=== PATIENT | male | born 1945 | race Caucasian/White ===

== ENCOUNTER 2017-04-27 14:55 | Inpatient (IN) | payer OTHER, MEDICARE ==
[~2017-04-27] VITALS: Ht 172.7 cm; Wt 97.4 kg
[~2017-04-27 14:55] MED LIST: ATEN-104 PO; ATOR20TA PO; BUME2TAB PO; IPRA17I INH; K-TA10TA5 PO; NORV10TA PO; QUIN20 PO; TERA5CAP3 PO; Z.0.OXYGENDME
[2017-04-27 14:56] VITALS: BP 178/117; PULSE 67; RESP 16; TEMP 97.8; O2SAT 89
[2017-04-27] MEDS ORDERED: FUROSEMIDE 40 MG/4 ML VIAL IV PUSH ONE (15:30)
[2017-04-27] MEDS ORDERED: DILTIAZEM HCL 25 MG/5 ML VIAL IV PUSH ONE (15:45)
[2017-04-27] MEDS ORDERED: FURO40TA PO (16:01)
[2017-04-27] MEDS ORDERED: LYRI50CA PO (16:01)
[2017-04-27] MEDS ORDERED: ASPI-516 CHEW (16:01)
[2017-04-27] MEDS ORDERED: METO100T PO (16:01)
[2017-04-27] MEDS ORDERED: XARE15TA PO (16:01)
[2017-04-27] MEDS ORDERED: OXYGEN NAS.CANULA (16:01)
[2017-04-27] MEDS ORDERED: MONT10TA4 PO (16:01)
[2017-04-27] MEDS ORDERED: LISI-519 PO (16:01)
[2017-04-27] MEDS ORDERED: FLUTI220I INH (16:01)
--- NOTE | 2017-04-27 16:31 | PD ---
HPI Chief Complaint: Respiratory Distress Time Seen by Provider: 15:13 Travel History International Travel<30 days: No Contact w/Intl Traveler<30days: No Traveled to known affect area: No History of Present Illness HPI Patient is a 72-year-old male who comes in complaining of shortness of breath. He says this has been going on for the past 2 days. He says he has had issues with this in the past, he was admitted to the hospital in [place] a few weeks ago and had a defibrillator placed. He says he has had issues with edema of his legs, and that seems to be worsening. He denies cough or cold. He denies fever or chills. He wears oxygen at home. He is unable to lay flat at night due to shortness of breath. He denies dyspnea on exertion. However, he says he cannot walk to the swelling in his legs. He denies any chest pain. He says he has been taking his medications as prescribed, but had some trouble getting one prescription and only received it yesterday. Severity is moderate. PFSH Past Medical History Atrial Fibrillation: Yes Blood Disorders: No Heart Rhythm Problems: Yes (ABLATION 2012) Cancer: No Cardiovascular Problems: Yes (CAD, CHF) High Cholesterol: Yes Chest Pain: Yes Congestive Heart Failure: Yes COPD: Yes Diabetes: No Endocrine: No Gastrointestinal Disorders: Yes GERD: Yes Glaucoma: No Genitourinary: Yes Hepatitis: No Hiatal Hernia: Yes Hypertension: Yes Immune Disorder: No Inguinal Hernia: Yes Implanted Vascular Access Dvce: Yes Musculoskeletal: No Neurologic: No Psychiatric: No Reproductive: No Respiratory: Yes (COPD) Integumentary: No Sleep Apnea: No Triglycerides - High: Yes Ulcer: No Tetanus Vaccination: Unknown Influenza Vaccination: No Past Surgical History Abdominal Surgery: No Cardiac Surgery: Yes (stent placement, ICD) Ear Surgery: No Endocrine Surgery: No Eye Surgery: No Genitourinary Surgery: No Gynecologic Surgery: No Oral Surgery: No Thoracic Surgery: No Other Surgery: Yes (HERNIA REPAIR) Social History Alcohol Use: Yes (2 BEERS ON THE WEEKENDS) Tobacco Use: No Substance Use: No Allergies-Medications (Allergen,Severity, Reaction): Coded Allergies: No Known Allergies (Unverified Adverse Reaction, Unknown, 04/27/17) Reported Meds & Prescriptions Reported Meds & Active Scripts Active Reported [Oxygen] 2 Liter RG.CANULA CONTINUOUS Lyrica (Pregabalin) 50 Mg Cap 50 Mg PO BID Xarelto (Rivaroxaban) 15 Mg Tab 15 Mg PO DAILY Montelukast (Montelukast Sodium) 10 Mg Tab 10 Mg PO DAILY Flovent Hfa 12 GM Inh (Fluticasone Propionate) 220 Mcg/Act Inh 2 Puff INH BID Use daily at the same time. Metoprolol Tartrate 100 Mg Tab 100 Mg PO DAILY Lisinopril 5 Mg Tab 5 Mg PO DAILY Aspirin 81 Mg Chew 81 Mg CHEW DAILY Furosemide 40 Mg Tab 40 Mg PO BID Review of Systems Except as stated in HPI: all other systems reviewed are Neg General / Constitutional: No: Fever, Chills HENT: No: Headaches, Lightheadedness Cardiovascular: No: Chest Pain or Discomfort Respiratory: Positive: Shortness of Breath Gastrointestinal: No: Nausea, Vomiting Musculoskeletal: Positive: Edema, No: Myalgias Skin: No Rash, No Change in Pigmentation Neurologic: No: Weakness, Dizziness Physical Exam Narrative GENERAL: Awake and alert, no acute distress. SKIN: Focused skin assessment warm/dry. HEAD: Atraumatic. Normocephalic. EYES: Pupils equal and round. No scleral icterus. ENT: Mucous membranes pink and moist. NECK: Trachea midline. No JVD. CARDIOVASCULAR: Regular rate and rhythm. No murmur appreciated. RESPIRATORY: No accessory muscle use. Crackles in the left lung base.. Breath sounds equal bilaterally. GASTROINTESTINAL: Abdomen soft, non-tender, nondistended. MUSCULOSKELETAL: No obvious deformities. No clubbing. No cyanosis. Large 3+ edema to bilateral lower extremities. NEUROLOGICAL: Awake and alert. No obvious cranial nerve deficits. Motor grossly within normal limits. Normal speech. PSYCHIATRIC: Appropriate mood and affect; insight and judgment normal. Data Data Last Documented VS Vital Signs Date Time Temp Pulse Resp B/P (MAP) Pulse Ox O2 Delivery O2 Flow Rate FiO2 04/27/17 16:51 93 18 137/90 (106) 93 Nasal Cannula 3.00 04/27/17 14:56 97.8 Orders Orders Complete Blood Count With Diff (04/27/17 15:02) Basic Metabolic Panel (Bmp) (04/27/17 15:02) B-Type Natriuretic Peptide (04/27/17 15:02) Act Partial Throm Time (Ptt) (04/27/17 15:02) Prothrombin Time / Inr (Pt) (04/27/17 15:02) Magnesium (Mg) (04/27/17 15:02) Ckmb (Isoenzyme) Profile (04/27/17 15:02) Troponin I (04/27/17 15:02) Electrocardiogram (04/27/17 15:02) Chest, Pa & Lat (04/27/17 15:02) Furosemide Inj (Lasix Inj) (04/27/17 15:30) Diltiazem Inj (Cardizem Inj) (04/27/17 15:45) Ct Thorax/ Chest Wo Iv Contras (04/27/17 ) Labs Laboratory Tests Test 04/27/17 15:45 White Blood Count 9.6 TH/MM3 Red Blood Count 3.44 MIL/MM3 Hemoglobin 10.1 GM/DL Hematocrit 30.3 % Mean Corpuscular Volume 88.0 FL Mean Corpuscular Hemoglobin 29.3 PG Mean Corpuscular Hemoglobin Concent 33.3 % Red Cell Distribution Width 14.5 % Platelet Count 303 TH/MM3 Mean Platelet Volume 7.2 FL Neutrophils (%) (Auto) 69.8 % Lymphocytes (%) (Auto) 17.4 % Monocytes (%) (Auto) 11.8 % Eosinophils (%) (Auto) 0.2 % Basophils (%) (Auto) 0.8 % Neutrophils # (Auto) 6.7 TH/MM3 Lymphocytes # (Auto) 1.7 TH/MM3 Monocytes # (Auto) 1.1 TH/MM3 Eosinophils # (Auto) 0.0 TH/MM3 Basophils # (Auto) 0.1 TH/MM3 CBC Comment DIFF FINAL Differential Comment Prothrombin Time 12.1 SEC Prothromb Time International Ratio 1.2 RATIO Activated Partial Thromboplast Time 25.7 SEC Blood Urea Nitrogen 17 MG/DL Creatinine 1.24 MG/DL Random Glucose 106 MG/DL Calcium Level 8.3 MG/DL Magnesium Level 1.7 MG/DL Sodium Level 138 MEQ/L Potassium Level 3.5 MEQ/L Chloride Level 98 MEQ/L Carbon Dioxide Level 33.5 MEQ/L Anion Gap 7 MEQ/L Estimat Glomerular Filtration Rate 57 ML/MIN Total Creatine Kinase 46 U/L Troponin I 0.05 NG/ML B-Type Natriuretic Peptide 1101 PG/ML MDM Medical Decision Making Medical Screen Exam Complete: Yes Emergency Medical Condition: Yes Medical Record Reviewed: Yes Interpretation(s) ECG shows A. fib with RVR at a rate of 121. Differential Diagnosis CHF exacerbation versus ACS versus an STEMI versus A. fib Narrative Course Patient is a 72 year old male who comes in complaining of SOB. Exam shows crackles at his lung bases. IV established, labs sent. Labs show a BNP of 1101. CXR shows edema. Last 24 hours Impressions Chest X-Ray 04/27/17 1502 Signed Impressions: Service Date/Time: April 16:13 - CONCLUSION: 1. Patchy airspace disease in the right hemithorax, some of which appear to be nodular in configuration. CT scan of the chest be performed for further characterization. 2. Linear densities in the left lingula characteristic of scarring or atelectasis. 3. Compensated cardiomegaly. There may be small effusions bilaterally, however with some blunting of the costophrenic angles. Uriel Irwin MD Given Lasix. Given 1 dose of Cardizem due to afib at a rate of 121, which controlled his rate. Will be admitted for further management. Diagnosis Primary Impression: CHF (congestive heart failure) Qualified Codes: I50.9 - Heart failure, unspecified Additional Impressions: Hypoxia Afib Qualified Codes: I48.2 - Chronic atrial fibrillation Admitting Information Admitting Physician Requests: Admit Taylor Guerra MD Apr 27, 2017 16:31
[2017-04-27 16:32] LABS: AUTOMATED NEUTROPHIL # 6.7 TH/MM3 (1.8-7.7); BASOPHIL # 0.1 TH/MM3 (0-0.2); BASOPHIL % 0.8 % (0.0-2.0); EOSINOPHIL % 0.2 % (0.0-4.0); HEMATOCRIT 30.3 % (39.0-51.0); HEMOGLOBIN 10.1 GM/DL (13.0-17.0); LYMPH % 17.4 % (9.0-44.0); LYMPHOCYTE # 1.7 TH/MM3 (1.0-4.8); MEAN CORPUSCULAR HEMOGLOBIN 29.3 PG (27.0-34.0); MEAN CORPUSCULAR HGB CONC 33.3 % (32.0-36.0); MEAN PLATELET VOLUME 7.2 FL (7.0-11.0); MONO % 11.8 % (0.0-8.0); MONOCYTE # 1.1 TH/MM3 (0-0.9); NEUT % 69.8 % (16.0-70.0); PLATELET COUNT 303 TH/MM3 (150-450); RED BLOOD COUNT 3.44 MIL/MM3 (4.50-5.90); RED CELL DISTRIBUTION WIDTH 14.5 % (11.6-17.2); WHITE BLOOD COUNT 9.6 TH/MM3 (4.0-11.0)
[2017-04-27 16:43] LABS: INTERNATIONAL NORMALIZED RATIO 1.2 RATIO; PROTHROMBIN TIME - PATIENT 12.1 SEC (9.8-11.6)
[2017-04-27 16:51] VITALS: BP 137/90; PULSE 93; RESP 18; O2SAT 93
[2017-04-27 16:55] LABS: BICARBONATE 33.5 MEQ/L (21.0-32.0); CALCIUM 8.3 MG/DL (8.5-10.1); CREATININE 1.24 MG/DL (0.60-1.30); MAGNESIUM 1.7 MG/DL (1.5-2.5)
[2017-04-27 16:58] LABS: TROPONIN I 0.05 NG/ML (0.02-0.05)
--- NOTE | 2017-04-27 16:59 | RADRPT ---
EXAM DATE/TIME: 04/27/2017 16:13 [facility] COMPARISON: No previous studies available for comparison. INDICATIONS : Short of breath. MEDICAL HISTORY : Congestive heart failure. SURGICAL HISTORY : Pacemaker. ENCOUNTER: Initial ACUITY: 2 days PAIN SCORE: 0/10 LOCATION: Bilateral chest FINDINGS: PA and lateral views of the chest demonstrate the lungs to be symmetrically aerated with no fluid den sities in the right hemithorax and linear atelectatic changes or scar like density in the left lingul a. Blunting of the costophrenic angles may represent small effusions. Heart size is prominent but saman ears to be well compensated. Degenerative spurring of the dorsal spine. Osseous structures are otherw ise intact. Left subclavian unipolar pacer is also intact. CONCLUSION: 1. Patchy airspace disease in the right hemithorax, some of which appear to be nodular in configurati on. CT scan of the chest be performed for further characterization. 2. Linear densities in the left lingula characteristic of scarring or atelectasis. 3. Compensated cardiomegaly. There may be small effusions bilaterally, however with some blunting of the costophrenic angles. Uriel Irwin MD on April 27, 2017 at 16:50 Board Certified Radiologist. This report was verified electronically.
--- NOTE | 2017-04-27 19:19 | HHI.HP ---
[facility] No Primary Care Physician Admission Diagnosis CHF exacerbation, afib Diagnoses: Travel History International Travel<30 Days: No Contact w/Intl Traveler <30 Da: No Traveled to Known Affected Are: No History of Present Illness hx from patient, ER MD and review of med records Reports he came because he was short of breath for past several days [place] 04[place]13 [facility] - admitted for 19 days was intubated for 2 days was managed for heart failure exacerbation was placed aicd ef was 20% did angiogram- radial right - no blockage vtach- no shocks cardioversion required has hx of afib s/p ablation 4 yrs ago stated all symptoms started 03/07 or so, had GI bleed - vomit blood and was in pain and thus also took lots of tylenol for pain he started getting sick after this, and family thinks that he was at a place where closet has lots of mold that time and breathing attacks started then family worried his recent decline and lung issues maybe due to that he has been seeing Dr Tirado for past 4 yrs or so and has been on home oxygen for about 2-3 yrs , but cousin and pt is not aware of any lung diagnosis on review of records, he did have PFT studies in 2013 with clear evidence of home oxygen need from walk test- on [employer] [address] last [place] to here only lasix 40mg po daily dose at home increased to bid by pcp 3 days ago, no improvement in dyspnea, and swelling otherwise, denies other symptoms Review of Systems Except as stated in HPI: all other systems reviewed are Neg Past Family Social History Past Medical History htn chf - 20% aicd afib on eliquis vtach copd on home oxygen for past 3 yrs - placed by Dr Tirado hematuria while in hospital in [place] in Mar Past Surgical History coronary angiogram aicd Allergies: Coded Allergies: No Known Allergies (Unverified Allergy, Unknown, 04/27/17) Family History brother- heart problems cousin- heart dx father- lung problems Social History used to smoke, quit in 1985 social drinker no drugs no longer driving now , lives alone here , with close by to cousin Physical Exam Vital Signs Vital Signs Date Time Temp Pulse Resp B/P (MAP) Pulse Ox O2 Delivery O2 Flow Rate FiO2 04/27/17 16:51 93 18 137/90 (106) 93 Nasal Cannula 3.00 04/27/17 16:47 84 18 Nasal Cannula 2.00 04/27/17 14:56 97.8 67 16 178/117 (137) 89 Nasal Cannula Physical Exam GENERAL: This is a well-nourished, well-developed patient, in no apparent distress. SKIN: No rashes, ecchymoses or lesions. Cool and dry. HEAD: Atraumatic. Normocephalic. No temporal or scalp tenderness. EYES: No scleral icterus. No injection or drainage. ENT: Nose without bleeding, purulent drainage or septal hematoma. Airway patent. NECK: Trachea midline. No JVD CARDIOVASCULAR: Regular rate and rhythm without murmurs, gallops, or rubs. RESPIRATORY: Bilateral basilar crepitations GASTROINTESTINAL: Abdomen soft, non-tender, nondistended. No guarding. MUSCULOSKELETAL: Extremities without clubbing, cyanosis No calf tenderness. Bilateral LE 3+ pitting edema up to mid humphrey NEUROLOGICAL: Awake and alert.. Motor and sensory grossly within normal limits. . Normal speech. Laboratory Laboratory Tests Test 04/27/17 15:45 White Blood Count 9.6 Red Blood Count 3.44 Hemoglobin 10.1 Hematocrit 30.3 Mean Corpuscular Volume 88.0 Mean Corpuscular Hemoglobin 29.3 Mean Corpuscular Hemoglobin Concent 33.3 Red Cell Distribution Width 14.5 Platelet Count 303 Mean Platelet Volume 7.2 Neutrophils (%) (Auto) 69.8 Lymphocytes (%) (Auto) 17.4 Monocytes (%) (Auto) 11.8 Eosinophils (%) (Auto) 0.2 Basophils (%) (Auto) 0.8 Neutrophils # (Auto) 6.7 Lymphocytes # (Auto) 1.7 Monocytes # (Auto) 1.1 Eosinophils # (Auto) 0.0 Basophils # (Auto) 0.1 CBC Comment DIFF FINAL Differential Comment Prothrombin Time 12.1 Prothromb Time International Ratio 1.2 Activated Partial Thromboplast Time 25.7 Blood Urea Nitrogen 17 Creatinine 1.24 Random Glucose 106 Calcium Level 8.3 Magnesium Level 1.7 Sodium Level 138 Potassium Level 3.5 Chloride Level 98 Carbon Dioxide Level 33.5 Anion Gap 7 Estimat Glomerular Filtration Rate 57 Total Creatine Kinase 46 Troponin I 0.05 B-Type Natriuretic Peptide 1101 Result Diagram: 04/27/17 1545 04/27/17 1545 Imaging Last 48 hours Impressions Chest X-Ray 04/27/17 1502 Signed Impressions: Service Date/Time: April 16:13 - CONCLUSION: 1. Patchy airspace disease in the right hemithorax, some of which appear to be nodular in configuration. CT scan of the chest be performed for further characterization. 2. Linear densities in the left lingula characteristic of scarring or atelectasis. 3. Compensated cardiomegaly. There may be small effusions bilaterally, however with some blunting of the costophrenic angles. MD Tiffanie Guthrie VTE Risk Assessment Tiffanie VTE Risk Assessment: Mod/High Risk (score >= 2) Caprini Risk Assessment Model Point Value = 1 Point Value = 2 Point Value = 3 Point Value = 5 Age 41-60 Minor surgery BMI > 25 kg/m2 Swollen legs Varicose veins or History of unexplained or recurrent spontaneous Oral contraceptives or hormone replacement Sepsis (< 1 month) Serious lung disease, including pneumonia (< 1 month) Abnormal pulmonary function Acute myocardial infarction Congestive heart failure (< 1 month) History of inflammatory bowel disease Medical patient at bed rest Age 61-74 Arthroscopic surgery Major open surgery (> 45 min) Laparoscopic surgery (> 45 min) Malignancy Confined to bed (> 72 hours) Immobilizing plaster cast Central venous access Age >= 75 History of VTE Family history of VTE Factor V Leiden Prothrombin [id number] Lupus anticoagulant Anticardiolipin antibodies Elevated serum homocysteine Heparin-induced thrombocytopenia Other congenital or acquired thrombophilia Stroke (< 1 month) Elective arthroplasty Hip, pelvis, or leg fracture Acute spinal cord injury (< 1 month) Prophylaxis Regimen Total Risk Factor Score Risk Level Prophylaxis Regimen 0-1 Low Early ambulation 2 Moderate Order ONE of the following: *Sequential Compression Device (SCD) *Heparin 5000 units SQ BID 3-4 Higher Order ONE of the following medications: *Heparin 5000 units SQ TID *Enoxaparin/Lovenox 40 mg SQ daily (WT < 150 kg, CrCl > 30 mL/min) *Enoxaparin/Lovenox 30 mg SQ daily (WT < 150 kg, CrCl > 10-29 mL/min) *Enoxaparin/Lovenox 30 mg SQ BID (WT < 150 kg, CrCl > 30 mL/min) AND/OR *Sequential Compression Device (SCD) 5 or more Highest Order ONE of the following medications: *Heparin 5000 units SQ TID (Preferred with Epidurals) *Enoxaparin/Lovenox 40 mg SQ daily (WT < 150 kg, CrCl > 30 mL/min) *Enoxaparin/Lovenox 30 mg SQ daily (WT < 150 kg, CrCl > 10-29 mL/min) *Enoxaparin/Lovenox 30 mg SQ BID (WT < 150 kg, CrCl > 30 mL/min) AND *Sequential Compression Device (SCD) Assessment and Plan Assessment and Plan Impression: symptomatic acute on chronic systolic heart failure. failed outpatient therapy with increase in po lasix dose mild hypokalemia recent prolonged travel recent intubation Bilateral pneumonia. Hospital acquired/ventilator associated htn chf - 20% aicd afib on eliquis vtach copd on home oxygen for past 3 yrs - placed by Dr Candida lema while in hospital in [place] in Mar Plan: Lasix 40 mg IV every 12 hours. Fluid restriction. COPD education. Heart failure education. Lipase 40 mEq of by mouth at bedtime and one dose now. Ultrasound of the lower extremities. Clinical suspicion low. He is on anticoagulation at home. However with recent prolonged travel. Start cefepime 2 g IV every 12 hours. Consult patient's adjunct faculty instructor. Obtain records from [facility] in [place]. Resume rest of home meds. DVT prophylaxis on Xarelto. Discussed Condition With patient, cousin who is a retired physician in her country [facility], and ER Physician Certification 2 Midnight Certification Type: Admission for Inpatient Services Order for Inpatient Services The services are ordered in accordance with Medicare regulations or non- Medicare payer requirements, as applicable. In the case of services not specified as inpatient-only, they are appropriately provided as inpatient services in accordance with the 2-midnight benchmark. Estimated LOS (days): 2 days is the estimated time the patient will need to remain in the hospital, assuming treatment plan goals are met and no additional complications. Post-Hospital Plan: Not yet determined Linda De La Cruz MD Apr 27, 2017 19:19
--- NOTE | 2017-04-27 19:30 | RADRPT ---
EXAM DATE/TIME: 04/27/2017 18:53 [facility] COMPARISON: CT THORAX W CONTRAST, March 03, 2015, 17:52. INDICATIONS : Shortness of breath. Abnormal chest radiograph. RADIATION DOSE: 16.79 CTDIvol (mGy) MEDICAL HISTORY : Cardiovascular disease. Hypertension. Chronic obstructive pulmonary disease. SURGICAL HISTORY : Pacemaker. ENCOUNTER: Initial ACUITY: 1 day PAIN SCALE: 0/10 LOCATION: chest TECHNIQUE: Volumetric scanning of the chest was performed. Using automated exposure control and adjustment of t he mA and/or kV according to patient size, radiation dose was kept as low as reasonably achievable to obtain optimal diagnostic quality images. DICOM format image data is available electronically for r eview and comparison. Follow-up recommendations for detected pulmonary nodules are based at a minimum on nodule size and pa tient risk factors according to Fleischner Society Guidelines. FINDINGS: Patchy nodular infiltrates seen of both lungs, right greater the left and mid lung predominant. Indiv idual areas of consolidation measure up to 4.5 cm in size. There is bilateral hilar fullness, right m ore so than left. There is a 15 x 18 mm pretracheal lymph node that is much larger than before. Tiny right pleural effusion. No pneumothorax. There is panchamber enlargement of the heart, worse than before. Cardiac pacer present. CONCLUSION: 1. Patchy pneumonia of both lungs, mostly the mid lungs and right worse than left. 2. Suspected bilateral hilar lymphadenopathy, difficult to fully evaluate without contrast. Also mild ly enlarged mediastinal lymph nodes. 3. Panchamber enlargement of the heart, considerably worse than back in 2015. A cardiac pacer is now present. Chucky Desouza MD on April 27, 2017 at 19:23 Board Certified Radiologist. This report was verified electronically.
[2017-04-27] MEDS ORDERED: NALOXONE HCL 0.4 MG/ML AMP IV PUSH PRN (19:45)
[2017-04-27] MEDS ORDERED: POTASSIUM CHLORIDE 20 MEQ CONTROLLED RELEASE TAB PO ONE (19:45)
[2017-04-27] MEDS ORDERED: SODIUM CHLORIDE 0.9% FLUSH 10 ML FLUSH IV FLUSH PRN (19:45)
[2017-04-27 19:54] VITALS: BP 142/99; PULSE 110; RESP 24; O2SAT 98
--- NOTE | 2017-04-27 20:03 | RADRPT ---
EXAM DATE/TIME: 04/27/2017 19:27 [facility] COMPARISON: No previous studies available for comparison. INDICATIONS : Bilateral leg swelling. MEDICAL HISTORY : Congestive heart failure. Hypertension. Chronic obstructive pulmonary disease. Glasses. Atrial fibril lation. Hyperlipidemia. Dyspnea. Hypercholestrolemia. Atrial Fibrillation. Hiatal hernia. SURGICAL HISTORY : Stent placement. Cardiac ablation. ENCOUNTER: Initial ACUITY: 1 day PAIN SCORE: 3/10 LOCATION: Bilateral legs. TECHNIQUE: Venous ultrasound of the left and right leg was performed from the inguinal ligament to the proximal calf. Real-time, color Doppler and spectral tracing, compression and augmentation techniques were us ed. FINDINGS: RIGHT LEG: There is normal compressibility of the deep venous system from the inguinal region to the proximal ca lf. No echogenic clot is seen in the lumen of the common femoral, femoral, popliteal, and posterior tibial veins. There is a normal response of the venous system to proximal and distal augmentation an d respiration. LEFT LEG: There is normal compressibility of the deep venous system from the inguinal region to the proximal ca lf. No echogenic clot is seen in the lumen of the common femoral, femoral, popliteal, and posterior tibial veins. There is a normal response of the venous system to proximal and distal augmentation an d respiration. CONCLUSION: No DVT demonstrated. Chucky Desouza MD on April 27, 2017 at 20:00 Board Certified Radiologist. This report was verified electronically.
[2017-04-27] MEDS ORDERED: DILTIAZEM HCL 60 MG TAB PO ONE (20:45)
[2017-04-27 21:13] VITALS: BP 117/76; PULSE 107; RESP 20; TEMP 99; O2SAT 92
[2017-04-27 22:00] VITALS: PULSE 115
[2017-04-27] MEDS: FLUTICASONE PROPIONATE 220 MCG/ACT 12 GM INHALER INH SCH (22:21)
[2017-04-27] MEDS: PREGABALIN 25 MG CAP PO SCH (22:21)
[2017-04-27] MEDS: SODIUM CHLORIDE 0.9% FLUSH 10 ML FLUSH IV FLUSH SCH (22:22)
[2017-04-27] MEDS: CEFEPIME INJ 2,000 MG in SODIUM CHLORIDE 0.9% INJ 100 ML IV SCH (22:22)
[2017-04-28] VITALS (8 sets, daily range): BP systolic 108–162; BP diastolic 77–99; PULSE 85–131; RESP 20–22; TEMP 97.9–99.8; O2SAT 90–96
[2017-04-28] MEDS ORDERED: FUROSEMIDE 40 MG/4 ML VIAL IV PUSH ONE (02:30)
[2017-04-28] MEDS ORDERED: POTASSIUM CHLORIDE 20 MEQ CONTROLLED RELEASE TAB PO ONE (02:30)
[2017-04-28] MEDS ORDERED: RESP: ALBUTEROL 2.5 MG/IPRATROPIUM 0.5 MG NEB (PRN) NEB (02:30)
[2017-04-28] MEDS: RESP: ALBUTEROL 2.5 MG/IPRATROPIUM 0.5 MG NEB (SCH) NEB ×4 (03:32→20:58)
[2017-04-28 06:19] LABS: AUTOMATED NEUTROPHIL # 6.2 TH/MM3 (1.8-7.7); BASOPHIL # 0.1 TH/MM3 (0-0.2); BASOPHIL % 0.8 % (0.0-2.0); EOSINOPHIL % 0.4 % (0.0-4.0); HEMATOCRIT 31.9 % (39.0-51.0); HEMOGLOBIN 10.7 GM/DL (13.0-17.0); LYMPH % 12.2 % (9.0-44.0); MEAN CELL VOLUME 87.6 FL (80.0-100.0); MEAN CORPUSCULAR HEMOGLOBIN 29.4 PG (27.0-34.0); MEAN CORPUSCULAR HGB CONC 33.5 % (32.0-36.0); MEAN PLATELET VOLUME 7.1 FL (7.0-11.0); MONO % 12.4 % (0.0-8.0); NEUT % 74.2 % (16.0-70.0); PLATELET COUNT 282 TH/MM3 (150-450); RED BLOOD COUNT 3.64 MIL/MM3 (4.50-5.90); RED CELL DISTRIBUTION WIDTH 14.5 % (11.6-17.2); WHITE BLOOD COUNT 8.4 TH/MM3 (4.0-11.0)
[2017-04-28 06:38] LABS: CALCIUM 8.5 MG/DL (8.5-10.1); CREATININE 1.14 MG/DL (0.60-1.30)
[2017-04-28] MEDS: ASPIRIN 81 MG CHEW TAB CHEW SCH (08:12)
[2017-04-28] MEDS: PREGABALIN 25 MG CAP PO SCH ×2 (08:13→20:51)
[2017-04-28] MEDS: FUROSEMIDE 40 MG/4 ML VIAL IV PUSH SCH ×2 (08:13→17:43)
[2017-04-28] MEDS: RIVAROXABAN 15 MG TAB PO SCH (08:14)
[2017-04-28] MEDS: CEFEPIME INJ 2,000 MG in SODIUM CHLORIDE 0.9% INJ 100 ML IV SCH ×2 (08:14→20:50)
[2017-04-28] MEDS: METOPROLOL TARTRATE 100 MG TAB PO SCH (08:14)
[2017-04-28] MEDS: FLUTICASONE PROPIONATE 220 MCG/ACT 12 GM INHALER INH SCH ×2 (08:14→20:50)
[2017-04-28] MEDS: LISINOPRIL 5 MG TAB PO SCH (08:14)
[2017-04-28] MEDS: MONTELUKAST SODIUM 10 MG TAB PO SCH (08:14)
[2017-04-28] MEDS: SODIUM CHLORIDE 0.9% FLUSH 10 ML FLUSH IV FLUSH SCH ×2 (08:14→20:51)
[2017-04-28] MEDS: POTASSIUM CHLORIDE 20 MEQ CONTROLLED RELEASE TAB PO SCH (08:53)
--- NOTE | 2017-04-28 11:05 | HHI.PR ---
Subjective Remarks Follow-up pneumonia and heart failure. Improving shortness of breath. Denies cough. Discussed with nursing Objective Vitals Vital Signs Date Time Temp Pulse Resp B/P (MAP) Pulse Ox O2 Delivery O2 Flow Rate FiO2 04/28/17 08:45 Nasal Cannula 4.00 04/28/17 08:31 Nasal Cannula 4.00 04/28/17 08:00 98.1 94 22 161/99 (119) 95 04/28/17 08:00 85 04/28/17 04:00 131 04/28/17 04:00 99.8 89 20 162/94 (116) 90 04/28/17 03:36 92 Nasal Cannula 3.00 04/28/17 00:00 120 04/28/17 00:00 99.6 106 20 129/94 (106) 90 04/27/17 23:21 16 04/27/17 22:00 115 04/27/17 21:13 99.0 107 20 117/76 (90) 92 04/27/17 20:59 04/27/17 19:54 110 24 142/99 (113) 98 Nasal Cannula 3.00 04/27/17 16:51 93 18 137/90 (106) 93 Nasal Cannula 3.00 04/27/17 16:47 84 18 Nasal Cannula 2.00 04/27/17 14:56 97.8 67 16 178/117 (137) 89 Nasal Cannula I/O 04/27/17 04/27/17 04/27/17 04/28/17 04/28/17 04/28/17 07:00 15:00 23:00 07:00 15:00 23:00 Intake Total 100 ml 240 ml Balance 100 ml 240 ml Intake Oral 240 ml IV Total 100 ml # Voids 2 Result Diagram: 04/28/17 0531 04/28/17 0531 Imaging Last Impressions Chest X-Ray 04/27/17 1502 Signed Impressions: Service Date/Time: April 16:13 - CONCLUSION: 1. Patchy airspace disease in the right hemithorax, some of which appear to be nodular in configuration. CT scan of the chest be performed for further characterization. 2. Linear densities in the left lingula characteristic of scarring or atelectasis. 3. Compensated cardiomegaly. There may be small effusions bilaterally, however with some blunting of the costophrenic angles. Uriel Irwin MD Lower Extremity Ultrasound 04/27/17 Signed Impressions: Service Date/Time: April 19:27 - CONCLUSION: No DVT demonstrated. Chucky Desouza MD Chest CT 04/27/17 Signed Impressions: Service Date/Time: April 18:53 - CONCLUSION: 1. Patchy pneumonia of both lungs, mostly the mid lungs and right worse than left. 2. Suspected bilateral hilar lymphadenopathy, difficult to fully evaluate without contrast. Also mildly enlarged mediastinal lymph nodes. 3. Panchamber enlargement of the heart, considerably worse than back in 2015. A cardiac pacer is now present. Chucky Desouza MD Objective Remarks GENERAL: This is a well-nourished, well-developed patient, in no apparent distress on nasal. SKIN: No rashes, ecchymoses or lesions. Cool and dry. CARDIOVASCULAR: Regular rate and rhythm without murmurs, gallops, or rubs. RESPIRATORY: Decreased Breath sounds equal bilaterally. No wheezes, rales, or rhonchi. GASTROINTESTINAL: Abdomen soft, non-tender, nondistended. No guarding. MUSCULOSKELETAL: Extremities without clubbing, cyanosis but with bilateral trace leg edema. No joint tenderness, effusion, or edema noted. No calf tenderness. Negative Homans sign bilaterally. NEUROLOGICAL: Awake and alert. Cranial nerves II through XII intact. Motor and sensory grossly within normal limits. Five out of 5 muscle strength in all muscle groups. Normal speech. Procedures none A/P Problem List: (1) PNA (pneumonia) ICD Code: J18.9 - PNA (pneumonia) Status: Acute Assessment and Plan Acute on chronic systolic heart failure with failed outpatient therapy. Continue IV diuresis, CHF education, I/O and monitor weight and follow-up echocardiogram Bilateral pneumonia with sepsis. Hospital acquired/ventilator associated. Add Zithromax to Cefepime check influenza A, urinary Legionella and pneumococcal antigen and sputum culture. Obtain pro-calcitonin. Patient has hilar lymphadenopathy needs outpatient follow-up for resolution after treatment of infection. Patient has a technical agronomist Hypokalemia. Replace aggressively Multiple medical problems of chronic respiratory failure on home oxygen, hypertension, AICD history of V. tach and A. fib on Eliquis PT eval Discharge Planning Per PT will need a walker. Can be discharged home without PT Abando,Peña Jimenez MD Apr 28, 2017 11:05
[2017-04-28] MEDS: AZITHROMYCIN 250 MG TAB PO SCH (11:32)
[2017-04-28 12:34] LABS: MAGNESIUM 1.6 MG/DL (1.5-2.5)
--- NOTE | 2017-04-28 14:26 | EKG ---
Date Performed: 04/27/2017 Time Performed: 15:38:40 PTAGE: 72 years EKG: ATRIAL FIBRILLATION WITH RAPID VENTRICULAR RESPONSE ABNORMAL RHYTHM ECG Compared to PREVIOUS TRACING , the patient has developed new onset atrial fibrillation with a rapid v entricular response. PREVIOUS TRACIN03/03/2015 13.30 DOCTOR: Catherine Junior Interpretating Date/Time 04/28/2017 14:25:14
[2017-04-29] VITALS (10 sets, daily range): BP systolic 109–148; BP diastolic 67–89; PULSE 64–141; RESP 18–20; TEMP 97.8–101.2; O2SAT 92–96
[2017-04-29] MEDS ORDERED: ACETAMINOPHEN 325 MG TAB PO PRN (00:45)
--- NOTE | 2017-04-29 02:19 | RADRPT ---
EXAM DATE/TIME: 04/29/2017 01:39 [facility] COMPARISON: CHEST SINGLE AP, March 03, 2015, 14:14. INDICATIONS : Fever MEDICAL HISTORY : Congestive heart failure. SURGICAL HISTORY : Pacemaker. ENCOUNTER: Subsequent ACUITY: 3 days PAIN SCORE: 8/10 LOCATION: Bilateral chest FINDINGS: A single view of the chest demonstrates cardiomegaly. Mild basilar airspace disease. No pneumothorax. Small pleural effusions. CONCLUSION: 1. Mild basilar airspace disease. Differential diagnosis includes bronchopneumonia in patient with fe jj. Small effusions. Cardiomegaly. Mark Wallace MD on April 29, 2017 at 2:16 Board Certified Radiologist. This report was verified electronically.
[2017-04-29 02:54] LABS: AUTOMATED NEUTROPHIL # 6.7 TH/MM3 (1.8-7.7); BASOPHIL # 0.1 TH/MM3 (0-0.2); BASOPHIL % 0.6 % (0.0-2.0); EOSINOPHIL # 0.1 TH/MM3 (0-0.4); EOSINOPHIL % 0.8 % (0.0-4.0); HEMATOCRIT 32.1 % (39.0-51.0); HEMOGLOBIN 10.6 GM/DL (13.0-17.0); LYMPH % 9.3 % (9.0-44.0); LYMPHOCYTE # 0.8 TH/MM3 (1.0-4.8); MEAN CELL VOLUME 88.6 FL (80.0-100.0); MEAN CORPUSCULAR HEMOGLOBIN 29.1 PG (27.0-34.0); MEAN CORPUSCULAR HGB CONC 32.9 % (32.0-36.0); MEAN PLATELET VOLUME 7.2 FL (7.0-11.0); MONO % 12.3 % (0.0-8.0); MONOCYTE # 1.1 TH/MM3 (0-0.9); PLATELET COUNT 286 TH/MM3 (150-450); RED BLOOD COUNT 3.62 MIL/MM3 (4.50-5.90); RED CELL DISTRIBUTION WIDTH 14.6 % (11.6-17.2); WHITE BLOOD COUNT 8.7 TH/MM3 (4.0-11.0)
[2017-04-29 03:07] LABS: BICARBONATE 37.1 MEQ/L (21.0-32.0); CALCIUM 8.7 MG/DL (8.5-10.1); CREATININE 1.16 MG/DL (0.60-1.30); MAGNESIUM 1.6 MG/DL (1.5-2.5)
[2017-04-29] MEDS ORDERED: IBUPROFEN 400 MG TAB PO ONE (03:30)
[2017-04-29] MEDS: RESP: ALBUTEROL 2.5 MG/IPRATROPIUM 0.5 MG NEB (SCH) NEB ×4 (03:35→20:53)
[2017-04-29] MEDS: DILTIAZEM INJ 125 MG in SODIUM CHLORIDE 0.9% INJ 100 ML IV PRN (03:58)
--- NOTE | 2017-04-29 07:07 | MB ---
cc: ALEK ALMEIDA TWETHIDA MD DATE OF CONSULTATION 04/28/[address] De La Cruz. REASON FOR CONSULTATION Pulmonary management. HISTORY OF PRESENT ILLNESS Mr. Benavides is an elderly male who is known to me from the office. He has a history of COPD. The patient was seen in the office yesterday and he was having more shortness of breath and was advised to come to the emergency room. He does have a longstanding history of COPD and uses oxygen all the time. He went to [place] to see his family. He was admitted there to the hospital and remained in the hospital for three weeks. He was on the vent. He had ventricular tachycardia and required AICD placement. He has shortness of breath. No fevers. No night sweats. No chest pain. LABORATORY CBC showed WBC count 8.4, hemoglobin 10.7, hematocrit 31.9, MCV 87, platelet count 282. Sodium 139, potassium 3.4, chloride 90, CO2 36, BUN 19, creatinine 1.14. INR 1.2. IMAGING His CT scan of the chest shows patchy pneumonia in both lungs and has enlargement of the heart. Ultrasound of the lower extremities shows no DVT. PAST MEDICAL HISTORY 1. COPD. 2. Recent ventricular tachycardia, ICD placement. 3. Hypertension. MEDICATIONS He is currently takin. Zithromax 500 mg daily. 2. Aspirin 81 mg a day. 3. Lisinopril 5 mg a day. 4. Metoprolol 100 mg a day. 5. Singulair 10 mg a day. 6. Xarelto 15 mg a day. 7. Lasix 40 mg IV. 8. Potassium supplement. 9. Albuterol/Atrovent nebulizer treatments. 10.Cefepime 2 grams q.12h. ALLERGIES No known drug allergies. SOCIAL HISTORY He lives with his niece, has a history of smoking in the past. FAMILY HISTORY Noncontributory. REVIEW OF SYSTEMS He walks short distances and gets short of breath. No stroke. No DVT or pulmonary embolism. PHYSICAL EXAMINATION GENERAL: An obese male mildly short of breath. VITAL SIGNS: Blood pressure 140/86, heart rate 118, respirations 20, temperature 98.6. HEENT: Pupils are equal and reactive to light. Oral mucosa and nasal mucosa are normal. NECK: Supple. JVP not raised. CHEST: He has basilar rales and expiratory rhonchi. CV: S1, S2 normal. ABDOMEN: Benign. EXTREMITIES: 1+ pedal edema. IMPRESSION 1. COPD with exacerbation. 2. Pneumonia. 3. Respiratory insufficiency. 4. Recent AICD placement. 5. Obesity. PLAN Will give antibiotics and aerosol treatment, supplement his oxygen, continue Xarelto, monitor his oxygen. Will also check his blood gas. Further treatment will depend on the course in the hospital. Thank you Dr. De La Cruz for this consult. MD DELLA Drew/BT /9:44 PM /6:35 AM
[2017-04-29] MEDS: CEFEPIME INJ 2,000 MG in SODIUM CHLORIDE 0.9% INJ 100 ML IV SCH ×2 (08:24→20:44)
[2017-04-29] MEDS: RIVAROXABAN 15 MG TAB PO SCH (08:30)
[2017-04-29] MEDS: ASPIRIN 81 MG CHEW TAB CHEW SCH (08:30)
[2017-04-29] MEDS: METOPROLOL TARTRATE 100 MG TAB PO SCH (08:31)
[2017-04-29] MEDS: FUROSEMIDE 40 MG/4 ML VIAL IV PUSH SCH ×2 (08:31→18:27)
[2017-04-29] MEDS: POTASSIUM CHLORIDE 20 MEQ CONTROLLED RELEASE TAB PO SCH (08:31)
[2017-04-29] MEDS: LISINOPRIL 5 MG TAB PO SCH (08:31)
[2017-04-29] MEDS: MONTELUKAST SODIUM 10 MG TAB PO SCH (08:31)
[2017-04-29] MEDS: FLUTICASONE PROPIONATE 220 MCG/ACT 12 GM INHALER INH SCH ×2 (08:32→20:48)
[2017-04-29] MEDS: SODIUM CHLORIDE 0.9% FLUSH 10 ML FLUSH IV FLUSH SCH ×2 (08:32→20:48)
[2017-04-29] MEDS: PREGABALIN 25 MG CAP PO SCH ×2 (08:39→20:43)
[2017-04-29 11:27] LABS: BILIRUBIN, URINE NEG (NEG); BLOOD, URINE NEG (NEG); GLUCOSE,URINE NEG (NEG); HYALINE CAST, URINE 3 /lpf (RARE); KETONE, URINE TRACE mg/dL (NEG); MUCUS URINE FEW /lpf (OCC); NITRITE,URINE NEG (NEG); PH, URINE 5.5 (5.0-8.5); SQUAMOUS EPITHELIAL CELL URINE <1 /hpf (0-5); URINE COLOR YELLOW (YELLW/STRAW); URINE LEUKOCYTE ESTERASE NEG (NEG)
[2017-04-29] MEDS: AZITHROMYCIN 250 MG TAB PO SCH (11:41)
[2017-04-29] MEDS ORDERED: VANCOMYCIN INJ 1,950 MG in SODIUM CHLORID 0.9% 500 ML INJ 500 ML IV ONE (14:30)
[2017-04-29] MEDS ORDERED: Vancomycin Consult Pharmacy 1 EA OTHER PRN (14:30)
--- NOTE | 2017-04-29 14:36 | HHI.PR ---
Subjective Remarks Follow-up pneumonia. T-max 102. Patient also went into RVR, Cardizem drip started. Currently denies chest pain, palpitations shortness of breath on nasal cannula. Discussed with nursing and pulmonary Objective Vitals Vital Signs Date Time Temp Pulse Resp B/P (MAP) Pulse Ox O2 Delivery O2 Flow Rate FiO2 04/29/17 12:00 98.0 100 20 109/69 (82) 95 04/29/17 09:43 Nasal Cannula 4.00 04/29/17 08:00 98.4 64 18 139/72 (94) 95 04/29/17 04:00 98.8 70 18 115/71 (86) 92 04/29/17 04:00 141 04/29/17 03:58 78 115/71 04/29/17 02:00 101.2 04/29/17 00:20 93 Nasal Cannula 4.00 04/29/17 00:00 134 04/28/17 20:00 98.6 118 20 140/86 (104) 93 04/28/17 20:00 93 Nasal Cannula 4.00 04/28/17 20:00 117 04/28/17 16:00 97.9 87 20 108/77 (87) 96 04/28/17 16:00 93 04/28/17 15:21 94 Nasal Cannula 4.00 I/O 04/28/17 04/28/17 04/28/17 04/29/17 04/29/17 04/29/17 07:00 15:00 23:00 07:00 15:00 23:00 Intake Total 240 ml 580 ml Balance 240 ml 580 ml Intake Oral 240 ml 480 ml IV Total 100 ml # Voids 2 4 Result Diagram: 04/29/17 0231 04/29/17 0231 Imaging Last Impressions Chest X-Ray 04/29/17 0134 Signed Impressions: Service Date/Time: Saturday, April 29, 2017 01:39 - CONCLUSION: 1. Mild basilar airspace disease. Differential diagnosis includes bronchopneumonia in patient with fever. Small effusions. Cardiomegaly. Mark Wallace MD Lower Extremity Ultrasound 04/27/17 0000 Signed Impressions: Service Date/Time: April 19:27 - CONCLUSION: No DVT demonstrated. Chucky Desouza MD Chest CT 04/27/17 0000 Signed Impressions: Service Date/Time: April 18:53 - CONCLUSION: 1. Patchy pneumonia of both lungs, mostly the mid lungs and right worse than left. 2. Suspected bilateral hilar lymphadenopathy, difficult to fully evaluate without contrast. Also mildly enlarged mediastinal lymph nodes. 3. Panchamber enlargement of the heart, considerably worse than back in 2015. A cardiac pacer is now present. Chucky Desouza MD Objective Remarks GENERAL: This is a well-nourished, well-developed patient, in no apparent distress on nasal. SKIN: No rashes, ecchymoses or lesions. Cool and dry. CARDIOVASCULAR: Irregularly irregular without murmurs, gallops, or rubs. RESPIRATORY: Decreased Breath sounds equal bilaterally. No wheezes, rales, or rhonchi. AICD on the left chest wall GASTROINTESTINAL: Abdomen soft, non-tender, nondistended. No guarding. MUSCULOSKELETAL: Extremities without clubbing, cyanosis but with bilateral trace leg edema. No joint tenderness, effusion, or edema noted. No calf tenderness. Negative Homans sign bilaterally. NEUROLOGICAL: Awake and alert. Cranial nerves II through XII intact. Motor and sensory grossly within normal limits. Five out of 5 muscle strength in all muscle groups. Normal speech. Procedures none A/P Problem List: (1) PNA (pneumonia) ICD Code: J18.9 - PNA (pneumonia) Status: Acute Assessment and Plan Acute on chronic systolic heart failure with failed outpatient therapy. Improving he is diuresing and losing weight. Continue IV diuresis, CHF education, I/O and monitor weight Bilateral pneumonia with sepsis. Hospital acquired/ventilator associated. Patient continues to have fever spikes will add IV vancomycin to Zithromax and cefepime. Negative influenza A, urinary Legionella and pneumococcal antigen. Patient has hilar lymphadenopathy needs outpatient follow-up for resolution after treatment of infection. Patient has a career technical supervisor Hypokalemia. Replace aggressively A. fib with RVR. Increase Lopressor to 75 mg twice a day and wean Cardizem drip Heart rate less than 100 continue Xarelto. Multiple medical problems of chronic respiratory failure on home oxygen, hypertension and AICD history of V. tach Discharge Planning Per PT will need a walker. Can be discharged home without PT Peña Guillaume MD Apr 29, 2017 14:36
[2017-04-29] MEDS: VANCOMYCIN INJ 1,750 MG in SODIUM CHLORID 0.9% 500 ML INJ 500 ML IV SCH (16:21)
[2017-04-29] MEDS ORDERED: MAGNESIUM HYDROXIDE SUSP 30 ML CUP PO ONE (20:30)
[2017-04-29] MEDS: METOPROLOL TARTRATE 50 MG TAB PO SCH (20:43)
[2017-04-29] MEDS: methylPREDNISolone SOD SUCC 40 MG/1 ML VIAL IV PUSH SCH (20:43)
[2017-04-29] MEDS: DOCUSATE SODIUM 100 MG CAP PO SCH (20:48)
[2017-04-30] VITALS (11 sets, daily range): BP systolic 116–143; BP diastolic 73–99; PULSE 69–109; RESP 16–20; TEMP 97.8–98.3; O2SAT 93–94
[2017-04-30] MEDS: RESP: ALBUTEROL 2.5 MG/IPRATROPIUM 0.5 MG NEB (SCH) NEB ×4 (02:53→21:37)
[2017-04-30] MEDS: PREGABALIN 25 MG CAP PO SCH ×2 (09:13→20:53)
[2017-04-30] MEDS: POTASSIUM CHLORIDE 20 MEQ CONTROLLED RELEASE TAB PO SCH (09:14)
[2017-04-30] MEDS: DOCUSATE SODIUM 100 MG CAP PO SCH ×2 (09:14→20:53)
[2017-04-30] MEDS: RIVAROXABAN 15 MG TAB PO SCH (09:14)
[2017-04-30] MEDS: LISINOPRIL 5 MG TAB PO SCH (09:14)
[2017-04-30] MEDS: ASPIRIN 81 MG CHEW TAB CHEW SCH (09:14)
[2017-04-30] MEDS: METOPROLOL TARTRATE 50 MG TAB PO SCH ×2 (09:15→20:53)
[2017-04-30] MEDS: methylPREDNISolone SOD SUCC 40 MG/1 ML VIAL IV PUSH SCH ×2 (09:15→20:54)
[2017-04-30] MEDS: FUROSEMIDE 40 MG/4 ML VIAL IV PUSH SCH (09:15)
[2017-04-30] MEDS: SODIUM CHLORIDE 0.9% FLUSH 10 ML FLUSH IV FLUSH SCH ×2 (09:15→20:54)
[2017-04-30] MEDS: CEFEPIME INJ 2,000 MG in SODIUM CHLORIDE 0.9% INJ 100 ML IV SCH ×2 (09:16→20:53)
[2017-04-30] MEDS: FLUTICASONE PROPIONATE 220 MCG/ACT 12 GM INHALER INH SCH ×2 (09:16→20:54)
[2017-04-30] MEDS: MONTELUKAST SODIUM 10 MG TAB PO SCH (09:16)
[2017-04-30 09:35] LABS: CREATININE 1.18 MG/DL (0.60-1.30); MAGNESIUM 2.3 MG/DL (1.5-2.5)
[2017-04-30] MEDS: AZITHROMYCIN 250 MG TAB PO SCH (12:27)
[2017-04-30] MEDS: DILTIAZEM INJ 125 MG in SODIUM CHLORIDE 0.9% INJ 100 ML IV PRN (14:00)
--- NOTE | 2017-04-30 14:19 | HHI.PR ---
Subjective Remarks Follow-up pneumonia and A. fib. He is feeling better improving shortness of breath. No fever. Patient was taken off Cardizem drip but was restarted because of RVR denies palpitations. Last echocardiogram in January [address] Dueñas. Discussed with nursing Objective Vitals Vital Signs Date Time Temp Pulse Resp B/P (MAP) Pulse Ox O2 Delivery O2 Flow Rate FiO2 04/30/17 14:00 145 143/99 04/30/17 12:00 98.2 82 20 143/99 (114) 93 04/30/17 10:06 94 Nasal Cannula 4.00 04/30/17 08:00 80 04/30/17 08:00 97.8 88 20 121/75 (90) 94 04/30/17 07:00 Nasal Cannula 2.00 04/30/17 04:00 Nasal Cannula 4.00 04/30/17 04:00 98.0 106 18 127/92 (104) 93 04/30/17 03:44 94 04/30/17 00:00 98.3 109 16 116/83 (94) 94 04/30/17 00:00 Nasal Cannula 4.00 04/29/17 23:41 99 04/29/17 20:53 Nasal Cannula 4.00 04/29/17 20:00 99.1 96 18 148/89 (108) 96 04/29/17 20:00 Nasal Cannula 4.00 04/29/17 19:43 101 04/29/17 16:00 93 04/29/17 16:00 97.8 95 20 121/67 (85) 93 I/O 04/29/17 04/29/17 04/29/17 04/30/17 04/30/17 04/30/17 07:00 15:00 23:00 07:00 15:00 23:00 Intake Total 100 ml 860 ml Output Total 400 ml Balance 100 ml 860 ml -400 ml Intake Oral 200 ml IV Total 100 ml 660 ml Output Urine Total 400 ml Result Diagram: 04/29/17 0231 04/30/17 0709 Imaging Last Impressions Chest X-Ray 04/29/17 0134 Signed Impressions: Service Date/Time: Saturday, April 29, 2017 01:39 - CONCLUSION: 1. Mild basilar airspace disease. Differential diagnosis includes bronchopneumonia in patient with fever. Small effusions. Cardiomegaly. Mark Wallace MD Lower Extremity Ultrasound 04/27/17 Signed Impressions: Service Date/Time: April 19:27 - CONCLUSION: No DVT demonstrated. Chucky Desouza MD Chest CT 04/27/17 Signed Impressions: Service Date/Time: April 18:53 - CONCLUSION: 1. Patchy pneumonia of both lungs, mostly the mid lungs and right worse than left. 2. Suspected bilateral hilar lymphadenopathy, difficult to fully evaluate without contrast. Also mildly enlarged mediastinal lymph nodes. 3. Panchamber enlargement of the heart, considerably worse than back in 2015. A cardiac pacer is now present. Chucky Desouza MD Objective Remarks GENERAL: This is a well-nourished, well-developed patient, in no apparent distress on nasal. SKIN: No rashes, ecchymoses or lesions. Cool and dry. CARDIOVASCULAR: Irregularly irregular without murmurs, gallops, or rubs. RESPIRATORY: Decreased Breath sounds equal bilaterally. No wheezes, rales, or rhonchi. AICD on the left chest wall GASTROINTESTINAL: Abdomen soft, non-tender, nondistended. No guarding. MUSCULOSKELETAL: Extremities without clubbing, cyanosis but with bilateral trace leg edema. No joint tenderness, effusion, or edema noted. No calf tenderness. Negative Homans sign bilaterally. NEUROLOGICAL: Awake and alert. Cranial nerves II through XII intact. Motor and sensory grossly within normal limits. Five out of 5 muscle strength in all muscle groups. Normal speech. Procedures none A/P Problem List: (1) PNA (pneumonia) ICD Code: J18.9 - PNA (pneumonia) Status: Acute Assessment and Plan Acute on chronic systolic heart failure with failed outpatient therapy. Improving he is diuresing continue IV Lasix, CHF education, I/O and monitor weight Bilateral pneumonia with sepsis. Hospital acquired/ventilator associated. Also improving no more fever continue IV vancomycin, Zithromax and cefepime. Negative influenza A, urinary Legionella and pneumococcal antigen. Patient has hilar lymphadenopathy needs outpatient follow-up for resolution after treatment of infection. Patient has a resp ther Hypokalemia. Replace aggressively A. fib with RVR. Continue Lopressor 75 mg twice a day and wean Cardizem drip Heart rate less than 100. Also continue Xarelto. Multiple medical problems of chronic respiratory failure on home oxygen, hypertension and AICD history of V. tach Discharge Planning Per PT will need a walker. Can be discharged home without PT Markell,Peña Jimenez MD Apr 30, 2017 14:19
[2017-04-30] MEDS ORDERED: AUGM875T3 PO (15:38)
[2017-04-30] MEDS ORDERED: METO-309 PO (15:38)
[2017-04-30] MEDS ORDERED: PRED20 PO (15:38)
[2017-04-30] MEDS ORDERED: POTA20TA5 PO (15:38)
--- NOTE | 2017-04-30 15:38 | HHI.DCPOC ---
Discharge Care Plan Diagnosis: (1) CHF (congestive heart failure) (2) PNA (pneumonia) Your Health Problems Are: Difficulty with ADL Exercise Tolerance Goals to Promote Your Health * To prevent worsening of your condition and complications * To maintain your health at the optimal level Directions to Meet Your Goals Take your medications as prescribed Follow your dietary instruction Follow activity as directed Keep your appointments as scheduled Take your immunizations and boosters as scheduled If your symptoms worsen call your PCP, if no PCP go to Urgent Care Center or Emergency Room Smoking is Dangerous to Your Health. Avoid second hand smoke Call the 24-hour hour crisis hotline for domestic abuse at Peña Guillaume MD Apr 30, 2017 15:38
[2017-04-30] MEDS: VANCOMYCIN INJ 1,750 MG in SODIUM CHLORID 0.9% 500 ML INJ 500 ML IV SCH (16:30)
[2017-04-30] MEDS: DILTIAZEM HCL 60 MG TAB PO SCH ×3 (16:42→23:05)
--- NOTE | 2017-04-30 17:11 | MB ---
cc: JAYDEN DUEÑAS M.D., HANSCY M.D. DATE OF CONSULTATION: 04/30/2017. REASON FOR CONSULTATION: Electrophysiology consult for atrial fibrillation with fast ventricular response. HISTORY OF PRESENT ILLNESS: Mr. Benavides is a 72-year-old gentleman history of congestive heart failure, coronary artery disease, atrial fibrillation who has had a previous ablation in 2012. The gentleman is back in atrial fibrillation. He was in [place] a couple of weeks ago. A defibrillator was placed. The wound is still healing. He was admitted due to shortness of breath. He has atrial fibrillation with fast ventricular response. I was consulted for evaluation and management. The chart was reviewed. The patient was evaluated. ALLERGIES: None. SOCIAL HISTORY: The patient currently drinks a couple of beers at the weekend. Negative for smoking. FAMILY HISTORY: Noncontributory to his current medical condition. MEDICATIONS AT HOME: 1. Lyrica. 2. Xarelto. 3. Flovent. 4. Metoprolol. 5. Lisinopril. 6. Aspirin. 7. Lasix. 8. Cardizem IV was added during the hospitalization as well as Cefepime and Vancomycin and Lasix IV. REVIEW OF SYSTEMS: The patient refers no chest pain, no chest discomfort, shortness of breath has improved. No vomiting. No fever. PHYSICAL EXAMINATION: GENERAL: Alert, fully oriented. VITAL SIGNS: His blood pressure is 142/99, pulse around 130, irregular, respiratory rate 18. LUNGS: Ventilated. CARDIOVASCULAR: S1, S2, tachycardic, irregular. CHEST: Left infraclavicular area with a clean surgical wound. ABDOMEN: Obese, no mass. No bruits. EXTREMITIES: No edema. EKGS: Electrocardiogram shows atrial fibrillation with fast ventricular response. LABS: BNP is 1100. Potassium is 3.4. Creatinine is 1.14. INR is 1.2. Hemoglobin is 10. White blood cell count 8.7. ASSESSMENT AND RECOMMENDATIONS: Mr. Benavides is currently stable. I do not know his ejection fraction. He has heart failure. But there is no edema of his extremities. His BNP is barely 1100. 1. I am going to D/C the IV Lasix. 2. Rate needs to be controlled. 3. The gentleman is on Cardizem IV. I am going to start Cardizem p.o. 4. Metoprolol will be up-titrated if necessary in the morning. The case was discussed with him. Follow up in the morning by my partner, Dr. Dueñas. MD JOE Meneses/CINTHIA /4:12 PM /5:01 PM
[2017-05-01] VITALS (9 sets, daily range): BP systolic 112–159; BP diastolic 74–79; PULSE 67–77; RESP 19–20; TEMP 97.5–97.8; O2SAT 91–96
[2017-05-01] MEDS: RESP: ALBUTEROL 2.5 MG/IPRATROPIUM 0.5 MG NEB (SCH) NEB ×2 (03:41→09:47)
[2017-05-01] MEDS: DILTIAZEM HCL 60 MG TAB PO SCH ×2 (06:47→12:00)
[2017-05-01] MEDS: DOCUSATE SODIUM 100 MG CAP PO SCH (09:05)
[2017-05-01] MEDS: methylPREDNISolone SOD SUCC 40 MG/1 ML VIAL IV PUSH SCH (09:05)
[2017-05-01] MEDS: PREGABALIN 25 MG CAP PO SCH (09:05)
[2017-05-01] MEDS: MONTELUKAST SODIUM 10 MG TAB PO SCH (09:05)
[2017-05-01] MEDS: LISINOPRIL 5 MG TAB PO SCH (09:06)
[2017-05-01] MEDS: METOPROLOL TARTRATE 50 MG TAB PO SCH (09:06)
[2017-05-01] MEDS: ASPIRIN 81 MG CHEW TAB CHEW SCH (09:06)
[2017-05-01] MEDS: RIVAROXABAN 15 MG TAB PO SCH (09:06)
[2017-05-01] MEDS: POTASSIUM CHLORIDE 20 MEQ CONTROLLED RELEASE TAB PO SCH (09:06)
[2017-05-01] MEDS: FLUTICASONE PROPIONATE 220 MCG/ACT 12 GM INHALER INH SCH (09:07)
[2017-05-01] MEDS: CEFEPIME INJ 2,000 MG in SODIUM CHLORIDE 0.9% INJ 100 ML IV SCH (09:07)
[2017-05-01] MEDS: SODIUM CHLORIDE 0.9% FLUSH 10 ML FLUSH IV FLUSH SCH (09:07)
[2017-05-01] MEDS ORDERED: CARD240C6 PO (10:48)
[2017-05-01] MEDS ORDERED: LACTULOSE SYRUP 20 GM/30 ML CUP PO PRN (12:00)
[2017-05-01] MEDS ORDERED: SENNOSIDES 8.6 MG TAB PO PRN (12:00)
[2017-05-01] MEDS ORDERED: MAGNESIUM HYDROXIDE SUSP 30 ML CUP PO ONE (12:00)
[2017-05-01] MEDS: AZITHROMYCIN 250 MG TAB PO SCH (12:00)
[2017-05-01] MEDS ORDERED: MAGNESIUM HYDROXIDE SUSP 30 ML CUP PO PRN (12:00)
[2017-05-01] MEDS ORDERED: BISACODYL 10 MG SUPP RECTAL PRN (12:00)
[2017-05-01] MEDS ORDERED: DOCUSATE SODIUM 50 MG/SENNA 8.6 MG TAB PO SCH (12:00)
[2017-05-01] MEDS ORDERED: AMOXICILLIN/CLAVULANATE K 875 MG TAB PO SCH (13:00)
--- NOTE | 2017-05-01 13:22 | HHI.DS ---
Discharge Summary Admission Date Apr 27, 2017 at 18:53 Discharge Date: May 01, 2017 Admitting Diagnosis CHF exacerbation, afib (1) PNA (pneumonia) ICD Code: J18.9 - PNA (pneumonia) Diagnosis: Principal Status: Acute Procedures none Brief History - From Admission hx from patient, ER MD and review of med records Reports he came because he was short of breath for past several days discharged from [facility] 04/13 [facility] - admitted for 19 days was intubated for 2 days was managed for heart failure exacerbation was placed aicd ef was 20% did angiogram- radial right - no blockage vtach- no shocks cardioversion required has hx of afib s/p ablation 4 yrs ago stated all symptoms started 03/07 or so, had GI bleed - vomit blood and was in pain and thus also took lots of tylenol for pain he started getting sick after this, and family thinks that he was at a place where closet has lots of mold that time and breathing attacks started then family worried his recent decline and lung issues maybe due to that he has been seeing Dr Tirado for past 4 yrs or so and has been on home oxygen for about 2-3 yrs , but cousin and pt is not aware of any lung diagnosis on review of records, he did have PFT studies in 2013 with clear evidence of home oxygen need from walk test- [place] [employer] [address] [facility] [place] [facility] [place] only lasix 40mg po daily dose at home increased to bid by pcp 3 days ago, no improvement in dyspnea, and swelling otherwise, denies other symptoms CBC/BMP: 04/29/17 0231 04/30/17 0709 Significant Findings Laboratory Tests Test 04/29/17 02:31 04/29/17 05:40 04/29/17 10:15 04/30/17 07:09 Red Blood Count 3.62 MIL/MM3 (4.50-5.90) Hemoglobin 10.6 GM/DL (13.0-17.0) Hematocrit 32.1 % (39.0-51.0) Neutrophils (%) (Auto) 77.0 % (16.0-70.0) Monocytes (%) (Auto) 12.3 % (0.0-8.0) Lymphocytes # (Auto) 0.8 TH/MM3 (1.0-4.8) Monocytes # (Auto) 1.1 TH/MM3 (0-0.9) Blood Urea Nitrogen 24 MG/DL (7-18) 33 MG/DL (7-18) Random Glucose 117 MG/DL (74-106) 175 MG/DL (74-106) Chloride Level 97 MEQ/L (98-107) 97 MEQ/L (98-107) Carbon Dioxide Level 37.1 MEQ/L (21.0-32.0) 38.0 MEQ/L (21.0-32.0) Estimat Glomerular Filtration Rate 62 ML/MIN (>89) 61 ML/MIN (>89) Blood Gas HCO3 38 mmol/L (22-26) Blood Gas Base Excess 12.7 mmol/L (-2-2) Blood Gas Oxygen Saturation 75 % (90-100) Arterial Blood Partial Pressure CO2 63 mmHg (38-42) Arterial Blood Partial Pressure O2 43 mmHg (61-120) Arterial Blood Oxygen Content 11.0 Vol % (12.0-20.0) Blood Gas Hemoglobin 10.4 G/DL (12.0-16.0) Urine Protein 30 mg/dL (NEG-TRACE) Urine Ketones TRACE mg/dL (NEG) Urine Mucus FEW /lpf (OCC) PE at Discharge GENERAL: This is a well-nourished, well-developed patient, in no apparent distress on nasal cannula 3 L. SKIN: No rashes, ecchymoses or lesions. Cool and dry. CARDIOVASCULAR: Irregularly irregular without murmurs, gallops, or rubs. RESPIRATORY: Decreased Breath sounds equal bilaterally. No wheezes, rales, or rhonchi. AICD on the left chest wall GASTROINTESTINAL: Abdomen soft, non-tender, nondistended. No guarding. MUSCULOSKELETAL: Extremities without clubbing, cyanosis but with bilateral trace leg edema. No joint tenderness, effusion, or edema noted. No calf tenderness. Negative Homans sign bilaterally. NEUROLOGICAL: Awake and alert. Cranial nerves II through XII intact. Motor and sensory grossly within normal limits. Five out of 5 muscle strength in all muscle groups. Normal speech. Hospital Course Acute on chronic systolic heart failure with failed outpatient therapy. Improving he is diuresing continue Lasix, CHF education, I/O and monitor weight. Recently had echocardiogram in [place] rsults not known to patient but received AICD Bilateral pneumonia with sepsis. Hospital acquired/ventilator associated. Also improving no more fever start Augmentin discontinue IV vancomycin, Zithromax and cefepime. Negative influenza A, urinary Legionella and pneumococcal antigen. Blood cultures negative to date. Sputum with B strep not group A. Patient has hilar lymphadenopathy needs outpatient follow-up for resolution after treatment of infection. Patient has a body and frame technician Hypokalemia. Replace aggressively A. fib with RVR. Well-controlled continue Lopressor 75 mg twice a day and Cardizem p.o. status post Cardizem drip. Also continue Xarelto. Constipation. Start bowel regimen. Multiple medical problems of chronic respiratory failure on home oxygen, hypertension and AICD history of V. tach. Wean oxygen down to 2 L to keep saturations at least 92% Pt Condition on Discharge: Stable Discharge Disposition: Discharge Home Discharge Time: > 30 minutes Discharge Instructions DIET: Follow Instructions for: Heart Healthy Diet Activities you can perform: Regular-No Restrictions Activities to Avoid: Driving Follow up Referrals: Cardiology - 2 Weeks PCP Follow-up @ [facility] PCP Follow-up - 2-3 Days Pulmonology - 1 Week New Orders: X-RAY CHEST PA & LAT - 6 Weeks New Medications: Amoxicillin-Clavulanate (Augmentin) 875-125 Mg Tab 1 TAB PO BID for Infection, #20 TAB 0 Refills Diltiazem CD 24 HR (Cardizem CD 24 HR) 240 Mg Caper 240 MG PO DAILY for Regulate Heart Beat, #30 CAP 0 Refills Prednisone (Prednisone) 20 Mg Tab 40 MG PO DAILY for Control Inflammation, #10 TAB 0 Refills Take 40 mg (2 tablets) daily for 5 days Metoprolol Tartrate (Lopressor) 50 Mg Tab 75 MG PO Q12HR for Regulate Heart Beat, #90 TAB Potassium Chloride Microencaps (Potassium Chloride Microencaps) 20 Meq Tab 40 MEQ PO DAILY for Electrolyte Replacement, #60 TAB Continued Medications: Aspirin (Aspirin) 81 Mg Chew 81 MG CHEW DAILY, TAB 0 Refills Fluticasone 12 GM Inh (Flovent Hfa 12 GM Inh) 220 Mcg/Act Inh 2 PUFF INH BID for Asthma Management, #1 INHALER 0 Refills Use daily at the same time. Furosemide (Furosemide) 40 Mg Tab 40 MG PO BID, #60 TAB 0 Refills Lisinopril (Lisinopril) 5 Mg Tab 5 MG PO DAILY for Blood Pressure Management, #30 TAB 0 Refills Montelukast (Montelukast) 10 Mg Tab 10 MG PO DAILY, #30 TAB 0 Refills Pregabalin (Lyrica) 50 Mg Cap 50 MG PO BID, #60 CAP 0 Refills Rivaroxaban (Xarelto) 15 Mg Tab 15 MG PO DAILY for Blood Clot Prevention, TAB 0 Refills [Oxygen] () 2 LITER RG.CANULA CONTINUOUS Discontinued Medications: Metoprolol Tartrate (Metoprolol Tartrate) 100 Mg Tab 100 MG PO DAILY, #30 TAB 0 Refills Peña Guillaume MD May 01, 2017 13:22
[2017-05-01] MEDS ORDERED: RESP: ALBUTEROL 2.5 MG/IPRATROPIUM 0.5 MG NEB (SCH) NEB (16:00)
[2017-05-02] MEDS ORDERED: predniSONE 20 MG TAB PO SCH (12:00)
[2017-05-02] MEDS ORDERED: PHARMACY ORDERED LAB ONE (15:45)
== END 2017-05-01 16:19 | disposition home or self-care (01) | DRG 871 ==
LOC: NEPC 14:55 → NEDA 18:53 → N04A 21:03
PROVIDERS: ADMIT Internal Medicine; ATTEND Internal Medicine
DX: A41.9 Sepsis, unspecified organism (principal); I50.23 Acute on chronic systolic (congestive) heart failure; J95.851 Ventilator associated pneumonia; J96.11 Chronic respiratory failure with hypoxia; I11.0 Hypertensive heart disease with heart failure; Z99.81 Dependence on supplemental oxygen; I48.2 Chronic atrial fibrillation; J44.0 Chronic obstructive pulmonary disease with (acute) lower respiratory infection; J44.1 Chronic obstructive pulmonary disease with (acute) exacerbation; E87.6 Hypokalemia; E66.9 Obesity, unspecified; I25.10 Atherosclerotic heart disease of native coronary artery without angina pectoris; R59.0 Localized enlarged lymph nodes; K59.00 Constipation, unspecified; E78.00 Pure hypercholesterolemia, unspecified; Y95 Nosocomial condition; K21.9 Gastro-esophageal reflux disease without esophagitis; Z68.32 Body mass index [BMI] 32.0-32.9, adult; Z87.891 Personal history of nicotine dependence; Z95.810 Presence of automatic (implantable) cardiac defibrillator; Z79.01 Long term (current) use of anticoagulants
CPT/HCPCS: 36600; 71045; 71046; 71250; 76937; 80048; 81001; 82550; 82805; 83605; 83735; 83880; 84145; 84443; 84484; 85025; 85610; 85730; 87040; 87070; 87205; 87449; 87804; 93005; 93970; 94640; 94664; 96374; 96375; J0692; J1940; J2920; J3370; J7040

== ENCOUNTER 2017-05-29 15:10 | Inpatient (IN) | payer OTHER, MEDICARE ==
[~2017-05-29] VITALS: Ht 167.6 cm; Wt 101.1 kg
[~2017-05-29 15:10] MED LIST changes: +ASPI-516 CHEW; -ATEN-104 PO; -ATOR20TA PO; +AUGM875T3 PO; -BUME2TAB PO; +CARD240C6 PO; +FLUTI220I INH; +FURO40TA PO; -IPRA17I INH; -K-TA10TA5 PO; +LISI-519 PO; +LYRI50CA PO; +METO-309 PO; +MONT10TA4 PO; -NORV10TA PO; +OXYGEN NAS.CANULA; +POTA20TA5 PO; +PRED20 PO; -QUIN20 PO; -TERA5CAP3 PO; +XARE15TA PO; -Z.0.OXYGENDME
[2017-05-29 15:19] VITALS: BP 131/79; PULSE 106; RESP 24; TEMP 97.9; O2SAT 91
[2017-05-29] MEDS ORDERED: SODIUM CHLORIDE 0.9% FLUSH 10 ML FLUSH IVF PRN (15:30)
[2017-05-29 15:44] VITALS: BP 150/82; PULSE 110; RESP 20; O2SAT 93
--- NOTE | 2017-05-29 16:09 | PD ---
HPI Chief Complaint: Respiratory Distress Time Seen by Provider: 15:53 Travel History International Travel<30 days: No Contact w/Intl Traveler<30days: No Traveled to known affect area: No History of Present Illness HPI 72-year-old male with a history of congestive heart failure, COPD on chronic O2 , Afib presents to the ED c/o shortness of breath for approximately 3 days. Says it for the last 3-4 days he has had to sleep in the recliner because of the shortness of breath. Patient states that he walked into his closet and found mold on a tile and believes this is the cause of his shortness of breath. Patient does state compliance with his medications which include Lasix and a "blood thinner". Says he also uses inhalers for his shortness of breath. Patient denies fever, chills, cough, congestion, chest pain, nausea, vomiting, back pain, abdominal pain. Patient denies any new or excessive lower extremity edema. Says he follows his cardiology regularly who is Dr. Dueñas. Says for the last couple of days he has been able to walk approximately 5 minutes before feeling short of breath which he says is unusual for him. PFSH Past Medical History Asthma: No Atrial Fibrillation: Yes Blood Disorders: No Heart Rhythm Problems: Yes (ABLATION 2013) Cancer: No Cardiovascular Problems: Yes (CAD) High Cholesterol: Yes Chest Pain: Yes Congestive Heart Failure: Yes COPD: Yes Diabetes: No Endocrine: No Gastrointestinal Disorders: Yes GERD: Yes Glaucoma: No Genitourinary: Yes Hepatitis: No Hiatal Hernia: Yes Hypertension: Yes Immune Disorder: No Inguinal Hernia: Yes Implanted Vascular Access Dvce: Yes Musculoskeletal: No Neurologic: No Psychiatric: No Reproductive: No Respiratory: Yes Integumentary: No Sleep Apnea: No Thyroid Disease: No Triglycerides - High: Yes Ulcer: No Past Surgical History Abdominal Surgery: No AICD: Yes Arteriovenous Shunt: No Cardiac Surgery: Yes (stent placement, ICD) Ear Surgery: No Endocrine Surgery: No Eye Surgery: No Genitourinary Surgery: No Gynecologic Surgery: No Insulin Pump: No Joint Replacement: No Oral Surgery: No Thoracic Surgery: No Other Surgery: Yes (HERNIA REPAIR) Social History Alcohol Use: Yes (2 BEERS ON THE WEEKENDS) Tobacco Use: No Substance Use: No Allergies-Medications (Allergen,Severity, Reaction): Coded Allergies: No Known Allergies (Unverified Allergy, Unknown, 04/27/17) Reported Meds & Prescriptions Reported Meds & Active Scripts Active Potassium Chloride Microencaps 20 Meq Tab 40 Meq PO DAILY Reported [Oxygen] 2 Liter RG.CANULA CONTINUOUS Flovent Hfa 12 GM Inh (Fluticasone Propionate) 220 Mcg/Act Inh 2 Puff INH BID Use daily at the same time. Aspirin 81 Mg Chew 81 Mg CHEW DAILY Furosemide 40 Mg Tab 40 Mg PO BID Review of Systems Except as stated in HPI: all other systems reviewed are Neg Physical Exam Narrative GENERAL: Well-developed, well-nourished in mild respiratory distress SKIN: Focused skin assessment warm/dry. HEAD: Atraumatic. Normocephalic. EYES: Pupils equal and round. No scleral icterus. No injection or drainage. ENT: No nasal bleeding or discharge. Mucous membranes pink and moist. NECK: Trachea midline. No JVD. CARDIOVASCULAR: Regular rate and rhythm. No murmur appreciated. RESPIRATORY: No accessory muscle use. faint rales vs rhonchi B/L lung weeks GASTROINTESTINAL: Abdomen soft, non-tender, nondistended. No CVA tenderness MUSCULOSKELETAL: No obvious deformities. No clubbing. No cyanosis. +1 pitting edema bilateral lower extremities NEUROLOGICAL: Awake and alert. No obvious cranial nerve deficits. Motor grossly within normal limits. Normal speech. PSYCHIATRIC: Appropriate mood and affect; insight and judgment normal. Data Data Last Documented VS Vital Signs Date Time Temp Pulse Resp B/P (MAP) Pulse Ox O2 Delivery O2 Flow Rate FiO2 05/29/17 18:57 65 20 142/83 (102) 95 Nasal Cannula 3.00 05/29/17 15:19 97.9 Orders Orders Electrocardiogram (05/29/17 15:23) Basic Metabolic Panel (Bmp) (05/29/17 15:23) B-Type Natriuretic Peptide (05/29/17 15:23) Ckmb (Isoenzyme) Profile (05/29/17 15:23) Complete Blood Count With Diff (05/29/17 15:) Magnesium (Mg) (05/29/17 15:23) Prothrombin Time / Inr (Pt) (05/29/17 15:23) Act Partial Throm Time (Ptt) (05/29/17 15:23) Troponin I (05/29/17 15:23) Sodium Chloride 0.9% Flush (Ns Flush) (05/29/17 15:30) Chest, Pa & Lat (05/29/17 15:23) Furosemide Inj (Lasix Inj) (05/29/17 20:30) Albuterol Neb (Albuterol Neb) (05/29/17 20:30) Nitroglycerin 2% Oint (Nitroglycerin 2% (05/29/17 20:30) Place In Observation (05/29/17 ) Vital Signs (Adult) Q4H (05/29/17 21:20) Activity Oob With Assistance (05/29/17 21:20) Tinware Lithograph Press Operator / Telemetry .CONTINUOUS (05/29/17 21:20) Intake + Output JULI.QSHIFT (05/29/17 21:20) Diet Heart Healthy (05/30/17 Breakfast) Sodium Chloride 0.9% Flush (Ns Flush) (05/29/17 21:30) Sodium Chloride 0.9% Flush (Ns Flush) (05/30/17 09:00) Complete Blood Count With Diff (05/30/17 06:00) Troponin I (05/29/17 23:00) Troponin I (05/30/17 05:00) Electrocardiogram (05/29/17 23:00) Electrocardiogram (05/30/17 05:00) Pt Request For Service (05/29/17 21:20) Case Management Consult (05/29/17 21:20) Naloxone Inj (Narcan Inj) (05/29/17 21:30) Admit Order (Ed Use Only) (05/29/17 21:21) Basic Metabolic Panel (Bmp) (05/30/17 05:00) Labs Laboratory Tests Test 05/29/17 17:04 White Blood Count 5.2 TH/MM3 Red Blood Count 3.74 MIL/MM3 Hemoglobin 10.8 GM/DL Hematocrit 33.1 % Mean Corpuscular Volume 88.7 FL Mean Corpuscular Hemoglobin 29.0 PG Mean Corpuscular Hemoglobin Concent 32.7 % Red Cell Distribution Width 16.6 % Platelet Count 220 TH/MM3 Mean Platelet Volume 7.5 FL Neutrophils (%) (Auto) 62.3 % Lymphocytes (%) (Auto) 21.2 % Monocytes (%) (Auto) 13.0 % Eosinophils (%) (Auto) 2.5 % Basophils (%) (Auto) 1.0 % Neutrophils # (Auto) 3.2 TH/MM3 Lymphocytes # (Auto) 1.1 TH/MM3 Monocytes # (Auto) 0.7 TH/MM3 Eosinophils # (Auto) 0.1 TH/MM3 Basophils # (Auto) 0.1 TH/MM3 CBC Comment DIFF FINAL Differential Comment Prothrombin Time 13.3 SEC Prothromb Time International Ratio 1.3 RATIO Activated Partial Thromboplast Time 33.8 SEC Blood Urea Nitrogen 20 MG/DL Creatinine 1.01 MG/DL Random Glucose 101 MG/DL Calcium Level 8.5 MG/DL Magnesium Level 2.3 MG/DL Sodium Level 144 MEQ/L Potassium Level 4.3 MEQ/L Chloride Level 109 MEQ/L Carbon Dioxide Level 31.5 MEQ/L Anion Gap 4 MEQ/L Estimat Glomerular Filtration Rate 73 ML/MIN Total Creatine Kinase 53 U/L Troponin I 0.02 NG/ML B-Type Natriuretic Peptide 546 PG/ML MDM Medical Decision Making Medical Screen Exam Complete: Yes Emergency Medical Condition: Yes Differential Diagnosis Congestive heart failure, NSTEMI, medication noncompliance, pneumonia Narrative Course 72-year-old male with a history of congestive heart failure, COPD on chronic O2 , Afib on Xarelto presents to the ED c/o shortness of breath for approximately 3 days. Says it for the last 3-4 days he has had to sleep in the recliner because of the shortness of breath. Patient states that he walked into his closet and found mold on a tile and believes this is the cause of his shortness of breath. Patient does state compliance with his medications which include Lasix and a "blood thinner". Says he also uses inhalers for his shortness of breath. patient denies fever, chills, cough, congestion, chest pain, nausea, vomiting, back pain, abdominal pain. Patient denies any new or excessive lower extremity edema. Says he follows his cardiology regularly who is Dr. Dueñas. Says for the last couple of days he has been able to walk approximately 5 minutes before feeling short of breath which he says is unusual for him. His political scientist is Dr. Dueñas, PCP is Dr. Kim. Vital signs-BP 142/83, HR65, SaO2 94% 2LPM EKG shows Afib with RVR rate 108 without STEMI changes. Labs and imaging studies ordered. I offered nebulizer treatments to patient and he refused initially. Says he takes them every 6 hours only and says he took his neb and inhaler this morning. Last Impressions Chest X-Ray 05/29/17 1523 Signed Impressions: Service Date/Time: Monday, May 29, 2017 15:48 - CONCLUSION: 1. Small right basilar effusion and infiltrate unchanged from previous. 2. Cardiomegaly. Stable compared to prior. Cristóbal Taveras MD CBC & BMP Diagram 05/29/17 17:04 Calcium Level 8.5, Magnesium Level 2.3 BNP 546, chronic anemia. After review the EMR, it appears the patient was here the April for CHF exacerbation and A Fib. He was admitted April 27 and discharged April 30. He was evaluated by Dr. Clemons who recommended Cardizem for his rate. He has questionable compliance with Xarelto and Cardizem but says he does not want to take his Xarelto anymore because of 'nose bleeds' he gets in the morning. Pt continues to be concerned over 'black mold exposure' at his house. This was discussed briefly at his last admission. Pt took ASA this morning. Lasix 40mg, Nitro paste, and albuterol neb x 2 administered. Pt is admitted to Dr. De La Cruz for CHF exacerbation. Diagnosis Primary Impression: CHF (congestive heart failure) Qualified Codes: I50.9 - Heart failure, unspecified Admitting Information Admitting Physician Requests: Observation Condition: Stable Jesusita Wray May 29, 2017 16:09
--- NOTE | 2017-05-29 16:12 | RADRPT ---
EXAM DATE/TIME: 05/29/2017 15:48 [facility] COMPARISON: CHEST SINGLE AP, April 29, 2017, 1:39. INDICATIONS : Weakness. Short of breath. MEDICAL HISTORY : Congestive heart failure. SURGICAL HISTORY : Internal defibrilator. ENCOUNTER: Initial ACUITY: 1 day PAIN SCORE: 0/10 LOCATION: Bilateral chest FINDINGS: The heart is enlarged. There is right basilar effusion. There is patchy infiltrate seen in the right base as well. These findings are unchanged from a previous dated 04/29/17. The transvenous pacer is in good position there The visualized bony structures demonstrate degenerative changes but are otherwise intact. CONCLUSION: 1. Small right basilar effusion and infiltrate unchanged from previous. 2. Cardiomegaly. Stable compared to prior. Cristóbal Taveras MD on May 29, 2017 at 16:09 Board Certified Radiologist. This report was verified electronically.
[2017-05-29 17:41] LABS: AUTOMATED NEUTROPHIL # 3.2 TH/MM3 (1.8-7.7); BASOPHIL # 0.1 TH/MM3 (0-0.2); EOSINOPHIL # 0.1 TH/MM3 (0-0.4); EOSINOPHIL % 2.5 % (0.0-4.0); HEMATOCRIT 33.1 % (39.0-51.0); HEMOGLOBIN 10.8 GM/DL (13.0-17.0); LYMPH % 21.2 % (9.0-44.0); LYMPHOCYTE # 1.1 TH/MM3 (1.0-4.8); MEAN CELL VOLUME 88.7 FL (80.0-100.0); MEAN CORPUSCULAR HGB CONC 32.7 % (32.0-36.0); MEAN PLATELET VOLUME 7.5 FL (7.0-11.0); MONOCYTE # 0.7 TH/MM3 (0-0.9); NEUT % 62.3 % (16.0-70.0); PLATELET COUNT 220 TH/MM3 (150-450); RED BLOOD COUNT 3.74 MIL/MM3 (4.50-5.90); RED CELL DISTRIBUTION WIDTH 16.6 % (11.6-17.2); WHITE BLOOD COUNT 5.2 TH/MM3 (4.0-11.0)
[2017-05-29 17:47] LABS: INTERNATIONAL NORMALIZED RATIO 1.3 RATIO; PROTHROMBIN TIME - PATIENT 13.3 SEC (9.8-11.6)
[2017-05-29 17:55] LABS: BICARBONATE 31.5 MEQ/L (21.0-32.0); CALCIUM 8.5 MG/DL (8.5-10.1); CREATININE 1.01 MG/DL (0.60-1.30); MAGNESIUM 2.3 MG/DL (1.5-2.5)
[2017-05-29 17:58] LABS: TROPONIN I 0.02 NG/ML (0.02-0.05)
[2017-05-29 18:57] VITALS: BP 142/83; PULSE 65; RESP 20; O2SAT 95
[2017-05-29] MEDS ORDERED: NITROGLYCERIN 2% OINT 1 GM PACKET TOPICAL ONE (20:30)
[2017-05-29] MEDS ORDERED: FUROSEMIDE 20 MG/2 ML VIAL IV PUSH ONE (20:30)
[2017-05-29] MEDS: RESP: ALBUTEROL 2.5 MG/3 ML NEB (SCH) INH (20:40)
[2017-05-29] MEDS ORDERED: SODIUM CHLORIDE 0.9% FLUSH 10 ML FLUSH IV FLUSH PRN (21:30)
[2017-05-29] MEDS ORDERED: NALOXONE HCL 0.4 MG/ML AMP IV PUSH PRN (21:30)
[2017-05-30] VITALS (10 sets, daily range): BP systolic 123–149; BP diastolic 79–99; PULSE 69–103; RESP 18–22; TEMP 96.9–98.3; O2SAT 90–97
--- NOTE | 2017-05-30 04:30 | HHI.HP ---
HPI Service [facility] Primary Care Physician Unknown Admission Diagnosis CHF exacerbation Diagnoses: Travel History International Travel<30 Days: No Contact w/Intl Traveler <30 Da: No Traveled to Known Affected Are: No History of Present Illness History from patient, ER PA communication, interview of medical records. Patient is known to me from his prior hospitalization. Patient was discharged from the hospital about 4 weeks ago. He stated that he stayed with his cousin for the first 3 weeks and returned back to his home on Monday. He states on Monday, he even went shopping without any oxygen at [facility]. He did not have any symptoms. He was also well on Monday. However starting Monday, and particularly on Monday, he started feeling his worst and getting sick. He states that this is because of exposure to mold in his home. He thinks that there is mold in his walking closet at home. He described his symptoms as mainly having tightness in his head, and severe shortness of breath, and weakness. He denies any cough. Denies any fever. He reports that he is not able to walk even the short distance because of this shortness of.. He states he is not able to lie down flat and had to sit up to sleep. Patient reports he takes his medications especially the water pills. However on specific questioning, patient states that he does not have refills on most of his medications because the hospital gave him only 1 month of prescriptions and his doctor did not give any refills at his follow-up appointment. He basically is only taking 4 medications at this point which includes Lasix, potassium pills and 2 other medicines. He states that he stopped taking his blood thinner Xarelto because he had a nosebleed the day after he got discharged. He has stopped that medicine since then. Review of Systems Except as stated in HPI: all other systems reviewed are Neg Past Family Social History Past Medical History htn chf - 20% aicd afib on eliquis vtach copd on home oxygen for past 3 yrs - placed by Dr Candida lema while in hospital in [place] in Mar Past Surgical History coronary angiogram aicd Allergies: Coded Allergies: No Known Allergies (Unverified Allergy, Unknown, 04/27/17) Family History brother- heart problems cousin- heart dx father- lung problems Social History used to smoke, quit in 1985 social drinker no drugs no longer driving now , lives alone here , with close by to cousin Physical Exam Vital Signs Vital Signs Date Time Temp Pulse Resp B/P (MAP) Pulse Ox O2 Delivery O2 Flow Rate FiO2 05/30/17 02:23 81 22 132/98 (109) 92 Nasal Cannula 3.00 05/29/17 18:57 65 20 142/83 (102) 95 Nasal Cannula 3.00 05/29/17 15:45 20 93 Nasal Cannula 2.00 05/29/17 15:44 110 20 150/82 (104) 93 Nasal Cannula 2.00 05/29/17 15:19 97.9 106 24 131/79 (96) 91 Physical Exam GENERAL: This is a well-nourished, well-developed patient, in no apparent distress. Sitting up in bed. Quite upset that he got sick again. SKIN: No rashes, ecchymoses or lesions. Cool and dry. HEAD: Atraumatic. Normocephalic. No temporal or scalp tenderness. EYES: No scleral icterus. No injection or drainage. ENT: Nose without bleeding, purulent drainage or septal hematoma. Airway patent. NECK: Trachea midline. No JVD Supple, nontender, no meningeal signs. CARDIOVASCULAR: Regular rate and rhythm without murmurs, gallops, or rubs. RESPIRATORY: Bilateral decreased air entry. No arlette rales GASTROINTESTINAL: Abdomen soft, non-tender, nondistended No guarding. MUSCULOSKELETAL: Extremities without clubbing, cyanosis. No calf tenderness. Bilateral lower extremity ankle edema 2+. NEUROLOGICAL: Awake and alert. Motor and sensory grossly within normal limits. Normal speech. Laboratory Laboratory Tests Test 05/29/17 17:04 05/29/17 23:00 White Blood Count 5.2 Red Blood Count 3.74 Hemoglobin 10.8 Hematocrit 33.1 Mean Corpuscular Volume 88.7 Mean Corpuscular Hemoglobin 29.0 Mean Corpuscular Hemoglobin Concent 32.7 Red Cell Distribution Width 16.6 Platelet Count 220 Mean Platelet Volume 7.5 Neutrophils (%) (Auto) 62.3 Lymphocytes (%) (Auto) 21.2 Monocytes (%) (Auto) 13.0 Eosinophils (%) (Auto) 2.5 Basophils (%) (Auto) 1.0 Neutrophils # (Auto) 3.2 Lymphocytes # (Auto) 1.1 Monocytes # (Auto) 0.7 Eosinophils # (Auto) 0.1 Basophils # (Auto) 0.1 CBC Comment DIFF FINAL Differential Comment Prothrombin Time 13.3 Prothromb Time International Ratio 1.3 Activated Partial Thromboplast Time 33.8 Blood Urea Nitrogen 20 Creatinine 1.01 Random Glucose 101 Calcium Level 8.5 Magnesium Level 2.3 Sodium Level 144 Potassium Level 4.3 Chloride Level 109 Carbon Dioxide Level 31.5 Anion Gap 4 Estimat Glomerular Filtration Rate 73 Total Creatine Kinase 53 Troponin I 0.02 0.03 B-Type Natriuretic Peptide 546 Result Diagram: 05/29/17 1704 05/29/17 1704 Imaging Last [address] 05/30/17 0000 Signed Impressions: Service Date/Time: Tuesday, May 30, 2017 04:41 - CONCLUSION: No acute disease. Vivek Villalobos Jr., MD Chest X-Ray 05/29/17 1523 Signed Impressions: Service Date/Time: Monday, May 29, 2017 15:48 - CONCLUSION: 1. Small right basilar effusion and infiltrate unchanged from previous. 2. Cardiomegaly. Stable compared to prior. Cristóbal Taveras MD Caprini VTE Risk Assessment Caprini VTE Risk Assessment: Mod/High Risk (score >= 2) Caprini Risk Assessment Model Point Value = 1 Point Value = 2 Point Value = 3 Point Value = 5 Age 41-60 Minor surgery BMI > 25 kg/m2 Swollen legs Varicose veins or History of unexplained or recurrent spontaneous Oral contraceptives or hormone replacement Sepsis (< 1 month) Serious lung disease, including pneumonia (< 1 month) Abnormal pulmonary function Acute myocardial infarction Congestive heart failure (< 1 month) History of inflammatory bowel disease Medical patient at bed rest Age 61-74 Arthroscopic surgery Major open surgery (> 45 min) Laparoscopic surgery (> 45 min) Malignancy Confined to bed (> 72 hours) Immobilizing plaster cast Central venous access Age >= 75 History of VTE Family history of VTE Factor V Leiden Prothrombin [id number] Lupus anticoagulant Anticardiolipin antibodies Elevated serum homocysteine Heparin-induced thrombocytopenia Other congenital or acquired thrombophilia Stroke (< 1 month) Elective arthroplasty Hip, pelvis, or leg fracture Acute spinal cord injury (< 1 month) Prophylaxis Regimen Total Risk Factor Score Risk Level Prophylaxis Regimen 0-1 Low Early ambulation 2 Moderate Order ONE of the following: *Sequential Compression Device (SCD) *Heparin 5000 units SQ BID 3-4 Higher Order ONE of the following medications: *Heparin 5000 units SQ TID *Enoxaparin/Lovenox 40 mg SQ daily (WT < 150 kg, CrCl > 30 mL/min) *Enoxaparin/Lovenox 30 mg SQ daily (WT < 150 kg, CrCl > 10-29 mL/min) *Enoxaparin/Lovenox 30 mg SQ BID (WT < 150 kg, CrCl > 30 mL/min) AND/OR *Sequential Compression Device (SCD) 5 or more Highest Order ONE of the following medications: *Heparin 5000 units SQ TID (Preferred with Epidurals) *Enoxaparin/Lovenox 40 mg SQ daily (WT < 150 kg, CrCl > 30 mL/min) *Enoxaparin/Lovenox 30 mg SQ daily (WT < 150 kg, CrCl > 10-29 mL/min) *Enoxaparin/Lovenox 30 mg SQ BID (WT < 150 kg, CrCl > 30 mL/min) AND *Sequential Compression Device (SCD) Assessment and Plan Assessment and Plan Impression: Acute on chronic systolic heart failure Dyspnea. Secondary to above. Possible environmental triggers and the COPD patient is well. Patient is convinced that it is the latter Pneumonia on chest x-ray finding. This is not acute based on the history. This is the same chest x-ray finding that persists from recent pneumonia which was treated. No fevers/no cough/no leukocytosis. htn chf - 20% aicd afib on xarelto hx of vtach copd on home oxygen for past 3 yrs - placed by Dr Candida lema while in hospital in [place] in Mar Plan: Oxygen supplementation. Input/output. Lasix 40 mg IV every 12 hours. Nebulizers when necessary. Resume metoprolol 75 mg by mouth every 12 hours, with Cardizem 240 mg daily for rate control. Resume Xarelto. Pulmonary consult. Patient is quite concerned about this mold exposure. I do remember that he mentioned this in previous admission as well. 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 DVT prophylaxis on Xarelto. Discussed Condition With patient, ER PA, nursing staff Linda De La Cruz MD May 30, 2017 04:30
--- NOTE | 2017-05-30 05:16 | RADRPT ---
EXAM DATE/TIME: 05/30/2017 04:41 [facility] COMPARISON: No previous studies available for comparison. INDICATIONS : Fell. Hit forehead. RADIATION DOSE: 56.35 CTDIvol (mGy) MEDICAL HISTORY : Cardiovascular disease. Hypertension. Hernia, hiatal.COPD GERD SURGICAL HISTORY : Defibrillator. ENCOUNTER: Initial ACUITY: 1 day PAIN SCALE: 2/10 LOCATION: cranial TECHNIQUE: Multiple contiguous axial images were obtained of the head. Using automated exposure control and adj ustment of the mA and/or kV according to patient size, radiation dose was kept as low as reasonably a chievable to obtain optimal diagnostic quality images. DICOM format image data is available electro nically for review and comparison. FINDINGS: CEREBRUM: The ventricles are normal for age. No evidence of midline shift, mass lesion, hemorrhage or acute in farction. No extra-axial fluid collections are seen. POSTERIOR FOSSA: The cerebellum and brainstem are intact. The 4th ventricle is midline. The cerebellopontine angle i s unremarkable. EXTRACRANIAL: The visualized portion of the orbits is intact. SKULL: The calvaria is intact. No evidence of skull fracture. CONCLUSION: No acute disease. Vivek Villalobos Jr., MD on May 30, 2017 at 5:13 Board Certified Radiologist. This report was verified electronically.
[2017-05-30 06:16] LABS: AUTOMATED NEUTROPHIL # 3.4 TH/MM3 (1.8-7.7); BASOPHIL # 0.1 TH/MM3 (0-0.2); BASOPHIL % 1.1 % (0.0-2.0); EOSINOPHIL # 0.2 TH/MM3 (0-0.4); EOSINOPHIL % 3.2 % (0.0-4.0); HEMATOCRIT 32.1 % (39.0-51.0); HEMOGLOBIN 10.7 GM/DL (13.0-17.0); LYMPH % 21.9 % (9.0-44.0); LYMPHOCYTE # 1.2 TH/MM3 (1.0-4.8); MEAN CELL VOLUME 88.9 FL (80.0-100.0); MEAN CORPUSCULAR HEMOGLOBIN 29.5 PG (27.0-34.0); MEAN CORPUSCULAR HGB CONC 33.2 % (32.0-36.0); MEAN PLATELET VOLUME 7.2 FL (7.0-11.0); MONO % 12.1 % (0.0-8.0); MONOCYTE # 0.7 TH/MM3 (0-0.9); NEUT % 61.7 % (16.0-70.0); PLATELET COUNT 209 TH/MM3 (150-450); RED BLOOD COUNT 3.61 MIL/MM3 (4.50-5.90); RED CELL DISTRIBUTION WIDTH 16.8 % (11.6-17.2); WHITE BLOOD COUNT 5.6 TH/MM3 (4.0-11.0)
[2017-05-30 07:03] LABS: BICARBONATE 30.5 MEQ/L (21.0-32.0); CREATININE 0.88 MG/DL (0.60-1.30)
[2017-05-30 07:08] LABS: TROPONIN I 0.02 NG/ML (0.02-0.05)
[2017-05-30] MEDS: POTASSIUM CHLORIDE 20 MEQ CONTROLLED RELEASE TAB PO SCH (08:41)
[2017-05-30] MEDS: FUROSEMIDE 40 MG/4 ML VIAL IV PUSH SCH ×2 (08:41→18:23)
[2017-05-30] MEDS: METOPROLOL TARTRATE 25 MG TAB PO SCH ×2 (08:41→23:58)
[2017-05-30] MEDS: SODIUM CHLORIDE 0.9% FLUSH 10 ML FLUSH IV FLUSH SCH ×2 (08:42→23:32)
[2017-05-30] MEDS: ASPIRIN 81 MG CHEW TAB CHEW SCH (08:42)
[2017-05-30] MEDS: FLUTICASONE PROPIONATE 220 MCG/ACT 12 GM INHALER INH SCH ×2 (09:22→21:00)
[2017-05-30] MEDS: RIVAROXABAN 15 MG TAB PO SCH (09:22)
[2017-05-30] MEDS: DILTIAZEM-CD 240 MG CAP ER PO SCH (09:23)
--- NOTE | 2017-05-30 11:42 | HHI.PR ---
Subjective Remarks Follow-up visit COPD, CHF exacerbation. Patient seen and examined today sitting in bed. Reports increasing shortness of breath and dyspnea that he came into the hospital. States he continues to have shortness of breath and dyspnea on exertion especially when walking around. On O2 nasal cannula. Revealed that he is actually sleeping in his couch for the past 3 days. Increasing bilateral lower extremity edema. Denies pain and discomfort. Denies chest pain, palpitations, headaches, dizziness. Denies fevers, chills, n/ v/d. Denies dysuria. Objective Vitals Vital Signs Date Time Temp Pulse Resp B/P (MAP) Pulse Ox O2 Delivery O2 Flow Rate FiO2 05/30/17 10:04 05/30/17 08:00 103 18 149/95 (113) 97 Nasal Cannula 3.00 05/30/17 06:49 71 18 138/99 (112) 96 Nasal Cannula 3.00 05/30/17 02:23 81 22 132/98 (109) 92 Nasal Cannula 3.00 05/29/17 18:57 65 20 142/83 (102) 95 Nasal Cannula 3.00 05/29/17 15:45 20 93 Nasal Cannula 2.00 05/29/17 15:44 110 20 150/82 (104) 93 Nasal Cannula 2.00 05/29/17 15:19 97.9 106 24 131/79 (96) 91 I/O 05/29/17 05/29/17 05/29/17 05/30/17 05/30/17 05/30/17 07:00 15:00 23:00 07:00 15:00 23:00 Output Total 1200 ml 200 ml Balance -1200 ml -200 ml Output Urine Total 1200 ml 200 ml # Voids 3 Result Diagram: 05/30/17 0540 05/30/17 0540 Imaging Last Impressions Head CT 05/30/17 0000 Signed Impressions: Service Date/Time: Tuesday, May 30, 2017 04:41 - CONCLUSION: No acute disease. Vivek Villalobos Jr., MD Chest X-Ray 05/29/17 1523 Signed Impressions: Service Date/Time: Monday, May 29, 2017 15:48 - CONCLUSION: 1. Small right basilar effusion and infiltrate unchanged from previous. 2. Cardiomegaly. Stable compared to prior. Cristóbal Taveras MD Objective Remarks GENERAL: This is a well-nourished, well-developed patient, in no apparent distress. SKIN: Warm and dry HEENT: Normocephalic. Pupils equal round and reactive. Nose without bleeding. Airway patent. NECK: Trachea midline. CARDIOVASCULAR: Regular rate and rhythm without murmurs, gallops, or rubs. RESPIRATORY: Diminished BS. Minimal exp wheeze. GASTROINTESTINAL: Abdomen soft, non-tender, nondistended. Bowel Sounds normoactive x4. MUSCULOSKELETAL: Extremities without clubbing, cyanosis. BLE edema +2. NEUROLOGICAL: Awake and alert. Oriented to time, place, person. No focal neuro deficit. Moves all extremities. Normal speech. A/P Problem List: (1) CHF (congestive heart failure) ICD Code: I50.9 - CHF (congestive heart failure) Status: Acute (2) Hypoxia ICD Code: R09.02 - Hypoxemia Status: Resolved (3) HTN (hypertension) ICD Code: I10 - Hypertension Status: Chronic Assessment and Plan Patient is a 72-year-old male with primary medical history of CHF, A. fib on Eliquis, COPD on home O2 for the past 3 years came into the hospital for increasing shortness of breath and dyspnea. CHF exacerbation, acute on chronic systolic CHF AFIB HTN -EF 20%, AICD in place -Chest x-ray showed 1. Small right basilar effusion and infiltrate unchanged from previous. 2. Cardiomegaly. Stable compared to prior -Lasix 40 mg IV every 12 hours -Continue metoprolol 75mg BID, Cardizem 240 mg daily for rate control -Continue Xarelto -O2 nasal cannula for now, titrate to greater than 90% O2 sat -Monitor Resp status - Duonebs COPD exacerbation? ? Mold exposure -Consult pulmonology -Nebulizers scheduled and as needed -Continue fluticasone twice daily DVT Prop Xarelto Problem Qualifiers (1) CHF (congestive heart failure): Qualified Codes: I50.9 - Heart failure, unspecified Niru Schwarz May 30, 2017 11:42
[2017-05-30] MEDS: RESP: ALBUTEROL 2.5 MG/IPRATROPIUM 0.5 MG NEB (PRN) NEB (12:41)
[2017-05-30] MEDS: RESP: ALBUTEROL 2.5 MG/IPRATROPIUM 0.5 MG NEB (SCH) NEB ×2 (14:00→20:09)
--- NOTE | 2017-05-30 19:22 | EKG ---
Date Performed: 05/30/2017 Time Performed: 05:12:23 PTAGE: 72 years EKG: ATRIAL FIBRILLATION MODERATE INTRAVENTRICULAR CONDUCTION DELAY ABNORMAL RHYTHM ECG PREVIOUS TRACING : 05/29/2017 23.12 Since the previous tracing, no significant change noted DOCTOR: Shiloh Harvey Interpretating Date/Time 05/30/2017 19:21:17
--- NOTE | 2017-05-30 19:50 | EKG ---
Date Performed: 05/29/2017 Time Performed: 23:12:02 PTAGE: 72 years EKG: ATRIAL FIBRILLATION WITH RAPID VENTRICULAR RESPONSE MODERATE INTRAVENTRICULAR CONDUCTION DE LAY ABNORMAL RHYTHM ECG PREVIOUS TRACING : 05/29/2017 15.30 Since the previous tracing, no significant change noted DOCTOR: Shiloh Harvey Interpretating Date/Time 05/30/2017 19:49:59
--- NOTE | 2017-05-30 20:18 | EKG ---
Date Performed: 05/29/2017 Time Performed: 15:30:00 PTAGE: 72 years EKG: ATRIAL FIBRILLATION WITH RAPID VENTRICULAR RESPONSE ABNORMAL RHYTHM ECG Since the PREVIOUS TRACING , no significant change noted DOCTOR: Shiloh Harvey Interpretating Date/Time 05/30/2017 20:17:46
[2017-05-30] MEDS: BUDESONIDE-FORMOTEROL 160/4.5 MCG INHALER INH SCH (23:32)
[2017-05-31] VITALS (10 sets, daily range): BP systolic 110–136; BP diastolic 67–95; PULSE 76–104; RESP 18–20; TEMP 98–98.8; O2SAT 87–96
[2017-05-31] MEDS: RESP: ALBUTEROL 2.5 MG/IPRATROPIUM 0.5 MG NEB (PRN) NEB (03:36)
[2017-05-31] MEDS: RESP: ALBUTEROL 2.5 MG/IPRATROPIUM 0.5 MG NEB (SCH) NEB ×3 (07:47→20:49)
[2017-05-31] MEDS: POTASSIUM CHLORIDE 20 MEQ CONTROLLED RELEASE TAB PO SCH (09:24)
[2017-05-31] MEDS: METOPROLOL TARTRATE 25 MG TAB PO SCH ×2 (09:24→21:06)
[2017-05-31] MEDS: ASPIRIN 81 MG CHEW TAB CHEW SCH (09:25)
[2017-05-31] MEDS: DILTIAZEM-CD 240 MG CAP ER PO SCH (09:26)
[2017-05-31] MEDS: RIVAROXABAN 15 MG TAB PO SCH (09:27)
[2017-05-31] MEDS: BUDESONIDE-FORMOTEROL 160/4.5 MCG INHALER INH SCH ×2 (09:28→21:04)
[2017-05-31] MEDS: FUROSEMIDE 40 MG/4 ML VIAL IV PUSH SCH ×2 (09:28→18:41)
[2017-05-31] MEDS: SODIUM CHLORIDE 0.9% FLUSH 10 ML FLUSH IV FLUSH SCH ×2 (09:28→21:06)
[2017-05-31] MEDS: FLUTICASONE PROPIONATE 220 MCG/ACT 12 GM INHALER INH SCH ×2 (09:30→21:00)
--- NOTE | 2017-05-31 10:02 | HHI.PR ---
Subjective Remarks Says he still feels shortness of breath and he is wheezing. Says he is not feeling improved since yesterday. Denies any chest pain. Shortness of breath is worse when he lays in bed. He is noncompliant with oxygen per nurse. He was noted desaturating Lower extremity edema improved. Some nonproductive cough. No fever or chills. Objective Vitals Vital Signs Date Time Temp Pulse Resp B/P (MAP) Pulse Ox O2 Delivery O2 Flow Rate FiO2 05/31/17 09:42 18 90 05/31/17 09:35 20 87 05/31/17 07:52 92 Nasal Cannula 3.00 05/31/17 07:26 98.7 91 20 135/84 (101) 92 05/31/17 03:59 96 05/31/17 03:18 98.8 98 20 136/90 (105) 90 05/30/17 23:39 95 22 134/86 (102) 92 05/30/17 23:04 88 05/30/17 20:12 96 Nasal Cannula 3.00 05/30/17 19:57 98.3 88 20 124/81 (95) 95 05/30/17 19:55 82 05/30/17 16:00 98.0 78 18 128/79 (95) 90 05/30/17 12:00 96.9 69 20 123/95 (104) 95 05/30/17 10:04 I/O 05/30/17 05/30/17 05/30/17 05/31/17 05/31/17 05/31/17 07:00 15:00 23:00 07:00 15:00 23:00 Output Total 1200 ml 200 ml 500 ml Balance -1200 ml -200 ml -500 ml Output Urine Total 1200 ml 200 ml 500 ml # Voids 3 Result Diagram: 05/30/17 0540 05/30/17 0540 Imaging Last Impressions Head CT 05/30/17 0000 Signed Impressions: Service Date/Time: Tuesday, May 30, 2017 04:41 - CONCLUSION: No acute disease. Vivek Villalobos Jr., MD Chest X-Ray 05/29/17 1523 Signed Impressions: Service Date/Time: Monday, May 29, 2017 15:48 - CONCLUSION: 1. Small right basilar effusion and infiltrate unchanged from previous. 2. Cardiomegaly. Stable compared to prior. Cristóbal Taveras MD Objective Remarks GENERAL: This is a well-nourished, well-developed patient, in no apparent distress. SKIN: Warm and dry HEENT: Normocephalic. Pupils equal round and reactive. Nose without bleeding. Airway patent. NECK: Trachea midline. CARDIOVASCULAR: Regular rate and rhythm without murmurs, gallops, or rubs. RESPIRATORY: Diminished BS. Minimal exp wheeze. GASTROINTESTINAL: Abdomen soft, non-tender, nondistended. Bowel Sounds normoactive x4. MUSCULOSKELETAL: Extremities without clubbing, cyanosis. BLE edema +2. NEUROLOGICAL: Awake and alert. Oriented to time, place, person. No focal neuro deficit. Moves all extremities. Normal speech. A/P Problem List: (1) CHF (congestive heart failure) ICD Code: I50.9 - CHF (congestive heart failure) Status: Acute (2) Hypoxia ICD Code: R09.02 - Hypoxemia Status: Resolved (3) HTN (hypertension) ICD Code: I10 - Hypertension Status: Chronic Assessment and Plan Patient is a 72-year-old male with primary medical history of CHF, A. fib on Eliquis, COPD on home O2 for the past 3 years came into the hospital for increasing shortness of breath and dyspnea. CHF exacerbation, acute on chronic systolic CHF AFIB HTN -EF 20%, AICD in place -Chest x-ray showed 1. Small right basilar effusion and infiltrate unchanged from previous. 2. Cardiomegaly. Stable compared to prior -Lasix 40 mg IV every 12 hours -Continue metoprolol 75mg BID, Cardizem 240 mg daily for rate control -Continue Xarelto -O2 nasal cannula for now, titrate to greater than 90% O2 sat -Monitor Resp status - Duonebs COPD exacerbation? ? Mold exposure -Consult pulmonology -Nebulizers scheduled and as needed -Continue fluticasone twice daily DVT Prop Xarelto Discussed with the patient, nurse Admitting patient as the patient is dessating Problem Qualifiers (1) CHF (congestive heart failure): Qualified Codes: I50.9 - Heart failure, unspecified Bryanna Walsh MD May 31, 2017 10:02
--- NOTE | 2017-05-31 10:17 | MB ---
cc: Joe Tirado MD, Arjun D MD DATE OF CONSULT: 05/30/2017 REQUESTING PHYSICIAN: Dr. De La Cruz. REASON FOR CONSULTATION: Shortness of breath. HISTORY OF PRESENT ILLNESS: Mr. Abdoulaye Benavides is an elderly male who is known to me from the office. He has a longstanding history of COPD and uses oxygen at home, history of a recent AICD placement. The patient stated that until 3 days ago he was doing well. He went to [facility] without any oxygen, but for the last 3 days he has had worsening of shortness of breath, has orthopnea and PND. He did admit to some increasing shortness of breath, has been drinking more water than he should. He did not have any chest pain, no nausea, vomiting. Because of worsening of symptoms, he came to the hospital. He had a workup done. His WBC count is 5.6, hemoglobin 10.7, hematocrit 32.1, MCV 88, platelet count 209. Sodium 141, potassium 3.7, chloride 104, CO2 of 30, BUN 20, creatinine 0.88. His chest x-ray shows small basal pleural effusion, cardiomegaly. CT scan of the brain is negative. The patient is being diuresed and feels somewhat better. PAST MEDICAL HISTORY: Significant for history of COPD, AICD placement, ventricular tachycardia, hypertension. MEDICATIONS: He is currently taking albuterol/Atrovent nebulizer treatment, aspirin 81 mg a day, Flovent 220 mcg 1 puff twice a day, potassium 40 mEq a day, Lasix 40 mg twice a day, metoprolol 75 mg q 12 hours, diltiazem 240 mg a day, Xarelto 15 mg a day. ALLERGIES: NO KNOWN DRUG ALLERGIES. SOCIAL HISTORY: He has history of smoking in the past, no alcohol abuse. He lives with his niece. REVIEW OF SYSTEMS: He walks only a short distance. No DVT or pulmonary embolism, has AICD placed. PHYSICAL EXAMINATION: GENERAL: An elderly male, mildly short of breath. VITAL SIGNS: Blood pressure 128/79, heart rate 78, respiration 18, temperature 98. HEENT: Pupils are equal and react to light. Oral mucosa and nasal mucosa normal. NECK: Supple. JVD not raised. CHEST: He has basilar rales. CARDIAC: S1, S2 normal. ABDOMEN: Benign. EXTREMITIES: 1+ pedal edema. STAFF ANALYST: He is alert and oriented x3, no focal deficit. IMPRESSION: 1. Worsening shortness of breath with mild chronic obstructive pulmonary disease exacerbation. 2. Acute on chronic congestive heart failure. 3. Cardiomyopathy. 4. Automatic implantable cardioverter-defibrillator placement. PLAN: The patient will be diuresed, continue his Xarelto, aerosol treatment with albuterol and Atrovent. I will start him on Symbicort twice a day. Continue albuterol Atrovent/nebulizer treatment, supplement his oxygen. Further treatment will depend on the course in the hospital. Thank you, Dr. De La Cruz, for this consult. MD DELLA Drew//[email or web address] , 07:11 PM , 08:13 PM
[2017-05-31] MEDS: METOLAZONE 2.5 MG TAB PO SCH (12:23)
[2017-05-31] MEDS: IBUPROFEN 200 MG TAB PO PRN (12:23)
[2017-05-31] MEDS ORDERED: MAGNESIUM HYDROXIDE SUSP 30 ML CUP PO PRN (14:45)
[2017-05-31] MEDS ORDERED: BISACODYL 10 MG SUPP RECTAL PRN (14:45)
[2017-05-31] MEDS ORDERED: LACTULOSE SYRUP 20 GM/30 ML CUP PO PRN (14:45)
[2017-05-31] MEDS ORDERED: SENNOSIDES 8.6 MG TAB PO PRN (14:45)
[2017-05-31] MEDS ORDERED: LACTULOSE SYRUP 20 GM/30 ML CUP PO ONE (14:45)
[2017-05-31] MEDS ORDERED: NALOXONE HCL 0.4 MG/ML AMP IV PUSH PRN (14:45)
--- NOTE | 2017-05-31 20:12 | HHI.PR ---
Subjective Remarks 72 YO male with worsening sob,CHF,AICD Breathing better Up in chair On 2LNC Objective Vital Signs Vital Signs Date Time Temp Pulse Resp B/P (MAP) Pulse Ox O2 Delivery O2 Flow Rate FiO2 05/31/17 16:11 98.0 85 20 135/95 (108) 95 05/31/17 13:18 98.7 95 18 131/85 (100) 96 05/31/17 09:42 18 90 05/31/17 09:35 20 87 05/31/17 07:52 92 Nasal Cannula 3.00 05/31/17 07:26 98.7 91 20 135/84 (101) 92 05/31/17 03:59 96 05/31/17 03:18 98.8 98 20 136/90 (105) 90 05/30/17 23:39 95 22 134/86 (102) 92 05/30/17 23:04 88 05/30/17 20:12 96 Nasal Cannula 3.00 I/O 05/30/17 05/30/17 05/30/17 05/31/17 05/31/17 05/31/17 07:00 15:00 23:00 07:00 15:00 23:00 Output Total 1200 ml 200 ml 500 ml Balance -1200 ml -200 ml -500 ml Output Urine Total 1200 ml 200 ml 500 ml # Voids 3 Result Diagram: 05/30/17 0540 05/30/17 0540 Objective Remarks GENERAL: Elderly male mild sob SKIN: Warm and dry. HEAD: Normocephalic. EYES: No scleral icterus. No injection or drainage. NECK: Supple, trachea midline. No JVD or lymphadenopathy. CARDIOVASCULAR: Regular rate and rhythm without murmurs, gallops, or rubs. RESPIRATORY: Breath sounds equal bilaterally. No accessory muscle use. GASTROINTESTINAL: Abdomen soft, non-tender, nondistended. MUSCULOSKELETAL: No cyanosis, or edema. BACK: Nontender without obvious deformity. No CVA tenderness. A/P Assessment and Plan ASSESMENT: 1. Worsening shortness of breath with mild chronic obstructive pulmonary disease exacerbation. 2. Acute on chronic congestive heart failure. 3. Cardiomyopathy. 4. Automatic implantable cardioverter-defibrillator placement PLAN: Aerosol nebs DC Flovent Cont Symbicort 2 puffs bid Supplement 02 Diurease with Lasix monitor Joe Marmolejo MD May 31, 2017 20:12
[2017-05-31] MEDS: DOCUSATE SODIUM 50 MG/SENNA 8.6 MG TAB PO SCH (21:06)
[2017-06-01] VITALS (10 sets, daily range): BP systolic 81–141; BP diastolic 58–103; PULSE 54–99; RESP 16–20; TEMP 98.3–100.1; O2SAT 89–98
[2017-06-01 06:00] LABS: HEMATOCRIT 31.9 % (39.0-51.0); HEMOGLOBIN 10.8 GM/DL (13.0-17.0); MEAN CELL VOLUME 86.9 FL (80.0-100.0); MEAN CORPUSCULAR HEMOGLOBIN 29.3 PG (27.0-34.0); MEAN CORPUSCULAR HGB CONC 33.7 % (32.0-36.0); MEAN PLATELET VOLUME 7.5 FL (7.0-11.0); PLATELET COUNT 197 TH/MM3 (150-450); RED BLOOD COUNT 3.67 MIL/MM3 (4.50-5.90); RED CELL DISTRIBUTION WIDTH 16.3 % (11.6-17.2)
[2017-06-01 06:23] LABS: BICARBONATE 35.4 MEQ/L (21.0-32.0); CALCIUM 8.5 MG/DL (8.5-10.1); CREATININE 1.07 MG/DL (0.60-1.30)
[2017-06-01] MEDS ORDERED: POTASSIUM CHLORIDE 10 MEQ CONTROLLED RELEASE TAB PO ONE ×2 (07:30→11:00)
--- NOTE | 2017-06-01 07:30 | HHI.PR ---
Subjective Remarks Low potassium replaced Patient feels week. However says sob improved some. No fever or chills. Says he has no cough. No n/v/d/c. Eating fairly well. Has no wheezing at this time. Denies having any chest pain, palpitations. Has a good UOP Objective Vitals Vital Signs Date Time Temp Pulse Resp B/P (MAP) Pulse Ox O2 Delivery O2 Flow Rate FiO2 06/01/17 04:43 100.1 85 20 117/66 (83) 95 06/01/17 00:46 100.1 77 16 126/59 (81) 89 05/31/17 21:07 94 Nasal Cannula 3.00 05/31/17 20:31 98.2 76 20 110/67 (81) 96 05/31/17 16:11 98.0 85 20 135/95 (108) 95 05/31/17 13:18 98.7 95 18 131/85 (100) 96 05/31/17 09:42 18 90 05/31/17 09:35 20 87 05/31/17 07:52 92 Nasal Cannula 3.00 I/O 05/31/17 05/31/17 05/31/17 06/01/17 06/01/17 06/01/17 07:00 15:00 23:00 07:00 15:00 23:00 Output Total 500 ml Balance -500 ml Output Urine Total 500 ml Result Diagram: 06/01/17 0509 06/01/17 0509 Imaging Last Impressions Head CT 05/30/17 0000 Signed Impressions: Service Date/Time: Tuesday, May 30, 2017 04:41 - CONCLUSION: No acute disease. Vivek Villalobos Jr., MD Chest X-Ray 05/29/17 1523 Signed Impressions: Service Date/Time: Monday, May 29, 2017 15:48 - CONCLUSION: 1. Small right basilar effusion and infiltrate unchanged from previous. 2. Cardiomegaly. Stable compared to prior. Cristóbal Taveras MD Objective Remarks GENERAL: This is a well-nourished, well-developed patient, in no apparent distress. SKIN: Warm and dry HEENT: Normocephalic. Pupils equal round and reactive. Nose without bleeding. Airway patent. NECK: Trachea midline. CARDIOVASCULAR: Regular rate and rhythm without murmurs, gallops, or rubs. RESPIRATORY: Diminished BS. Minimal exp wheeze. GASTROINTESTINAL: Abdomen soft, non-tender, nondistended. Bowel Sounds normoactive x4. MUSCULOSKELETAL: Extremities without clubbing, cyanosis. BLE edema +2. NEUROLOGICAL: Awake and alert. Oriented to time, place, person. No focal neuro deficit. Moves all extremities. Normal speech. A/P Problem List: (1) CHF (congestive heart failure) ICD Code: I50.9 - CHF (congestive heart failure) Status: Acute (2) Hypoxia ICD Code: R09.02 - Hypoxemia Status: Resolved (3) HTN (hypertension) ICD Code: I10 - Hypertension Status: Chronic Assessment and Plan Patient is a 72-year-old male with primary medical history of CHF, A. fib on Eliquis, COPD on home O2 for the past 3 years came into the hospital for increasing shortness of breath and dyspnea. CHF exacerbation, acute on chronic systolic CHF Acute on chronic respiratory failure, desatting while on 3L NC AFIB HTN Hypokalemia. Replace. -EF 20%, AICD in place -Chest x-ray showed 1. Small right basilar effusion and infiltrate unchanged from previous. 2. Cardiomegaly. Stable compared to prior -Lasix 40 mg IV every 12 hours. Monitor kidney function, monitor UOP. -Continue metoprolol 75mg BID, Cardizem 240 mg daily for rate control -Continue Xarelto -O2 nasal cannula for now, titrate to greater than 90% O2 sat -Monitor Resp status - Duonebs - Monitor electrolytes and replace COPD exacerbation? ? Mold exposure -Consult pulmonology -Nebulizers scheduled and as needed -Continue fluticasone twice daily DVT Prop Xarelto Discussed with the patient, nurse Improved, poss DC in 1-2 days if continues to improved and cleared by consultants Problem Qualifiers (1) CHF (congestive heart failure): Qualified Codes: I50.9 - Heart failure, unspecified Bryanna Walsh MD Jun 01, 2017 07:30
[2017-06-01] MEDS: RESP: ALBUTEROL 2.5 MG/IPRATROPIUM 0.5 MG NEB (SCH) NEB ×3 (07:46→20:57)
[2017-06-01] MEDS: IBUPROFEN 200 MG TAB PO PRN (08:27)
[2017-06-01] MEDS: METOPROLOL TARTRATE 25 MG TAB PO SCH ×2 (08:28→21:13)
[2017-06-01] MEDS: DILTIAZEM-CD 240 MG CAP ER PO SCH (08:28)
[2017-06-01] MEDS: DOCUSATE SODIUM 50 MG/SENNA 8.6 MG TAB PO SCH ×2 (08:29→21:13)
[2017-06-01] MEDS: METOLAZONE 2.5 MG TAB PO SCH (08:29)
[2017-06-01] MEDS: ASPIRIN 81 MG CHEW TAB CHEW SCH (08:29)
[2017-06-01] MEDS: POTASSIUM CHLORIDE 20 MEQ CONTROLLED RELEASE TAB PO SCH ×2 (08:30→21:13)
[2017-06-01] MEDS: RIVAROXABAN 15 MG TAB PO SCH (08:30)
[2017-06-01] MEDS: SODIUM CHLORIDE 0.9% FLUSH 10 ML FLUSH IV FLUSH SCH ×2 (08:31→21:14)
[2017-06-01] MEDS: BUDESONIDE-FORMOTEROL 160/4.5 MCG INHALER INH SCH ×2 (08:31→21:14)
[2017-06-01] MEDS: FLUTICASONE PROPIONATE 220 MCG/ACT 12 GM INHALER INH SCH ×2 (08:31→21:15)
[2017-06-01] MEDS: FUROSEMIDE 40 MG/4 ML VIAL IV PUSH SCH ×2 (08:31→18:47)
[2017-06-01] MEDS ORDERED: LYRI50CA PO (18:21)
--- NOTE | 2017-06-01 19:17 | HHI.PR ---
Subjective Remarks 72 YO male with worsening sob,CHF,AICD Breathing better Up in chair On 2LNC " I have mold in my house" Feels better today Objective Vital Signs Vital Signs Date Time Temp Pulse Resp B/P (MAP) Pulse Ox O2 Delivery O2 Flow Rate FiO2 06/01/17 16:13 98.5 81 20 125/73 (90) 95 06/01/17 11:44 98.3 54 20 117/77 (90) 94 06/01/17 08:45 99 06/01/17 07:48 97 3.00 06/01/17 07:37 99.7 65 20 141/103 (116) 94 06/01/17 04:43 100.1 85 20 117/66 (83) 95 06/01/17 00:46 100.1 77 16 126/59 (81) 89 05/31/17 21:07 94 Nasal Cannula 3.00 05/31/17 20:31 98.2 76 20 110/67 (81) 96 I/O 05/31/17 05/31/17 05/31/17 06/01/17 06/01/17 06/01/17 07:00 15:00 23:00 07:00 15:00 23:00 Output Total 500 ml Balance -500 ml Output Urine Total 500 ml Result Diagram: 06/01/17 0509 06/01/17 0509 Objective Remarks GENERAL: Elderly male mild sob SKIN: Warm and dry. HEAD: Normocephalic. EYES: No scleral icterus. No injection or drainage. NECK: Supple, trachea midline. No JVD or lymphadenopathy. CARDIOVASCULAR: Regular rate and rhythm without murmurs, gallops, or rubs. RESPIRATORY: Breath sounds equal bilaterally. No accessory muscle use. GASTROINTESTINAL: Abdomen soft, non-tender, nondistended. MUSCULOSKELETAL: No cyanosis, or edema. BACK: Nontender without obvious deformity. No CVA tenderness. A/P Assessment and Plan ASSESMENT: 1. Worsening shortness of breath with mild chronic obstructive pulmonary disease exacerbation. 2. Acute on chronic congestive heart failure. 3. Cardiomyopathy. 4. Automatic implantable cardioverter-defibrillator placement PLAN: Aerosol nebs Symbicort 2 puffs bid Supplement 02 Diurease with Lasix monitor Joe Marmolejo MD Jun 01, 2017 19:17
[2017-06-02] VITALS (7 sets, daily range): BP systolic 97–135; BP diastolic 58–77; PULSE 63–99; RESP 14–20; TEMP 97.9–98.2; O2SAT 94–98
[2017-06-02] MEDS: RESP: ALBUTEROL 2.5 MG/IPRATROPIUM 0.5 MG NEB (SCH) NEB ×2 (08:14→12:13)
[2017-06-02] MEDS: DOCUSATE SODIUM 50 MG/SENNA 8.6 MG TAB PO SCH (08:56)
[2017-06-02] MEDS: METOPROLOL TARTRATE 25 MG TAB PO SCH (08:57)
[2017-06-02] MEDS: DILTIAZEM-CD 240 MG CAP ER PO SCH (08:57)
[2017-06-02] MEDS: ASPIRIN 81 MG CHEW TAB CHEW SCH (08:57)
[2017-06-02] MEDS: METOLAZONE 2.5 MG TAB PO SCH (08:57)
[2017-06-02] MEDS: POTASSIUM CHLORIDE 20 MEQ CONTROLLED RELEASE TAB PO SCH (08:57)
[2017-06-02] MEDS: RIVAROXABAN 15 MG TAB PO SCH (08:57)
[2017-06-02] MEDS: BUDESONIDE-FORMOTEROL 160/4.5 MCG INHALER INH SCH (08:58)
[2017-06-02] MEDS: SODIUM CHLORIDE 0.9% FLUSH 10 ML FLUSH IV FLUSH SCH (08:58)
[2017-06-02] MEDS: FUROSEMIDE 40 MG/4 ML VIAL IV PUSH SCH (08:58)
[2017-06-02] MEDS: FLUTICASONE PROPIONATE 220 MCG/ACT 12 GM INHALER INH SCH (08:58)
[2017-06-02] MEDS ORDERED: PREGABALIN 25 MG CAP PO SCH (09:00)
--- NOTE | 2017-06-02 09:19 | HHI.PR ---
Subjective Remarks 72 YO male with worsening sob,CHF,AICD Breathing better Up in chair On 2LNC " I have mold in my house" Feels better today No new complaint Objective Vital Signs Vital Signs Date Time Temp Pulse Resp B/P (MAP) Pulse Ox O2 Delivery O2 Flow Rate FiO2 06/02/17 08:15 96 Nasal Cannula 3.00 06/02/17 07:22 97.9 63 20 119/77 (91) 94 06/02/17 04:02 74 06/02/17 02:23 98.2 99 14 97/64 (75) 96 06/02/17 00:03 78 06/01/17 21:37 75 06/01/17 21:24 98.4 96 16 81/58 (66) 98 06/01/17 20:59 95 Nasal Cannula 3.00 06/01/17 16:13 98.5 81 20 125/73 (90) 95 06/01/17 11:44 98.3 54 20 117/77 (90) 94 Result Diagram: 06/01/17 0509 06/01/17 0509 Objective Remarks GENERAL: Elderly male mild sob SKIN: Warm and dry. HEAD: Normocephalic. EYES: No scleral icterus. No injection or drainage. NECK: Supple, trachea midline. No JVD or lymphadenopathy. CARDIOVASCULAR: Regular rate and rhythm without murmurs, gallops, or rubs. RESPIRATORY: Breath sounds equal bilaterally. No accessory muscle use. GASTROINTESTINAL: Abdomen soft, non-tender, nondistended. MUSCULOSKELETAL: No cyanosis, or edema. BACK: Nontender without obvious deformity. No CVA tenderness. A/P Assessment and Plan ASSESMENT: 1. Worsening shortness of breath with mild chronic obstructive pulmonary disease exacerbation. 2. Acute on chronic congestive heart failure. 3. Cardiomyopathy. 4. Automatic implantable cardioverter-defibrillator placement PLAN: Aerosol nebs Symbicort 2 puffs bid Supplement 02 Diurease with Lasix monitor Lytes DC Plans for home Will FU in office Joe Tirado MD Jun 02, 2017 09:19
[2017-06-02] MEDS ORDERED: XARE15TA PO (11:49)
[2017-06-02] MEDS ORDERED: METO25TA3 PO (11:49)
[2017-06-02] MEDS ORDERED: DILT240C44 PO (11:49)
--- NOTE | 2017-06-02 11:50 | HHI.DCPOC ---
Discharge Care Plan Diagnosis: (1) HTN (hypertension) (2) Hypoxia (3) CHF (congestive heart failure) Your Health Problems Are: Difficulty with ADL Swelling Leg Swelling Shortness of Breath Goals to Promote Your Health * To prevent worsening of your condition and complications * To maintain your health at the optimal level Directions to Meet Your Goals Take your medications as prescribed Follow your dietary instruction Follow activity as directed Keep your appointments as scheduled Take your immunizations and boosters as scheduled If your symptoms worsen call your PCP, if no PCP go to Urgent Care Center or Emergency Room Smoking is Dangerous to Your Health. Avoid second hand smoke Call the 24-hour hour crisis hotline for domestic abuse at Niru Schwarz Jun 02, 2017 11:50
--- NOTE | 2017-06-02 13:06 | HHI.DS ---
Discharge Summary Admission Date May 31, 2017 at 10:03 Discharge Date: Jun 02, 2017 Admitting Diagnosis CHF exacerbation (1) CHF (congestive heart failure) ICD Code: I50.9 - CHF (congestive heart failure) Status: Acute (2) Hypoxia ICD Code: R09.02 - Hypoxemia Status: Resolved (3) HTN (hypertension) ICD Code: I10 - Hypertension Status: Chronic Procedures None Brief History - From Admission History from patient, ER PA communication, interview of medical records. Patient is known to me from his prior hospitalization. Patient was discharged from the hospital about 4 weeks ago. He stated that he stayed with his cousin for the first 3 weeks and returned back to his home on Monday. He states on Monday, he even went shopping without any oxygen at [facility]. He did not have any symptoms. He was also well on Monday. However starting Monday, and particularly on Monday, he started feeling his worst and getting sick. He states that this is because of exposure to mold in his home. He thinks that there is mold in his walking closet at home. He described his symptoms as mainly having tightness in his head, and severe shortness of breath, and weakness. He denies any cough. Denies any fever. He reports that he is not able to walk even the short distance because of this shortness of.. He states he is not able to lie down flat and had to sit up to sleep. Patient reports he takes his medications especially the water pills. However on specific questioning, patient states that he does not have refills on most of his medications because the hospital gave him only 1 month of prescriptions and his doctor did not give any refills at his follow-up appointment. He basically is only taking 4 medications at this point which includes Lasix, potassium pills and 2 other medicines. He states that he stopped taking his blood thinner Xarelto because he had a nosebleed the day after he got discharged. He has stopped that medicine since then. CBC/BMP: 06/01/17 0509 06/01/17 0509 Significant Findings Laboratory Tests Test 06/01/17 05:09 Red Blood Count 3.67 MIL/MM3 (4.50-5.90) Hemoglobin 10.8 GM/DL (13.0-17.0) Hematocrit 31.9 % (39.0-51.0) Blood Urea Nitrogen 27 MG/DL (7-18) Random Glucose 107 MG/DL (74-106) Potassium Level 2.9 MEQ/L (3.5-5.1) Chloride Level 97 MEQ/L (98-107) Carbon Dioxide Level 35.4 MEQ/L (21.0-32.0) Estimat Glomerular Filtration Rate 68 ML/MIN (>89) Imaging Last Impressions Head CT 05/30/17 0000 Signed Impressions: Service Date/Time: Tuesday, May 30, 2017 04:41 - CONCLUSION: No acute disease. Vivek Villalobos Jr., MD Chest X-Ray 05/29/17 1523 Signed Impressions: Service Date/Time: Monday, May 29, 2017 15:48 - CONCLUSION: 1. Small right basilar effusion and infiltrate unchanged from previous. 2. Cardiomegaly. Stable compared to prior. Cristóbal Taveras MD PE at Discharge GENERAL: This is a well-nourished, well-developed patient, in no apparent distress. SKIN: Warm and dry HEENT: Normocephalic. Pupils equal round and reactive. Nose without bleeding. Airway patent. NECK: Trachea midline. CARDIOVASCULAR: Regular rate and rhythm without murmurs, gallops, or rubs. RESPIRATORY: Diminished BS. Minimal exp wheeze. GASTROINTESTINAL: Abdomen soft, non-tender, nondistended. Bowel Sounds normoactive x4. MUSCULOSKELETAL: Extremities without clubbing, cyanosis. BLE edema +2. NEUROLOGICAL: Awake and alert. Oriented to time, place, person. No focal neuro deficit. Moves all extremities. Normal speech. Pt update on day of discharge He feels better today. Says he has oxygen at home. Advised patient to be compliant with medications and oxygen. He is however complaining of pain in his leg he is taking Lyrica for neuropathy says he never follow-up with neurology DrRosetta would like to see one. No nausea or vomiting no diarrhea or constipation. Hospital Course Patient is a 72-year-old male with primary medical history of CHF, A. fib on Eliquis, COPD on home O2 for the past 3 years came into the hospital for increasing shortness of breath and dyspnea. CHF exacerbation, acute on chronic systolic CHF Acute on chronic respiratory failure, desatting while on 3L NC AFIB HTN Hypokalemia. Replace. -EF 20%, AICD in place -Chest x-ray showed 1. Small right basilar effusion and infiltrate unchanged from previous. 2. Cardiomegaly. Stable compared to prior -Lasix 40 mg IV every 12 hours. Monitor kidney function, monitor UOP. -Continue metoprolol 75mg BID, Cardizem 240 mg daily for rate control -Continue Xarelto -O2 nasal cannula for now, titrate to greater than 90% O2 sat -Monitor Resp status - Duonebs - Monitor electrolytes and replace COPD exacerbation? ? Mold exposure -Consult pulmonology -Nebulizers scheduled and as needed -Continue fluticasone twice daily DVT Prop Xarelto Discussed with the patient, nurse Improved, patient is discharged home with home health to follow-up with PCP and consultants as outpatient Pt Condition on Discharge: Stable Discharge Disposition: Disch w/ Home Health Serv Discharge Time: > 30 minutes Discharge Instructions DIET: Follow Instructions for: Heart Healthy Diet Activities you can perform: Regular-No Restrictions Follow up Referrals: Cardiology - 1 Week Neurology - 1 Week PCP Follow-up - 2-3 Days Pulmonology - 1 Week New Medications: Diltiazem CD 24 HR (Diltiazem CD 24 HR) 240 Mg Caper 240 MG PO DAILY for Blood Pressure Management, #30 CAP Metoprolol Tartrate (Metoprolol Tartrate) 25 Mg Tab 75 MG PO Q12HR for Blood Pressure Management, #60 TAB Rivaroxaban (Xarelto) 15 Mg Tab 15 MG PO DAILY for Blood Clot Prevention, #30 TAB Continued Medications: Aspirin (Aspirin) 81 Mg Chew 81 MG CHEW DAILY, TAB 0 Refills Fluticasone 12 GM Inh (Flovent Hfa 12 GM Inh) 220 Mcg/Act Inh 2 PUFF INH BID for Asthma Management, #1 INHALER 0 Refills Use daily at the same time. Furosemide (Furosemide) 40 Mg Tab 40 MG PO BID, #60 TAB 0 Refills Potassium Chloride Microencaps (Potassium Chloride Microencaps) 20 Meq Tab 40 MEQ PO DAILY for Electrolyte Replacement, #60 TAB Pregabalin (Lyrica) 50 Mg Cap 50 MG PO BID, #60 CAP 0 Refills [Oxygen] () 2 LITER RG.Bryanna Hicks MD Jun 02, 2017 13:06
--- NOTE | 2017-06-02 15:06 | HHI.FF ---
Face to Face Verification Diagnosis: (1) Hypoxia (2) CHF (congestive heart failure) (3) HTN (hypertension) Physical Therapy Order: Evaluate and Treat Home Health Nursing Order: Medical education Signs/symptoms of disease process CHF education Medication education-adverse effect Nursing assessment with vital signs I have seen patient Abdoulaye Benavides on 06/02/17. My clinical findings support the need for the requested home health care services because: Ltd mobility - disease progression Patient has SOB Deconditioned w/ increased weakness High risk of falls I certify that my clinical findings support that this patient is homebound because: Hx COPD- exertion dyspnea/weakness Unsteady gait/balance Niru Schwarz Jun 02, 2017 15:06
== END 2017-06-02 15:40 | disposition home health service (06) | DRG 291 ==
LOC: NEPC 15:10 → NEDA 21:23 → NEDH 05-30 01:58 → NEPFCDU 05-30 15:20 → OBSVTOIN 05-31 10:03
PROVIDERS: ADMIT Hospitalist; ATTEND Hospitalist
DX: I11.0 Hypertensive heart disease with heart failure (principal); J96.21 Acute and chronic respiratory failure with hypoxia; I42.9 Cardiomyopathy, unspecified; J44.1 Chronic obstructive pulmonary disease with (acute) exacerbation; Z99.81 Dependence on supplemental oxygen; I48.91 Unspecified atrial fibrillation; D64.9 Anemia, unspecified; I50.23 Acute on chronic systolic (congestive) heart failure; E78.00 Pure hypercholesterolemia, unspecified; E87.6 Hypokalemia; I25.10 Atherosclerotic heart disease of native coronary artery without angina pectoris; K21.9 Gastro-esophageal reflux disease without esophagitis; Z87.01 Personal history of pneumonia (recurrent); Z77.120 Contact with and (suspected) exposure to mold (toxic); Z87.891 Personal history of nicotine dependence; Z95.810 Presence of automatic (implantable) cardiac defibrillator; Z91.19 Patient's noncompliance with other medical treatment and regimen
CPT/HCPCS: 70450; 71046; 80048; 82550; 83735; 83880; 84484; 85025; 85027; 85610; 85730; 93005; 94150; 94640; 94664; 96374; 96376; G0378; G8987-GP; G8988-GP; J1940; J7613

== ENCOUNTER 2017-07-02 11:13 | Inpatient (IN) | payer OTHER, MEDICARE ==
[2017-07-02] VITALS (20 sets, daily range): BP systolic 131–157; BP diastolic 82–103; PULSE 72–124; RESP 21–37; TEMP 97.7–98.7; O2SAT 65–99
[~2017-07-02] VITALS: Ht 172.7 cm; Wt 91.4 kg
[~2017-07-02 11:13] MED LIST changes: -AUGM875T3 PO; -CARD240C6 PO; +DILT240C44 PO; -LISI-519 PO; -METO-309 PO; +METO25TA3 PO; -MONT10TA4 PO; -PRED20 PO
[2017-07-02] MEDS ORDERED: INHALER INH (11:36)
[2017-07-02] MEDS ORDERED: CART120C PO (11:36)
[2017-07-02] MEDS ORDERED: IPRASOL INH (11:36)
[2017-07-02] MEDS ORDERED: FUROSEMIDE 40 MG/4 ML VIAL IV PUSH ONE (11:45)
[2017-07-02] MEDS ORDERED: FLUT1INH INH (11:50)
[2017-07-02 11:56] LABS: AUTOMATED NEUTROPHIL # 4.6 TH/MM3 (1.8-7.7); BASOPHIL # 0.1 TH/MM3 (0-0.2); BASOPHIL % 1.2 % (0.0-2.0); EOSINOPHIL # 0.1 TH/MM3 (0-0.4); EOSINOPHIL % 2.1 % (0.0-4.0); HEMATOCRIT 32.8 % (39.0-51.0); HEMOGLOBIN 10.5 GM/DL (13.0-17.0); LYMPH % 14.9 % (9.0-44.0); LYMPHOCYTE # 0.9 TH/MM3 (1.0-4.8); MEAN CELL VOLUME 87.6 FL (80.0-100.0); MEAN CORPUSCULAR HEMOGLOBIN 27.9 PG (27.0-34.0); MEAN CORPUSCULAR HGB CONC 31.9 % (32.0-36.0); MEAN PLATELET VOLUME 7.8 FL (7.0-11.0); MONO % 7.3 % (0.0-8.0); MONOCYTE # 0.5 TH/MM3 (0-0.9); NEUT % 74.5 % (16.0-70.0); PLATELET COUNT 198 TH/MM3 (150-450); RED BLOOD COUNT 3.75 MIL/MM3 (4.50-5.90); RED CELL DISTRIBUTION WIDTH 17.7 % (11.6-17.2); WHITE BLOOD COUNT 6.2 TH/MM3 (4.0-11.0)
--- NOTE | 2017-07-02 12:00 | PD ---
Physical Exam Narrative I, Dr. Guerra, have reviewed the advance practice practitioner's documentation and am in agreement, met with the patient face to face, made the diagnosis, and the medical decision making was done by me. *My assessment and Findings: Patient is a 72 year old male who comes in complaining of SOB. Exam shows tachypnea and crackles at the bases of the lungs. Data Data Last Documented VS Orders Orders Electrocardiogram (07/02/17 11:31) Complete Blood Count With Diff (07/02/17 11:31) Comprehensive Metabolic Panel (07/02/17 11:31) Ckmb (Isoenzyme) Profile (07/02/17 11:31) Troponin I (07/02/17 11:31) B-Type Natriuretic Peptide (07/02/17 11:31) Prothrombin Time / Inr (Pt) (07/02/17 11:31) Act Partial Throm Time (Ptt) (07/02/17 11:31) Magnesium (Mg) (07/02/17 11:31) Thyroid Stimulating Hormone (07/02/17 11:31) Chest, Single Ap (07/02/17 11:31) Iv Access Insert/Monitor (07/02/17 11:31) Ecg Monitoring (07/02/17 11:31) Oxygen Administration (07/02/17 11:31) Oximetry (07/02/17 11:31) Furosemide Inj (Lasix Inj) (07/02/17 11:45) Admit Order (Ed Use Only) (07/02/17 13:54) Labs Laboratory Tests Test 07/02/17 11:45 White Blood Count 6.2 TH/MM3 Red Blood Count 3.75 MIL/MM3 Hemoglobin 10.5 GM/DL Hematocrit 32.8 % Mean Corpuscular Volume 87.6 FL Mean Corpuscular Hemoglobin 27.9 PG Mean Corpuscular Hemoglobin Concent 31.9 % Red Cell Distribution Width 17.7 % Platelet Count 198 TH/MM3 Mean Platelet Volume 7.8 FL Neutrophils (%) (Auto) 74.5 % Lymphocytes (%) (Auto) 14.9 % Monocytes (%) (Auto) 7.3 % Eosinophils (%) (Auto) 2.1 % Basophils (%) (Auto) 1.2 % Neutrophils # (Auto) 4.6 TH/MM3 Lymphocytes # (Auto) 0.9 TH/MM3 Monocytes # (Auto) 0.5 TH/MM3 Eosinophils # (Auto) 0.1 TH/MM3 Basophils # (Auto) 0.1 TH/MM3 CBC Comment DIFF FINAL Differential Comment Prothrombin Time 11.2 SEC Prothromb Time International Ratio 1.1 RATIO Activated Partial Thromboplast Time 25.7 SEC Blood Urea Nitrogen 20 MG/DL Creatinine 1.48 MG/DL Random Glucose 211 MG/DL Total Protein 7.1 GM/DL Albumin 3.2 GM/DL Calcium Level 8.4 MG/DL Magnesium Level 2.1 MG/DL Alkaline Phosphatase 57 U/L Aspartate Amino Transf (AST/SGOT) 16 U/L Alanine Aminotransferase (ALT/SGPT) 22 U/L Total Bilirubin 0.8 MG/DL Sodium Level 143 MEQ/L Potassium Level 3.8 MEQ/L Chloride Level 102 MEQ/L Carbon Dioxide Level 36.5 MEQ/L Anion Gap 5 MEQ/L Estimat Glomerular Filtration Rate 47 ML/MIN Total Creatine Kinase 66 U/L Troponin I 0.02 NG/ML B-Type Natriuretic Peptide 722 PG/ML Thyroid Stimulating Hormone 3rd Gen 1.380 uIU/ML MDM Supervised Visit with YOON: Yes Narrative Course Patient trialed on venti mask, however he remained tachypneic. Started on BIPAP. Given Lasix. Admitted for further management. Diagnosis Primary Impression: CHF (congestive heart failure) Qualified Codes: I50.9 - Heart failure, unspecified Admitting Information Admitting Physician Requests: Taylor Blankenship MD Jul 02, 2017 12:00
--- NOTE | 2017-07-02 12:05 | RADRPT ---
EXAM DATE/TIME: 07/02/2017 11:37 [facility] COMPARISON: CHEST SINGLE AP, April 29, 2017, 1:39. INDICATIONS : Short of breath MEDICAL HISTORY : Ulcers. Cardiovascular disease. Hypertension. Hernia, hiatal.COPD GERD SURGICAL HISTORY : Defibrillator. ENCOUNTER: Initial ACUITY: 3 days PAIN SCORE: 0/10 LOCATION: Bilateral chest FINDINGS: Pacemaker on the left. Significant increase in amount of cardiomegaly from 04/29/17 with small bilate ral pleural effusions and mild interstitial edema. Bibasilar parenchymal changes. CONCLUSION: Developing congestive failure, progressed in the interval. Colton Taveras MD FACR on July 02, 2017 at 12:03 Board Certified Radiologist. This report was verified electronically.
[2017-07-02 12:07] LABS: INTERNATIONAL NORMALIZED RATIO 1.1 RATIO; PROTHROMBIN TIME - PATIENT 11.2 SEC (9.8-11.6)
--- NOTE | 2017-07-02 12:15 | PD ---
HPI Chief Complaint: Respiratory Symptoms Time Seen by Provider: 11:27 Travel History International Travel<30 days: No Contact w/Intl Traveler<30days: No Traveled to known affect area: No History of Present Illness HPI 72-year-old male with a chronic history of COPD, CHF that presents to the ED for evaluation of shortness of breath for the past 2-3 days. Per patient has been using his inhalers and taking his "water pill". Per patient his medication was recently changed what he does not know the name of it. Probably patient needs to be Lasix 40 mg and he tells me that he was changed to possible another medication. Denies any chest pain. States having shortness of breath. Per patient he feels like his legs have been more swollen than usual. Per patient his shortness of breath gets worse when he ambulates. He does not use oxygen at home. He has been using inhalers at home with minimal relief. She follows with Dr. Cesar for cardiology. Per patient she is supposed to be on Xarelto from the provider's previous note in May patient was questionably taking this medication. Per patient he has been taken at this time. He denies any urinary or bowel movement issues. No allergies to medication. Has not seen anybody for this. Came here by private vehicle. No pain. PFSH Past Medical History Asthma: No Atrial Fibrillation: Yes Blood Disorders: No Heart Rhythm Problems: Yes (ABLATION 2012) Cancer: No Cardiovascular Problems: Yes (CAD) High Cholesterol: Yes Chest Pain: Yes Congestive Heart Failure: Yes COPD: Yes Diabetes: No Endocrine: No Gastrointestinal Disorders: Yes GERD: Yes Glaucoma: No Genitourinary: Yes Hepatitis: No Hiatal Hernia: Yes Hypertension: Yes Immune Disorder: No Inguinal Hernia: Yes Implanted Vascular Access Dvce: Yes Musculoskeletal: No Neurologic: No Psychiatric: No Reproductive: No Respiratory: Yes Integumentary: No Sleep Apnea: No Thyroid Disease: No Triglycerides - High: Yes Ulcer: No Past Surgical History Abdominal Surgery: No AICD: Yes Arteriovenous Shunt: No Cardiac Surgery: Yes (stent placement, ICD) Ear Surgery: No Endocrine Surgery: No Eye Surgery: No Genitourinary Surgery: No Gynecologic Surgery: No Insulin Pump: No Joint Replacement: No Oral Surgery: No Thoracic Surgery: No Other Surgery: Yes (HERNIA REPAIR) Social History Alcohol Use: Yes (2 BEERS ON THE WEEKENDS) Tobacco Use: No Substance Use: No Allergies-Medications (Allergen,Severity, Reaction): Coded Allergies: No Known Allergies (Unverified Allergy, Unknown, 04/27/17) Reported Meds & Prescriptions Reported Meds & Active Scripts Active Metoprolol Tartrate 25 Mg Tab 75 Mg PO Q12HR Xarelto (Rivaroxaban) 15 Mg Tab 15 Mg PO DAILY Potassium Chloride Microencaps 20 Meq Tab 40 Meq PO DAILY Reported Breo Ellipta Inh (Fluticasone/Vilanterol) 100-25 Mcg/Act Inh 1 Puff INH DAILY Use daily at the same time. Duoneb (Ipratropium-Albuterol Neb) 0.5-2.5 Mg/3 Ml Neb 1 Nebule INH QID Cartia Xt (Diltiazem ER 24 HR) 120 Mg Caper 240 Mg PO DAILY [Oxygen] 2 Liter RG.CANULA CONTINUOUS Aspirin 81 Mg Chew 81 Mg CHEW DAILY Furosemide 40 Mg Tab 40 Mg PO BID Review of Systems Except as stated in HPI: all other systems reviewed are Neg Physical Exam Narrative GENERAL: SKIN: Warm and dry. HEAD: Atraumatic. Normocephalic. EYES: Pupils equal and round. No scleral icterus. No injection or drainage. ENT: No nasal bleeding or discharge. Mucous membranes pink and moist. Tongue is midline. No uvula deviation. NECK: Trachea midline. No JVD. CARDIOVASCULAR: Regular rate and rhythm. No murmurs, S3, S4. RESPIRATORY: No accessory muscle use. Clear to auscultation. Breath sounds equal bilaterally. GASTROINTESTINAL: Abdomen soft, non-tender, nondistended. Hepatic and splenic margins not palpable. MUSCULOSKELETAL: Extremities without clubbing, cyanosis, or edema. No obvious deformities. Full range of motion of the upper and lower extremities bilaterally. 2+ pulses bilaterally. NEUROLOGICAL: Awake and alert. No obvious cranial nerve deficits. Motor grossly within normal limits. Five out of 5 muscle strength in the arms and legs. Normal speech. PSYCHIATRIC: Appropriate mood and affect; insight and judgment normal. Data Data Last Documented VS Vital Signs Date Time Temp Pulse Resp B/P (MAP) Pulse Ox O2 Delivery O2 Flow Rate FiO2 07/02/17 12:30 99 60 07/02/17 12:02 Venturi Mask 6.00 07/02/17 11:37 37 07/02/17 11:28 112 07/02/17 11:26 98.7 131/82 (98) Orders Orders Electrocardiogram (07/02/17 11:31) Complete Blood Count With Diff (07/02/17 11:31) Comprehensive Metabolic Panel (07/02/17 11:31) Ckmb (Isoenzyme) Profile (07/02/17 11:31) Troponin I (07/02/17 11:31) B-Type Natriuretic Peptide (07/02/17 11:31) Prothrombin Time / Inr (Pt) (07/02/17 11:31) Act Partial Throm Time (Ptt) (07/02/17 11:31) Magnesium (Mg) (07/02/17 11:31) Thyroid Stimulating Hormone (07/02/17 11:31) Chest, Single Ap (07/02/17 11:31) Iv Access Insert/Monitor (07/02/17 11:31) Ecg Monitoring (07/02/17 11:31) Oxygen Administration (07/02/17 11:31) Oximetry (07/02/17 11:31) Furosemide Inj (Lasix Inj) (07/02/17 11:45) Admit Order (Ed Use Only) (07/02/17 13:54) Labs Laboratory Tests Test 07/02/17 11:45 White Blood Count 6.2 TH/MM3 Red Blood Count 3.75 MIL/MM3 Hemoglobin 10.5 GM/DL Hematocrit 32.8 % Mean Corpuscular Volume 87.6 FL Mean Corpuscular Hemoglobin 27.9 PG Mean Corpuscular Hemoglobin Concent 31.9 % Red Cell Distribution Width 17.7 % Platelet Count 198 TH/MM3 Mean Platelet Volume 7.8 FL Neutrophils (%) (Auto) 74.5 % Lymphocytes (%) (Auto) 14.9 % Monocytes (%) (Auto) 7.3 % Eosinophils (%) (Auto) 2.1 % Basophils (%) (Auto) 1.2 % Neutrophils # (Auto) 4.6 TH/MM3 Lymphocytes # (Auto) 0.9 TH/MM3 Monocytes # (Auto) 0.5 TH/MM3 Eosinophils # (Auto) 0.1 TH/MM3 Basophils # (Auto) 0.1 TH/MM3 CBC Comment DIFF FINAL Differential Comment Prothrombin Time 11.2 SEC Prothromb Time International Ratio 1.1 RATIO Activated Partial Thromboplast Time 25.7 SEC Blood Urea Nitrogen 20 MG/DL Creatinine 1.48 MG/DL Random Glucose 211 MG/DL Total Protein 7.1 GM/DL Albumin 3.2 GM/DL Calcium Level 8.4 MG/DL Magnesium Level 2.1 MG/DL Alkaline Phosphatase 57 U/L Aspartate Amino Transf (AST/SGOT) 16 U/L Alanine Aminotransferase (ALT/SGPT) 22 U/L Total Bilirubin 0.8 MG/DL Sodium Level 143 MEQ/L Potassium Level 3.8 MEQ/L Chloride Level 102 MEQ/L Carbon Dioxide Level 36.5 MEQ/L Anion Gap 5 MEQ/L Estimat Glomerular Filtration Rate 47 ML/MIN Total Creatine Kinase 66 U/L Troponin I 0.02 NG/ML B-Type Natriuretic Peptide 722 PG/ML Thyroid Stimulating Hormone 3rd Gen 1.380 uIU/ML MDM Medical Decision Making Medical Screen Exam Complete: Yes Emergency Medical Condition: Yes Medical Record Reviewed: Yes Interpretation(s) CBC & BMP Diagram 07/02/17 11:45 Total Protein 7.1, Albumin 3.2 L, Calcium Level 8.4 L, Magnesium Level 2.1, Alkaline Phosphatase 57, Aspartate Amino Transf (AST/SGOT) 16, Alanine Aminotransferase (ALT/SGPT) 22, Total Bilirubin 0.8 EKG shows atrial fibrillation with RVR in 116 troponin and CKMB negative Last Impressions Chest X-Ray 07/02/17 1131 Signed Impressions: Service Date/Time: Sunday, July 02, 2017 11:37 - CONCLUSION: Developing congestive failure, progressed in the interval. Colton Taveras MD FACR Differential Diagnosis COPD exacerbation versus atrial fibrillation versus CHF exacerbation versus CHF versus shortness of breath with exertion versus electrolyte abnormality versus hypoxia Narrative Course 72-year-old male that presents to the ED for evaluation of shortness of breath with exertion. Patient was properly examined and was found to have signs and symptoms very concerning for CHF exacerbation. Patient appears to be fluid overload with leg swelling as well as crackles in the lower lungs. Labs and imaging ordered. Patient was put on oxygen and given Lasix 40 mg IV. Labs and imaging showed what appears to be acute CHF exacerbation. My attending Dr Guerra evaluated the patient and recommends Bipap. patient started on this and work of breathing improved. Will admit to [facility]. Dr Cali agreed to admission. Diagnosis Primary Impression: CHF (congestive heart failure) Qualified Codes: I50.9 - Heart failure, unspecified Additional Impression: Hypoxia Admitting Information Admitting Physician Requests: Admit Shayan Meza Jul 02, 2017 12:14
[2017-07-02 12:24] LABS: ALBUMIN 3.2 GM/DL (3.4-5.0); ALT (GPT) 22 U/L (12-78); AST (GOT) 16 U/L (15-37); BICARBONATE 36.5 MEQ/L (21.0-32.0); BLOOD UREA NITROGEN 20 MG/DL (7-18); CALCIUM 8.4 MG/DL (8.5-10.1); CHLORIDE 102 MEQ/L (98-107); CREATININE 1.48 MG/DL (0.60-1.30); GLOMERULAR FILTRATION RATE 47 ML/MIN (>89); GLUCOSE,RANDOM 211 MG/DL (74-106); MAGNESIUM 2.1 MG/DL (1.5-2.5); SODIUM (NA) 143 MEQ/L (136-145)
[2017-07-02 12:34] LABS: ALKALINE PHOSPHATASE 57 U/L (45-117); TOTAL BILIRUBIN ADULT 0.8 MG/DL (0.2-1.0); TOTAL PROTEIN 7.1 GM/DL (6.4-8.2); TROPONIN I 0.02 NG/ML (0.02-0.05)
[2017-07-02] MEDS ORDERED: SENNOSIDES 8.6 MG TAB PO PRN (14:15)
[2017-07-02] MEDS ORDERED: MORPHINE SULFATE 2 MG/ML SYRINGE IV PUSH PRN ×2 (14:15)
[2017-07-02] MEDS ORDERED: LACTULOSE SYRUP 20 GM/30 ML CUP PO PRN (14:15)
[2017-07-02] MEDS ORDERED: MAGNESIUM HYDROXIDE SUSP 30 ML CUP PO PRN (14:15)
[2017-07-02] MEDS ORDERED: METOCLOPRAMIDE HCL 10 MG/2 ML VIAL IV PUSH PRN (14:15)
[2017-07-02] MEDS ORDERED: cloNIDine HCL 0.1 MG TAB PO PRN (14:15)
[2017-07-02] MEDS ORDERED: oxyCODONE/ACETAMINOPHEN 5 MG/325 MG TAB PO PRN (14:15)
[2017-07-02] MEDS ORDERED: BISACODYL 10 MG SUPP RECTAL PRN (14:15)
[2017-07-02] MEDS ORDERED: ONDANSETRON HCL 4 MG/2 ML VIAL IVP PRN (14:15)
[2017-07-02] MEDS ORDERED: oxyCODONE/ACETAMINOPHEN 10 MG/325 MG TAB PO PRN (14:15)
[2017-07-02] MEDS ORDERED: NALOXONE HCL 0.4 MG/ML AMP IV PUSH PRN (14:15)
[2017-07-02] MEDS ORDERED: SODIUM CHLORIDE 0.9% FLUSH 10 ML FLUSH IV FLUSH PRN ×3 (14:15→14:30)
[2017-07-02] MEDS ORDERED: ACETAMINOPHEN 325 MG TAB PO PRN ×2 (14:15)
[2017-07-02] MEDS ORDERED: RESP: ALBUTEROL 2.5 MG/3 ML NEB (PRN) INH (14:30)
--- NOTE | 2017-07-02 14:36 | HHI.HP ---
[facility] Service [facility] Primary Care Physician No Primary Care Physician Admission Diagnosis acute CHF exacerbation, hypoxia, on bipap Diagnoses: (1) COPD (chronic obstructive pulmonary disease) Diagnosis: Principal (2) Atrial fibrillation Diagnosis: Principal (3) Hypokalemia Diagnosis: Secondary (4) Hypomagnesemia Diagnosis: Secondary (5) HTN (hypertension) Diagnosis: Secondary (6) CHF (congestive heart failure) Diagnosis: Principal (7) Hypoxia Diagnosis: Principal Chief Complaint: Respiratory symptoms Travel History International Travel<30 Days: No Contact w/Intl Traveler <30 Da: No Traveled to Known Affected Are: No History of Present Illness Patient is a 72-year-old male with a history of COPD, CHF on chronic oxygen. Who presents to the emergency department for evaluation of increasing shortness of breath for the past 2-3 days patient using his inhalers and diuretics without any relief patient is not completely sure about his medication changes. Has been having increasing shortness of breath. His been having that his legs are more swollen than usual. Gets short of breath more so when he moves. He uses oxygen at home follows with Dr. Dueñas of cardiology Patient is supposed to be on Xarelto Patient has been placed on BiPAP and will be admitted to the hospital and consult cardiology and pulmonary Patient will go to the PCU level floor Review of Systems Constitutional: COMPLAINS OF: Fatigue, DENIES: Diaphoretic episodes, Fever, Weight gain, Weight loss, Chills, Dizziness, Change in appetite, Night Sweats Endocrine: DENIES: Heat/cold intolerance, Polydipsia, Polyuria, Polyphagia Eyes: DENIES: Blurred vision, Diplopia, Eye inflammation, Eye pain, Vision loss , Photosensitivity, Double Vision Ears, nose, mouth, throat: DENIES: Tinnitus, Hearing loss, Vertigo, Nasal discharge, Oral lesions, Throat pain, Hoarseness, Ear Pain, Running Nose, Epistaxis, Sinus Pain, Toothache, Odynophagia Respiratory: COMPLAINS OF: Cough, Wheezing, Sputum production, Shortness of breath, DENIES: Apneas, Snoring, Hemoptysis Cardiovascular: COMPLAINS OF: Palpitations, Dyspnea on Exertion, Lower Extremity Edema, Orthopnea, DENIES: Chest pain, Syncope, PND, Claudication Gastrointestinal: DENIES: Abdominal pain, Black stools, Bloody stools, Constipation, Diarrhea, Nausea, Vomiting, Difficulty Swallowing, Anorexia Genitourinary: DENIES: Sexual dysfunction, Urinary frequency, Urinary incontinence, Urgency, Hematuria, Dysuria, Nocturia, Penile Discharge, Testicular Pain, Testicular Swelling Musculoskeletal: DENIES: Joint pain, Muscle aches, Stiffness, Joint Swelling, Back pain, Neck pain Integumentary: DENIES: Abnormal pigmentation, Nail changes, Pruritus, Rash Hematologic/lymphatic: DENIES: Bruising, Lymphadenopathy Immunologic/allergic: DENIES: Eczema, Urticaria Neurologic: DENIES: Abnormal gait, Headache, Localized weakness, Paresthesias, Seizures, Speech Problems, Tremor, Poor Balance Psychiatric: DENIES: Anxiety, Confusion, Mood changes, Depression, Hallucinations, Agitation, Suicidal Ideation, Homicidal Ideation, Delusions Except as stated in HPI: all other systems reviewed are Neg Past Family Social History Past Medical History Atrial fibrillation COPD History of cardiac ablation in the past Coronary artery disease High cholesterol Chest pain Congestive heart failure GERD Hiatal hernia Hypertension History of hernia AICD Hypertriglyceridemia Past Surgical History AICD implantation Stenting Hernia repair Reported Medications Reported Meds & Active Scripts Active Metoprolol Tartrate 25 Mg Tab 75 Mg PO Q12HR Xarelto (Rivaroxaban) 15 Mg Tab 15 Mg PO DAILY Potassium Chloride Microencaps 20 Meq Tab 40 Meq PO DAILY Reported Breo Ellipta Inh (Fluticasone/Vilanterol) 100-25 Mcg/Act Inh 1 Puff INH DAILY Use daily at the same time. Duoneb (Ipratropium-Albuterol Neb) 0.5-2.5 Mg/3 Ml Neb 1 Nebule INH QID Cartia Xt (Diltiazem ER 24 HR) 120 Mg Caper 240 Mg PO DAILY [Oxygen] 2 Liter RG.CANULA CONTINUOUS Aspirin 81 Mg Chew 81 Mg CHEW DAILY Furosemide 40 Mg Tab 40 Mg PO BID Allergies: Coded Allergies: No Known Allergies (Unverified Allergy, Unknown, 04/27/17) Active Ordered Medications Current Medications Furosemide (Lasix Inj) 40 mg ONCE ONCE IV PUSH Last administered on 07/02/17at 11:50; Start 07/02/17 at 11:45; Stop 07/02/17 at 11:46; Status DC Aspirin (Aspirin Chew) 81 mg DAILY CHEW ; Start 07/03/17 at 09:00 Diltiazem HCl (Cardizem Cd) 240 mg DAILY PO ; Start 07/03/17 at 09:00 Fluticasone/ Vilanterol (Breo Ellipta 100-25 Inh) 1 puff DAILY INH ; Start 07/03 at 09:00 Metoprolol Tartrate (Lopressor) 75 mg Q12HR PO ; Start 07/02/17 at 21:00 Potassium Chloride (KCl) 40 meq DAILY PO ; Start 07/03/17 at 09:00 Rivaroxaban (Xarelto) 15 mg DAILY PO ; Start 07/03/17 at 09:00 Furosemide (Lasix Inj) 40 mg BID@18 IV PUSH ; Start 07/02/17 at 18:00 Clonidine (Catapres) 0.1 mg Q4H PRN PO SBP>160, DBP>90; Start 07/02/17 at 14:15 ; Status UNV Sodium Chloride (NS Flush) 2 ml BID IV FLUSH ; Start 07/02/17 at 21:00; Status UNV Sodium Chloride (NS Flush) 2 ml UNSCH PRN IV FLUSH FLUSH AFTER USING IV ACCESS ; Start 07/02/17 at 14:15; Status UNV Metolazone (Zaroxolyn) 2.5 mg DAILY PO ; Start 07/03/17 at 09:00; Status UNV Potassium Chloride (KCl) 40 meq BID PO ; Start 07/02/17 at 21:00 Sodium Chloride (NS Flush) 2 ml UNSCH PRN IV FLUSH FLUSH AFTER USING IV ACCESS ; Start 07/02/17 at 14:15; Status UNV Sodium Chloride (NS Flush) 2 ml BID IV FLUSH ; Start 07/02/17 at 21:00; Status UNV Acetaminophen (Tylenol) 650 mg Q4H PRN PO TEMP > 100.4; Start 07/02/17 at 14:15 Ondansetron HCl (Zofran Inj) 4 mg Q6H PRN IVP NAUSEA OR VOMITING; Start at 14:15 Metoclopramide HCl (Reglan Inj) 5 mg Q6H PRN IV PUSH NAUSEA OR VOMITING; Start 07/02/17 at 14:15 Acetaminophen (Tylenol) 650 mg Q6H PRN PO PAIN SCALE 1 TO 2; Start 07/02/17 at 14:15 Oxycodone/ Acetaminophen (Percocet 5-325 Mg) 1 tab Q6H PRN PO PAIN SCALE 3 TO 5; Start 07/02/17 at 14:15 Oxycodone/ Acetaminophen (Percocet 10-325 Mg) 1 tab Q6H PRN PO PAIN SCALE 6 TO 10; Start 07/02/17 at 14:15 Morphine Sulfate (Morphine Inj) 2 mg Q3H PRN IV PUSH Pain 3-5; if unable to take PO; Start 07/02/17 at 14:15 Morphine Sulfate (Morphine Inj) 4 mg Q3H PRN IV PUSH Pain 6-10;if unable to take PO; Start 07/02/17 at 14:15; Status UNV Naloxone HCl (Narcan Inj) 0.4 mg UNSCH PRN IV PUSH SEE LABEL COMMENTS; Start at 14:15 Senna/Docusate Sodium (Kymberly-Colace) 1 tab BID PO ; Start 07/02/17 at 21:00 Magnesium Hydroxide (Milk Of Magnesia Liq) 30 ml Q12H PRN PO Mild constipation ; Start 07/02/17 at 14:15; Status UNV Sennosides (Senokot) 17.2 mg Q12H PRN PO Moderate constipation; Start 07/02/17 at 14:15; Status UNV Bisacodyl (Dulcolax Supp) 10 mg DAILY PRN RECTAL SEVERE CONSITIPATION; Start at 14:15; Status UNV Lactulose (Lactulose Liq) 30 ml DAILY PRN PO SEVERE CONSITIPATION; Start at 14:15; Status UNV Sodium Chloride (NS Flush) 2 ml BID IV FLUSH ; Start 07/02/17 at 21:00; Status UNV Sodium Chloride (NS Flush) 2 ml UNSCH PRN IV FLUSH FLUSH AFTER USING IV ACCESS ; Start 07/02/17 at 14:30; Status UNV Albuterol/ Ipratropium (Duoneb Neb) 1 ampule Q2HR NEB PRN INH sob; Start at 14:30; Status UNV Albuterol/ Ipratropium (Duoneb Neb) 1 ampule Q6HR NEB INH ; Start 07/02/17 at 16:00; Status UNV Albuterol Sulfate (Albuterol Neb) 2.5 mg Q2HR NEB PRN INH SHORTNESS OF BREATH; Start 07/02/17 at 14:30; Status UNV Family History Hypertension Probable heart disease Social History Denies any tobacco or illicits Drinks 2 beers on weekends at least Physical Exam Vital Signs Vital Signs Date Time Temp Pulse Resp B/P (MAP) Pulse Ox O2 Delivery O2 Flow Rate FiO2 07/02/17 12:30 99 60 07/02/17 12:02 92 Venturi Mask 6.00 50 07/02/17 11:45 86 Nasal Cannula 5.00 07/02/17 11:37 37 98 Partial Rebreather 15.00 07/02/17 11:37 97 Partial Rebreather 15.00 07/02/17 11:28 65 Nasal Cannula 6.00 07/02/17 11:28 97 Non-Rebreather 15.00 07/02/17 11:28 112 63 97 Non-Rebreather 15.00 07/02/17 11:26 98.7 118 35 131/82 (98) 65 Physical Exam GENERAL: This is a well-nourished, well-developed patient, in moderate distress. Remains on BiPAP SKIN: No rashes, ecchymoses or lesions. Cool and dry. HEAD: Atraumatic. Normocephalic. No temporal or scalp tenderness. EYES: Pupils equal round and reactive. Extraocular motions intact. No scleral icterus. No injection or drainage. ENT: Nose without bleeding, purulent drainage or septal hematoma. Throat without erythema, tonsillar hypertrophy or exudate. Uvula midline. Airway patent. NECK: Trachea midline. No lymphadenopathy. Supple, nontender, no meningeal signs. CARDIOVASCULAR: IRRegular rate and rhythm without murmurs, gallops, or rubs. S1 -S2 no S3 or S4 no heave or thrill or rub or gallop RESPIRATORY: Clear to auscultation. Few scattered wheezes and some rhonchi's bilaterally. As well as some rales GASTROINTESTINAL: Abdomen soft, non-tender, nondistended. No hepato-splenomegaly , or palpable masses. No guarding. MUSCULOSKELETAL: Extremities without clubbing, cyanosis, or edema. No joint tenderness, effusion, or edema noted. No calf tenderness. Negative Homans sign bilaterally. NEUROLOGICAL: Awake and alert. Cranial nerves II through XII intact. Motor and sensory grossly within normal limits. Five out of 5 muscle strength in all muscle groups. Normal speech. Insight and judgment appears good Mood and behavior somewhat appropriate Laboratory Laboratory Tests Test 07/02/17 11:45 White Blood Count 6.2 Red Blood Count 3.75 Hemoglobin 10.5 Hematocrit 32.8 Mean Corpuscular Volume 87.6 Mean Corpuscular Hemoglobin 27.9 Mean Corpuscular Hemoglobin Concent 31.9 Red Cell Distribution Width 17.7 Platelet Count 198 Mean Platelet Volume 7.8 Neutrophils (%) (Auto) 74.5 Lymphocytes (%) (Auto) 14.9 Monocytes (%) (Auto) 7.3 Eosinophils (%) (Auto) 2.1 Basophils (%) (Auto) 1.2 Neutrophils # (Auto) 4.6 Lymphocytes # (Auto) 0.9 Monocytes # (Auto) 0.5 Eosinophils # (Auto) 0.1 Basophils # (Auto) 0.1 CBC Comment DIFF FINAL Differential Comment Prothrombin Time 11.2 Prothromb Time International Ratio 1.1 Activated Partial Thromboplast Time 25.7 Blood Urea Nitrogen 20 Creatinine 1.48 Random Glucose 211 Total Protein 7.1 Albumin 3.2 Calcium Level 8.4 Magnesium Level 2.1 Alkaline Phosphatase 57 Aspartate Amino Transf (AST/SGOT) 16 Alanine Aminotransferase (ALT/SGPT) 22 Total Bilirubin 0.8 Sodium Level 143 Potassium Level 3.8 Chloride Level 102 Carbon Dioxide Level 36.5 Anion Gap 5 Estimat Glomerular Filtration Rate 47 Total Creatine Kinase 66 Troponin I 0.02 B-Type Natriuretic Peptide 722 Thyroid Stimulating Hormone 3rd Gen 1.380 Result Diagram: 07/02/17 1145 07/02/17 1145 Imaging Last Impressions Chest X-Ray 07/02/17 1131 Signed Impressions: Service Date/Time: Sunday, July 02, 2017 11:37 - CONCLUSION: Developing congestive failure, progressed in the interval. Colton Taveras MD FACR [place] VTE Risk Assessment T[place] VTE Risk Assessment: Mod/High Risk (score >= 2) Caprini Risk Assessment Model Point Value = 1 Point Value = 2 Point Value = 3 Point Value = 5 Age 41-60 Minor surgery BMI > 25 kg/m2 Swollen legs Varicose veins or History of unexplained or recurrent spontaneous Oral contraceptives or hormone replacement Sepsis (< 1 month) Serious lung disease, including pneumonia (< 1 month) Abnormal pulmonary function Acute myocardial infarction Congestive heart failure (< 1 month) History of inflammatory bowel disease Medical patient at bed rest Age 61-74 Arthroscopic surgery Major open surgery (> 45 min) Laparoscopic surgery (> 45 min) Malignancy Confined to bed (> 72 hours) Immobilizing plaster cast Central venous access Age >= 75 History of VTE Family history of VTE Factor V Leiden Prothrombin [id number] Lupus anticoagulant Anticardiolipin antibodies Elevated serum homocysteine Heparin-induced thrombocytopenia Other congenital or acquired thrombophilia Stroke (< 1 month) Elective arthroplasty Hip, pelvis, or leg fracture Acute spinal cord injury (< 1 month) Prophylaxis Regimen Total Risk Factor Score Risk Level Prophylaxis Regimen 0-1 Low Early ambulation 2 Moderate Order ONE of the following: *Sequential Compression Device (SCD) *Heparin 5000 units SQ BID 3-4 Higher Order ONE of the following medications: *Heparin 5000 units SQ TID *Enoxaparin/Lovenox 40 mg SQ daily (WT < 150 kg, CrCl > 30 mL/min) *Enoxaparin/Lovenox 30 mg SQ daily (WT < 150 kg, CrCl > 10-29 mL/min) *Enoxaparin/Lovenox 30 mg SQ BID (WT < 150 kg, CrCl > 30 mL/min) AND/OR *Sequential Compression Device (SCD) 5 or more Highest Order ONE of the following medications: *Heparin 5000 units SQ TID (Preferred with Epidurals) *Enoxaparin/Lovenox 40 mg SQ daily (WT < 150 kg, CrCl > 30 mL/min) *Enoxaparin/Lovenox 30 mg SQ daily (WT < 150 kg, CrCl > 10-29 mL/min) *Enoxaparin/Lovenox 30 mg SQ BID (WT < 150 kg, CrCl > 30 mL/min) AND *Sequential Compression Device (SCD) Assessment and Plan Assessment and Plan Congestive heart failure -we will diurese -Consult cardiology -Check an echo -Trend troponins and cardiac enzymes Continue on BiPAP as needed COPD exacerbation -Consult pulmonary Duo nebs and Symbicort and Mucinex and steroids and incentive spirometry -Try to wean off the BiPAP Atrial fibrillation continue on his chronic blood thinner from home with Xarelto Continue on the cardia and metoprolol Congestive heart failure continue dietary Coronary artery disease continue on current blood thinners Fluid overload continue to diurese Anemia suspect due to chronic disease Renal insufficiency -continue to diurese and monitor labs Hypoxia continue on CPAP and oxygen Hypokalemia will replace Hypo-magnesium will check and replace as needed Check a TSH and a free T4 and a hemoglobin A1c GI prophylaxis Discussed with patient and RN and emergency room PA Code Status Full code Discussed Condition With Patient and RN and emergency room physician business office assistant Physician Certification 2 Midnight Certification Type: Admission for Inpatient Services Order for Inpatient Services The services are ordered in accordance with Medicare regulations or non- Medicare payer requirements, as applicable. In the case of services not specified as inpatient-only, they are appropriately provided as inpatient services in accordance with the 2-midnight benchmark. Estimated LOS (days): 3 days is the estimated time the patient will need to remain in the hospital, assuming treatment plan goals are met and no additional complications. Post-Hospital Plan: Not yet determined Problem Qualifiers (1) CHF (congestive heart failure): Qualified Codes: I50.9 - Heart failure, unspecified Colton Cali DO Jul 02, 2017 14:36
[2017-07-02] MEDS: methylPREDNISolone SOD SUCC 125 MG/2 ML VIAL IV PUSH SCH ×2 (15:38→20:17)
--- NOTE | 2017-07-02 16:41 | MB ---
cc: Dilia Loyd MD DATE: 07/02/2017 REASON FOR CONSULTATION: CHF. HISTORY OF PRESENT ILLNESS: Mr. Benavides is a 72-year-old patient of my partner, Dr. Dueñas. He does have a history of atrial fibrillation and cardiomyopathy. [place] He has also had admissions for AFib with rapid ventricular rate 2 months ago. The patient is somewhat of a poor historian, but does indicate that he has had some progressive shortness of breath and edema. In May, he was admitted with CHF and hypoxia. I do not see any reference to a recent ejection fraction. The patient does report he has had progressive shortness of breath and edema. PAST MEDICAL HISTORY: Significant for atrial fibrillation, status post ablation, COPD, cardiomyopathy with ICD, CAD, hypertension, hyperlipidemia, CHF, GERD, hiatal hernia. SURGICAL HISTORY: Includes a stent, ICD, and hernia repair. CURRENT MEDICATIONS: Per the record. ALLERGIES: NO KNOWN DRUG ALLERGIES. FAMILY HISTORY: Positive for hypertension and not clear for CAD. SOCIAL HISTORY: The patient does not smoke and occasionally has alcohol. REVIEW OF SYSTEMS: Except as mentioned in the HPI, all 12 systems are negative. PHYSICAL EXAMINATION: VITAL SIGNS: 98, 22, 139/85. GENERAL: He is an overweight man who is in mild respiratory distress. NECK: Free from JVD. LUNGS: Clear to auscultation. CARDIOVASCULAR: He has an irregularly irregular rhythm with a II/ systolic murmur. No rubs or gallops were appreciated. ABDOMEN: Soft. EXTREMITIES: Have a trace amount of edema. LABORATORY DATA: Show an initial creatinine of 1.48. Troponin is 0.02 and BNP is 722. His hemoglobin is 10.5. DIAGNOSTIC DATA: Chest x-ray shows developing congestive failure. IMPRESSION: 1. Acute on chronic systolic heart failure. The patient does have a history of the same. I do agree with Lasix. The patient has not been on beta blockade likely secondary to his chronic obstructive pulmonary disease. As well, angiotensin-converting enzymes/angiotensin receptor blockers are relatively contraindicated with his elevated creatinine. 2. Atrial fibrillation. The patient is a bit tachycardic. We will try and get his respiratory status situated and also control his beta blockade. We will obtain an echocardiogram. The patient will not be placed on YASMANI/ARB at this point secondary to his renal insufficiency. The patient will continue on his present medications as his heart rate is under reasonable control. He will also continue on the Xarelto. 3. Chronic obstructive pulmonary disease. This will be managed by the primary team. MD COLT Zamora/CORNELL , 04:21 PM , 04:40 PM
[2017-07-02] MEDS: RESP: ALBUTEROL 2.5 MG/IPRATROPIUM 0.5 MG NEB (SCH) INH ×2 (16:59→21:48)
[2017-07-02] MEDS ORDERED: FUROSEMIDE 40 MG/4 ML VIAL IV PUSH SCH (18:00)
[2017-07-02] MEDS ORDERED: DILTIAZEM HCL 30 MG TAB PO PRN (18:45)
[2017-07-02 19:03] LABS: TROPONIN I 0.03 NG/ML (0.02-0.05)
[2017-07-02] MEDS: guaiFENesin E.R. 600 MG TAB PO SCH (20:13)
[2017-07-02] MEDS: DOCUSATE SODIUM 50 MG/SENNA 8.6 MG TAB PO SCH (20:14)
[2017-07-02] MEDS: METOPROLOL TARTRATE 25 MG TAB PO SCH (20:14)
[2017-07-02] MEDS: SODIUM CHLORIDE 0.9% FLUSH 10 ML FLUSH IV FLUSH SCH (20:14)
[2017-07-02] MEDS: POTASSIUM CHLORIDE 20 MEQ CONTROLLED RELEASE TAB PO SCH (20:14)
[2017-07-02 20:17] LABS: TROPONIN I 0.02 NG/ML (0.02-0.05)
[2017-07-02] MEDS ORDERED: SODIUM CHLORIDE 0.9% FLUSH 10 ML FLUSH IV FLUSH SCH ×2 (21:00)
[2017-07-02] MEDS: BUDESONIDE-FORMOTEROL 160/4.5 MCG INHALER INH SCH (23:00)
[2017-07-02] MEDS: RESP: ALBUTEROL 2.5 MG/IPRATROPIUM 0.5 MG NEB (PRN) INH (23:20)
[2017-07-03] VITALS (35 sets, daily range): BP systolic 130–154; BP diastolic 84–106; PULSE 81–134; RESP 18–30; TEMP 97.4–98.2; O2SAT 90–99
[2017-07-03 02:17] LABS: AUTOMATED NEUTROPHIL # 4.4 TH/MM3 (1.8-7.7); BASOPHIL % 0.3 % (0.0-2.0); EOSINOPHIL % 0.1 % (0.0-4.0); HEMATOCRIT 30.3 % (39.0-51.0); HEMOGLOBIN 9.9 GM/DL (13.0-17.0); LYMPH % 5.7 % (9.0-44.0); LYMPHOCYTE # 0.3 TH/MM3 (1.0-4.8); MEAN CELL VOLUME 87.6 FL (80.0-100.0); MEAN CORPUSCULAR HEMOGLOBIN 28.6 PG (27.0-34.0); MEAN CORPUSCULAR HGB CONC 32.7 % (32.0-36.0); MEAN PLATELET VOLUME 8.2 FL (7.0-11.0); MONO % 1.1 % (0.0-8.0); MONOCYTE # 0.1 TH/MM3 (0-0.9); NEUT % 92.8 % (16.0-70.0); PLATELET COUNT 168 TH/MM3 (150-450); RED BLOOD COUNT 3.46 MIL/MM3 (4.50-5.90); RED CELL DISTRIBUTION WIDTH 17.2 % (11.6-17.2); WHITE BLOOD COUNT 4.7 TH/MM3 (4.0-11.0)
[2017-07-03 02:37] LABS: ALBUMIN 3.1 GM/DL (3.4-5.0); ALKALINE PHOSPHATASE 47 U/L (45-117); ALT (GPT) 18 U/L (12-78); AST (GOT) 13 U/L (15-37); BICARBONATE 37.4 MEQ/L (21.0-32.0); BLOOD UREA NITROGEN 21 MG/DL (7-18); CALCIUM 8.4 MG/DL (8.5-10.1); CHLORIDE 100 MEQ/L (98-107); CREATININE 1.26 MG/DL (0.60-1.30); FREE T4 0.83 NG/DL (0.76-1.46); GLOMERULAR FILTRATION RATE 56 ML/MIN (>89); GLUCOSE,RANDOM 185 MG/DL (74-106); MAGNESIUM 2.1 MG/DL (1.5-2.5); PHOSPHORUS 4.4 MG/DL (2.5-4.9); SODIUM (NA) 142 MEQ/L (136-145); TOTAL BILIRUBIN ADULT 0.8 MG/DL (0.2-1.0); TOTAL PROTEIN 6.8 GM/DL (6.4-8.2); TROPONIN I 0.03 NG/ML (0.02-0.05)
[2017-07-03] MEDS: methylPREDNISolone SOD SUCC 125 MG/2 ML VIAL IV PUSH SCH ×4 (03:54→21:26)
[2017-07-03] MEDS: RESP: ALBUTEROL 2.5 MG/IPRATROPIUM 0.5 MG NEB (SCH) INH ×4 (04:38→20:36)
[2017-07-03] MEDS: POTASSIUM CHLORIDE 20 MEQ CONTROLLED RELEASE TAB PO SCH ×2 (09:00)
[2017-07-03] MEDS: METOPROLOL TARTRATE 25 MG TAB PO SCH ×2 (09:23→21:25)
[2017-07-03] MEDS: DOCUSATE SODIUM 50 MG/SENNA 8.6 MG TAB PO SCH ×2 (09:23→21:25)
[2017-07-03] MEDS: ASPIRIN 81 MG CHEW TAB CHEW SCH (09:25)
[2017-07-03] MEDS: DILTIAZEM-CD 240 MG CAP ER PO SCH (09:25)
[2017-07-03] MEDS: guaiFENesin E.R. 600 MG TAB PO SCH ×2 (09:25→21:25)
[2017-07-03] MEDS: BUDESONIDE-FORMOTEROL 160/4.5 MCG INHALER INH SCH (09:29)
[2017-07-03] MEDS: SODIUM CHLORIDE 0.9% FLUSH 10 ML FLUSH IV FLUSH SCH ×2 (09:29→21:26)
--- NOTE | 2017-07-03 10:01 | EKG ---
Date Performed: 07/02/2017 Time Performed: 12:19:52 PTAGE: 72 years EKG: ATRIAL FIBRILLATION WITH RAPID VENTRICULAR RESPONSE ABNORMAL RHYTHM ECG PREVIOUS TRACING : 05/30/2017 05.12 Since the previous tracing, no significant change noted DOCTOR: Lan Hernandez Interpretating Date/Time 07/03/2017 10:00:03
[2017-07-03] MEDS: METOLAZONE 2.5 MG TAB PO SCH (10:12)
[2017-07-03] MEDS: RIVAROXABAN 15 MG TAB PO SCH (10:12)
--- NOTE | 2017-07-03 10:22 | PD.CARD.PN ---
Subjective Subjective Remarks Pt without CV complaints Objective Medications Current Medications Medications (Trade) Dose Ordered Sig/David Route Start Time Stop Time Status Last Admin (Aspirin Chew) 81 mg DAILY CHEW 07/03/17 09:00 07/03/17 09:25 (Cardizem Cd) 240 mg DAILY PO 07/03/17 09:00 07/03/17 09:25 (Breo Ellipta 100-25 Inh) 1 puff DAILY INH 07/03/17 09:00 (Lopressor) 75 mg Q12HR PO 07/02/17 21:00 07/03/17 09:23 (KCl) 40 meq DAILY PO 07/03/17 09:00 (Xarelto) 15 mg DAILY PO 07/03/17 09:00 07/03/17 10:12 (Catapres) 0.1 mg Q4H PRN PO 07/02/17 14:15 (NS Flush) 2 ml BID IV FLUSH 07/02/17 21:00 07/03/17 09:29 (NS Flush) 2 ml UNSCH PRN IV FLUSH 07/02/17 14:15 (Zaroxolyn) 2.5 mg DAILY PO 07/03/17 09:00 07/03/17 10:12 (KCl) 40 meq BID PO 07/02/17 21:00 07/02/17 20:14 (Tylenol) 650 mg Q4H PRN PO 07/02/17 14:15 (Zofran Inj) 4 mg Q6H PRN IVP 07/02/17 14:15 (Reglan Inj) 5 mg Q6H PRN IV PUSH 07/02/17 14:15 (Tylenol) 650 mg Q6H PRN PO 07/02/17 14:15 (Percocet 5-325 Mg) 1 tab Q6H PRN PO 07/02/17 14:15 (Percocet 10-325 Mg) 1 tab Q6H PRN PO 07/02/17 14:15 (Morphine Inj) 2 mg Q3H PRN IV PUSH 07/02/17 14:15 (Morphine Inj) 4 mg Q3H PRN IV PUSH 07/02/17 14:15 (Narcan Inj) 0.4 mg UNSCH PRN IV PUSH 07/02/17 14:15 (Kymberly-Colace) 1 tab BID PO 07/02/17 21:00 07/03/17 09:23 (Milk Of Magnesia Liq) 30 ml Q12H PRN PO 07/02/17 14:15 (Senokot) 17.2 mg Q12H PRN PO 07/02/17 14:15 (Dulcolax Supp) 10 mg DAILY PRN RECTAL 07/02/17 14:15 (Lactulose Liq) 30 ml DAILY PRN PO 07/02/17 14:15 (Duoneb Neb) 1 ampule Q2HR NEB PRN INH 07/02/17 14:30 07/02/17 23:20 (Duoneb Neb) 1 ampule Q6HR NEB INH 07/02/17 16:00 07/03/17 08:45 (Albuterol Neb) 2.5 mg Q2HR NEB PRN INH 07/02/17 14:30 (Symbicort 160-4.5 Mcg Inh) 2 puff Q12HR INH 07/02/17 21:00 07/03/17 09:29 (SoluMEDROL INJ) 60 mg Q6H IV PUSH 07/02/17 15:00 07/03/17 09:28 (Mucinex Er) 600 mg BID PO 07/02/17 21:00 07/03/17 09:25 (Cardizem) 30 mg Q6H PRN PO 07/02/17 18:45 (Bumetanide) 2 mg BID@,18 PO 07/03/17 18:00 UNV Vital Signs / I&O Vital Signs Date Time Temp Pulse Resp B/P (MAP) Pulse Ox O2 Delivery O2 Flow Rate FiO2 07/03/17 08:57 93 Nasal Cannula 5.00 07/03/17 08:52 95 Venturi Mask 6.00 50 07/03/17 08:48 97 Partial Rebreather 15.00 07/03/17 06:06 101 07/03/17 04:39 95 50 07/03/17 04:33 109 07/03/17 03:58 98.2 101 22 151/106 (121) 96 07/03/17 03:00 92 07/03/17 02:25 85 07/03/17 01:19 81 07/03/17 01:10 95 50 07/03/17 00:00 96 07/02/17 23:14 97.7 98 22 145/99 (114) 95 07/02/17 23:00 104 07/02/17 22:03 92 40 07/02/17 22:00 102 07/02/17 21:51 92 Partial Rebreather 12.00 07/02/17 21:00 123 07/02/17 20:00 120 07/02/17 19:31 99 Partial Non-Rebreather 10.00 07/02/17 19:31 97.9 121 21 152/103 (119) 99 07/02/17 19:00 124 07/02/17 17:00 72 07/02/17 16:59 93 Partial Rebreather 15.00 07/02/17 16:30 98 Partial Non-Rebreather 2.00 07/02/17 16:30 98.0 108 24 157/95 (115) 98 07/02/17 16:00 110 07/02/17 15:32 (103) 98 BiPAP 6.00 50 07/02/17 14:36 98 22 139/85 (103) 95 BiPAP 50 07/02/17 14:32 95 50 07/02/17 12:30 99 60 07/02/17 12:02 92 Venturi Mask 6.00 50 07/02/17 11:45 86 Nasal Cannula 5.00 07/02/17 11:37 37 98 Partial Rebreather 15.00 07/02/17 11:37 97 Partial Rebreather 15.00 07/02/17 11:28 65 Nasal Cannula 6.00 07/02/17 11:28 97 Non-Rebreather 15.00 07/02/17 11:28 112 63 97 Non-Rebreather 15.00 07/02/17 11:26 98.7 118 35 131/82 (98) 65 I/O 07/02/17 07/02/17 07/02/17 07/03/17 07/03/17 07/03/17 07:00 15:00 23:00 07:00 15:00 23:00 Intake Total 120 ml Output Total 400 ml 550 ml Balance -400 ml -430 ml Intake Oral 120 ml Output Urine Total 400 ml 550 ml # Voids 1 Physical Exam GENERAL: Well developed, well nourished. No acute distress. HEENT: Jugular venous pressure is normal. CHEST: Lungs decreased clear to auscultation bilaterally. Unlabored respiratory effort. CARDIAC: irregular rate and rhythm without S3, S4, or murmur. ABDOMEN: Soft, nontender, no hepatosplenomegaly. Bowel sounds present. EXTREMITIES: No clubbing, cyanosis, tr edema. Laboratory Laboratory Tests Test 07/02/17 11:45 07/02/17 17:28 07/02/17 19:38 07/03/17 01:48 White Blood Count 6.2 TH/MM3 4.7 TH/MM3 Red Blood Count 3.75 MIL/MM3 3.46 MIL/MM3 Hemoglobin 10.5 GM/DL 9.9 GM/DL Hematocrit 32.8 % 30.3 % Mean Corpuscular Volume 87.6 FL 87.6 FL Mean Corpuscular Hemoglobin 27.9 PG 28.6 PG Mean Corpuscular Hemoglobin Concent 31.9 % 32.7 % Red Cell Distribution Width 17.7 % 17.2 % Platelet Count 198 TH/MM3 168 TH/MM3 Mean Platelet Volume 7.8 FL 8.2 FL Neutrophils (%) (Auto) 74.5 % 92.8 % Lymphocytes (%) (Auto) 14.9 % 5.7 % Monocytes (%) (Auto) 7.3 % 1.1 % Eosinophils (%) (Auto) 2.1 % 0.1 % Basophils (%) (Auto) 1.2 % 0.3 % Neutrophils # (Auto) 4.6 TH/MM3 4.4 TH/MM3 Lymphocytes # (Auto) 0.9 TH/MM3 0.3 TH/MM3 Monocytes # (Auto) 0.5 TH/MM3 0.1 TH/MM3 Eosinophils # (Auto) 0.1 TH/MM3 0.0 TH/MM3 Basophils # (Auto) 0.1 TH/MM3 0.0 TH/MM3 CBC Comment DIFF FINAL DIFF FINAL Differential Comment Prothrombin Time 11.2 SEC Prothromb Time International Ratio 1.1 RATIO Activated Partial Thromboplast Time 25.7 SEC Blood Urea Nitrogen 20 MG/DL 21 MG/DL Creatinine 1.48 MG/DL 1.26 MG/DL Random Glucose 211 MG/DL 185 MG/DL Total Protein 7.1 GM/DL 6.8 GM/DL Albumin 3.2 GM/DL 3.1 GM/DL Calcium Level 8.4 MG/DL 8.4 MG/DL Magnesium Level 2.1 MG/DL 2.1 MG/DL Alkaline Phosphatase 57 U/L 47 U/L Aspartate Amino Transf (AST/SGOT) 16 U/L 13 U/L Alanine Aminotransferase (ALT/SGPT) 22 U/L 18 U/L Total Bilirubin 0.8 MG/DL 0.8 MG/DL Sodium Level 143 MEQ/L 142 MEQ/L Potassium Level 3.8 MEQ/L 4.8 MEQ/L Chloride Level 102 MEQ/L 100 MEQ/L Carbon Dioxide Level 36.5 MEQ/L 37.4 MEQ/L Anion Gap 5 MEQ/L 5 MEQ/L Estimat Glomerular Filtration Rate 47 ML/MIN 56 ML/MIN Total Creatine Kinase 66 U/L 60 U/L 64 U/L 56 U/L Troponin I 0.02 NG/ML 0.03 NG/ML 0.02 NG/ML 0.03 NG/ML B-Type Natriuretic Peptide 722 PG/ML 1079 PG/ML Thyroid Stimulating Hormone 3rd Gen 1.380 uIU/ML 0.489 uIU/ML Phosphorus Level 4.4 MG/DL Free Thyroxine 0.83 NG/DL Imaging Last 24 hours Impressions Chest X-Ray 07/02/17 1131 Signed Impressions: Service Date/Time: Sunday, July 02, 2017 11:37 - CONCLUSION: Developing congestive failure, progressed in the interval. Colton Taveras MD FACR Assessment and Plan Assessment and Plan 1. Acute on chronic systolic heart failure. -SHOB disproportionate to cardiac component, additional COPD 2. Atrial fibrillation. - Pt with reasonable HR over night while on biPAP - he now is off oxygen and sat<70%, -continue present meds and re-eval once sats are ok -pt having issues with xarelto (nose bleeds to be cauterized as OP) 3. Chronic obstructive pulmonary disease. This will be managed by the primary team. 4. Noncompliance Dilia Loyd MD Jul 03, 2017 10:22
[2017-07-03] MEDS: FLUTICASONE 100 MCG/VILANTEROL 25 MCG INHALER INH SCH (11:42)
[2017-07-03 15:11] LABS: HEMOGLOBIN A1C 5.5 % (4.3-6.0)
--- NOTE | 2017-07-03 16:39 | HHI.PR ---
Subjective Remarks 72-year-old male who is presenting for the third time with CHF exacerbation, BiPAP dependent overnight. He refused Lasix this morning and prefers Bumex. Objective Vitals Vital Signs Date Time Temp Pulse Resp B/P (MAP) Pulse Ox O2 Delivery O2 Flow Rate FiO2 07/03/17 15:58 98.1 109 28 151/92 (111) 97 07/03/17 11:30 98.0 110 28 130/92 (105) 97 07/03/17 08:57 93 Nasal Cannula 5.00 07/03/17 08:52 95 Venturi Mask 6.00 50 07/03/17 08:48 97 Partial Rebreather 15.00 07/03/17 07:50 99 Simple Mask 10.00 07/03/17 07:50 97.4 124 30 154/98 (116) 99 07/03/17 06:06 101 07/03/17 04:39 95 50 07/03/17 04:33 109 07/03/17 03:58 98.2 101 22 151/106 (121) 96 07/03/17 03:00 92 07/03/17 02:25 85 07/03/17 01:19 81 07/03/17 01:10 95 50 07/03/17 00:00 96 07/02/17 23:14 97.7 98 22 145/99 (114) 95 07/02/17 23:00 104 07/02/17 22:03 92 40 07/02/17 22:00 102 07/02/17 21:51 92 Partial Rebreather 12.00 07/02/17 21:00 123 07/02/17 20:00 120 07/02/17 19:31 99 Partial Non-Rebreather 10.00 07/02/17 19:31 97.9 121 21 152/103 (119) 99 07/02/17 19:00 124 07/02/17 17:00 72 07/02/17 16:59 93 Partial Rebreather 15.00 I/O 07/02/17 07/02/17 07/02/17 07/03/17 07/03/17 07/03/17 07:00 15:00 23:00 07:00 15:00 23:00 Intake Total 120 ml Output Total 400 ml 550 ml Balance -400 ml -430 ml Intake Oral 120 ml Output Urine Total 400 ml 550 ml # Voids 1 Result Diagram: 07/03/17 0148 07/03/17 0148 Objective Remarks GENERAL: Obese patient, lying in bed on BiPAP, mild labored breathing SKIN: Warm and dry. HEAD: Normocephalic. EYES: No scleral icterus. No injection or drainage. NECK: Supple, trachea midline. No JVD or lymphadenopathy. CARDIOVASCULAR: Tachycardia without murmurs, gallops, or rubs. RESPIRATORY: Atelectasis in left greater than right base. No accessory muscle use. GASTROINTESTINAL: Abdomen soft, non-tender, nondistended. EXTREMITIES: No cyanosis, 1+ ankle edema bilaterally NEUROLOGICAL: Awake, alert, and oriented x 3. Non-focal. A/P Problem List: (1) COPD (chronic obstructive pulmonary disease) ICD Code: J44.9 - Chronic obstructive pulmonary disease, unspecified (2) Atrial fibrillation ICD Code: I48.91 - Unspecified atrial fibrillation (3) Hypokalemia ICD Code: E87.6 - Hypokalemia Status: Acute (4) Hypomagnesemia ICD Code: E83.42 - Hypomagnesemia Status: Acute (5) HTN (hypertension) ICD Code: I10 - Hypertension Status: Chronic (6) CHF (congestive heart failure) ICD Code: I50.9 - CHF (congestive heart failure) Status: Acute (7) Hypoxia ICD Code: R09.02 - Hypoxemia Status: Resolved Assessment and Plan Congestive heart failure Lasix changed to Bumex at patient's request BNP elevated beyond 1000 but troponins remain within normal limits Echocardiogram pending Patient tolerated being off of BiPAP today but still needs high flow oxygen, BiPAP overnight Appreciate cardiology consult COPD exacerbation Continue duonebs, Symbicort, Mucinex, steroids and incentive spirometry Tolerated being off BiPAP today but required high flow oxygen, recommend BiPAP overnight Atrial fibrillation Tachycardic on exam today, slowly improving throughout the day Continue home doses of Xarelto, Procardia, metoprolol History of coronary artery disease DVT prophylaxis On Xarelto Problem Qualifiers (1) CHF (congestive heart failure): Qualified Codes: I50.9 - Heart failure, unspecified Josse Cooper MD Jul 03, 2017 16:39
--- NOTE | 2017-07-03 17:13 | EKG ---
Date Performed: 07/03/2017 Time Performed: 01:50:54 PTAGE: 72 years EKG: Atrial fibrillation with PVC(s) Since the previous tracing, no significant change noted Abn ormal ECG PREVIOUS TRACING : 07/02/2017 20.05 DOCTOR: Lan Hernandez Interpretating Date/Time 07/03/2017 17:11:19
--- NOTE | 2017-07-03 17:13 | EKG ---
Date Performed: 07/02/2017 Time Performed: 20:05:44 PTAGE: 72 years EKG: Atrial fibrillation with rapid ventricular response Inferior T wave changes are nonspecific Since the previous tracing, no significant change noted Abnormal ECG PREVIOUS TRACING : 07/02/2017 12.19 DOCTOR: Lan Hernandez Interpretating Date/Time 07/03/2017 17:11:28
[2017-07-03] MEDS: BUMETANIDE 1 MG TAB PO SCH (17:14)
--- NOTE | 2017-07-03 19:39 | ECHRPT ---
Indication: Heart failure CONCLUSIONS The left ventricular systolic function is severely reduced with an estimated ejection fraction in th e range of 20-25%. There is diffuse global hypokinesis. Moderately dilated left ventricle. The right ventricular systoilc function is moderately decreased. Fjhdhsjf-ty-vvzwyy mitral valve regurgitation. There is moderate tricuspid regurgitation. There is estimated grvpaetn-bd-xtypkz pulmonary hypertension present (range 60-70 mmHg). Left pleural effusion noted. BP: 151 / 106 HR: 101 Rhythm: MEASUREMENTS (Male / Female) Normal Values Technical Quality:Fair 2D ECHO LV Diastolic Diameter PLAX 7.0 cm 4.2 - 5.9 / 3.9 - 5.3 cm LV Systolic Diameter PLAX 6.1 cm IVS Diastolic Thickness 0.9 cm 0.6 - 1.0 / 0.6 - 0.9 cm LVPW Diastolic Thickness 0.9 cm 0.6 - 1.0 / 0.6 - 0.9 cm LV Relative Wall Thickness 0.3 RV Internal Dim ED PLAX 4.7 cm LVOT Diameter 2.1 cm LA Systolic Diameter LX 5.2 cm 3.0 - 4.0 / 2.7 - 3.8 cm LA Volume Index 71.2 cm/m 16 - 28 cm/m M-MODE Aortic Root Diameter MM 3.1 cm LA Systolic Diameter MM 4.9 cm LA Ao Ratio MM 1.6 AV Cusp Separation MM 2.0 cm DOPPLER AV Peak Velocity 163.0 cm/s AV Peak Gradient 10.6 mmHg LVOT Peak Velocity 81.4 cm/s LVOT Peak Gradient 2.7 mmHg AV Area Cont Eq pk 1.7 cm MV Area PHT 5.9 cm Mitral E Point Velocity 113.0 cm/s Mitral A Point Velocity 26.2 cm/s Mitral E to A Ratio 4.3 LV E' Lateral Velocity 10.7 cm/s Mitral E to LV E' Lateral Ratio 10.6 LV E' Septal Velocity 5.7 cm/s Mitral E to LV E' Septal Ratio 19.9 TR Peak Velocity 381.0 cm/s TR Peak Gradient 58.1 mmHg Right Atrial Pressure 10.0 mmHg Pulmonary Artery Systolic Pressu 68.1 mmHg Right Ventricular Systolic Press 68.1 mmHg FINDINGS LEFT VENTRICLE The left ventricular systolic function is severely reduced with an estimated ejection fraction in th e range of 20-25%. There is diffuse global hypokinesis. Wall thickness is normal. Moderately dilated left ventricle. RIGHT VENTRICLE Normal right ventricular size. The right ventricular systoilc function is moderately decreased. A pacemaker wire is noted. LEFT ATRIUM The left atrial size is yknjwvbz-go-xfwiuwys dilated. RIGHT ATRIUM The right atrial size is mildly dilated. ATRIAL SEPTUM Normal atrial septal thickness AORTA The aortic root and proximal ascending aorta are normal in size on limited imaging. MITRAL VALVE Mild thickening of the mitral valve leaflets. Caafwewm-hr-vepnja mitral valve regurgitation. The mitral valve regurgitation jet is directed posteriorly. No mitral valve stenosis. AORTIC VALVE Calcification of the right coronary cusp. Trileaflet aortic valve. No aortic valve regurgitation. No aortic valve stenosis. TRICUSPID VALVE ICD wires are present within the right ventricular cavity. Structurally normal tricuspid valve. There is moderate tricuspid regurgitation. The estimated pulmonary arterial pressure is 68.1 mmHg. There is estimated awxjjvsu-uk-jvcpvh pulmonary hypertension present (range 60-70 mmHg). PULMONARY VALVE Trivial pulmonary valve regurgitation. The pulmonary valve is not well visualized. VESSELS The inferior vena cava is normal in size. PERICARDIUM No pericardial effusion. Left pleural effusion noted Shakeel Christopher DO (Electronically Signed) Final Date:03 July 2017 19:38
--- NOTE | 2017-07-03 19:58 | MB ---
cc: Joe Tirado MD DATE: 07/03/2017 REQUESTING PHYSICIAN: Colton Cali DO REASON FOR CONSULTATION: Shortness of breath. HISTORY OF PRESENT ILLNESS: Mr. Benavides is a pleasant 72-year-old male who has a history of longstanding COPD, oxygen dependent. He recently had [place] The patient came to the hospital with 1-week history of worsening of his shortness of breath, and he has orthopnea and PND. He said he goes to the bed, but after an hour or so, he wakes up and cannot go to bed and he ends up sleeping on the couch. He did notice swelling in his legs. Did not have any chest pain. No fever or chills. No night sweats. The patient, when came to the hospital, had a workup done. WBC count is 4.7, hemoglobin 9.9, hematocrit 30.3, MCV 87, platelet count 168. Sodium 140, potassium 4.8, chloride 100, CO2 of 37, BUN 21, creatinine 1.26. His BNP 1079. His chest x-ray shows he has developing congestive heart failure, which has progressed. PAST MEDICAL HISTORY: Significant for history of COPD, congestive heart failure, AICD placement, ventricular tachycardia, hypertension. MEDICATIONS: He is currently taking Bumex 2 mg twice a day, aspirin 81 mg a day, diltiazem 240 mg a day, Breo Ellipta 100/25 once a day, potassium 40 mEq a day, Xarelto 15 mg a day, metolazone 2.5 mg a day, metoprolol 75 mg q. 12 hour, Symbicort 160/4.5 two puffs twice a day, Mucinex 600 mg twice a day, Solu-Medrol 60 mg q. 6 hours, albuterol and Atrovent nebulizer treatment. ALLERGIES: NO KNOWN DRUG ALLERGIES. SOCIAL HISTORY: He has history of smoking in the past. No alcohol abuse. He lives with his niece. REVIEW OF SYSTEMS: He has gained weight and the swelling in his leg. No DVT, pulmonary embolism. No seizure, stroke or epilepsy. PHYSICAL EXAMINATION: GENERAL: Elderly male, mild short of breath. VITAL SIGNS: Blood pressure 151/92, heart rate 109, respirations 20, temperature 98.1. HEENT: Pupils are equal and reactive to light. Oral mucosa and nasal mucosa normal. NECK: JVD noted. CHEST: He has bibasilar rales, a few rhonchi. CARDIOVASCULAR: S1, S2 normal. ABDOMEN: Soft, nondistended. Bowel sounds are present. EXTREMITIES: 1+ pedal edema. IMPRESSION: 1. Decompensated congestive heart failure. 2. Chronic obstructive pulmonary disease. 3. Atrial fibrillation. 4. Automatic implantable cardioverter-defibrillator placement. 5. Obesity. PLAN: The patient is being diuresed. He will be given IV Solu-Medrol. Aerosol treatment, albuterol and Atrovent. Continue Breo Ellipta and discontinue his Symbicort. Monitor his electrolyte. Supplement his oxygen. Keep the saturation between 88% and 92%. He will use BiPAP at nighttime and as needed. Further treatment will depend on course in the hospital. Thank you, Dr. Colton Cali, for this consult. MD DLELA Drew/SB , 07:25 PM , 07:57 PM JACQUE
[2017-07-04] VITALS (36 sets, daily range): BP systolic 121–152; BP diastolic 65–90; PULSE 68–104; RESP 16–22; TEMP 97.6–98.5; O2SAT 90–97
[2017-07-04] MEDS: RESP: ALBUTEROL 2.5 MG/IPRATROPIUM 0.5 MG NEB (SCH) INH ×4 (03:20→20:40)
[2017-07-04] MEDS: methylPREDNISolone SOD SUCC 125 MG/2 ML VIAL IV PUSH SCH ×3 (03:59→16:15)
[2017-07-04 06:34] LABS: BICARBONATE 38.2 MEQ/L (21.0-32.0); CALCIUM 8.7 MG/DL (8.5-10.1); CREATININE 1.62 MG/DL (0.60-1.30)
[2017-07-04] MEDS: SODIUM CHLORIDE 0.9% FLUSH 10 ML FLUSH IV FLUSH SCH ×2 (09:00→21:35)
[2017-07-04] MEDS: FLUTICASONE 100 MCG/VILANTEROL 25 MCG INHALER INH SCH (09:00)
[2017-07-04] MEDS: guaiFENesin E.R. 600 MG TAB PO SCH ×2 (09:05→21:34)
[2017-07-04] MEDS: DOCUSATE SODIUM 50 MG/SENNA 8.6 MG TAB PO SCH ×2 (09:05→21:34)
[2017-07-04] MEDS: RIVAROXABAN 15 MG TAB PO SCH (09:05)
[2017-07-04] MEDS: DILTIAZEM-CD 240 MG CAP ER PO SCH (09:05)
[2017-07-04] MEDS: ASPIRIN 81 MG CHEW TAB CHEW SCH (09:05)
[2017-07-04] MEDS: METOPROLOL TARTRATE 25 MG TAB PO SCH ×2 (09:05→21:34)
[2017-07-04] MEDS: POTASSIUM CHLORIDE 20 MEQ CONTROLLED RELEASE TAB PO SCH (09:06)
[2017-07-04] MEDS: BUMETANIDE 1 MG TAB PO SCH ×2 (09:06→17:28)
[2017-07-04] MEDS: METOLAZONE 2.5 MG TAB PO SCH (09:06)
--- NOTE | 2017-07-04 12:08 | PD.CARD.PN ---
Subjective Subjective Remarks Overall doing better No chest pain SOB somewhat better, still SOB with activity Objective Medications Current Medications Medications (Trade) Dose Ordered Sig/David Route Start Time Stop Time Status Last Admin (Aspirin Chew) 81 mg DAILY CHEW 07/03/17 09:00 07/04/17 09:05 (Cardizem Cd) 240 mg DAILY PO 07/03/17 09:00 07/04/17 09:05 (Breo Ellipta 100-25 Inh) 1 puff DAILY INH 07/03/17 09:00 07/04/17 09:00 (Lopressor) 75 mg Q12HR PO 07/02/17 21:00 07/04/17 09:05 (KCl) 40 meq DAILY PO 07/03/17 09:00 07/04/17 09:06 (Xarelto) 15 mg DAILY PO 07/03/17 09:00 07/04/17 09:05 (Catapres) 0.1 mg Q4H PRN PO 07/02/17 14:15 (NS Flush) 2 ml BID IV FLUSH 07/02/17 21:00 07/04/17 09:00 (NS Flush) 2 ml UNSCH PRN IV FLUSH 07/02/17 14:15 (Zaroxolyn) 2.5 mg DAILY PO 07/03/17 09:00 07/04/17 09:06 (Tylenol) 650 mg Q4H PRN PO 07/02/17 14:15 (Zofran Inj) 4 mg Q6H PRN IVP 07/02/17 14:15 (Reglan Inj) 5 mg Q6H PRN IV PUSH 07/02/17 14:15 (Tylenol) 650 mg Q6H PRN PO 07/02/17 14:15 (Percocet 5-325 Mg) 1 tab Q6H PRN PO 07/02/17 14:15 (Percocet 10-325 Mg) 1 tab Q6H PRN PO 07/02/17 14:15 (Morphine Inj) 2 mg Q3H PRN IV PUSH 07/02/17 14:15 (Morphine Inj) 4 mg Q3H PRN IV PUSH 07/02/17 14:15 (Narcan Inj) 0.4 mg UNSCH PRN IV PUSH 07/02/17 14:15 (Kymberly-Colace) 1 tab BID PO 07/02/17 21:00 07/04/17 09:05 (Milk Of Magnesia Liq) 30 ml Q12H PRN PO 07/02/17 14:15 (Senokot) 17.2 mg Q12H PRN PO 07/02/17 14:15 (Dulcolax Supp) 10 mg DAILY PRN RECTAL 07/02/17 14:15 (Lactulose Liq) 30 ml DAILY PRN PO 07/02/17 14:15 (Duoneb Neb) 1 ampule Q2HR NEB PRN INH 07/02/17 14:30 07/02/17 23:20 (Duoneb Neb) 1 ampule Q6HR NEB INH 07/02/17 16:00 07/04/17 09:13 (Albuterol Neb) 2.5 mg Q2HR NEB PRN INH 07/02/17 14:30 (SoluMEDROL INJ) 60 mg Q6H IV PUSH 07/02/17 15:00 07/04/17 09:07 (Mucinex Er) 600 mg BID PO 07/02/17 21:00 07/04/17 09:05 (Cardizem) 30 mg Q6H PRN PO 07/02/17 18:45 (Bumetanide) 2 mg BID@18 PO 07/03/17 18:00 07/04/17 09:06 Vital Signs / I&O Vital Signs Date Time Temp Pulse Resp B/P (MAP) Pulse Ox O2 Delivery O2 Flow Rate FiO2 07/04/17 11:53 96 Nasal Cannula 5.00 07/04/17 09:16 96 Nasal Cannula 3.00 07/04/17 07:30 98 Nasal Cannula 5.00 07/04/17 07:15 98.0 92 18 127/82 (97) 96 07/04/17 06:08 68 07/04/17 05:15 94 60 07/04/17 05:00 82 07/04/17 04:00 74 07/04/17 04:00 80 07/04/17 03:56 97.6 81 16 121/65 (83) 95 07/04/17 03:00 84 07/04/17 02:50 92 60 07/04/17 02:00 92 07/04/17 01:49 94 50 07/04/17 01:00 90 07/04/17 00:30 97.7 94 18 137/90 (106) 97 07/04/17 00:00 104 07/04/17 00:00 88 07/03/17 23:20 96 50 07/03/17 23:00 124 07/03/17 22:00 110 07/03/17 21:15 112 07/03/17 21:15 98.2 126 18 143/84 (103) 90 07/03/17 21:15 90 Nasal Cannula 4.00 07/03/17 21:00 114 07/03/17 20:36 95 Nasal Cannula 4.00 07/03/17 20:00 104 07/03/17 19:00 104 07/03/17 18:09 132 07/03/17 17:00 112 07/03/17 16:00 106 07/03/17 15:58 98.1 109 28 151/92 (111) 97 07/03/17 15:00 110 07/03/17 14:00 102 07/03/17 13:00 110 I/O 07/03/17 07/03/17 07/03/17 07/04/17 07/04/17 07/04/17 07:00 15:00 23:00 07:00 15:00 23:00 Intake Total 120 ml 1290 ml 480 ml Output Total 550 ml 300 ml 1650 ml Balance -430 ml 990 ml -1170 ml Intake Oral 120 ml 1290 ml 480 ml Output Urine Total 550 ml 300 ml 1650 ml # Voids 2 Physical Exam GENERAL: NAD, AAOx3 SKIN: Warm and dry. HEAD: Atraumatic. Normocephalic. EYES: Pupils equal and round. No scleral icterus. No injection or drainage. ENT: No nasal bleeding or discharge. Mucous membranes pink and moist. NECK: Trachea midline. No JVD. CARDIOVASCULAR: Irregularly irregular RESPIRATORY: Decreased breath sounds bilaterally GASTROINTESTINAL: Abdomen soft, non-tender, nondistended. Hepatic and splenic margins not palpable. MUSCULOSKELETAL: Extremities without clubbing, cyanosis, or edema. No obvious deformities. NEUROLOGICAL: Awake and alert. No obvious cranial nerve deficits. Motor grossly within normal limits. Five out of 5 muscle strength in the arms and legs. Normal speech. PSYCHIATRIC: Appropriate mood and affect; insight and judgment normal. Laboratory Laboratory Tests Test 07/04/17 04:56 Blood Urea Nitrogen 38 MG/DL Creatinine 1.62 MG/DL Random Glucose 164 MG/DL Calcium Level 8.7 MG/DL Sodium Level 142 MEQ/L Potassium Level 4.0 MEQ/L Chloride Level 98 MEQ/L Carbon Dioxide Level 38.2 MEQ/L Anion Gap 6 MEQ/L Estimat Glomerular Filtration Rate 42 ML/MIN Assessment and Plan Problem List: (1) COPD (chronic obstructive pulmonary disease) ICD Codes: J44.9 - Chronic obstructive pulmonary disease, unspecified (2) Atrial fibrillation ICD Codes: I48.91 - Unspecified atrial fibrillation (3) CHF (congestive heart failure) ICD Codes: I50.9 - CHF (congestive heart failure) Status: Acute (4) Hypoxia ICD Codes: R09.02 - Hypoxemia Status: Resolved (5) HTN (hypertension) ICD Codes: I10 - Hypertension Status: Chronic Assessment and Plan 1) AFib Heart rates controlled on BB/CCB Xarelto 2) CHF Con't diuresis Will have to watch Kidney function May need to stop Zaroxolyn 3) COPD 4) EF 20-25% 5) Follow up with Dr. Dueñas on discharge Problem Qualifiers (1) CHF (congestive heart failure): Qualified Codes: I50.9 - Heart failure, unspecified Shakeel Christopher DO Jul 04, 2017 12:08
--- NOTE | 2017-07-04 16:53 | HHI.PR ---
Objective Vitals Vital Signs Date Time Temp Pulse Resp B/P (MAP) Pulse Ox O2 Delivery O2 Flow Rate FiO2 07/04/17 15:18 97 Nasal Cannula 5.00 07/04/17 15:00 92 07/04/17 14:00 82 07/04/17 13:00 82 07/04/17 12:00 76 07/04/17 11:53 98.0 86 16 135/74 (94) 93 07/04/17 11:53 96 Nasal Cannula 5.00 07/04/17 11:00 82 07/04/17 10:00 80 07/04/17 09:16 96 Nasal Cannula 3.00 07/04/17 09:00 90 07/04/17 08:00 90 07/04/17 07:30 98 Nasal Cannula 5.00 07/04/17 07:15 98.0 92 18 127/82 (97) 96 07/04/17 07:00 82 07/04/17 06:08 68 07/04/17 05:15 94 60 07/04/17 05:00 82 07/04/17 04:00 74 07/04/17 04:00 80 07/04/17 03:56 97.6 81 16 121/65 (83) 95 07/04/17 03:00 84 07/04/17 02:50 92 60 07/04/17 02:00 92 07/04/17 01:49 94 50 07/04/17 01:00 90 07/04/17 00:30 97.7 94 18 137/90 (106) 97 07/04/17 00:00 104 07/04/17 00:00 88 07/03/17 23:20 96 50 07/03/17 23:00 124 07/03/17 22:00 110 07/03/17 21:15 112 07/03/17 21:15 98.2 126 18 143/84 (103) 90 07/03/17 21:15 90 Nasal Cannula 4.00 07/03/17 21:00 114 07/03/17 20:36 95 Nasal Cannula 4.00 07/03/17 20:00 104 07/03/17 19:00 104 07/03/17 18:09 132 07/03/17 17:00 112 I/O 07/03/17 07/03/17 07/03/17 07/04/1718 4/17/18 07:00 15:00 23:00 07:00 15:00 23:00 Intake Total 120 ml 1290 ml 480 ml Output Total 550 ml 300 ml 1650 ml Balance -430 ml 990 ml -1170 ml Intake Oral 120 ml 1290 ml 480 ml Output Urine Total 550 ml 300 ml 1650 ml # Voids 2 Result Diagram: 07/03/17 0148 07/04/17 0456 Objective Remarks GENERAL: Obese patient, lying in bed on BiPAP, mild labored breathing SKIN: Warm and dry. HEAD: Normocephalic. EYES: No scleral icterus. No injection or drainage. NECK: Supple, trachea midline. No JVD or lymphadenopathy. CARDIOVASCULAR: Tachycardia without murmurs, gallops, or rubs. RESPIRATORY: Atelectasis in left greater than right base. No accessory muscle use. GASTROINTESTINAL: Abdomen soft, non-tender, nondistended. EXTREMITIES: No cyanosis, 1+ ankle edema bilaterally NEUROLOGICAL: Awake, alert, and oriented x 3. Non-focal. A/P Problem List: (1) COPD (chronic obstructive pulmonary disease) ICD Code: J44.9 - Chronic obstructive pulmonary disease, unspecified (2) Atrial fibrillation ICD Code: I48.91 - Unspecified atrial fibrillation (3) Hypokalemia ICD Code: E87.6 - Hypokalemia Status: Acute (4) Hypomagnesemia ICD Code: E83.42 - Hypomagnesemia Status: Acute (5) HTN (hypertension) ICD Code: I10 - Hypertension Status: Chronic (6) CHF (congestive heart failure) ICD Code: I50.9 - CHF (congestive heart failure) Status: Acute (7) Hypoxia ICD Code: R09.02 - Hypoxemia Status: Resolved Assessment and Plan Congestive heart failure Lasix changed to Bumex at patient's request BNP elevated beyond 1000 but troponins remain within normal limits Echocardiogram shows EF = 20-25% Appreciate cardiology consult COPD exacerbation Continue duonebs, Symbicort, Mucinex, steroids and incentive spirometry Tolerated being off BiPAP today but required high flow oxygen, recommend BiPAP overnight Did better on exam today, on nasal canula, speaking in full flowing sentences without distress Continue to attempt weaning from BiPap Atrial fibrillation Rate Controlled Continue home doses of Xarelto, Procardia, metoprolol DVT prophylaxis On Xarelto Problem Qualifiers (1) CHF (congestive heart failure): Qualified Codes: I50.9 - Heart failure, unspecified Josse Cooper MD Jul 04, 2017 16:53
--- NOTE | 2017-07-04 19:36 | HHI.PR ---
Subjective Remarks 72 YO male with COPD,CHF Breathing better weaned to NC Diureasing Ambulates Objective Vital Signs Vital Signs Date Time Temp Pulse Resp B/P (MAP) Pulse Ox O2 Delivery O2 Flow Rate FiO2 07/04/17 18:00 102 07/04/17 17:00 96 07/04/17 16:00 92 07/04/17 15:18 97 Nasal Cannula 5.00 07/04/17 15:15 98.5 104 16 151/77 (101) 92 07/04/17 15:00 92 07/04/17 14:00 82 07/04/17 13:00 82 07/04/17 12:00 76 07/04/17 11:53 98.0 86 16 135/74 (94) 93 07/04/17 11:53 96 Nasal Cannula 5.00 07/04/17 11:00 82 07/04/17 10:00 80 07/04/17 09:16 96 Nasal Cannula 3.00 07/04/17 09:00 90 07/04/17 08:00 90 07/04/17 07:30 98 Nasal Cannula 5.00 07/04/17 07:15 98.0 92 18 127/82 (97) 96 07/04/17 07:00 82 07/04/17 06:08 68 07/04/17 05:15 94 60 07/04/17 05:00 82 07/04/17 04:00 74 07/04/17 04:00 80 07/04/17 03:56 97.6 81 16 121/65 (83) 95 07/04/17 03:00 84 07/04/17 02:50 92 60 07/04/17 02:00 92 07/04/17 01:49 94 50 07/04/17 01:00 90 07/04/17 00:30 97.7 94 18 137/90 (106) 97 07/04/17 00:00 104 07/04/17 00:00 88 07/03/17 23:20 96 50 07/03/17 23:00 124 07/03/17 22:00 110 07/03/17 21:15 112 07/03/17 21:15 98.2 126 18 143/84 (103) 90 07/03/17 21:15 90 Nasal Cannula 4.00 07/03/17 21:00 114 07/03/17 20:36 95 Nasal Cannula 4.00 07/03/17 20:00 104 I/O 07/03/17 07/03/17 07/03/17 07/04/17 07/04/17 07/04/17 07:00 15:00 23:00 07:00 15:00 23:00 Intake Total 120 ml 1290 ml 480 ml 1000 ml Output Total 550 ml 300 ml 1650 ml 1700 ml Balance -430 ml 990 ml -1170 ml -700 ml Intake Oral 120 ml 1290 ml 480 ml 1000 ml Output Urine Total 550 ml 300 ml 1650 ml 1700 ml # Voids 2 Result Diagram: 07/03/17 0148 07/04/17 0456 Objective Remarks GENERAL: Obese male, mild sob SKIN: Warm and dry. HEAD: Normocephalic. EYES: No scleral icterus. No injection or drainage. NECK: Supple, trachea midline. No JVD or lymphadenopathy. CARDIOVASCULAR: Regular rate and rhythm without murmurs, gallops, or rubs. RESPIRATORY: Breath sounds equal bilaterally. No accessory muscle use. End exp rhonchi, basal rales GASTROINTESTINAL: Abdomen soft, non-tender, nondistended. MUSCULOSKELETAL: No cyanosis, or edema. BACK: Nontender without obvious deformity. No CVA tenderness. A/P Assessment and Plan IMPRESSION: 1. Decompensated congestive heart failure. 2. Chronic obstructive pulmonary disease. 3. Atrial fibrillation. 4. Automatic implantable cardioverter-defibrillator placement. 5. Obesity. PLAN: Aerosol nebs CPAP prn Supplement 02 Decrease Solumedrol 40 mg q 8 hrs Diurease With Joe Ledezma MD Jul 04, 2017 19:36
[2017-07-05] VITALS (32 sets, daily range): BP systolic 130–147; BP diastolic 79–100; PULSE 58–124; RESP 20–26; TEMP 97.6–98.4; O2SAT 90–99
[2017-07-05] MEDS: methylPREDNISolone SOD SUCC 40 MG/1 ML VIAL IV PUSH SCH ×3 (00:19→17:27)
[2017-07-05] MEDS: RESP: ALBUTEROL 2.5 MG/IPRATROPIUM 0.5 MG NEB (SCH) INH ×4 (02:38→19:38)
[2017-07-05] MEDS: POTASSIUM CHLORIDE 20 MEQ CONTROLLED RELEASE TAB PO SCH (09:48)
[2017-07-05] MEDS: ASPIRIN 81 MG CHEW TAB CHEW SCH (09:48)
[2017-07-05] MEDS: SODIUM CHLORIDE 0.9% FLUSH 10 ML FLUSH IV FLUSH SCH ×2 (09:48→20:57)
[2017-07-05] MEDS: DOCUSATE SODIUM 50 MG/SENNA 8.6 MG TAB PO SCH ×2 (09:48→20:57)
[2017-07-05] MEDS: METOLAZONE 2.5 MG TAB PO SCH (09:49)
[2017-07-05] MEDS: DILTIAZEM-CD 240 MG CAP ER PO SCH (09:49)
[2017-07-05] MEDS: guaiFENesin E.R. 600 MG TAB PO SCH ×2 (09:49→20:56)
[2017-07-05] MEDS: METOPROLOL TARTRATE 25 MG TAB PO SCH ×2 (09:49→20:56)
[2017-07-05] MEDS: RIVAROXABAN 15 MG TAB PO SCH (09:49)
[2017-07-05] MEDS: BUMETANIDE 1 MG TAB PO SCH ×2 (09:50→17:27)
[2017-07-05] MEDS: FLUTICASONE 100 MCG/VILANTEROL 25 MCG INHALER INH SCH (09:50)
[2017-07-05 14:04] LABS: BICARBONATE 41.6 MEQ/L (21.0-32.0); CALCIUM 8.9 MG/DL (8.5-10.1); CREATININE 1.68 MG/DL (0.60-1.30)
--- NOTE | 2017-07-05 15:15 | PD.CARD.PN ---
Subjective Subjective Remarks No changes overnight No chest pain SOB somewhat better, still SOB with activity Objective Medications Current Medications Medications (Trade) Dose Ordered Sig/David Route Start Time Stop Time Status Last Admin (Aspirin Chew) 81 mg DAILY CHEW 07/03/17 09:00 07/05/17 09:48 (Cardizem Cd) 240 mg DAILY PO 07/03/17 09:00 07/05/17 09:49 (Breo Ellipta 100-25 Inh) 1 puff DAILY INH 07/03/17 09:00 07/05/17 09:50 (Lopressor) 75 mg Q12HR PO 07/02/17 21:00 07/05/17 09:49 (KCl) 40 meq DAILY PO 07/03/17 09:00 07/05/17 09:48 (Xarelto) 15 mg DAILY PO 07/03/17 09:00 07/05/17 09:49 (Catapres) 0.1 mg Q4H PRN PO 07/02/17 14:15 (NS Flush) 2 ml BID IV FLUSH 07/02/17 21:00 07/05/17 09:48 (NS Flush) 2 ml UNSCH PRN IV FLUSH 07/02/17 14:15 (Zaroxolyn) 2.5 mg DAILY PO 07/03/17 09:00 07/05/17 09:49 (Tylenol) 650 mg Q4H PRN PO 07/02/17 14:15 (Zofran Inj) 4 mg Q6H PRN IVP 07/02/17 14:15 (Reglan Inj) 5 mg Q6H PRN IV PUSH 07/02/17 14:15 (Tylenol) 650 mg Q6H PRN PO 07/02/17 14:15 (Percocet 5-325 Mg) 1 tab Q6H PRN PO 07/02/17 14:15 (Percocet 10-325 Mg) 1 tab Q6H PRN PO 07/02/17 14:15 (Morphine Inj) 2 mg Q3H PRN IV PUSH 07/02/17 14:15 (Morphine Inj) 4 mg Q3H PRN IV PUSH 07/02/17 14:15 (Narcan Inj) 0.4 mg UNSCH PRN IV PUSH 07/02/17 14:15 (Kymberly-Colace) 1 tab BID PO 07/02/17 21:00 07/05/17 09:48 (Milk Of Magnesia Liq) 30 ml Q12H PRN PO 07/02/17 14:15 07/05/17 09:49 (Senokot) 17.2 mg Q12H PRN PO 07/02/17 14:15 (Dulcolax Supp) 10 mg DAILY PRN RECTAL 07/02/17 14:15 (Lactulose Liq) 30 ml DAILY PRN PO 07/02/17 14:15 (Duoneb Neb) 1 ampule Q2HR NEB PRN INH 07/02/17 14:30 07/02/17 23:20 (Duoneb Neb) 1 ampule Q6HR NEB INH 07/02/17 16:00 07/05/17 09:42 (Albuterol Neb) 2.5 mg Q2HR NEB PRN INH 07/02/17 14:30 (Mucinex Er) 600 mg BID PO 07/02/17 21:00 07/05/17 09:49 (Cardizem) 30 mg Q6H PRN PO 07/02/17 18:45 (Bumetanide) 2 mg BID@ PO 07/03/17 18:00 07/05/17 09:50 (SoluMEDROL INJ) 40 mg Q8H IV PUSH 07/05/17 01:00 07/05/17 09:48 Vital Signs / I&O Vital Signs Date Time Temp Pulse Resp B/P (MAP) Pulse Ox O2 Delivery O2 Flow Rate FiO2 07/05/17 14:02 104 07/05/17 13:00 84 07/05/17 12:00 84 07/05/17 11:30 98.1 91 24 147/95 (112) 96 07/05/17 11:30 96 Nasal Cannula 5.00 07/05/17 11:00 85 07/05/17 10:00 110 07/05/17 09:46 94 Nasal Cannula 4.00 07/05/17 09:00 124 07/05/17 08:02 97.6 96 26 143/88 (106) 90 07/05/17 08:00 80 07/05/17 07:15 92 Nasal Cannula 5.00 07/05/17 07:00 73 07/05/17 06:15 80 4/18/18 05:28 73 07/05/17 04:00 76 07/05/17 03:14 98.4 79 20 141/96 (111) 96 07/05/17 03:14 Bi-Pap 70 07/05/17 03:00 71 07/05/17 02:01 100 Bi-Pap 07/05/17 02:00 99 40 07/05/17 02:00 82 07/05/17 01:00 84 07/05/17 00:00 84 07/04/17 23:45 90 Nasal Cannula 5.00 07/04/17 23:45 98.0 87 22 124/87 (99) 90 07/04/17 23:00 94 07/04/17 22:00 98 07/04/17 21:00 94 07/04/17 20:41 94 Nasal Cannula 3.00 07/04/17 20:03 98.2 95 21 152/87 (108) 94 07/04/17 20:03 94 Nasal Cannula 5.00 07/04/17 20:00 96 07/04/17 19:00 98 07/04/17 18:00 102 07/04/17 17:00 96 07/04/17 16:00 92 07/04/17 15:18 97 Nasal Cannula 5.00 07/04/17 15:15 98.5 104 16 151/77 (101) 92 I/O 07/04/17 07/04/17 07/04/17 07/05/17 07/05/17 07/05/17 07:00 15:00 23:00 07:00 15:00 23:00 Intake Total 480 ml 1000 ml 240 ml Output Total 1650 ml 1700 ml 2700 ml Balance -1170 ml -700 ml -2460 ml Intake Oral 480 ml 1000 ml 240 ml Output Urine Total 1650 ml 1700 ml 2700 ml Physical Exam GENERAL: NAD, AAOx3 SKIN: Warm and dry. HEAD: Atraumatic. Normocephalic. EYES: Pupils equal and round. No scleral icterus. No injection or drainage. ENT: No nasal bleeding or discharge. Mucous membranes pink and moist. NECK: Trachea midline. No JVD. CARDIOVASCULAR: Irregularly irregular RESPIRATORY: Decreased breath sounds bilaterally GASTROINTESTINAL: Abdomen soft, non-tender, nondistended. Hepatic and splenic margins not palpable. MUSCULOSKELETAL: Extremities without clubbing, cyanosis, or edema. No obvious deformities. NEUROLOGICAL: Awake and alert. No obvious cranial nerve deficits. Motor grossly within normal limits. Five out of 5 muscle strength in the arms and legs. Normal speech. PSYCHIATRIC: Appropriate mood and affect; insight and judgment normal. Laboratory Laboratory Tests Test 07/05/17 13:27 Blood Urea Nitrogen 50 MG/DL Creatinine 1.68 MG/DL Random Glucose 231 MG/DL Calcium Level 8.9 MG/DL Sodium Level 140 MEQ/L Potassium Level 3.1 MEQ/L Chloride Level 90 MEQ/L Carbon Dioxide Level 41.6 MEQ/L Anion Gap 8 MEQ/L Estimat Glomerular Filtration Rate 40 ML/MIN Assessment and Plan Problem List: (1) COPD (chronic obstructive pulmonary disease) ICD Codes: J44.9 - Chronic obstructive pulmonary disease, unspecified (2) Atrial fibrillation ICD Codes: I48.91 - Unspecified atrial fibrillation (3) CHF (congestive heart failure) ICD Codes: I50.9 - CHF (congestive heart failure) Status: Acute (4) Hypoxia ICD Codes: R09.02 - Hypoxemia Status: Resolved (5) HTN (hypertension) ICD Codes: I10 - Hypertension Status: Chronic Assessment and Plan 1) AFib Heart rates controlled on BB/CCB Xarelto 2) CHF Con't diuresis Will have to watch Kidney function, currently stable May need to stop Zaroxolyn, will continue to follow kidney function 3) COPD 4) EF 20-25% ICD in place 5) Follow up with Dr. Dueñas on discharge Problem Qualifiers (1) CHF (congestive heart failure): Qualified Codes: I50.9 - Heart failure, unspecified Shakeel Christopher DO Jul 05, 2017 15:15
--- NOTE | 2017-07-05 17:58 | HHI.PR ---
Subjective Remarks Patient is feeling much better today took a walk down the [place] at least 400 feet. He is still oxygen dependent, but uses home oxygen. Objective Vitals Vital Signs Date Time Temp Pulse Resp B/P (MAP) Pulse Ox O2 Delivery O2 Flow Rate FiO2 07/05/17 16:00 82 07/05/17 15:15 96 Nasal Cannula 4.50 07/05/17 15:15 98.2 94 22 142/79 (100) 93 07/05/17 15:00 84 07/05/17 14:02 104 07/05/17 13:00 84 07/05/17 12:00 84 07/05/17 11:30 98.1 91 24 147/95 (112) 96 07/05/17 11:30 96 Nasal Cannula 5.00 07/05/17 11:00 85 07/05/17 10:00 110 07/05/17 09:46 94 Nasal Cannula 4.00 07/05/17 09:00 124 07/05/17 08:02 97.6 96 26 143/88 (106) 90 07/05/17 08:00 80 07/05/17 07:15 92 Nasal Cannula 5.00 07/05/17 07:00 73 07/05/17 06:15 80 07/05/17 05:28 73 07/05/17 04:00 76 07/05/17 03:14 98.4 79 20 141/96 (111) 96 07/05/17 03:14 Bi-Pap 70 07/05/17 03:00 71 07/05/17 02:01 100 Bi-Pap 07/05/17 02:00 99 40 07/05/17 02:00 82 07/05/17 01:00 84 07/05/17 00:00 84 07/04/17 23:45 90 Nasal Cannula 5.00 07/04/17 23:45 98.0 87 22 124/87 (99) 90 07/04/17 23:00 94 07/04/17 22:00 98 07/04/17 21:00 94 07/04/17 20:41 94 Nasal Cannula 3.00 07/04/17 20:03 98.2 95 21 152/87 (108) 94 07/04/17 20:03 94 Nasal Cannula 5.00 07/04/17 20:00 96 07/04/17 19:00 98 07/04/17 18:00 102 I/O 07/04/17 07/04/17 07/04/17 07/05/17 07/05/17 07/05/17 07:00 15:00 23:00 07:00 15:00 23:00 Intake Total 480 ml 1000 ml 240 ml Output Total 1650 ml 1700 ml 2700 ml Balance -1170 ml -700 ml -2460 ml Intake Oral 480 ml 1000 ml 240 ml Output Urine Total 1650 ml 1700 ml 2700 ml Result Diagram: 07/03/17 0148 07/05/17 1327 Objective Remarks GENERAL: Obese patient, lying in bed on BiPAP, mild labored breathing SKIN: Warm and dry. HEAD: Normocephalic. EYES: No scleral icterus. No injection or drainage. NECK: Supple, trachea midline. No JVD or lymphadenopathy. CARDIOVASCULAR: Tachycardia without murmurs, gallops, or rubs. RESPIRATORY: Atelectasis in left greater than right base. No accessory muscle use. GASTROINTESTINAL: Abdomen soft, non-tender, nondistended. EXTREMITIES: No cyanosis, 1+ ankle edema bilaterally NEUROLOGICAL: Awake, alert, and oriented x 3. Non-focal. A/P Problem List: (1) COPD (chronic obstructive pulmonary disease) ICD Code: J44.9 - Chronic obstructive pulmonary disease, unspecified (2) Atrial fibrillation ICD Code: I48.91 - Unspecified atrial fibrillation (3) Hypokalemia ICD Code: E87.6 - Hypokalemia Status: Acute (4) Hypomagnesemia ICD Code: E83.42 - Hypomagnesemia Status: Acute (5) HTN (hypertension) ICD Code: I10 - Hypertension Status: Chronic (6) CHF (congestive heart failure) ICD Code: I50.9 - CHF (congestive heart failure) Status: Acute (7) Hypoxia ICD Code: R09.02 - Hypoxemia Status: Resolved Assessment and Plan Congestive heart failure BNP elevated beyond 1000 but troponins remain within normal limits Echocardiogram shows EF = 20-25% Continue Bumex Appreciate cardiology consult COPD exacerbation Continue duonebs, Symbicort, Mucinex, steroids and incentive spirometry Recommend BiPAP overnight Did better on exam today, on nasal canula, speaking in full flowing sentences without distress Continue to attempt weaning from BiPap Atrial fibrillation Rate Controlled Continue home doses of Xarelto, Procardia, metoprolol DVT prophylaxis On Xarelto Discharge planning Patient is not fond of home health care, but he is open to telemedicine for daily weights (CHF edema monitoring) Problem Qualifiers (1) CHF (congestive heart failure): Qualified Codes: I50.9 - Heart failure, unspecified Josse Cooper MD Jul 05, 2017 17:58
[2017-07-05] MEDS ORDERED: POTASSIUM CHLORIDE 8 MEQ CONTROLLED RELEASE TAB PO ONE (19:30)
--- NOTE | 2017-07-05 19:35 | HHI.PR ---
Subjective Remarks 72 YO male with COPD,CHF Breathing better weaned to NC Diureasing Ambulates Did't like CPAP, " too noisy" Objective Vital Signs Vital Signs Date Time Temp Pulse Resp B/P (MAP) Pulse Ox O2 Delivery O2 Flow Rate FiO2 07/05/17 18:16 86 07/05/17 17:30 58 07/05/17 16:00 82 07/05/17 15:15 96 Nasal Cannula 4.50 07/05/17 15:15 98.2 94 22 142/79 (100) 93 07/05/17 15:00 84 07/05/17 14:02 104 07/05/17 13:00 84 07/05/17 12:00 84 07/05/17 11:30 98.1 91 24 147/95 (112) 96 07/05/17 11:30 96 Nasal Cannula 5.00 07/05/17 11:00 85 07/05/17 10:00 110 07/05/17 09:46 94 Nasal Cannula 4.00 07/05/17 09:00 124 07/05/17 08:02 97.6 96 26 143/88 (106) 90 07/05/17 08:00 80 07/05/17 07:15 92 Nasal Cannula 5.00 07/05/17 07:00 73 07/05/17 06:15 80 07/05/17 05:28 73 07/05/17 04:00 76 07/05/17 03:14 98.4 79 20 141/96 (111) 96 07/05/17 03:14 Bi-Pap 70 07/05/17 03:00 71 07/05/17 02:01 100 Bi-Pap 07/05/17 02:00 99 40 07/05/17 02:00 82 07/05/17 01:00 84 07/05/17 00:00 84 07/04/17 23:45 90 Nasal Cannula 5.00 07/04/17 23:45 98.0 87 22 124/87 (99) 90 07/04/17 23:00 94 07/04/17 22:00 98 07/04/17 21:00 94 07/04/17 20:41 94 Nasal Cannula 3.00 07/04/17 20:03 98.2 95 21 152/87 (108) 94 07/04/17 20:03 94 Nasal Cannula 5.00 07/04/17 20:00 96 I/O 07/04/17 07/04/17 07/04/17 07/05/17 07/05/17 07/05/17 07:00 15:00 23:00 07:00 15:00 23:00 Intake Total 480 ml 1000 ml 240 ml 840 ml Output Total 1650 ml 1700 ml 2700 ml 1600 ml Balance -1170 ml -700 ml -2460 ml -760 ml Intake Oral 480 ml 1000 ml 240 ml 840 ml Output Urine Total 1650 ml 1700 ml 2700 ml 1600 ml Result Diagram: 07/03/17 0148 07/05/17 1327 Objective Remarks GENERAL: Obese male, mild sob SKIN: Warm and dry. HEAD: Normocephalic. EYES: No scleral icterus. No injection or drainage. NECK: Supple, trachea midline. No JVD or lymphadenopathy. CARDIOVASCULAR: Regular rate and rhythm without murmurs, gallops, or rubs. RESPIRATORY: Breath sounds equal bilaterally. No accessory muscle use. End exp rhonchi, basal rales GASTROINTESTINAL: Abdomen soft, non-tender, nondistended. MUSCULOSKELETAL: No cyanosis, or edema. BACK: Nontender without obvious deformity. No CVA tenderness. A/P Assessment and Plan IMPRESSION: 1. Decompensated congestive heart failure. 2. Chronic obstructive pulmonary disease. 3. Atrial fibrillation. 4. Automatic implantable cardioverter-defibrillator placement. 5. Obesity. PLAN: Aerosol nebs CPAP prn Supplement 02 DC Solumedrol Pred 10 mg tid. Diurease With Bumex Joe Tirado MD Jul 05, 2017 19:35
[2017-07-06] VITALS (33 sets, daily range): BP systolic 135–157; BP diastolic 80–101; PULSE 70–94; RESP 19–24; TEMP 97.3–98.2; O2SAT 92–95
[2017-07-06] MEDS: RESP: ALBUTEROL 2.5 MG/IPRATROPIUM 0.5 MG NEB (SCH) INH ×3 (03:30→15:18)
[2017-07-06] MEDS: METOLAZONE 2.5 MG TAB PO SCH (09:00)
[2017-07-06] MEDS: guaiFENesin E.R. 600 MG TAB PO SCH ×2 (10:40→20:30)
[2017-07-06] MEDS: ASPIRIN 81 MG CHEW TAB CHEW SCH (10:40)
[2017-07-06] MEDS: predniSONE 10 MG TAB PO SCH ×3 (10:41→18:34)
[2017-07-06] MEDS: DOCUSATE SODIUM 50 MG/SENNA 8.6 MG TAB PO SCH ×2 (10:42→20:30)
[2017-07-06] MEDS: DILTIAZEM-CD 240 MG CAP ER PO SCH (10:42)
[2017-07-06] MEDS: RIVAROXABAN 15 MG TAB PO SCH (10:42)
[2017-07-06] MEDS: METOPROLOL TARTRATE 25 MG TAB PO SCH ×2 (10:43→20:30)
[2017-07-06] MEDS: BUMETANIDE 1 MG TAB PO SCH ×2 (10:43→17:20)
[2017-07-06] MEDS: POTASSIUM CHLORIDE 20 MEQ CONTROLLED RELEASE TAB PO SCH (10:44)
[2017-07-06] MEDS: SODIUM CHLORIDE 0.9% FLUSH 10 ML FLUSH IV FLUSH SCH ×2 (10:45→20:30)
[2017-07-06] MEDS: FLUTICASONE 100 MCG/VILANTEROL 25 MCG INHALER INH SCH (10:45)
[2017-07-06] MEDS ORDERED: OXYGENDME NAS.CANULA (12:38)
[2017-07-06 12:46] LABS: BICARBONATE GREATER THAN 45.0 MEQ/L (21.0-32.0); BLOOD UREA NITROGEN 56 MG/DL (7-18); CALCIUM 9.4 MG/DL (8.5-10.1); CHLORIDE 83 MEQ/L (98-107); CREATININE 1.63 MG/DL (0.60-1.30); GLOMERULAR FILTRATION RATE 42 ML/MIN (>89); GLUCOSE,RANDOM 152 MG/DL (74-106); SODIUM (NA) 139 MEQ/L (136-145)
[2017-07-06] MEDS ORDERED: POTASSIUM CHLORIDE 20 MEQ CONTROLLED RELEASE TAB PO ONE (15:45)
--- NOTE | 2017-07-06 16:02 | HHI.PR ---
Subjective Remarks 72 YO male with COPD,CHF Breathing better weaned to NC Diureasing Ambulates Looks comfortable. Objective Vital Signs Vital Signs Date Time Temp Pulse Resp B/P (MAP) Pulse Ox O2 Delivery O2 Flow Rate FiO2 07/06/17 11:45 93 Nasal Cannula 4.00 07/06/17 11:45 97.3 90 24 157/94 (115) 92 07/06/17 09:14 94 Nasal Cannula 2.00 07/06/17 08:33 97.8 92 22 135/83 (100) 95 07/06/17 08:33 94 Nasal Cannula 2.50 07/06/17 06:06 79 07/06/17 05:12 92 07/06/17 04:20 83 07/06/17 03:32 93 Nasal Cannula 3.00 07/06/17 03:21 92 Nasal Cannula 3.00 07/06/17 03:21 97.7 72 20 144/92 (109) 92 07/06/17 03:00 70 07/06/17 02:26 78 07/06/17 01:00 79 07/06/17 00:14 76 07/05/17 23:31 97.7 80 20 137/100 (112) 92 07/05/17 23:31 92 Nasal Cannula 3.00 07/05/17 23:00 67 07/05/17 22:00 86 07/05/17 21:00 86 07/05/17 20:50 Nasal Cannula 3.00 07/05/17 20:50 98.4 77 20 130/90 (103) 95 07/05/17 20:00 86 07/05/17 19:40 97 Nasal Cannula 3.00 07/05/17 19:00 84 07/05/17 18:16 86 07/05/17 17:30 58 I/O 07/05/17 07/05/17 07/05/17 07/06/17 07/06/17 07/06/17 07:00 15:00 23:00 07:00 15:00 23:00 Intake Total 240 ml 840 ml 240 ml Output Total 2700 ml 1600 ml 2350 ml Balance -2460 ml -760 ml -2110 ml Intake Oral 240 ml 840 ml 240 ml Output Urine Total 2700 ml 1600 ml 2350 ml Result Diagram: 07/03/17 0148 07/06/17 1200 Objective Remarks GENERAL: Obese male, mild sob SKIN: Warm and dry. HEAD: Normocephalic. EYES: No scleral icterus. No injection or drainage. NECK: Supple, trachea midline. No JVD or lymphadenopathy. CARDIOVASCULAR: Regular rate and rhythm without murmurs, gallops, or rubs. RESPIRATORY: Breath sounds equal bilaterally. No accessory muscle use. End exp rhonchi, basal rales GASTROINTESTINAL: Abdomen soft, non-tender, nondistended. MUSCULOSKELETAL: No cyanosis, or edema. BACK: Nontender without obvious deformity. No CVA tenderness. A/P Assessment and Plan IMPRESSION: 1. Decompensated congestive heart failure. 2. Chronic obstructive pulmonary disease. 3. Atrial fibrillation. 4. Automatic implantable cardioverter-defibrillator placement. 5. Obesity. PLAN: Aerosol nebs CPAP prn Supplement 02 Pred 10 mg tid. Diurease With Bumex DC plans underway Joe Tirado MD Jul 06, 2017 16:02
--- NOTE | 2017-07-06 18:32 | HHI.PR ---
Subjective Remarks Patient feels well today and is open to going home. He has a request which is a new home oxygen since he feels the one at home is old, not producing enough flow, has a funny smell. He feels this current home oxygen as part of the reason that he was hospitalized. Objective Vitals Vital Signs Date Time Temp Pulse Resp B/P (MAP) Pulse Ox O2 Delivery O2 Flow Rate FiO2 07/06/17 15:15 98.1 82 22 141/85 (103) 92 07/06/17 15:15 92 Nasal Cannula 2.50 07/06/17 11:45 93 Nasal Cannula 4.00 07/06/17 11:45 97.3 90 24 157/94 (115) 92 07/06/17 09:14 94 Nasal Cannula 2.00 07/06/17 08:33 97.8 92 22 135/83 (100) 95 07/06/17 08:33 94 Nasal Cannula 2.50 07/06/17 06:06 79 07/06/17 05:12 92 07/06/17 04:20 83 07/06/17 03:32 93 Nasal Cannula 3.00 07/06/17 03:21 92 Nasal Cannula 3.00 07/06/17 03:21 97.7 72 20 144/92 (109) 92 07/06/17 03:00 70 07/06/17 02:26 78 07/06/17 01:00 79 07/06/17 00:14 76 07/05/17 23:31 97.7 80 20 137/100 (112) 92 07/05/17 23:31 92 Nasal Cannula 3.00 07/05/17 23:00 67 07/05/17 22:00 86 07/05/17 21:00 86 07/05/17 20:50 Nasal Cannula 3.00 07/05/17 20:50 98.4 77 20 130/90 (103) 95 07/05/17 20:00 86 07/05/17 19:40 97 Nasal Cannula 3.00 07/05/17 19:00 84 I/O 07/05/17 07/05/17 07/05/17 07/06/17 07/06/17 07/06/17 07:00 15:00 23:00 07:00 15:00 23:00 Intake Total 240 ml 840 ml 240 ml 600 ml Output Total 2700 ml 1600 ml 2350 ml 875 ml Balance -2460 ml -760 ml -2110 ml -275 ml Intake Oral 240 ml 840 ml 240 ml 600 ml Output Urine Total 2700 ml 1600 ml 2350 ml 875 ml # Bowel Movements 1 Result Diagram: 07/03/17 0148 07/06/17 1200 Objective Remarks GENERAL: Obese patient, lying in bed on BiPAP, mild labored breathing SKIN: Warm and dry. HEAD: Normocephalic. EYES: No scleral icterus. No injection or drainage. NECK: Supple, trachea midline. No JVD or lymphadenopathy. CARDIOVASCULAR: Sinus rhythm without murmurs, gallops, or rubs. RESPIRATORY: Atelectasis in left greater than right base. No accessory muscle use. GASTROINTESTINAL: Abdomen soft, non-tender, nondistended. EXTREMITIES: No cyanosis, trace edema bilaterally NEUROLOGICAL: Awake, alert, and oriented x 3. Non-focal. A/P Problem List: (1) COPD (chronic obstructive pulmonary disease) ICD Code: J44.9 - Chronic obstructive pulmonary disease, unspecified (2) Atrial fibrillation ICD Code: I48.91 - Unspecified atrial fibrillation (3) Hypokalemia ICD Code: E87.6 - Hypokalemia Status: Acute (4) Hypomagnesemia ICD Code: E83.42 - Hypomagnesemia Status: Acute (5) HTN (hypertension) ICD Code: I10 - Hypertension Status: Chronic (6) CHF (congestive heart failure) ICD Code: I50.9 - CHF (congestive heart failure) Status: Acute (7) Hypoxia ICD Code: R09.02 - Hypoxemia Status: Resolved Assessment and Plan Congestive heart failure Echocardiogram shows EF = 20-25% Repeat BNP level in a.m. Continue Bumex Appreciate cardiology consult COPD exacerbation Continue duonebs, Symbicort, Mucinex, steroids and incentive spirometry Patient is comfortable on 3 L via nasal cannula BiPAP recommended overnight Recommend workup including CPAP study as outpatient Atrial fibrillation Rate Controlled Continue home doses of Xarelto, Procardia, metoprolol DVT prophylaxis On Xarelto Discharge planning Patient is open to telehealth, requests new oxygen machine at home Problem Qualifiers (1) COPD (chronic obstructive pulmonary disease): Qualified Codes: J44.9 - Chronic obstructive pulmonary disease, unspecified (2) Atrial fibrillation: Qualified Codes: I48.91 - Unspecified atrial fibrillation (3) CHF (congestive heart failure): Qualified Codes: I50.9 - Heart failure, unspecified Josse Cooper MD Jul 06, 2017 18:32
--- NOTE | 2017-07-06 18:53 | PD.CARD.PN ---
Subjective Subjective Remarks Patient was seen earlier today, late entry note No changes overnight No chest pain SOB better, looks better overall Objective Medications Current Medications Medications (Trade) Dose Ordered Sig/David Route Start Time Stop Time Status Last Admin (Aspirin Chew) 81 mg DAILY CHEW 07/03/17 09:00 07/06/17 10:40 (Cardizem Cd) 240 mg DAILY PO 07/03/17 09:00 07/06/17 10:42 (Breo Ellipta 100-25 Inh) 1 puff DAILY INH 07/03/17 09:00 07/06/17 10:45 (Lopressor) 75 mg Q12HR PO 07/02/17 21:00 07/06/17 10:43 (KCl) 40 meq DAILY PO 07/03/17 09:00 07/06/17 10:44 (Xarelto) 15 mg DAILY PO 07/03/17 09:00 07/06/17 10:42 (Catapres) 0.1 mg Q4H PRN PO 07/02/17 14:15 (NS Flush) 2 ml BID IV FLUSH 07/02/17 21:00 07/06/17 10:45 (NS Flush) 2 ml UNSCH PRN IV FLUSH 07/02/17 14:15 (Zaroxolyn) 2.5 mg DAILY PO 07/03/17 09:00 07/06/17 09:00 (Tylenol) 650 mg Q4H PRN PO 07/02/17 14:15 (Zofran Inj) 4 mg Q6H PRN IVP 07/02/17 14:15 (Reglan Inj) 5 mg Q6H PRN IV PUSH 07/02/17 14:15 (Tylenol) 650 mg Q6H PRN PO 07/02/17 14:15 (Percocet 5-325 Mg) 1 tab Q6H PRN PO 07/02/17 14:15 (Percocet 10-325 Mg) 1 tab Q6H PRN PO 07/02/17 14:15 (Morphine Inj) 2 mg Q3H PRN IV PUSH 07/02/17 14:15 (Morphine Inj) 4 mg Q3H PRN IV PUSH 07/02/17 14:15 (Narcan Inj) 0.4 mg UNSCH PRN IV PUSH 07/02/17 14:15 (Kymberly-Colace) 1 tab BID PO 07/02/17 21:00 07/06/17 10:42 (Milk Of Magnesia Liq) 30 ml Q12H PRN PO 07/02/17 14:15 07/05/17 09:49 (Senokot) 17.2 mg Q12H PRN PO 07/02/17 14:15 (Dulcolax Supp) 10 mg DAILY PRN RECTAL 07/02/17 14:15 (Lactulose Liq) 30 ml DAILY PRN PO 07/02/17 14:15 07/05/17 20:59 (Duoneb Neb) 1 ampule Q2HR NEB PRN INH 07/02/17 14:30 07/02/17 23:20 (Albuterol Neb) 2.5 mg Q2HR NEB PRN INH 07/02/17 14:30 (Mucinex Er) 600 mg BID PO 07/02/17 21:00 07/06/17 10:40 (Cardizem) 30 mg Q6H PRN PO 07/02/17 18:45 (Bumetanide) 2 mg BID@18 PO 07/03/17 18:00 07/06/17 17:20 (Deltasone) 10 mg TID PO 07/06/17 09:00 07/06/17 18:34 Vital Signs / I&O Vital Signs Date Time Temp Pulse Resp B/P (MAP) Pulse Ox O2 Delivery O2 Flow Rate FiO2 07/06/17 15:15 98.1 82 22 141/85 (103) 92 07/06/17 15:15 92 Nasal Cannula 2.50 07/06/17 15:00 78 07/06/17 14:00 94 07/06/17 13:00 88 07/06/17 12:00 74 07/06/17 11:45 93 Nasal Cannula 4.00 07/06/17 11:45 97.3 90 24 157/94 (115) 92 07/06/17 11:00 80 07/06/17 10:00 82 07/06/17 09:14 94 Nasal Cannula 2.00 07/06/17 09:00 88 07/06/17 08:33 97.8 92 22 135/83 (100) 95 07/06/17 08:33 94 Nasal Cannula 2.50 07/06/17 08:00 94 07/06/17 07:00 82 07/06/17 06:06 79 07/06/17 05:12 92 07/06/17 04:20 83 07/06/17 03:32 93 Nasal Cannula 3.00 07/06/17 03:21 92 Nasal Cannula 3.00 07/06/17 03:21 97.7 72 20 144/92 (109) 92 07/06/17 03:00 70 07/06/17 02:26 78 07/06/17 01:00 79 07/06/17 00:14 76 07/05/17 23:31 97.7 80 20 137/100 (112) 92 07/05/17 23:31 92 Nasal Cannula 3.00 07/05/17 23:00 67 07/05/17 22:00 86 07/05/17 21:00 86 07/05/17 20:50 Nasal Cannula 3.00 07/05/17 20:50 98.4 77 20 130/90 (103) 95 07/05/17 20:00 86 07/05/17 19:40 97 Nasal Cannula 3.00 07/05/17 19:00 84 I/O 07/05/17 07/05/17 07/05/17 07/06/17 07/06/17 07/06/17 07:00 15:00 23:00 07:00 15:00 23:00 Intake Total 240 ml 840 ml 240 ml 600 ml Output Total 2700 ml 1600 ml 2350 ml 875 ml Balance -2460 ml -760 ml -2110 ml -275 ml Intake Oral 240 ml 840 ml 240 ml 600 ml Output Urine Total 2700 ml 1600 ml 2350 ml 875 ml # Bowel Movements 1 Physical Exam GENERAL: NAD, AAOx3 SKIN: Warm and dry. HEAD: Atraumatic. Normocephalic. EYES: Pupils equal and round. No scleral icterus. No injection or drainage. ENT: No nasal bleeding or discharge. Mucous membranes pink and moist. NECK: Trachea midline. No JVD. CARDIOVASCULAR: Irregularly irregular RESPIRATORY: Decreased breath sounds bilaterally GASTROINTESTINAL: Abdomen soft, non-tender, nondistended. Hepatic and splenic margins not palpable. MUSCULOSKELETAL: Extremities without clubbing, cyanosis, or edema. No obvious deformities. NEUROLOGICAL: Awake and alert. No obvious cranial nerve deficits. Motor grossly within normal limits. Five out of 5 muscle strength in the arms and legs. Normal speech. PSYCHIATRIC: Appropriate mood and affect; insight and judgment normal. Laboratory Laboratory Tests Test 07/06/17 12:00 Blood Urea Nitrogen 56 MG/DL Creatinine 1.63 MG/DL Random Glucose 152 MG/DL Calcium Level 9.4 MG/DL Sodium Level 139 MEQ/L Potassium Level 3.1 MEQ/L Chloride Level 83 MEQ/L Carbon Dioxide Level GREATER THAN 45.0 MEQ/L Anion Gap 11 MEQ/L Estimat Glomerular Filtration Rate 42 ML/MIN Assessment and Plan Problem List: (1) COPD (chronic obstructive pulmonary disease) ICD Codes: J44.9 - Chronic obstructive pulmonary disease, unspecified (2) Atrial fibrillation ICD Codes: I48.91 - Unspecified atrial fibrillation (3) CHF (congestive heart failure) ICD Codes: I50.9 - CHF (congestive heart failure) Status: Acute (4) Hypoxia ICD Codes: R09.02 - Hypoxemia Status: Resolved (5) HTN (hypertension) ICD Codes: I10 - Hypertension Status: Chronic Assessment and Plan 1) AFib Heart rates controlled on BB/CCB Xarelto 2) CHF Con't diuresis, 3L daily output Will have to watch Kidney function, currently stable May need to stop Zaroxolyn, will continue to follow kidney function 3) COPD 4) EF 20-25% ICD in place 5) Follow up with Dr. Dueñas on discharge Problem Qualifiers (1) COPD (chronic obstructive pulmonary disease): Qualified Codes: J44.9 - Chronic obstructive pulmonary disease, unspecified (2) Atrial fibrillation: Qualified Codes: I48.91 - Unspecified atrial fibrillation (3) CHF (congestive heart failure): Qualified Codes: I50.9 - Heart failure, unspecified Shakeel Christopher DO Jul 06, 2017 18:53
[2017-07-06] MEDS: RESP: ALBUTEROL 2.5 MG/IPRATROPIUM 0.5 MG NEB (PRN) INH (20:08)
[2017-07-07] VITALS (29 sets, daily range): BP systolic 122–135; BP diastolic 67–89; PULSE 51–104; RESP 16–20; TEMP 97.8–98.2; O2SAT 91–96
[2017-07-07 06:57] LABS: BICARBONATE GREATER THAN 45.0 MEQ/L (21.0-32.0); BLOOD UREA NITROGEN 60 MG/DL (7-18); CALCIUM 9.4 MG/DL (8.5-10.1); CHLORIDE 81 MEQ/L (98-107); GLOMERULAR FILTRATION RATE 40 ML/MIN (>89); GLUCOSE,RANDOM 150 MG/DL (74-106); SODIUM (NA) 137 MEQ/L (136-145)
[2017-07-07] MEDS: METOLAZONE 2.5 MG TAB PO SCH (09:00)
[2017-07-07] MEDS: DILTIAZEM-CD 240 MG CAP ER PO SCH (09:17)
[2017-07-07] MEDS: DOCUSATE SODIUM 50 MG/SENNA 8.6 MG TAB PO SCH ×2 (09:17→21:56)
[2017-07-07] MEDS: POTASSIUM CHLORIDE 20 MEQ CONTROLLED RELEASE TAB PO SCH (09:18)
[2017-07-07] MEDS: guaiFENesin E.R. 600 MG TAB PO SCH ×2 (09:18→21:56)
[2017-07-07] MEDS: ASPIRIN 81 MG CHEW TAB CHEW SCH (09:18)
[2017-07-07] MEDS: METOPROLOL TARTRATE 25 MG TAB PO SCH ×2 (09:19→21:55)
[2017-07-07] MEDS: predniSONE 10 MG TAB PO SCH ×3 (09:19→16:37)
[2017-07-07] MEDS: BUMETANIDE 1 MG TAB PO SCH ×2 (09:19→16:36)
[2017-07-07] MEDS: FLUTICASONE 100 MCG/VILANTEROL 25 MCG INHALER INH SCH (09:19)
[2017-07-07] MEDS: RIVAROXABAN 15 MG TAB PO SCH (09:19)
[2017-07-07] MEDS: SODIUM CHLORIDE 0.9% FLUSH 10 ML FLUSH IV FLUSH SCH ×2 (09:21→21:55)
--- NOTE | 2017-07-07 13:46 | PD.CARD.PN ---
Subjective Subjective Remarks No changes overnight No chest pain SOB better, looks better overall Objective Medications Current Medications Medications (Trade) Dose Ordered Sig/David Route Start Time Stop Time Status Last Admin (Aspirin Chew) 81 mg DAILY CHEW 07/03/17 09:00 07/07/17 09:18 (Cardizem Cd) 240 mg DAILY PO 07/03/17 09:00 07/07/17 09:17 (Breo Ellipta 100-25 Inh) 1 puff DAILY INH 07/03/17 09:00 07/07/17 09:19 (Lopressor) 75 mg Q12HR PO 07/02/17 21:00 07/07/17 09:19 (KCl) 40 meq DAILY PO 07/03/17 09:00 07/07/17 09:18 (Xarelto) 15 mg DAILY PO 07/03/17 09:00 07/07/17 09:19 (Catapres) 0.1 mg Q4H PRN PO 07/02/17 14:15 (NS Flush) 2 ml BID IV FLUSH 07/02/17 21:00 07/07/17 09:21 (NS Flush) 2 ml UNSCH PRN IV FLUSH 07/02/17 14:15 (Tylenol) 650 mg Q4H PRN PO 07/02/17 14:15 (Zofran Inj) 4 mg Q6H PRN IVP 07/02/17 14:15 (Reglan Inj) 5 mg Q6H PRN IV PUSH 07/02/17 14:15 (Tylenol) 650 mg Q6H PRN PO 07/02/17 14:15 (Percocet 5-325 Mg) 1 tab Q6H PRN PO 07/02/17 14:15 (Percocet 10-325 Mg) 1 tab Q6H PRN PO 07/02/17 14:15 (Morphine Inj) 2 mg Q3H PRN IV PUSH 07/02/17 14:15 (Morphine Inj) 4 mg Q3H PRN IV PUSH 07/02/17 14:15 (Narcan Inj) 0.4 mg UNSCH PRN IV PUSH 07/02/17 14:15 (Kymberly-Colace) 1 tab BID PO 07/02/17 21:00 07/07/17 09:17 (Milk Of Magnesia Liq) 30 ml Q12H PRN PO 07/02/17 14:15 07/05/17 09:49 (Senokot) 17.2 mg Q12H PRN PO 07/02/17 14:15 (Dulcolax Supp) 10 mg DAILY PRN RECTAL 07/02/17 14:15 (Lactulose Liq) 30 ml DAILY PRN PO 07/02/17 14:15 07/05/17 20:59 (Duoneb Neb) 1 ampule Q2HR NEB PRN INH 07/02/17 14:30 07/06/17 20:08 (Albuterol Neb) 2.5 mg Q2HR NEB PRN INH 07/02/17 14:30 (Mucinex Er) 600 mg BID PO 07/02/17 21:00 07/07/17 09:18 (Cardizem) 30 mg Q6H PRN PO 07/02/17 18:45 (Bumetanide) 2 mg BID@,18 PO 07/03/17 18:00 07/07/17 09:19 (Deltasone) 10 mg TID PO 07/06/17 09:00 07/07/17 12:31 Vital Signs / I&O Vital Signs Date Time Temp Pulse Resp B/P (MAP) Pulse Ox O2 Delivery O2 Flow Rate FiO2 07/07/17 12:31 64 18 126/79 (95) 94 07/07/17 12:00 94 Nasal Cannula 2.00 07/07/17 08:08 91 Nasal Cannula 3.00 07/07/17 08:00 98.2 88 20 130/77 (94) 91 07/07/17 06:26 74 07/07/17 05:14 78 07/07/17 04:09 98.1 79 20 122/67 (85) 92 07/07/17 04:09 92 Nasal Cannula 2.00 07/07/17 04:00 78 07/07/17 03:00 81 07/07/17 02:00 80 07/07/17 01:00 74 07/07/17 00:00 82 07/06/17 23:27 98.2 83 19 142/80 (100) 94 07/06/17 23:27 Nasal Cannula 2.00 94 07/06/17 23:00 81 07/06/17 22:00 82 07/06/17 21:00 82 07/06/17 20:09 95 Nasal Cannula 3.00 07/06/17 20:00 82 07/06/17 19:44 Nasal Cannula 2.00 07/06/17 19:44 98.0 83 20 157/101 (119) 92 07/06/17 19:00 85 07/06/17 18:00 88 07/06/17 17:00 82 07/06/17 16:00 80 07/06/17 15:15 98.1 82 22 141/85 (103) 92 07/06/17 15:15 92 Nasal Cannula 2.50 07/06/17 15:00 78 07/06/17 14:00 94 I/O 07/06/17 07/06/17 07/06/17 07/07/17 07/07/17 07/07/17 07:00 15:00 23:00 07:00 15:00 23:00 Intake Total 240 ml 600 ml 240 ml Output Total 2350 ml 875 ml 2325 ml Balance -2110 ml -275 ml -2085 ml Intake Oral 240 ml 600 ml 240 ml Output Urine Total 2350 ml 875 ml 2325 ml # Bowel Movements 1 Physical Exam GENERAL: NAD, AAOx3 SKIN: Warm and dry. HEAD: Atraumatic. Normocephalic. EYES: Pupils equal and round. No scleral icterus. No injection or drainage. ENT: No nasal bleeding or discharge. Mucous membranes pink and moist. NECK: Trachea midline. No JVD. CARDIOVASCULAR: Irregularly irregular RESPIRATORY: Decreased breath sounds bilaterally GASTROINTESTINAL: Abdomen soft, non-tender, nondistended. Hepatic and splenic margins not palpable. MUSCULOSKELETAL: Extremities without clubbing, cyanosis, or edema. No obvious deformities. NEUROLOGICAL: Awake and alert. No obvious cranial nerve deficits. Motor grossly within normal limits. Five out of 5 muscle strength in the arms and legs. Normal speech. PSYCHIATRIC: Appropriate mood and affect; insight and judgment normal. Laboratory Laboratory Tests Test 07/07/17 05:26 Blood Urea Nitrogen 60 MG/DL Creatinine 1.70 MG/DL Random Glucose 150 MG/DL Calcium Level 9.4 MG/DL Sodium Level 137 MEQ/L Potassium Level 3.0 MEQ/L Chloride Level 81 MEQ/L Carbon Dioxide Level GREATER THAN 45.0 MEQ/L Anion Gap 11 MEQ/L Estimat Glomerular Filtration Rate 40 ML/MIN Assessment and Plan Problem List: (1) COPD (chronic obstructive pulmonary disease) ICD Codes: J44.9 - Chronic obstructive pulmonary disease, unspecified (2) Atrial fibrillation ICD Codes: I48.91 - Unspecified atrial fibrillation (3) CHF (congestive heart failure) ICD Codes: I50.9 - CHF (congestive heart failure) Status: Acute (4) Hypoxia ICD Codes: R09.02 - Hypoxemia Status: Resolved (5) HTN (hypertension) ICD Codes: I10 - Hypertension Status: Chronic Assessment and Plan 1) AFib Heart rates controlled on BB/CCB Xarelto 2) CHF Con't diuresis, 3L daily output Will have to watch Kidney function, currently stable Carbon dioxide increased most likely secondary to significant diuresis, will plan to stop Zaroxolyn and allow him to equilibrate, but would continue on Bumex 3) COPD 4) EF 20-25% ICD in place 5) Follow up with Dr. Dueñas on discharge 6) No further cardiovascular work up, when stable may discharge If concerns over the weekend, Dr. Clemons will be covering Problem Qualifiers (1) COPD (chronic obstructive pulmonary disease): Qualified Codes: J44.9 - Chronic obstructive pulmonary disease, unspecified (2) Atrial fibrillation: Qualified Codes: I48.91 - Unspecified atrial fibrillation (3) CHF (congestive heart failure): Qualified Codes: I50.9 - Heart failure, unspecified Shakeel Christopher DO Jul 07, 2017 13:46
--- NOTE | 2017-07-07 18:01 | HHI.PR ---
Subjective Remarks 72 YO male with COPD,CHF Breathing better weaned to NC Diureasing Ambulates Objective Vital Signs Vital Signs Date Time Temp Pulse Resp B/P (MAP) Pulse Ox O2 Delivery O2 Flow Rate FiO2 07/07/17 16:31 72 20 131/89 (103) 94 07/07/17 16:00 94 Nasal Cannula 2.00 07/07/17 12:31 64 18 126/79 (95) 94 07/07/17 12:00 94 Nasal Cannula 2.00 07/07/17 08:08 91 Nasal Cannula 3.00 07/07/17 08:00 98.2 88 20 130/77 (94) 91 07/07/17 07:00 72 07/07/17 06:26 74 07/07/17 05:14 78 07/07/17 04:09 98.1 79 20 122/67 (85) 92 07/07/17 04:09 92 Nasal Cannula 2.00 07/07/17 04:00 78 07/07/17 03:00 81 07/07/17 02:00 80 07/07/17 01:00 74 07/07/17 00:00 82 07/06/17 23:27 98.2 83 19 142/80 (100) 94 07/06/17 23:27 Nasal Cannula 2.00 94 07/06/17 23:00 81 07/06/17 22:00 82 07/06/17 21:00 82 07/06/17 20:09 95 Nasal Cannula 3.00 07/06/17 20:00 82 07/06/17 19:44 Nasal Cannula 2.00 07/06/17 19:44 98.0 83 20 157/101 (119) 92 07/06/17 19:00 85 I/O 07/06/17 07/06/17 07/06/17 07/07/17 07/07/17 07/07/17 07:00 15:00 23:00 07:00 15:00 23:00 Intake Total 240 ml 600 ml 240 ml 840 ml Output Total 2350 ml 875 ml 2325 ml 1000 ml Balance -2110 ml -275 ml -2085 ml -160 ml Intake Oral 240 ml 600 ml 240 ml 840 ml Output Urine Total 2350 ml 875 ml 2325 ml 1000 ml # Bowel Movements 1 Result Diagram: 07/03/17 0148 07/07/17 0526 Objective Remarks GENERAL: Obese male, mild sob SKIN: Warm and dry. HEAD: Normocephalic. EYES: No scleral icterus. No injection or drainage. NECK: Supple, trachea midline. No JVD or lymphadenopathy. CARDIOVASCULAR: Regular rate and rhythm without murmurs, gallops, or rubs. RESPIRATORY: Breath sounds equal bilaterally. No accessory muscle use. End exp rhonchi, basal rales GASTROINTESTINAL: Abdomen soft, non-tender, nondistended. MUSCULOSKELETAL: No cyanosis, or edema. BACK: Nontender without obvious deformity. No CVA tenderness. A/P Assessment and Plan IMPRESSION: 1. Decompensated congestive heart failure. 2. Chronic obstructive pulmonary disease. 3. Atrial fibrillation. 4. Automatic implantable cardioverter-defibrillator placement. 5. Obesity. PLAN: Aerosol nebs CPAP prn Supplement 02 Pred 10 mg tid. Diurease With Bumex DC plans underway Will FU in office Joe Gan MD Jul 07, 2017 18:01
--- NOTE | 2017-07-07 19:11 | HHI.PR ---
Subjective Remarks Patient states that he feels well enough to go home today. Word is that he has a new oxygen apparatus being delivered to his house. Objective Vitals Vital Signs Date Time Temp Pulse Resp B/P (MAP) Pulse Ox O2 Delivery O2 Flow Rate FiO2 07/07/17 16:31 72 20 131/89 (103) 94 07/07/17 16:00 94 Nasal Cannula 2.00 07/07/17 12:31 64 18 126/79 (95) 94 07/07/17 12:00 94 Nasal Cannula 2.00 07/07/17 08:08 91 Nasal Cannula 3.00 07/07/17 08:00 98.2 88 20 130/77 (94) 91 07/07/17 07:00 72 07/07/17 06:26 74 07/07/17 05:14 78 07/07/17 04:09 98.1 79 20 122/67 (85) 92 07/07/17 04:09 92 Nasal Cannula 2.00 07/07/17 04:00 78 07/07/17 03:00 81 07/07/17 02:00 80 07/07/17 01:00 74 07/07/17 00:00 82 07/06/17 23:27 98.2 83 19 142/80 (100) 94 07/06/17 23:27 Nasal Cannula 2.00 94 07/06/17 23:00 81 07/06/17 22:00 82 07/06/17 21:00 82 07/06/17 20:09 95 Nasal Cannula 3.00 07/06/17 20:00 82 07/06/17 19:44 Nasal Cannula 2.00 07/06/17 19:44 98.0 83 20 157/101 (119) 92 I/O 07/06/17 07/06/17 07/06/17 07/07/17 07/07/17 07/07/17 07:00 15:00 23:00 07:00 15:00 23:00 Intake Total 240 ml 600 ml 240 ml 840 ml Output Total 2350 ml 875 ml 2325 ml 1000 ml Balance -2110 ml -275 ml -2085 ml -160 ml Intake Oral 240 ml 600 ml 240 ml 840 ml Output Urine Total 2350 ml 875 ml 2325 ml 1000 ml # Bowel Movements 1 Result Diagram: 07/03/17 0148 07/07/17 0526 Objective Remarks GENERAL: Obese patient, sitting up eating comfortably, using nasal cannula oxygen SKIN: Warm and dry. HEAD: Normocephalic. EYES: No scleral icterus. No injection or drainage. NECK: Supple, trachea midline. No JVD or lymphadenopathy. CARDIOVASCULAR: Sinus rhythm without murmurs, gallops, or rubs. RESPIRATORY: Atelectasis in left greater than right base. No accessory muscle use. GASTROINTESTINAL: Abdomen soft, non-tender, nondistended. EXTREMITIES: No cyanosis, trace edema bilaterally NEUROLOGICAL: Awake, alert, and oriented x 3. Non-focal. A/P Problem List: (1) COPD (chronic obstructive pulmonary disease) ICD Code: J44.9 - Chronic obstructive pulmonary disease, unspecified (2) Atrial fibrillation ICD Code: I48.91 - Unspecified atrial fibrillation (3) Hypokalemia ICD Code: E87.6 - Hypokalemia Status: Acute (4) Hypomagnesemia ICD Code: E83.42 - Hypomagnesemia Status: Acute (5) HTN (hypertension) ICD Code: I10 - Hypertension Status: Chronic (6) CHF (congestive heart failure) ICD Code: I50.9 - CHF (congestive heart failure) Status: Acute (7) Hypoxia ICD Code: R09.02 - Hypoxemia Status: Resolved Assessment and Plan Congestive heart failure Echocardiogram shows EF = 20-25% Repeat BNP level in a.m. (ordered again) Continue Bumex Appreciate cardiology consult Persistent Hypokalemia Potassium at 3.0, will replace and recheck in a.m. COPD exacerbation Continue duonebs, Symbicort, Mucinex, steroids and incentive spirometry Patient is comfortable on 3 L via nasal cannula Recommend workup including CPAP study as outpatient Atrial fibrillation Rate Controlled Continue home doses of Xarelto, Procardia, metoprolol DVT prophylaxis On Xarelto Discharge planning Patient is open to telehealth, requests new oxygen machine at home Problem Qualifiers (1) COPD (chronic obstructive pulmonary disease): Qualified Codes: J44.9 - Chronic obstructive pulmonary disease, unspecified (2) Atrial fibrillation: Qualified Codes: I48.91 - Unspecified atrial fibrillation (3) CHF (congestive heart failure): Qualified Codes: I50.9 - Heart failure, unspecified Josse Cooper MD Jul 07, 2017 19:11
[2017-07-07] MEDS: POTASSIUM CHLORIDE 10 MEQ CONTROLLED RELEASE TAB PO SCH (21:56)
[2017-07-08] VITALS (13 sets, daily range): BP systolic 116–146; BP diastolic 76–93; PULSE 59–89; RESP 16–18; TEMP 97.7–97.8; O2SAT 94–97
[2017-07-08 04:39] LABS: BICARBONATE GREATER THAN 45.0 MEQ/L (21.0-32.0); BLOOD UREA NITROGEN 76 MG/DL (7-18); CALCIUM 9.1 MG/DL (8.5-10.1); CHLORIDE 82 MEQ/L (98-107); CREATININE 1.93 MG/DL (0.60-1.30); GLOMERULAR FILTRATION RATE 34 ML/MIN (>89); GLUCOSE,RANDOM 149 MG/DL (74-106); SODIUM (NA) 137 MEQ/L (136-145)
[2017-07-08] MEDS: predniSONE 10 MG TAB PO SCH ×2 (09:08→12:18)
[2017-07-08] MEDS: DOCUSATE SODIUM 50 MG/SENNA 8.6 MG TAB PO SCH (09:08)
[2017-07-08] MEDS: BUMETANIDE 1 MG TAB PO SCH (09:08)
[2017-07-08] MEDS: RIVAROXABAN 15 MG TAB PO SCH (09:08)
[2017-07-08] MEDS: DILTIAZEM-CD 240 MG CAP ER PO SCH (09:08)
[2017-07-08] MEDS: ASPIRIN 81 MG CHEW TAB CHEW SCH (09:09)
[2017-07-08] MEDS: FLUTICASONE 100 MCG/VILANTEROL 25 MCG INHALER INH SCH (09:09)
[2017-07-08] MEDS: METOPROLOL TARTRATE 25 MG TAB PO SCH (09:09)
[2017-07-08] MEDS: SODIUM CHLORIDE 0.9% FLUSH 10 ML FLUSH IV FLUSH SCH (09:09)
[2017-07-08] MEDS: POTASSIUM CHLORIDE 10 MEQ CONTROLLED RELEASE TAB PO SCH (09:09)
[2017-07-08] MEDS: guaiFENesin E.R. 600 MG TAB PO SCH (09:09)
--- NOTE | 2017-07-08 11:47 | HHI.DS ---
Discharge Summary Admission Date Jul 02, 2017 at 13:55 Discharge Date: Jul 08, 2017 Admitting Diagnosis acute CHF exacerbation, hypoxia, on bipap (1) COPD (chronic obstructive pulmonary disease) ICD Code: J44.9 - Chronic obstructive pulmonary disease, unspecified (2) Atrial fibrillation ICD Code: I48.91 - Unspecified atrial fibrillation (3) Hypokalemia ICD Code: E87.6 - Hypokalemia Status: Acute (4) Hypomagnesemia ICD Code: E83.42 - Hypomagnesemia Status: Acute (5) HTN (hypertension) ICD Code: I10 - Hypertension Status: Chronic (6) CHF (congestive heart failure) ICD Code: I50.9 - CHF (congestive heart failure) Status: Acute (7) Hypoxia ICD Code: R09.02 - Hypoxemia Status: Resolved Procedures none Brief History - From Admission Patient is a 72-year-old male with a history of COPD, CHF on chronic oxygen. Who presents to the emergency department for evaluation of increasing shortness of breath for the past 2-3 days patient using his inhalers and diuretics without any relief patient is not completely sure about his medication changes. Has been having increasing shortness of breath. His been having that his legs are more swollen than usual. Gets short of breath more so when he moves. He uses oxygen at home follows with Dr. Dueñas of cardiology Patient is supposed to be on Xarelto Patient has been placed on BiPAP and will be admitted to the hospital and consult cardiology and pulmonary Patient will go to the PCU level floor CBC/BMP: 07/08/17 0321 Significant Findings Laboratory Tests Test 07/05/17 13:27 07/06/17 12:00 07/07/17 05:26 07/08/17 03:21 Blood Urea Nitrogen 50 MG/DL (7-18) 56 MG/DL (7-18) 60 MG/DL (7-18) 76 MG/DL (7-18) Creatinine 1.68 MG/DL (0.60-1.30) 1.63 MG/DL (0.60-1.30) 1.70 MG/DL (0.60-1.30) 1.93 MG/DL (0.60-1.30) Random Glucose 231 MG/DL (74-106) 152 MG/DL (74-106) 150 MG/DL (74-106) 149 MG/DL (74-106) Potassium Level 3.1 MEQ/L (3.5-5.1) 3.1 MEQ/L (3.5-5.1) 3.0 MEQ/L (3.5-5.1) 3.2 MEQ/L (3.5-5.1) Chloride Level 90 MEQ/L (98-107) 83 MEQ/L (98-107) 81 MEQ/L (98-107) 82 MEQ/L (98-107) Carbon Dioxide Level 41.6 MEQ/L (21.0-32.0) GREATER THAN 45.0 MEQ/L GREATER THAN 45.0 MEQ/L GREATER THAN 45.0 MEQ/L Estimat Glomerular Filtration Rate 40 ML/MIN (>89) 42 ML/MIN (>89) 40 ML/MIN (>89) 34 ML/MIN (>89) Test 07/08/17 03:22 B-Type Natriuretic Peptide 179 PG/ML (0-100) PE at Discharge GENERAL: Obese patient, sitting up eating comfortably, using nasal cannula oxygen SKIN: Warm and dry. HEAD: Normocephalic. EYES: No scleral icterus. No injection or drainage. NECK: Supple, trachea midline. No JVD or lymphadenopathy. CARDIOVASCULAR: Sinus rhythm without murmurs, gallops, or rubs. RESPIRATORY: Atelectasis in left greater than right base. No accessory muscle use. GASTROINTESTINAL: Abdomen soft, non-tender, nondistended. EXTREMITIES: No cyanosis, trace edema bilaterally NEUROLOGICAL: Awake, alert, and oriented x 3. Non-focal. Hospital Course 72-year-old male who presented to the ER with increased shortness of breath. Diagnosis was a combination of CHF exacerbation, fluid overload, COPD exacerbation and aggravated atrial fibrillation. Apparently he has been here 3 times in the last 2 months and he is tired of these return trips. He is suspicious that his home oxygen is not delivering enough flow and that it has a funny smell. The problem by our perspective seems to go further since fluid overload would not be caused by the hypoxemia. Home health care will be monitoring his daily weights with a scale and regular nursing visits. He is being arranged to have a new home oxygen condenser. The diuresis has been successful and he feels ready to go home. There was a delay with yesterday due to low potassium levels, so he will have his potassium levels checked twice weekly while at home. Pt Condition on Discharge: Good Discharge Disposition: Disch w/ Home Health Serv Discharge Time: <= 30 minutes Discharge Instructions DIET: Follow Instructions for: Heart Healthy Diet Speech Therapy-Diet Recommends: Regular Activities you can perform: Regular-No Restrictions Josse Cooper MD Jul 08, 2017 11:47
--- NOTE | 2017-07-08 11:50 | HHI.FF ---
Face to Face Verification Diagnosis: (1) CHF (congestive heart failure) (2) COPD (chronic obstructive pulmonary disease) (3) Hypoxia Home Health Nursing Order: Medical education Signs/symptoms of disease process CHF education Oxygen administration education Nursing assessment with vital signs I have seen patient Abdoulaye Benavides on 07/08/17. My clinical findings support the need for the requested home health care services because: Ltd mobility - disease progression Patient has SOB Deconditioned w/ increased weakness Med compliance is questionable I certify that my clinical findings support that this patient is homebound because: Hx COPD- exertion dyspnea/weakness Unsafe to leave home unassisted Unable to use public transportation Daily weights for CHF management. Twice weekly BMP to monitor potassium and creatinine (see Rx). Josse Cooper MD Jul 08, 2017 11:50
[2017-07-08] MEDS ORDERED: KLOR10TA PO (12:03)
[2017-07-08] MEDS ORDERED: BUME1TAB PO (12:03)
[2017-07-08] MEDS ORDERED: PRED10 PO (12:03)
== END 2017-07-08 13:32 | disposition home health service (06) | DRG 292 ==
LOC: NEPE 11:13 → NEDA 13:55 → HCIS 15:50
PROVIDERS: ADMIT Family Medicine; ATTEND Family Medicine
DX: I11.0 Hypertensive heart disease with heart failure (principal); J44.1 Chronic obstructive pulmonary disease with (acute) exacerbation; I42.9 Cardiomyopathy, unspecified; Z99.81 Dependence on supplemental oxygen; I50.23 Acute on chronic systolic (congestive) heart failure; I48.91 Unspecified atrial fibrillation; E83.42 Hypomagnesemia; D63.8 Anemia in other chronic diseases classified elsewhere; E87.6 Hypokalemia; K21.9 Gastro-esophageal reflux disease without esophagitis; E66.9 Obesity, unspecified; I25.10 Atherosclerotic heart disease of native coronary artery without angina pectoris; N28.9 Disorder of kidney and ureter, unspecified; R09.02 Hypoxemia; Z79.01 Long term (current) use of anticoagulants; Z79.82 Long term (current) use of aspirin; Z79.891 Long term (current) use of opiate analgesic; Z79.51 Long term (current) use of inhaled steroids; Z79.899 Other long term (current) drug therapy; Z95.5 Presence of coronary angioplasty implant and graft; Z95.810 Presence of automatic (implantable) cardiac defibrillator; Z87.891 Personal history of nicotine dependence; Z68.30 Body mass index [BMI] 30.0-30.9, adult
CPT/HCPCS: 71045; 80048; 80053; 82550; 83036; 83735; 83880; 84100; 84439; 84443; 84484; 85025; 85610; 85730; 93005; 93306; 94002; 94003; 94640; 94664; 96374; J1940; J2920; J2930; J7512

== ENCOUNTER 2017-08-24 10:06 | Inpatient (IN) | payer OTHER, MEDICARE ==
[~2017-08-24] VITALS: Ht 172.7 cm; Wt 99.8 kg
[2017-08-24] VITALS (11 sets, daily range): BP systolic 125–164; BP diastolic 70–109; PULSE 56–92; RESP 23–28; TEMP 97.6–98; O2SAT 75–100
[~2017-08-24 10:06] MED LIST changes: +BUME1TAB PO; +CART120C PO; -DILT240C44 PO; +FLUT1INH INH; -FLUTI220I INH; -FURO40TA PO; +IPRASOL INH; +KLOR10TA PO; -LYRI50CA PO; -OXYGEN NAS.CANULA; +OXYGENDME NAS.CANULA; -POTA20TA5 PO; +PRED10 PO
[2017-08-24] MEDS ORDERED: FURO40TA PO (10:24)
[2017-08-24] MEDS ORDERED: ATOR20TA15 PO (10:24)
[2017-08-24 10:58] LABS: AUTOMATED NEUTROPHIL # 4.3 TH/MM3 (1.8-7.7); BASOPHIL # 0.1 TH/MM3 (0-0.2); BASOPHIL % 1.2 % (0.0-2.0); EOSINOPHIL # 0.2 TH/MM3 (0-0.4); EOSINOPHIL % 3.4 % (0.0-4.0); HEMATOCRIT 31.8 % (39.0-51.0); LYMPH % 16.2 % (9.0-44.0); MEAN CELL VOLUME 81.9 FL (80.0-100.0); MEAN CORPUSCULAR HEMOGLOBIN 25.7 PG (27.0-34.0); MEAN CORPUSCULAR HGB CONC 31.3 % (32.0-36.0); MEAN PLATELET VOLUME 7.3 FL (7.0-11.0); MONO % 8.9 % (0.0-8.0); MONOCYTE # 0.5 TH/MM3 (0-0.9); NEUT % 70.3 % (16.0-70.0); PLATELET COUNT 287 TH/MM3 (150-450); RED BLOOD COUNT 3.89 MIL/MM3 (4.50-5.90); RED CELL DISTRIBUTION WIDTH 18.2 % (11.6-17.2); WHITE BLOOD COUNT 6.1 TH/MM3 (4.0-11.0)
[2017-08-24 11:11] LABS: ALBUMIN 3.4 GM/DL (3.4-5.0); AST (GOT) 15 U/L (15-37); BICARBONATE 29.8 MEQ/L (21.0-32.0); BLOOD UREA NITROGEN 23 MG/DL (7-18); CALCIUM 9.1 MG/DL (8.5-10.1); CHLORIDE 102 MEQ/L (98-107); CREATININE 1.52 MG/DL (0.60-1.30); GLOMERULAR FILTRATION RATE 45 ML/MIN (>89); GLUCOSE,RANDOM 161 MG/DL (74-106); SODIUM (NA) 141 MEQ/L (136-145)
[2017-08-24 11:12] LABS: ALT (GPT) 23 U/L (12-78)
[2017-08-24 11:15] LABS: ALKALINE PHOSPHATASE 64 U/L (45-117); TOTAL PROTEIN 7.7 GM/DL (6.4-8.2); TROPONIN I LESS THAN 0.02 NG/ML (0.02-0.05)
--- NOTE | 2017-08-24 11:25 | RADRPT ---
EXAM DATE: 08/24/2017 10:50 AM EDT AGE/SEX: 72 years / Male INDICATIONS: Short of breath CLINICAL DATA: This is the patient's initial encounter. Patient reports that signs and symptoms have been present for 1 day and indicates a pain score of 0/10. MEDICAL/SURGICAL HISTORY: . Cardiovascular disease. Hypertension. Hernia, hiatal. COPD GERD . Defibrillator. [place] [facility] [place]. . FINDINGS: A single AP view of the chest demonstrates cardiomegaly. Small bilateral pleural effusions with bibas ilar intra-alveolar infiltrates. Appearance is similar to the prior study. Pacing device overlies the left chest. CONCLUSION: Radiographic pattern most consistent with intra-alveolar pulmonary edema. Electronically signed by: Vivek Villalobos MD 08/24/2017 11:23 AM EDT
--- NOTE | 2017-08-24 12:20 | PD ---
HPI Chief Complaint: Respiratory Symptoms Time Seen by Provider: 10:35 Travel History International Travel<30 days: No Contact w/Intl Traveler<30days: No Traveled to known affect area: No History of Present Illness HPI This is a 72-year-old male with a history of CHF, COPD, coronary artery disease , who has a pacer, who presents today with complaints of shortness of breath. Patient reports that he can only walk a few feet before becoming severely winded. Patient denies any chest pain, chest pressure. He states that he has had this 3 times previously. He states that when he has been seen in the past has been told that he has fluid in his lungs. There is no reported excessive swelling of his feet or hands. He denies any change in his diet. There are no other complaints time of my examination. PFSH Past Medical History Asthma: No Atrial Fibrillation: Yes Blood Disorders: No Heart Rhythm Problems: Yes (ABLATION 2012) Cancer: No Cardiovascular Problems: Yes (CAD) High Cholesterol: Yes Chest Pain: Yes Congestive Heart Failure: Yes COPD: Yes Diabetes: No Endocrine: No Gastrointestinal Disorders: Yes GERD: Yes Glaucoma: No Genitourinary: Yes Hepatitis: No Hiatal Hernia: Yes Hypertension: Yes Immune Disorder: No Inguinal Hernia: Yes Implanted Vascular Access Dvce: Yes Musculoskeletal: No Neurologic: No Psychiatric: No Reproductive: No Respiratory: Yes Integumentary: No Sleep Apnea: No Thyroid Disease: No Triglycerides - High: Yes Ulcer: No Past Surgical History Abdominal Surgery: No AICD: Yes Arteriovenous Shunt: No Cardiac Surgery: Yes (stent placement, ICD) Ear Surgery: No Endocrine Surgery: No Eye Surgery: No Genitourinary Surgery: No Gynecologic Surgery: No Insulin Pump: No Joint Replacement: No Oral Surgery: No Thoracic Surgery: No Other Surgery: Yes (HERNIA REPAIR) Social History Alcohol Use: Yes (2 BEERS ON THE WEEKENDS) Tobacco Use: No Substance Use: No Allergies-Medications (Allergen,Severity, Reaction): Coded Allergies: No Known Allergies (Unverified Allergy, Unknown, 04/27/17) Reported Meds & Prescriptions Reported Meds & Active Scripts Active Klor-Con 10 (Potassium Chloride) 10 Meq Tab 30 Meq PO Q12HR 30 Days Oxygen (O2) Device Liter RG.CANULA CONTINUOUS Oxygen Concentrator Portable Gaseous 2 L/min via Nasal Canula Continuous For 99 months Metoprolol Tartrate 25 Mg Tab 75 Mg PO Q12HR Xarelto (Rivaroxaban) 15 Mg Tab 15 Mg PO DAILY Reported Atorvastatin (Atorvastatin Calcium) 20 Mg Tab 20 Mg PO HS Furosemide 40 Mg Tab 80 Mg PO DAILY Breo Ellipta Inh (Fluticasone/Vilanterol) 100-25 Mcg/Act Inh 1 Puff INH DAILY Use daily at the same time. Duoneb (Ipratropium-Albuterol Neb) 0.5-2.5 Mg/3 Ml Neb 1 Nebule INH QID Cartia Xt (Diltiazem ER 24 HR) 120 Mg Caper 240 Mg PO DAILY Aspirin 81 Mg Chew 81 Mg CHEW DAILY Review of Systems Except as stated in HPI: all other systems reviewed are Neg General / Constitutional: No: Fever, Chills HENT: Positive: Lightheadedness, No: Headaches, Neck Pain Cardiovascular: Positive: Palpitations, Irregular Rhythm, Tachycardia, Other, No: Chest Pain or Discomfort Respiratory: Positive: Shortness of Breath, No: Cough (History of pacemaker), Wheezing Gastrointestinal: No: Nausea, Vomiting, Abdominal Pain Genitourinary: No: Frequency, Decreased Urinary Output Musculoskeletal: Positive: Weakness, Edema (Slight baseline edema worse on the left and on the right. This is not new.), No: Pain Neurologic: Positive: Weakness (Generalized), No: Headache ( generalized) Physical Exam Narrative GENERAL: Well developed well nourished male in mild to moderate respiratory distress. SKIN: Focused skin assessment warm/dry. HEAD: Atraumatic. Normocephalic. EYES: No scleral icterus. No injection or drainage. ENT: No nasal bleeding or discharge. Mucous membranes pink and moist. NECK: Trachea midline. Supple. No obvious JVD. CARDIOVASCULAR: Irregularly irregular with a rate in the 80s. No acute ST elevation or depression. There is Q waves in 3 and aVF. RESPIRATORY: Mild accessory muscle use. Diffuse expiratory wheezes. No rales appreciated. GASTROINTESTINAL: Abdomen soft, non-tender, nondistended. MUSCULOSKELETAL: No obvious deformities. No clubbing. No cyanosis. Trace bilateral pretibial edema. Worse on the left than on the left. No calf tenderness. No palpable cords. NEUROLOGICAL: Awake and alert. No obvious cranial nerve deficits. Motor grossly within normal limits. Normal speech. PSYCHIATRIC: Appropriate mood and affect; insight and judgment normal. Data Data Last Documented VS Vital Signs Date Time Temp Pulse Resp B/P (MAP) Pulse Ox O2 Delivery O2 Flow Rate FiO2 08/24/17 10:44 24 92 Nasal Cannula 3.00 08/24/17 10:25 82 08/24/17 10:10 97.7 Orders Orders Complete Blood Count With Diff (08/24/17 10:35) Comprehensive Metabolic Panel (08/24/17 10:35) Ckmb (Isoenzyme) Profile (08/24/17 10:35) Troponin I (08/24/17 10:35) B-Type Natriuretic Peptide (08/24/17 10:35) Arterial Blood Gas (Abg) (08/24/17 10:35) Chest, Single Ap (08/24/17 10:35) Iv Access Insert/Monitor (08/24/17 10:35) Ecg Monitoring (08/24/17 10:35) Oximetry (08/24/17 10:35) Albuterol-Ipratropium Neb (Duoneb Neb) (08/24/17 12:30) Albuterol Neb (Albuterol Neb) (08/24/17 12:30) Methylprednisolone So Succ Inj (Solumedr (08/24/17 12:45) Admit To Inpatient (08/24/17 ) Vital Signs (Adult) JULI.Q4H (08/24/17 12:29) Payroll And Benefits Manager / Telemetry JULI.Q8H (08/24/17 12:29) Intake + Output JULI.QSHIFT (08/24/17 12:29) Diet Heart Healthy (08/24/17 Lunch) Sodium Chloride 0.9% Flush (Ns Flush) (08/24/17 21:00) Sodium Chloride 0.9% Flush (Ns Flush) (08/24/17 12:30) Furosemide Inj (Lasix Inj) (08/24/17 18:00) Basic Metabolic Panel (Bmp) (08/25/17 06:00) Heparin Inj (Heparin Inj) (08/24/17 13:00) Sodium Chloride 0.9% Flush (Ns Flush) (08/24/17 12:30) Albuterol-Ipratropium Neb (Duoneb Neb) (08/24/17 16:00) Albuterol Neb (Albuterol Neb) (08/24/17 12:30) Methylprednisolone So Succ Inj (Solumedr (08/24/17 20:00) Admit Order (Ed Use Only) (08/24/17 12:34) Labs Laboratory Tests Test 08/24/17 10:42 08/24/17 10:45 Blood Gas Puncture Site LT RADIAL Blood Gas Patient Temperature 98.6 Blood Gas HCO3 33 mmol/L Blood Gas Base Excess 7.6 mmol/L Blood Gas Oxygen Saturation 87 % Arterial Blood pH 7.38 Arterial Blood Partial Pressure CO2 57 mmHg Arterial Blood Partial Pressure O2 62 mmHG Arterial Blood Oxygen Content 11.3 Vol % Arterial Blood Carboxyhemoglobin 2.0 % Arterial Blood Methemoglobin 0.4 % Blood Gas Hemoglobin 9.2 G/DL Oxygen Delivery Device NASAL CANNULA Blood Gas Liter Flow 3 L/M White Blood Count 6.1 TH/MM3 Red Blood Count 3.89 MIL/MM3 Hemoglobin 10.0 GM/DL Hematocrit 31.8 % Mean Corpuscular Volume 81.9 FL Mean Corpuscular Hemoglobin 25.7 PG Mean Corpuscular Hemoglobin Concent 31.3 % Red Cell Distribution Width 18.2 % Platelet Count 287 TH/MM3 Mean Platelet Volume 7.3 FL Neutrophils (%) (Auto) 70.3 % Lymphocytes (%) (Auto) 16.2 % Monocytes (%) (Auto) 8.9 % Eosinophils (%) (Auto) 3.4 % Basophils (%) (Auto) 1.2 % Neutrophils # (Auto) 4.3 TH/MM3 Lymphocytes # (Auto) 1.0 TH/MM3 Monocytes # (Auto) 0.5 TH/MM3 Eosinophils # (Auto) 0.2 TH/MM3 Basophils # (Auto) 0.1 TH/MM3 CBC Comment DIFF FINAL Differential Comment Blood Urea Nitrogen 23 MG/DL Creatinine 1.52 MG/DL Random Glucose 161 MG/DL Total Protein 7.7 GM/DL Albumin 3.4 GM/DL Calcium Level 9.1 MG/DL Alkaline Phosphatase 64 U/L Aspartate Amino Transf (AST/SGOT) 15 U/L Alanine Aminotransferase (ALT/SGPT) 23 U/L Total Bilirubin 1.0 MG/DL Sodium Level 141 MEQ/L Potassium Level 4.2 MEQ/L Chloride Level 102 MEQ/L Carbon Dioxide Level 29.8 MEQ/L Anion Gap 9 MEQ/L Estimat Glomerular Filtration Rate 45 ML/MIN Total Creatine Kinase 51 U/L Troponin I LESS THAN 0.02 NG/ML B-Type Natriuretic Peptide 579 PG/ML MDM Medical Decision Making Medical Screen Exam Complete: Yes Emergency Medical Condition: Yes Differential Diagnosis CHF versus COPD versus pneumonia Narrative Course 72-year-old male with a history of COPD, CHF, presents here with shortness of breath. Patient has both COPD and CHF. Patient will be admitted to the hospital. He has been given breathing treatments x3. Is also been given Solu- Medrol. Case was discussed with the [facility] hospitalist who agrees with the admission. Diagnosis Primary Impression: COPD (chronic obstructive pulmonary disease) Additional Impressions: CHF (congestive heart failure) Atrial fibrillation Chronic kidney disease Admitting Information Admitting Physician Requests: Observation Naresh Araujo MD Aug 24, 2017 12:20
[2017-08-24] MEDS ORDERED: RESP: ALBUTEROL 2.5 MG/3 ML NEB (PRN) INH (12:30)
[2017-08-24] MEDS ORDERED: RESP: ALBUTEROL 2.5 MG/IPRATROPIUM 0.5 MG NEB (SCH) INH ONE (12:30)
[2017-08-24] MEDS ORDERED: SODIUM CHLORIDE 0.9% FLUSH 10 ML FLUSH IV FLUSH PRN ×2 (12:30)
[2017-08-24] MEDS ORDERED: methylPREDNISolone SOD SUCC 125 MG/2 ML VIAL IV PUSH ONE (12:45)
[2017-08-24] MEDS ORDERED: HEPARIN SODIUM - SQ 10,000 UNITS/ML VIAL SQ SCH (13:00)
[2017-08-24] MEDS: RESP: ALBUTEROL 2.5 MG/3 ML NEB (SCH) INH (13:17)
--- NOTE | 2017-08-24 13:47 | HHI.HP ---
[facility] Primary Care Physician Nessa Hickman MD Admission Diagnosis CHF exacerbation, COPD exacerbation, atrial fibrillation. Diagnoses: Chief Complaint: shortness of breath Travel History International Travel<30 Days: No Contact w/Intl Traveler <30 Da: No Traveled to Known Affected Are: No History of Present Illness This is a 72-year-old male with history of atrial fibrillation, systolic congestive heart failure, COPD, hypertension presenting with shortness of breath. Per patient, he has been doing better since he was discharged in June after patient stayed in the hospital for congestive heart failure for about a week until about 3 days ago when he started having dyspnea on exertion especially with walking after a few feet from the bathroom, associated with severe orthopnea, lower extremity edema and wheezing. Patient denies any cough , fever, chills, chest pain, palpitations, dizziness, lightheadedness, nausea, vomiting or any sick contacts. Good urine output, he claims compliance to Lasix which he takes once a day. He said that he has been in the hospital 3 times in the last 3 months now for the same problem. Echocardiogram from June showed ejection fraction of 20-25% . Of note, he uses oxygen about 2-3 L /. Review of Systems ROS Limitations: Other (All other pertinent systems were reviewed and are negative.) Past Family Social History Past Medical History Atrial fibrillation COPD History of cardiac ablation in the past Coronary artery disease High cholesterol Chest pain Congestive heart failure, EF 20-25% GERD Hiatal hernia Hypertension History of hernia AICD Hypertriglyceridemia Past Surgical History AICD implantation Stenting Hernia repair Reported Medications Klor-Con 10 (Potassium Chloride) 10 Meq Tab 30 Meq PO Q12HR 30 Days Oxygen (O2) Device Liter RG.CANULA CONTINUOUS Oxygen Concentrator Portable Gaseous 2 L/min via Nasal Canula Continuous For 99 months Metoprolol Tartrate 25 Mg Tab 75 Mg PO Q12HR Xarelto (Rivaroxaban) 15 Mg Tab 15 Mg PO DAILY Atorvastatin (Atorvastatin Calcium) 20 Mg Tab 20 Mg PO HS Furosemide 40 Mg Tab 80 Mg PO DAILY Breo Ellipta Inh (Fluticasone/Vilanterol) 100-25 Mcg/Act Inh 1 Puff INH DAILY Use daily at the same time. Duoneb (Ipratropium-Albuterol Neb) 0.5-2.5 Mg/3 Ml Neb 1 Nebule INH QID Cartia Xt (Diltiazem ER 24 HR) 120 Mg Caper 240 Mg PO DAILY Aspirin 81 Mg Chew 81 Mg CHEW DAILY Allergies: Coded Allergies: No Known Allergies (Unverified Allergy, Unknown, 04/27/17) Family History Hypertension Probable heart disease Social History Denies any tobacco or illicit drug use Drinks 2 beers on weekends at least Physical Exam Vital Signs Vital Signs Date Time Temp Pulse Resp B/P (MAP) Pulse Ox O2 Delivery O2 Flow Rate FiO2 08/24/17 10:44 24 92 Nasal Cannula 3.00 08/24/17 10:25 82 27 157/109 (125) 100 Non-Rebreather 11.00 08/24/17 10:16 74 Nasal Cannula 3.00 08/24/17 10:10 97.7 92 28 128/76 (93) 75 Physical Exam GENERAL: Not in acute distress, well-nourished. HEAD: Atraumatic. Normocephalic. No temporal or scalp tenderness. EYES: PERRL, full EOMs, no jaundice, nonicteric, pink conjunctivae without injection, moist mucosa ENT: Nose without bleeding, purulent drainage. NECK: Trachea midline, no mass, no obvious thyromegaly. JVD not appreciated, thick neck. CARDIOVASCULAR: Borderline tachycardic, regular rhythm without murmurs, gallops , or rubs. RESPIRATORY: No wheezing at this point, he just received nebulization, bilateral crackles especially at the base, decreased breath sounds. GASTROINTESTINAL: Abdomen soft, normal bowel sounds, non-tender, nondistended. Obese. MUSCULOSKELETAL: Extremities without clubbing, cyanosis, 1-2+ bilateral lower extremity edema. INTEGUMENTARY: Warm and dry, no rash of generalized distribution. NEUROLOGICAL: Awake, alert, oriented 3. No obvious cranial nerve deficits. Moves all 4 extremities, muscle strength testing 5 over 5. Motor and sensory grossly within normal limits. .Supple neck, no meningeal signs. Grossly negative cerebellar examination. No focal neurologic deficits. Laboratory Laboratory Tests Test 08/24/17 10:42 08/24/17 10:45 Blood Gas Puncture Site LT RADIAL Blood Gas Patient Temperature 98.6 Blood Gas HCO3 33 Blood Gas Base Excess 7.6 Blood Gas Oxygen Saturation 87 Arterial Blood pH 7.38 Arterial Blood Partial Pressure CO2 57 Arterial Blood Partial Pressure O2 62 Arterial Blood Oxygen Content 11.3 Arterial Blood Carboxyhemoglobin 2.0 Arterial Blood Methemoglobin 0.4 Blood Gas Hemoglobin 9.2 Oxygen Delivery Device NASAL CANNULA Blood Gas Liter Flow 3 White Blood Count 6.1 Red Blood Count 3.89 Hemoglobin 10.0 Hematocrit 31.8 Mean Corpuscular Volume 81.9 Mean Corpuscular Hemoglobin 25.7 Mean Corpuscular Hemoglobin Concent 31.3 Red Cell Distribution Width 18.2 Platelet Count 287 Mean Platelet Volume 7.3 Neutrophils (%) (Auto) 70.3 Lymphocytes (%) (Auto) 16.2 Monocytes (%) (Auto) 8.9 Eosinophils (%) (Auto) 3.4 Basophils (%) (Auto) 1.2 Neutrophils # (Auto) 4.3 Lymphocytes # (Auto) 1.0 Monocytes # (Auto) 0.5 Eosinophils # (Auto) 0.2 Basophils # (Auto) 0.1 CBC Comment DIFF FINAL Differential Comment Blood Urea Nitrogen 23 Creatinine 1.52 Random Glucose 161 Total Protein 7.7 Albumin 3.4 Calcium Level 9.1 Alkaline Phosphatase 64 Aspartate Amino Transf (AST/SGOT) 15 Alanine Aminotransferase (ALT/SGPT) 23 Total Bilirubin 1.0 Sodium Level 141 Potassium Level 4.2 Chloride Level 102 Carbon Dioxide Level 29.8 Anion Gap 9 Estimat Glomerular Filtration Rate 45 Total Creatine Kinase 51 Troponin I LESS THAN 0.02 B-Type Natriuretic Peptide 579 Result Diagram: 08/24/17 1045 08/24/17 1045 Imaging Last Impressions Chest X-Ray 08/24/17 1035 Signed Impressions: CONCLUSION: Radiographic pattern most consistent with intra-alveolar pulmonary edema. Caprini VTE Risk Assessment Caprini VTE Risk Assessment: Mod/High Risk (score >= 2) Caprini Risk Assessment Model Point Value = 1 Point Value = 2 Point Value = 3 Point Value = 5 Age 41-60 Minor surgery BMI > 25 kg/m2 Swollen legs Varicose veins or History of unexplained or recurrent spontaneous Oral contraceptives or hormone replacement Sepsis (< 1 month) Serious lung disease, including pneumonia (< 1 month) Abnormal pulmonary function Acute myocardial infarction Congestive heart failure (< 1 month) History of inflammatory bowel disease Medical patient at bed rest Age 61-74 Arthroscopic surgery Major open surgery (> 45 min) Laparoscopic surgery (> 45 min) Malignancy Confined to bed (> 72 hours) Immobilizing plaster cast Central venous access Age >= 75 History of VTE Family history of VTE Factor V Leiden Prothrombin [id number] Lupus anticoagulant Anticardiolipin antibodies Elevated serum homocysteine Heparin-induced thrombocytopenia Other congenital or acquired thrombophilia Stroke (< 1 month) Elective arthroplasty Hip, pelvis, or leg fracture Acute spinal cord injury (< 1 month) Prophylaxis Regimen Total Risk Factor Score Risk Level Prophylaxis Regimen 0-1 Low Early ambulation 2 Moderate Order ONE of the following: *Sequential Compression Device (SCD) *Heparin 5000 units SQ BID 3-4 Higher Order ONE of the following medications: *Heparin 5000 units SQ TID *Enoxaparin/Lovenox 40 mg SQ daily (WT < 150 kg, CrCl > 30 mL/min) *Enoxaparin/Lovenox 30 mg SQ daily (WT < 150 kg, CrCl > 10-29 mL/min) *Enoxaparin/Lovenox 30 mg SQ BID (WT < 150 kg, CrCl > 30 mL/min) AND/OR *Sequential Compression Device (SCD) 5 or more Highest Order ONE of the following medications: *Heparin 5000 units SQ TID (Preferred with Epidurals) *Enoxaparin/Lovenox 40 mg SQ daily (WT < 150 kg, CrCl > 30 mL/min) *Enoxaparin/Lovenox 30 mg SQ daily (WT < 150 kg, CrCl > 10-29 mL/min) *Enoxaparin/Lovenox 30 mg SQ BID (WT < 150 kg, CrCl > 30 mL/min) AND *Sequential Compression Device (SCD) Assessment and Plan Assessment and Plan This is a 72-year-old male with history of atrial fibrillation status post ablation, coronary artery disease, COPD and systolic congestive heart failure presenting with a 3 day history of shortness of breath, orthopnea and dyspnea on exertion Acute on chronic hypoxic respiratory failure secondary to acute systolic congestive heart failure exacerbation versus COPD exacerbation - patient has three-day dyspnea on exertion, orthopnea, lower extremity edema with good compliance to diuretics. Echocardiogram in June 2017 showed an ejection fraction of 20-25%. BNP is elevated, chest x-ray shows bilateral pulmonary congestion. Will start with diuretics 40 mg IV every 8 hours, monitor urine output, patient received Solu-Medrol in the emergency department. Wheezing is now better with nebulization, hold off any steroids for now, continue around-the -clock and as needed nebulization. Clinically, likely noninfectious. No antibiotics for now. Continue metoprolol. Continue potassium supplementation. Continue oxygen support. Troponin negative, recheck troponin and EKG again. Atrial fibrillation, rate and rhythm controlled-restart metoprolol and Cardizem. Continue Xarelto Coronary artery disease-continue statins and aspirin COPD-continue Breo Acute renal failure-likely cardiorenal, continue Lasix as above, monitor BMP, recheck tomorrow. DVT prophylaxis: [place] Physician Certification 2 Midnight Certification Type: Admission for Inpatient Services Order for Inpatient Services The services are ordered in accordance with Medicare regulations or non- Medicare payer requirements, as applicable. In the case of services not specified as inpatient-only, they are appropriately provided as inpatient services in accordance with the 2-midnight benchmark. Estimated LOS (days): 2 days is the estimated time the patient will need to remain in the hospital, assuming treatment plan goals are met and no additional complications. Post-Hospital Plan: Home Magdi Choi MD Aug 24, 2017 13:47
[2017-08-24] MEDS: DILTIAZEM-CD 240 MG CAP ER PO SCH (13:57)
[2017-08-24] MEDS: FUROSEMIDE 40 MG/4 ML VIAL IVP SCH ×2 (13:58→18:39)
[2017-08-24] MEDS: ASPIRIN 81 MG CHEW TAB CHEW SCH (13:58)
[2017-08-24] MEDS: FLUTICASONE 100 MCG/VILANTEROL 25 MCG INHALER INH SCH (14:59)
[2017-08-24] MEDS ORDERED: FUROSEMIDE 40 MG/4 ML VIAL IVP SCH (18:00)
[2017-08-24] MEDS ORDERED: methylPREDNISolone SOD SUCC 125 MG/2 ML VIAL IV PUSH SCH (20:00)
[2017-08-24] MEDS: METOPROLOL TARTRATE 25 MG TAB PO SCH (20:19)
[2017-08-24] MEDS: ATORVASTATIN 20 MG TAB PO SCH (20:19)
[2017-08-24] MEDS: SODIUM CHLORIDE 0.9% FLUSH 10 ML FLUSH IV FLUSH SCH (20:20)
[2017-08-24] MEDS: POTASSIUM CHLORIDE 10 MEQ CONTROLLED RELEASE TAB PO SCH (20:20)
[2017-08-24] MEDS: RESP: ALBUTEROL 2.5 MG/IPRATROPIUM 0.5 MG NEB (SCH) INH (21:27)
[2017-08-25] VITALS (13 sets, daily range): BP systolic 102–138; BP diastolic 59–81; PULSE 60–88; RESP 19–20; TEMP 97.7–98.4; O2SAT 88–96
[2017-08-25] MEDS: RESP: ALBUTEROL 2.5 MG/IPRATROPIUM 0.5 MG NEB (SCH) INH ×4 (00:45→21:15)
[2017-08-25 06:42] LABS: BICARBONATE 30.8 MEQ/L (21.0-32.0); CREATININE 1.52 MG/DL (0.60-1.30)
[2017-08-25] MEDS: METOPROLOL TARTRATE 25 MG TAB PO SCH ×2 (08:49→21:05)
[2017-08-25] MEDS: DILTIAZEM-CD 240 MG CAP ER PO SCH (08:50)
[2017-08-25] MEDS: FUROSEMIDE 40 MG/4 ML VIAL IVP SCH (08:50)
[2017-08-25] MEDS: RIVAROXABAN 15 MG TAB PO SCH (08:50)
[2017-08-25] MEDS: POTASSIUM CHLORIDE 10 MEQ CONTROLLED RELEASE TAB PO SCH ×2 (08:50→21:06)
[2017-08-25] MEDS: FLUTICASONE 100 MCG/VILANTEROL 25 MCG INHALER INH SCH (08:51)
[2017-08-25] MEDS: SODIUM CHLORIDE 0.9% FLUSH 10 ML FLUSH IV FLUSH SCH ×2 (08:51→21:06)
[2017-08-25] MEDS: ASPIRIN 81 MG CHEW TAB CHEW SCH (08:51)
--- NOTE | 2017-08-25 15:14 | HHI.PR ---
Subjective Remarks 72-year-old male admitted for CHF exacerbation. He reports he has not been keeping up with his daily weights, his cousin who usually assist him with management is out of town. He denies any chest pain Objective Vitals Vital Signs Date Time Temp Pulse Resp B/P (MAP) Pulse Ox O2 Delivery O2 Flow Rate FiO2 08/25/17 12:00 98.0 60 19 120/73 (89) 91 08/25/17 11:15 96 Nasal Cannula 2.00 08/25/17 08:00 98.0 63 20 128/81 (97) 96 08/25/17 08:00 Nasal Cannula 3.00 08/25/17 08:00 68 08/25/17 06:19 93 Bi-Pap 40 08/25/17 05:10 93 40 08/25/17 04:00 97.7 62 20 131/71 (91) 91 08/25/17 03:46 88 08/25/17 01:52 90 Nasal Cannula 3.00 08/25/17 00:00 98.0 64 20 102/59 (73) 88 08/25/17 00:00 88 Nasal Cannula 2.50 08/24/17 23:57 56 08/24/17 21:29 92 Nasal Cannula 3.00 08/24/17 20:25 Nasal Cannula 3.00 08/24/17 20:00 97.6 74 24 164/70 (101) 92 08/24/17 20:00 Nasal Cannula 3.00 08/24/17 19:52 79 08/24/17 18:30 98.0 82 23 145/79 (101) 90 08/24/17 17:53 93 17 129/89 (102) 93 Nasal Cannula 3.00 I/O 08/24/17 08/24/17 08/24/17 08/25/17 08/25/17 08/25/17 07:00 15:00 23:00 07:00 15:00 23:00 Intake Total 150 ml 120 ml Output Total 300 ml 700 ml 500 ml Balance -150 ml -700 ml -380 ml Intake Oral 150 ml 120 ml Output Urine Total 300 ml 700 ml 500 ml # Voids 1 1 Result Diagram: 08/24/17 1045 08/25/17 0501 Objective Remarks GENERAL: Well-nourished, well-developed patient. SKIN: Warm and dry. HEAD: Normocephalic. EYES: No scleral icterus. No injection or drainage. NECK: Supple, trachea midline. No JVD or lymphadenopathy. CARDIOVASCULAR: Regular rate and rhythm without murmurs, gallops, or rubs. RESPIRATORY: Breath sounds diminished in bilateral bases. No accessory muscle use. GASTROINTESTINAL: Abdomen soft, non-tender, nondistended. EXTREMITIES: No cyanosis. +1 edema to sock line NEUROLOGICAL: Awake, alert, and oriented x 3. Non-focal. A/P Problem List: (1) CHF (congestive heart failure) ICD Code: I50.9 - CHF (congestive heart failure) Status: Acute (2) COPD (chronic obstructive pulmonary disease) ICD Code: J44.9 - Chronic obstructive pulmonary disease, unspecified Assessment and Plan CHF exacerbation Echocardiogram from June 2017 shows ejection fraction of 20-25% BNP elevated on admission, x-ray shows pulmonary edema Patient responded well to Bumex in the past, p.o. Bumex started, continue daily IV Lasix dose Continue metoprolol, oxygen, duo nebs h/o COPD He was wheezing on arrival but improved with diuresis rather than steroids The clinical picture is mostly CHF exacerbation with a touch of COPD Continue home dose of Breo Continue duo nebs Chronic renal insufficiency Creatinine levels improved compared to prior hospitalization Cardiorenal impairment due to low ejection fraction Also impaired in part due to unavoidable diuretics h/o atrial fibrillation Continue home meds of metoprolol, Cardizem, Xarelto h/o coronary artery disease Continue aspirin and statins ACS ruled out DVT prophylaxis Xarelto Discharge planning Patient had home health care with daily weights arranged in the past, compliance may have been an issue since he is back and admits he has not been monitoring daily weights Josse Cooper MD Aug 25, 2017 15:14
--- NOTE | 2017-08-25 16:04 | EKG ---
Date Performed: 08/24/2017 Time Performed: 09:23:12 PTAGE: 72 years EKG: ATRIAL FIBRILLATION POSSIBLE RIGHT VENTRICULAR CONDUCTION DELAY POSSIBLE INFERIOR MYOCARDIA L INFARCTION ABNORMAL RHYTHM ECG INTERPRETATION BASED ON A DEFAULT AGE OF 40 YEARS Since the PREVIOUS TRACING , no significant change noted PREVIOUS TRACIN07/03/2017 01.50 DOCTOR: Luis F Drummond Interpretating Date/Time 08/25/2017 16:00:15
--- NOTE | 2017-08-25 16:04 | EKG ---
Date Performed: 08/24/2017 Time Performed: 13:52:31 PTAGE: 72 years EKG: ATRIAL FIBRILLATION MODERATE INTRAVENTRICULAR CONDUCTION DELAY MINIMAL ST DEPRESSION ABNORM AL RHYTHM ECG Since the PREVIOUS TRACING , no significant change noted PREVIOUS TRACIN08/24/2017 09.23 DOCTOR: Luis F Drummond Interpretating Date/Time 08/25/2017 16:00:24
[2017-08-25] MEDS: BUMETANIDE 1 MG TAB PO SCH (18:39)
[2017-08-25] MEDS: ATORVASTATIN 20 MG TAB PO SCH (21:05)
[2017-08-25] MEDS: DOCUSATE SODIUM 50 MG/SENNA 8.6 MG TAB PO PRN (21:06)
[2017-08-26] VITALS (14 sets, daily range): BP systolic 117–138; BP diastolic 56–79; PULSE 58–92; RESP 18–20; TEMP 97.7–98.2; O2SAT 90–100
[2017-08-26] MEDS: RESP: ALBUTEROL 2.5 MG/IPRATROPIUM 0.5 MG NEB (SCH) INH ×3 (04:45→21:17)
[2017-08-26 08:27] LABS: BICARBONATE 34.2 MEQ/L (21.0-32.0); CALCIUM 8.6 MG/DL (8.5-10.1); CREATININE 1.41 MG/DL (0.60-1.30)
[2017-08-26] MEDS: DILTIAZEM-CD 240 MG CAP ER PO SCH (09:00)
[2017-08-26] MEDS: METOPROLOL TARTRATE 25 MG TAB PO SCH ×2 (09:00→21:17)
[2017-08-26] MEDS: POTASSIUM CHLORIDE 10 MEQ CONTROLLED RELEASE TAB PO SCH ×2 (10:34→21:17)
[2017-08-26] MEDS: FUROSEMIDE 40 MG/4 ML VIAL IV PUSH SCH (10:34)
[2017-08-26] MEDS: BUMETANIDE 1 MG TAB PO SCH ×2 (10:35→17:40)
[2017-08-26] MEDS: RIVAROXABAN 15 MG TAB PO SCH (10:35)
[2017-08-26] MEDS: ASPIRIN 81 MG CHEW TAB CHEW SCH (10:35)
[2017-08-26] MEDS: SODIUM CHLORIDE 0.9% FLUSH 10 ML FLUSH IV FLUSH SCH ×2 (10:35→21:19)
[2017-08-26] MEDS: FLUTICASONE 100 MCG/VILANTEROL 25 MCG INHALER INH SCH (10:36)
--- NOTE | 2017-08-26 15:20 | HHI.PR ---
Subjective Remarks Patient reports that he is slowly feeling better and regaining some energy. He is in no saleh to get home and wants to make sure that he is maximized in his therapy prior to discharge. Objective Vitals Vital Signs Date Time Temp Pulse Resp B/P (MAP) Pulse Ox O2 Delivery O2 Flow Rate FiO2 08/26/17 12:16 98.0 83 18 117/56 (76) 93 08/26/17 12:00 Nasal Cannula 2.00 08/26/17 08:06 92 Nasal Cannula 4.00 08/26/17 08:00 97.8 58 18 125/73 (90) 94 08/26/17 08:00 Nasal Cannula 2.00 08/26/17 04:45 90 Nasal Cannula 3.00 08/26/17 04:00 98.0 79 18 126/63 (84) 91 08/26/17 04:00 Nasal Cannula 2.00 08/26/17 03:41 71 08/26/17 00:00 Nasal Cannula 2.00 08/26/17 00:00 98.0 79 18 134/63 (86) 91 08/25/17 23:57 62 08/25/17 20:00 98.1 77 19 123/62 (82) 91 08/25/17 20:00 Nasal Cannula 2.00 08/25/17 16:14 90 Nasal Cannula 2.00 08/25/17 16:00 98.4 76 20 138/72 (94) 90 08/25/17 15:59 60 I/O 08/25/17 08/25/17 08/25/17 08/26/17 08/26/17 08/26/17 07:00 15:00 23:00 07:00 15:00 23:00 Intake Total 120 ml 480 ml 800 ml Output Total 500 ml 375 ml 1600 ml Balance -380 ml 105 ml -800 ml Intake Oral 120 ml 480 ml 800 ml Output Urine Total 500 ml 375 ml 1600 ml # Bowel Movements 0 Result Diagram: 08/24/17 1045 08/26/17 0716 Objective Remarks GENERAL: Well-nourished, well-developed patient. SKIN: Warm and dry. HEAD: Normocephalic. EYES: No scleral icterus. No injection or drainage. NECK: Supple, trachea midline. No JVD or lymphadenopathy. CARDIOVASCULAR: Regular rate and rhythm without murmurs, gallops, or rubs. RESPIRATORY: Rales in bilateral bases, improved from yesterday's diminished sounds.. No accessory muscle use. GASTROINTESTINAL: Abdomen soft, non-tender, nondistended. EXTREMITIES: No cyanosis. Trace edema to sock line, improved NEUROLOGICAL: Awake, alert, and oriented x 3. Non-focal. A/P Problem List: (1) CHF (congestive heart failure) ICD Code: I50.9 - CHF (congestive heart failure) Status: Acute (2) COPD (chronic obstructive pulmonary disease) ICD Code: J44.9 - Chronic obstructive pulmonary disease, unspecified Assessment and Plan CHF exacerbation Echocardiogram from June 2017 shows ejection fraction of 20-25% BNP elevated on admission, x-ray shows pulmonary edema Continue p.o. Bumex combined with daily IV dose of Lasix Continue metoprolol, oxygen, duo nebs Lung weeks are improving h/o COPD He was wheezing on arrival but improved with diuresis rather than steroids The clinical picture is mostly CHF exacerbation with a touch of COPD Continue home dose of Breo Continue duo nebs Chronic renal insufficiency Creatinine levels improving towards baseline h/o atrial fibrillation Continue home meds of metoprolol, Cardizem, Xarelto h/o coronary artery disease Continue aspirin and statins ACS ruled out DVT prophylaxis Xarelto Discharge planning Discussed the importance of daily weights with patient Josse Cooper MD Aug 26, 2017 15:20
[2017-08-26] MEDS: ATORVASTATIN 20 MG TAB PO SCH (21:17)
[2017-08-27] VITALS (15 sets, daily range): BP systolic 111–139; BP diastolic 67–87; PULSE 54–96; RESP 18–20; TEMP 97.8–98.6; O2SAT 91–98
[2017-08-27] MEDS: RESP: ALBUTEROL 2.5 MG/IPRATROPIUM 0.5 MG NEB (SCH) INH ×4 (03:33→20:30)
[2017-08-27] MEDS: FLUTICASONE 100 MCG/VILANTEROL 25 MCG INHALER INH SCH (10:32)
[2017-08-27] MEDS: ASPIRIN 81 MG CHEW TAB CHEW SCH (10:32)
[2017-08-27] MEDS: FUROSEMIDE 40 MG/4 ML VIAL IV PUSH SCH (10:33)
[2017-08-27] MEDS: SODIUM CHLORIDE 0.9% FLUSH 10 ML FLUSH IV FLUSH SCH ×2 (10:33→21:41)
[2017-08-27] MEDS: BUMETANIDE 1 MG TAB PO SCH ×2 (10:34→18:43)
[2017-08-27] MEDS: POTASSIUM CHLORIDE 10 MEQ CONTROLLED RELEASE TAB PO SCH ×2 (10:34→21:41)
[2017-08-27] MEDS: DILTIAZEM-CD 240 MG CAP ER PO SCH (10:35)
[2017-08-27] MEDS: RIVAROXABAN 15 MG TAB PO SCH (10:35)
[2017-08-27] MEDS: METOPROLOL TARTRATE 25 MG TAB PO SCH ×2 (10:35→21:41)
[2017-08-27] MEDS ORDERED: methylPREDNISolone SOD SUCC 125 MG/2 ML VIAL IV PUSH ONE (16:30)
--- NOTE | 2017-08-27 16:30 | HHI.PR ---
Subjective Remarks 72-year-old male who is improving with his breathing ambulation. He is still short of breath outside of his baseline. Dyspneic with walking greater than 50 feet. Objective Vitals Vital Signs Date Time Temp Pulse Resp B/P (MAP) Pulse Ox O2 Delivery O2 Flow Rate FiO2 08/27/17 12:13 85 08/27/17 12:08 3.00 08/27/17 12:00 97.8 54 18 113/79 (90) 98 08/27/17 12:00 Nasal Cannula 2.00 08/27/17 09:59 95 Nasal Cannula 2.00 08/27/17 08:00 Nasal Cannula 2.00 08/27/17 08:00 98.0 86 18 126/73 (90) 98 08/27/17 07:59 96 08/27/17 04:00 98.0 80 19 135/85 (102) 98 08/27/17 03:58 82 08/27/17 03:33 98 Nasal Cannula 3.00 08/27/17 00:36 81 08/27/17 00:00 98.0 91 20 139/87 (104) 93 08/26/17 21:20 Nasal Cannula 2.00 08/26/17 20:00 98.2 92 20 138/79 (98) 93 08/26/17 19:59 79 08/26/17 16:43 97.7 60 18 127/70 (89) 100 I/O 08/26/17 08/26/17 08/26/17 08/27/17 08/27/17 08/27/17 07:00 15:00 23:00 07:00 15:00 23:00 Intake Total 800 ml 720 ml 300 ml Output Total 1600 ml 525 ml 2250 ml Balance -800 ml 195 ml -1950 ml Intake Oral 800 ml 720 ml 300 ml Output Urine Total 1600 ml 525 ml 2250 ml Result Diagram: 08/24/17 1045 08/26/17 0716 Objective Remarks GENERAL: Well-nourished, well-developed patient. SKIN: Warm and dry. HEAD: Normocephalic. EYES: No scleral icterus. No injection or drainage. NECK: Supple, trachea midline. No JVD or lymphadenopathy. CARDIOVASCULAR: Regular rate and rhythm without murmurs, gallops, or rubs. RESPIRATORY: Rales in bilateral bases improving, . No accessory muscle use. GASTROINTESTINAL: Abdomen soft, non-tender, nondistended. EXTREMITIES: No cyanosis. Trace edema to sock line, improved NEUROLOGICAL: Awake, alert, and oriented x 3. Non-focal. A/P Problem List: (1) CHF (congestive heart failure) ICD Code: I50.9 - CHF (congestive heart failure) Status: Acute (2) COPD (chronic obstructive pulmonary disease) ICD Code: J44.9 - Chronic obstructive pulmonary disease, unspecified Assessment and Plan CHF exacerbation Echocardiogram from June 2017 shows ejection fraction of 20-25% BNP elevated on admission, x-ray shows pulmonary edema Continue p.o. Bumex combined with daily IV dose of Lasix Continue metoprolol, oxygen, duo nebs Lung weeks are improving, possible discharge tomorrow h/o COPD He was wheezing on arrival but improved with diuresis rather than steroids The clinical picture is mostly CHF exacerbation with a touch of COPD Continue home dose of Breo Continue duo nebs, had single dose of steroids today Chronic renal insufficiency Creatinine levels improving towards baseline h/o atrial fibrillation Continue home meds of metoprolol, Cardizem, Xarelto h/o coronary artery disease Continue aspirin and statins ACS ruled out DVT prophylaxis Xarelto Discharge planning Discharge is likely tomorrow Josse Cooper MD Aug 27, 2017 16:29
[2017-08-27] MEDS: DOCUSATE SODIUM 50 MG/SENNA 8.6 MG TAB PO PRN (18:43)
[2017-08-27] MEDS: ATORVASTATIN 20 MG TAB PO SCH (21:41)
[2017-08-28] VITALS (7 sets, daily range): BP systolic 117–133; BP diastolic 67–82; PULSE 73–116; RESP 17–19; TEMP 97.3–98.9; O2SAT 91–98
[2017-08-28] MEDS: RESP: ALBUTEROL 2.5 MG/IPRATROPIUM 0.5 MG NEB (SCH) INH ×2 (02:24→07:50)
[2017-08-28] MEDS: SODIUM CHLORIDE 0.9% FLUSH 10 ML FLUSH IV FLUSH SCH (09:00)
[2017-08-28] MEDS: ASPIRIN 81 MG CHEW TAB CHEW SCH (10:29)
[2017-08-28] MEDS: RIVAROXABAN 15 MG TAB PO SCH (10:30)
[2017-08-28] MEDS: POTASSIUM CHLORIDE 10 MEQ CONTROLLED RELEASE TAB PO SCH (10:30)
[2017-08-28] MEDS: DILTIAZEM-CD 240 MG CAP ER PO SCH (10:30)
[2017-08-28] MEDS: BUMETANIDE 1 MG TAB PO SCH (10:30)
[2017-08-28] MEDS: FUROSEMIDE 40 MG/4 ML VIAL IV PUSH SCH (10:31)
[2017-08-28] MEDS: METOPROLOL TARTRATE 25 MG TAB PO SCH (10:32)
[2017-08-28] MEDS: FLUTICASONE 100 MCG/VILANTEROL 25 MCG INHALER INH SCH (10:36)
[2017-08-28] MEDS ORDERED: BUME1TAB PO (11:47)
--- NOTE | 2017-08-28 11:52 | HHI.DS ---
Discharge Summary Admission Date Aug 24, 2017 at 12:36 Discharge Date: Aug 28, 2017 Admitting Diagnosis CHF exacerbation, COPD exacerbation, atrial fibrillation. (1) CHF (congestive heart failure) ICD Code: I50.9 - CHF (congestive heart failure) Status: Acute (2) COPD (chronic obstructive pulmonary disease) ICD Code: J44.9 - Chronic obstructive pulmonary disease, unspecified Procedures none Brief History - From Admission This is a 72-year-old male with history of atrial fibrillation, systolic congestive heart failure, COPD, hypertension presenting with shortness of breath. Per patient, he has been doing better since he was discharged in June after patient stayed in the hospital for congestive heart failure for about a week until about 3 days ago when he started having dyspnea on exertion especially with walking after a few feet from the bathroom, associated with severe orthopnea, lower extremity edema and wheezing. Patient denies any cough , fever, chills, chest pain, palpitations, dizziness, lightheadedness, nausea, vomiting or any sick contacts. Good urine output, he claims compliance to Lasix which he takes once a day. He said that he has been in the hospital 3 times in the last 3 months now for the same problem. Echocardiogram from June showed ejection fraction of 20-25% . Of note, he uses oxygen about 2-3 L 10/10. CBC/BMP: 08/24/17 1045 08/26/17 0716 Significant Findings Laboratory Tests Test 08/26/17 07:16 Blood Urea Nitrogen 37 MG/DL (7-18) Creatinine 1.41 MG/DL (0.60-1.30) Random Glucose 121 MG/DL (74-106) Carbon Dioxide Level 34.2 MEQ/L (21.0-32.0) Estimat Glomerular Filtration Rate 50 ML/MIN (>89) PE at Discharge GENERAL: Well-nourished, well-developed patient. SKIN: Warm and dry. HEAD: Normocephalic. EYES: No scleral icterus. No injection or drainage. NECK: Supple, trachea midline. No JVD or lymphadenopathy. CARDIOVASCULAR: Regular rate and rhythm without murmurs, gallops, or rubs. RESPIRATORY: Rales in bilateral bases improving, . No accessory muscle use. GASTROINTESTINAL: Abdomen soft, non-tender, nondistended. EXTREMITIES: No cyanosis. Trace edema to sock line, improved NEUROLOGICAL: Awake, alert, and oriented x 3. Non-focal. Hospital Course This is a 72-year-old male with a history of CHF and COPD, recent echocardiogram shows ejection fraction of 25%. He was admitted 4 days ago with dyspnea and tachycardia. He reports that he has been experiencing orthopnea and dyspnea on exertion that is outside of his norm. He was treated initially for CHF and COPD, the COPD is more of a minor factor predominant treatment has focused on diuresis for his CHF and fluid overload. After 4 days he has reached maximal improvement and is stable for discharge home on p.o. diuretics. I have given him a prescription for Bumex which seems to work better than Lasix for managing his CHF and fluid overload. Writing him a prescription for cardiopulmonary rehab. He will be taking a trip up to [facility] for the summer and I strongly recommended that he establish with a primary care up there during his time there. He already has home oxygen at 2 L nasal cannula. Pt Condition on Discharge: Fair Discharge Disposition: Discharge Home Discharge Time: <= 30 minutes Discharge Instructions DIET: Follow Instructions for: Heart Healthy Diet Activities you can perform: Regular-No Restrictions Josse Cooper MD Aug 28, 2017 11:52
== END 2017-08-28 14:41 | disposition home or self-care (01) | DRG 291 ==
LOC: NEPE 10:06 → OBSVTOIN 12:36 → NEDA 12:36 → N04B 18:16
PROVIDERS: ADMIT Family Medicine; ATTEND Family Medicine
DX: I13.0 Hypertensive heart and chronic kidney disease with heart failure and stage 1 through stage 4 chronic kidney disease, or unspecified chronic kidney disease (principal); I50.23 Acute on chronic systolic (congestive) heart failure; J96.21 Acute and chronic respiratory failure with hypoxia; N17.9 Acute kidney failure, unspecified; J44.1 Chronic obstructive pulmonary disease with (acute) exacerbation; N18.9 Chronic kidney disease, unspecified; I48.91 Unspecified atrial fibrillation; Z79.02 Long term (current) use of antithrombotics/antiplatelets; I25.10 Atherosclerotic heart disease of native coronary artery without angina pectoris; E78.00 Pure hypercholesterolemia, unspecified; K21.9 Gastro-esophageal reflux disease without esophagitis; K44.9 Diaphragmatic hernia without obstruction or gangrene; E78.1 Pure hyperglyceridemia; Z95.810 Presence of automatic (implantable) cardiac defibrillator; Z79.82 Long term (current) use of aspirin
CPT/HCPCS: 36600; 71045; 80048; 80053; 82550; 82805; 83880; 84484; 85025; 93005; 94003; 94618; 94640; 94664; J1644; J1940; J2930; J7613

== ENCOUNTER 2018-01-17 15:10 | Inpatient (IN) ==
--- NOTE | 2018-01-17 16:41 | ED ---
HPI General Chief complaint: Nausea/Vomiting/Diarrhea Stated complaint: Patient states blood in stool Time Seen by Provider: 01/17/18 16:26 History of Present Illness HPI narrative: 72-year-old male with a history of CHF with pacemaker defibrillator, AF on xarelto, COPD, HTN presents to the ED for evaluation of bloody stool and fatigue. Patient states for the past 3 weeks he has intermittent dark black and bright red blood in his stool. States that he has had blood in his stool at least daily. States he has had 3 episodes of hematemesis with the most recent episode 3 days ago. He states he has been feeling increasingly fatigued over the past 3 weeks as well. He denies any chest pain, shortness of breath, difficulty breathing, abdominal pain, fever, chills, cough or cold symptoms, numbness or tingling. No other complaints. PCP is Dr. Hickman. Related Data Home Medications Medication Instructions Recorded Confirmed aspirin 81 mg PO DAILY 01/17/18 01/17/18 atorvastatin [Lipitor] 20 mg PO DAILY 01/17/18 01/17/18 bumetanide 2 mg PO DAILY 01/17/18 01/17/18 diltiazem HCl 120 mg PO DAILY 01/17/18 01/17/18 ferrous sulfate 325 mg PO EVERY OTHER DAY 01/17/18 01/17/18 fluticasone-vilanterol [Breo 1 inh INHALATION DAILY 01/17/18 01/17/18 Ellipta] ipratropium-albuterol 3 ml INHALATION Q6-8H PRN 01/17/18 01/17/18 metoprolol tartrate 75 mg PO BID 01/17/18 01/17/18 potassium chloride [Klor-Con M20] 40 meq PO DAILY 01/17/18 01/17/18 quinapril 20 mg PO HS 01/17/18 01/17/18 rivaroxaban [Xarelto] 15 mg PO QPM 01/17/18 01/17/18 Allergies Allergy/AdvReac Type Severity Reaction Status Date / Time No Known Allergies Allergy Verified 01/17/18 15:22 Review of Systems ROS: all other systems reviewed are negative PMFSH Social History Social History Smoking Status: Never smoker How Often Do You Have a Drink Containing Alcohol: Never Recent Travel in [facility] within the Last 8 Weeks: No Recent Out of Country Travel within the Last 8 Weeks: No Exam Narrative Exam Narrative: GENERAL: Well-nourished and well-developed pleasant patient in no acute distress who is nontoxic appearing. SKIN: Warm and dry. HEAD: Normocephalic and atraumatic. EYES: No injection, drainage, or hyphema noted. PERRLA. EOMI. ENT: No nasal drainage noted. Oropharynx is clear, NECK: Supple and the trachea is midline. CARDIOVASCULAR: Regular rate and rhythm. RESPIRATORY: Breath sounds are equal bilaterally with no accessory muscle use, wheezing, rhonchi, or crackles. GASTROINTESTINAL: Abdomen is soft, non-tender, and nondistended. RECTAL EXAM: No masses or tenderness, stool is brown. Performed in the presence of Lizzy RN. MUSCULOSKELETAL: No obvious deformities, swelling, cyanosis, or ecchymosis is present throughout the upper and lower extremities. Patient has full range of motion without any signs of neurovascular compromise. Distal pulses are 2+ throughout. NEUROLOGICAL: Awake, alert, and oriented. Normal speech and gait. Cranial nerves are grossly intact. Procedures Hemaprompt Stool Procedural Steps Taken: specimen placed in appropriate test area, developer placed on specimen and control areas and controls appropriately positive and negative Hemaprompt Stool Result: positive Course Initial Documented Vital Signs Temperature 97.9 F 01/17/18 15:15 Pulse Rate 75 01/17/18 15:15 Respiratory Rate 18 01/17/18 15:15 Blood Pressure 115/62 01/17/18 15:15 Pulse Oximetry 95 01/17/18 15:15 Last Documented Vital Signs Temperature 97.9 F 01/17/18 15:15 Pulse Rate 61 01/17/18 19:49 Respiratory Rate 18 01/17/18 19:49 Blood Pressure 138/76 01/17/18 17:59 Pulse Oximetry 100 01/17/18 17:59 Critical Care Time Critical Care Time: Yes Total Critical Care Time: 35 Attestation: Aggregate critical care time was 35 minutes. Time to perform other separately billable procedures was not included in the critical care time. My time did not include minutes spent treating any other patients simultaneously or on activities that did not directly contribute to the patient's treatment. The services I provided to this patient were to treat and/or prevent clinically significant deterioration that could result in: cardiac arrest, , worsening kidney function I provided critical care services requiring my management, as noted below: Chart data review, documentation time, medication orders and management, vital sign assessments/reviewing monitor data, ordering and reviewing lab tests, ordering and interpreting/reviewing x-rays and diagnostic studies, care of the patient and discussion of the patient with the admitting physicians. Medical Decision Making YOON Attestation YOON supervised visit: Yes Attestation: Please see mid-level provider note for full history and physical and disposition. Patient presents to the emergency department complaining of bloody stool. He also advises that he was recently stopped on Lasix and was told to continue Bumex and has been taking potassium 40 mEq p.o. daily. Patient was found to be in acute renal failure with hyperkalemia in the emergency department. EKG showed A. fib with slow ventricular response at a rate of 53 with peaked T waves. Nephrology was consulted,Dr. Dobbins, who advised to admit the patient to the ICU and recheck potassium level and if found to still be elevated will need dialysis. He was given 1 gram of IV calcium gluconate, 10 units of regular insulin IV and amp of D50, 10 mg albuterol neb, 20m gIV lasix. He was admitted to the unit and at the request of the admitting senior it engineer he was given 30 g of Kayexalate, 500 cc normal saline bolus, then 75 cc an hour, and 100 mEQ IV of sodium bicarb. 2020: Calker at the bedside. Troponin ordered at request of admit MD, pending at time of admission. He will follow. [facility] Narrative Medical decision making narrative: 72-year-old male presents to the emergency department for evaluation of GI bleed for 3 weeks. Patient is afebrile, vital signs are stable. Physical examination does show positive heme occult. IV access is obtained, labs been drawn and sent. Patient is placed on Protonix bolus and drip. CBC shows anemia with hemoglobin 10.0, hematocrit 30.5, this is consistent with previous labs. Coags are unremarkable. CMP shows acute kidney injury with creatinine 3.41, GFR 18, BUN 89. Hyperkalemia with potassium 7.9. Discussed with the lab and this is not hemolyzed. Lipase is slightly elevated at 452. EKG shows peaked T waves and atrial fibrillation. The patient states that he recently had his lasix stopped by his PCP however he has continued taking the same dose of potassium. My attending physician Dr. Hanks ordered insulin, D50, calcium gluconate and albuterol nebulizer. My attending physician spoke with the energy director Dr. Dobbins who recommends repeat potassium level tonight and admission to ICU. My attending physician spoke with Dr. Locke senior it engineer who accepts patient to his service. Medical Screen Exam Complete: Yes Emergency Medical Condition: Yes Differential Diagnosis Differential Diagnosis: GI bleed versus peptic ulcer disease versus anemia Lab Data Result diagrams: 01/17/18 17:00 01/17/18 18:00 Lab Results 01/17/18 01/17/18 01/17/18 Range/Units 17:00 17:00 17:00 WBC 5.5 (4.0-11.0) th/mm3 RBC 3.65 L (4.50-5.90) mil/mm3 Hgb 10.0 L (13.0-17.0) gm/dL Hct 30.5 L (39.0-51.0) % MCV 83.8 (80.0-100.0) fL MCH 27.6 (27.0-34.0) pg MCHC 32.9 (32.0-36.0) % RDW 20.6 H (11.6-17.2) % Plt Count 302 (150-450) th/mm3 MPV 7.3 (7.0-11.0) fL Neut % (Auto) 46.9 (16.0-70.0) % Lymph % (Auto) 31.9 (9.0-44.0) % [place] % (Auto) 15.3 H (0.0-8.0) % Eos % (Auto) 4.7 H (0.0-4.0) % Baso % (Auto) 1.2 (0.0-2.0) % Neut # (Auto) 2.6 (1.8-7.7) th/mm3 Lymph # (Auto) 1.8 (1.0-4.8) th/mm3 [place] # (Auto) 0.8 (0.0-0.9) th/mm3 Eos # (Auto) 0.3 (0.0-0.4) th/mm3 Baso # (Auto) 0.1 (0.0-0.2) th/mm3 WBC Differential . Differential Comment Auto diff final PT 11.0 (9.8-11.6) sec INR 1.1 Ratio APTT 27.3 (24.3-30.1) sec Sodium (136-145) meq/L Potassium (3.5-5.1) meq/L Chloride (98-107) meq/L Carbon Dioxide (21.0-32.0) meq/L Anion Gap (5-15) meq/L BUN (7-18) mg/dL Creatinine (0.60-1.30) mg/dL Estimated GFR (>89) mL/min Random Glucose (74-106) mg/dL Calcium (8.5-10.1) mg/dL Total Bilirubin (0.2-1.0) mg/dL AST (15-37) U/L ALT (12-78) U/L Alkaline Phosphatase (45-117) U/L Total Protein (6.4-8.2) g/dL Albumin (3.4-5.0) g/dL Lipase (73-393) U/L Blood Type A Positive Blood Type Recheck Not needed Antibody Screen Negative 01/17/18 Range/Units 18:00 WBC (4.0-11.0) th/mm3 RBC (4.50-5.90) mil/mm3 Hgb (13.0-17.0) gm/dL Hct (39.0-51.0) % MCV (80.0-100.0) fL MCH (27.0-34.0) pg MCHC (32.0-36.0) % RDW (11.6-17.2) % Plt Count (150-450) th/mm3 MPV (7.0-11.0) fL Neut % (Auto) (16.0-70.0) % Lymph % (Auto) (9.0-44.0) % Berg[place] % (Auto) (0.0-8.0) % Eos % (Auto) (0.0-4.0) % Baso % (Auto) (0.0-2.0) % Neut # (Auto) (1.8-7.7) th/mm3 Lymph # (Auto) (1.0-4.8) th/mm3 Berg[place] # (Auto) (0.0-0.9) th/mm3 Eos # (Auto) (0.0-0.4) th/mm3 Baso # (Auto) (0.0-0.2) th/mm3 WBC Differential Differential Comment PT (9.8-11.6) sec INR Ratio APTT (24.3-30.1) sec Sodium 138 (136-145) meq/L Potassium 7.9 H* (3.5-5.1) meq/L Chloride 109 H (98-107) meq/L Carbon Dioxide 25.0 (21.0-32.0) meq/L Anion Gap 4 L (5-15) meq/L BUN 89 H (7-18) mg/dL Creatinine 3.41 H (0.60-1.30) mg/dL Estimated GFR 18 L (>89) mL/min Random Glucose 103 (74-106) mg/dL Calcium 8.8 (8.5-10.1) mg/dL Total Bilirubin 0.3 (0.2-1.0) mg/dL AST 12 L (15-37) U/L ALT 16 (12-78) U/L Alkaline Phosphatase 47 (45-117) U/L Total Protein 7.5 (6.4-8.2) g/dL Albumin 3.9 (3.4-5.0) g/dL Lipase 452 H (73-393) U/L Blood Type Blood Type Recheck Antibody Screen Imaging Data Radiologist's impression: Chest X-Ray 01/17/18 20:05 CONCLUSION: No acute cardiopulmonary disease. Discharge Plan Discharge Disposition Patient Disposition: 30 Still Patient Discharge Details Diagnosis: Acute renal failure, Acute hyperkalemia, Acute GI bleeding Physicians Team ED Provider: Joi Hanks ED Midlevel Provider: Ada Cooper Primary Care Provider: Nessa Hickman Attending Provider: Singh Singer Other Providers: Torito Ugarte ; Hi Simpson ; Da Dobbins Status ED Status: Admitted Patient
[2018-01-17 17:17] LABS: Baso # (Auto) 0.1 th/mm3 (0.0-0.2); Baso % (Auto) 1.2 % (0.0-2.0); Eos # (Auto) 0.3 th/mm3 (0.0-0.4); Eos % (Auto) 4.7 % (0.0-4.0); Hematocrit 30.5 % (39.0-51.0); Lymph # (Auto) 1.8 th/mm3 (1.0-4.8); Lymph % (Auto) 31.9 % (9.0-44.0); Mean Corpuscular HGB Conc 32.9 % (32.0-36.0); Mean Corpuscular Hemoglobin 27.6 pg (27.0-34.0); Mean Corpuscular Volume 83.8 fL (80.0-100.0); Mean Platelet Volume 7.3 fL (7.0-11.0); Mono # (Auto) 0.8 th/mm3 (0.0-0.9); Mono % (Auto) 15.3 % (0.0-8.0); Neut # (Auto) 2.6 th/mm3 (1.8-7.7); Neut % (Auto) 46.9 % (16.0-70.0); Platelet Count 302 th/mm3 (150-450); Red Blood Count 3.65 mil/mm3 (4.50-5.90); Red Cell Distribution Width 20.6 % (11.6-17.2); White Blood Count 5.5 th/mm3 (4.0-11.0)
[2018-01-17 17:23] LABS: Activated Partial Thrombo Time 27.3 sec (24.3-30.1); INR 1.1 Ratio
[2018-01-17] MEDS ORDERED: Pantoprazole Inj 80 MG in Sodium Chlor 0.9% Inj 100 ML IV.CONT SCH (19:00)
[2018-01-17 19:12] LABS: Alanine Aminotransferase 16 U/L (12-78); Albumin 3.9 g/dL (3.4-5.0); Alkaline Phosphatase 47 U/L (45-117); Anion Gap 4 meq/L (5-15); Aspartate Aminotransferase 12 U/L (15-37); Blood Urea Nitrogen 89 mg/dL (7-18); Calcium 8.8 mg/dL (8.5-10.1); Chloride 109 meq/L (98-107); Glomerular Filtration Rate 18 mL/min (>89); Glucose,Random 103 mg/dL (74-106); Lipase 452 U/L (73-393); Sodium 138 meq/L (136-145); Total Protein 7.5 g/dL (6.4-8.2)
[2018-01-17 19:17] LABS: Potassium 7.9 meq/L (3.5-5.1)
[2018-01-17] MEDS ORDERED: Bisacodyl 10 MG Supp RECTAL PRN ×2 (19:20→20:22)
[2018-01-17] MEDS ORDERED: RESP: Albuterol Concentrated 2.5 MG/0.5 ML Neb NEB ONE (19:35)
[2018-01-17] MEDS ORDERED: Dextrose 50% in Water 50 ML Vial IV.PUSH ONE (19:35)
[2018-01-17] MEDS ORDERED: Sod Chloride 0.9% Inj 1,000 ML IV.CONT SCH ×2 (20:00→20:30)
[2018-01-17] MEDS ORDERED: Acetaminophen 325 MG Tablet PO PRN (20:22)
[2018-01-17] MEDS ORDERED: Sodium Polystyrene Sulfonate/Sorbitol Liq 15 GM/60 ML UDC PO ONE (20:22)
[2018-01-17] MEDS ORDERED: Sodium Bicarbonate 8.4% Inj 50 MEQ/50 ML Syringe IV.PUSH ONE (20:22)
--- NOTE | 2018-01-17 20:30 | XR ---
EXAM DATE: 01/17/2018 8:27 PM EDT AGE/SEX: 72 years / Male INDICATIONS: Shortness of breath CLINICAL DATA: This is the patient's initial encounter. Patient reports that signs and symptoms have been present for 1 day and indicates a pain score of 0/10. MEDICAL/SURGICAL HISTORY: . Cardiovascular disease. Hypertension. Hernia, hiatal. COPD. GERD. Defibrillator. COMPARISON: No prior exams available for comparison. FINDINGS: A single AP erect portable view of the chest was obtained and demonstrates a left subclavian transven ous pacer in place. There are no confluent infiltrates or effusions. The heart size is at the upper l imits of normal with no evidence of pulmonary edema. The bony thorax is intact. There are overlying e lectrocardiogram leads. CONCLUSION: No acute cardiopulmonary disease. Electronically signed by: Raymond Antony MD 01/17/2018 8:29 PM EDT
--- NOTE | 2018-01-17 20:39 | P.HPCC ---
History of Present Illness Service: Critical care Primary Care Physician: Nessa Hickman MD Chief Complaint: GIB, Hyperkalemia History of Present Illness: 72-year-old male with a history of CHF, AICD placement, cardiomyopathy ejection fraction 25%, atrial fibrillation on xarelto, COPD, HTN, chronic kidney disease , presented to the ED for evaluation of bloody stool and fatigue. Intermittent lower GI bleed for the last 3 week. He is on Xarelto for chronic A. fib. He also complained of hematemesis last 3 days, 2 episodes. His hemoglobin came back at his baseline which is about 10. However his BUN was elevated at 89 creatinine was 3.4, baseline creatinine is 1.3-1.7. He also had severe hyperkalemia potassium was 7.9. EKG showed paced rhythm, underlying A. fib. Patient received IV calcium chloride, IV insulin followed by D50, breathing treatments with albuterol, and critical care medicine was requested to admit the patient. Nephrology Dr. Dobbins also was consulted. Patient also received IV Lasix 40 mg. Apparently he takes Bumex which was recently discontinued but he was still taking the potassium at home. In addition today above treatment I have instructed ED to administer 2 amps of bicarb, Kayexalate 30 g p.o. x1. IV fluid 500 mL bolus, followed by normal saline maintenance at 75 ml per hour. And place a Scott catheter. Will repeat CMP at 2300 and if potassium is not adequately corrected will need hemodialysis - Diagnosis (1) Acute kidney injury superimposed on chronic kidney disease (2) Acute hyperkalemia (3) Acute GI bleeding (4) COPD (chronic obstructive pulmonary disease) (5) CHF (congestive heart failure) (6) Cardiomyopathy (7) Atrial fibrillation (8) Chronic anticoagulation Inpatient Certification: I certify that the inpatient services were ordered in accordance with Medicare regulations governing the order. This includes certification that hospital inpatient services are reasonable and necessary and in the case of services not specified as inpatient-only under 42 CFR 419.22(n), that they are appropriately provided as inpatient services in accordance to with the 2-midnight benchmark under 43 CFR 412.3(e) Estimated Total Length of Stay (Days): 3 Plans for Post Hospital Care: Not yet determined Review of Systems All other systems reviewed negative except as stated in HPI PMFSH - History History Provided By: Patient, Family Member - Medical History Medical History: Medical History (Last Reviewed 01/17/18 @ 20:44 by Stef Locke MD) COPD (chronic obstructive pulmonary disease) Hypertension Pacemaker - Tobacco History Smoking Status: Never smoker - Alcohol History How Often Do You Have a Drink Containing Alcohol: Never - Travel History Recent Travel in the [place] Within the Last 8 Weeks: No Recent Travel Out of the Country Within the Last 8 Weeks: No - Immunization History Tetanus Immunization: <5 Years Medications and Allergies Active Medications: Active Medications Acetaminophen (Tylenol) 650 mg PO Q6H PRN PRN Reason: PAIN 1-10 AND/OR FEVER >101F Al Hydroxide/Mg Hydroxide (Milk Of Magnesia Liq) 30 ml PO Q12H PRN PRN Reason: Mild Constipation Al Hydroxide/Mg Hydroxide (Milk Of Magnesia Liq) 30 ml PO Q12H PRN PRN Reason: Mild Constipation Albuterol (Duoneb Neb (Prn)) 1 ampul INH Q6HR NEB PRN PRN Reason: Shortness Of Breath Albuterol (Duoneb Neb (Prn)) 1 ampul NEB Q2HR NEB PRN PRN Reason: WHEEZING Atorvastatin Calcium (Lipitor) 20 mg PO DAILY REAGAN Bisacodyl (Dulcolax Supp) 10 mg RECTAL DAILY PRN PRN Reason: SEVERE CONSITIPATION Bisacodyl (Dulcolax Supp) 10 mg RECTAL DAILY PRN PRN Reason: SEVERE CONSITIPATION Chlorhexidine Gluconate (Chlorhexidine 2% Cloth) 3 pack TOPICAL DAILY@0400 REAGAN Stop: 01/23/18 03:59 Chlorhexidine Gluconate (Chlorhexidine 2% Cloth) 3 pack TOPICAL DAILY@0400 PRN PRN Reason: Extra cloth needed Stop: 01/23/18 03:59 Diltiazem HCl (Cardizem Cd 24hr) 120 mg PO DAILY [facility] Fluticasone/Vilanterol (Breo Ellipta 100/25 Mcg Inh) 1 puff INH DAILY [facility] Pantoprazole Sodium 80 mg/ (Sodium Chloride) 100 mls @ 10 mls/hr IV.CONT CONT REAGAN Sodium Chloride (Ns Inj) 1,000 mls @ 100 mls/hr IV.CONT .Q10H REAGAN Sodium Chloride (Ns Inj) 1,000 mls @ 2,000 mls/hr IV.SIG Q30M REAGAN Stop: 01/17/18 21:14 Sodium Chloride (Ns Inj) 500 mls @ 1,000 mls/hr IV.SIG BOLUS REAGAN Stop: 01/17/18 21:29 Sodium Chloride (Ns Inj) 1,000 mls @ 75 mls/hr IV.CONT .[id number] [facility] Lactulose (Lactulose Liq) 30 ml PO DAILY PRN PRN Reason: SEVERE CONSITIPATION Lactulose (Lactulose Liq) 30 ml PO DAILY PRN PRN Reason: SEVERE CONSITIPATION Lisinopril (Prinivil) 20 mg PO HS [facility] Metoprolol Tartrate (Lopressor) 75 mg PO BID [facility] Pantoprazole Sodium (Protonix Inj) 40 mg IV.CONT Q12H [facility] Senna/Docusate Sodium (Kymberly-Colace) 1 tab PO BID [facility] Sennosides (Senokot) 17.2 mg PO Q12H PRN PRN Reason: Moderate Constipation Sennosides (Senokot) 17.2 mg PO Q12H PRN PRN Reason: Moderate Constipation Sodium Chloride (Ns Flush) 2 ml IV.FLUSH PRN PRN PRN Reason: FLUSH AFTER USING IV ACCESS Allergies Allergy/AdvReac Type Severity Reaction Status Date / Time No Known Allergies Allergy Verified 01/17/18 15:22 Home Medications Medication Instructions Recorded Confirmed Type aspirin 81 mg PO DAILY 01/17/18 01/17/18 History atorvastatin [Lipitor] 20 mg PO DAILY 01/17/18 01/17/18 History bumetanide 2 mg PO DAILY 01/17/18 01/17/18 History diltiazem HCl 120 mg PO DAILY 01/17/18 01/17/18 History ferrous sulfate 325 mg PO EVERY OTHER DAY 01/17/18 01/17/18 History fluticasone-vilanterol [Breo 1 inh INHALATION DAILY 01/17/18 01/17/18 History Ellipta] ipratropium-albuterol 3 ml INHALATION Q6-8H PRN 01/17/18 01/17/18 History metoprolol tartrate 75 mg PO BID 01/17/18 01/17/18 History potassium chloride [Klor-Con M20] 40 meq PO DAILY 01/17/18 01/17/18 History quinapril 20 mg PO HS 01/17/18 01/17/18 History rivaroxaban [Xarelto] 15 mg PO QPM 01/17/18 01/17/18 History Results - Labs CBC & Chem 7: 01/17/18 17:00 01/17/18 18:00 Labs: Short CBC 01/17/18 Range/Units 17:00 WBC 5.5 (4.0-11.0) th/mm3 Hgb 10.0 L (13.0-17.0) gm/dL Hct 30.5 L (39.0-51.0) % Plt Count 302 (150-450) th/mm3 BMP 01/17/18 18:00 Sodium 138 Potassium 7.9 H* Chloride 109 H Carbon Dioxide 25.0 BUN 89 H Creatinine 3.41 H Calcium 8.8 Liver Function 01/17/18 Range/Units 18:00 Total Bilirubin 0.3 (0.2-1.0) mg/dL AST 12 L (15-37) U/L ALT 16 (12-78) U/L Alkaline Phosphatase 47 (45-117) U/L Albumin 3.9 (3.4-5.0) g/dL - Imaging Impressions Chest X-Ray 01/17/18 20:05 CONCLUSION: No acute cardiopulmonary disease. Exam Vital signs: Vital Signs 01/17/18 15:15 01/17/18 16:43 01/17/18 17:59 Temperature 97.9 F Pulse Rate 75 80 Respiratory Rate 18 20 Blood Pressure 115/62 138/76 Pulse Oximetry 95 95 100 01/17/18 19:49 Temperature Pulse Rate 61 Respiratory Rate 18 Blood Pressure Pulse Oximetry Intake & Output 01/17/18 01/17/18 01/18/18 06:59 18:59 06:59 Weight 90.718 kg Narrative: GENERAL: Well-nourished and well-developed male who is lying in bed, no acute distress SKIN: Warm and dry. HEAD: Normocephalic and atraumatic. EYES: PERRLA. EOMI. conjunctival pallor present ENT: No nasal drainage noted. Oral mucosa is moist NECK: Supple and the trachea is midline. CARDIOVASCULAR: Underlying A. fib, with paced rhythm. Left upper chest pacemaker in place RESPIRATORY: Breath sounds are equal bilaterally with no accessory muscle use, or wheezing GASTROINTESTINAL: Abdomen is soft, non-tender, and nondistended. RECTAL EXAM: Deferred MUSCULOSKELETAL: Distal pulses are 2+ throughout. NEUROLOGICAL: Awake, alert, and oriented. Normal speech and gait. No obvious focal deficits Septic Shock Reassessment Septic shock perfusion: reassessment completed Caprini VTE Risk Assessment Caprini VTE Risk Assessment: Moderate/High Risk (score >= 2) VTE Pharmacological Exception Reason: Active bleeding Caprini Risk Assessment Model: Point Value = 1 Point Value = 2 Point Value = 3 Point Value = 5 Age 41-60 Minor surgery BMI > 25 kg/m2 Swollen legs Varicose veins or History of unexplained or recurrent spontaneous Oral contraceptives or hormone replacement Sepsis (< 1 month) Serious lung disease, including pneumonia (< 1 month) Abnormal pulmonary function Acute myocardial infarction Congestive heart failure (< 1 month) History of inflammatory bowel disease Medical patient at bed rest Age 61-74 Arthroscopic surgery Major open surgery (> 45 min) Laparoscopic surgery (> 45 min) Malignancy Confined to bed (> 72 hours) Immobilizing plaster cast Central venous access Age >= 75 History of VTE Family history of VTE Factor V Leiden Prothrombin 26320M Lupus anticoagulant Anticardiolipin antibodies Elevated serum homocysteine Heparin-induced thrombocytopenia Other congenital or acquired thrombophilia Stroke (< 1 month) Elective arthroplasty Hip, pelvis, or leg fracture Acute spinal cord injury (< 1 month) Prophylaxis Regimen: Total Risk Factor Score Risk Level Prophylaxis Regimen 0-1 Low Early ambulation 2 Moderate Order ONE of the following: *Sequential Compression Device (SCD) *Heparin 5000 units SQ BID 3-4 Higher Order ONE of the following medications: *Heparin 5000 units SQ TID *Enoxaparin/Lovenox 40 mg SQ daily (WT < 150 kg, CrCl > 30 mL/min) *Enoxaparin/Lovenox 30 mg SQ daily (WT < 150 kg, CrCl > 10-29 mL/min) *Enoxaparin/Lovenox 30 mg SQ BID (WT < 150 kg, CrCl > 30 mL/min) AND/OR *Sequential Compression Device (SCD) 5 or more Highest Order ONE of the following medications: *Heparin 5000 units SQ TID (Preferred with Epidurals) *Enoxaparin/Lovenox 40 mg SQ daily (WT < 150 kg, CrCl > 30 mL/min) *Enoxaparin/Lovenox 30 mg SQ daily (WT < 150 kg, CrCl > 10-29 mL/min) *Enoxaparin/Lovenox 30 mg SQ BID (WT < 150 kg, CrCl > 30 mL/min) AND *Sequential Compression Device (SCD) Assessment and Plan - Problem List (1) Acute kidney injury superimposed on chronic kidney disease Code(s): N17.9 - Acute kidney failure, unspecified; N18.9 - Chronic kidney disease, unspecified Status: Acute (2) Acute hyperkalemia Code(s): E87.5 - Hyperkalemia Status: Acute (3) Acute GI bleeding Code(s): K92.2 - Gastrointestinal hemorrhage, unspecified Status: Acute (4) COPD (chronic obstructive pulmonary disease) Code(s): J44.9 - Chronic obstructive pulmonary disease, unspecified Status: Chronic (5) CHF (congestive heart failure) Code(s): I50.9 - Heart failure, unspecified Status: Chronic (6) Cardiomyopathy Code(s): I42.9 - Cardiomyopathy, unspecified Status: Chronic (7) Atrial fibrillation Code(s): I48.91 - Unspecified atrial fibrillation Status: Chronic (8) Chronic anticoagulation Code(s): 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 anticoagulants Status: Chronic - Assessment and Plan Plan: NEURO: -Minimize sedation -Patient does not complain about any pain at this time RESP: History of COPD -DuoNeb every 6 hours scheduled and as needed -No evidence of COPD exacerbation at this time CV: Chronic atrial fibrillation on Xarelto CHF/cardiomyopathy EF 25% History of hypertension now hypotensive -CHF is compensated at this time -Normal saline IV fluids 500 ml bolus and 75 ml per hour -Check troponin -Hold aspirin hold Xarelto secondary to GI bleed -Hold all home antihypertensives secondary to borderline hypotension GI/Heme: GI bleed -N.p.o., IV bolus and infusion at 8 mg/h -GI consulted -Serial H&H, no indication for transfusion at this time -Hold Xarelto /Endo: Acute on chronic kidney disease Severe hyperkalemia -Monitor renal function closely. Place Scott catheter. -Hyperkalemia treated in the ED with IV calcium chloride, insulin and D50, IV Lasix -I have ordered 2 A of bicarb 100 M EQ, Kayexalate 30 g p.o. x1 -Repeat potassium at 2300 if remains high need hemodialysis -Dr. Dobbins nephrology aware ID: -No evidence of infection, no indication for antibiotics at this time PROPH: -Bilateral lower extremity SCDs. Protonix infusion -Hold Xarelto due to GI bleed LINES: -Utilize peripheral IVs, central line if needed CC time 45 min excluding any procedural time
[2018-01-17] MEDS ORDERED: Sodium Chlor 0.9% Inj 500 ML IV.SIG SCH ×2 (21:00→23:45)
[2018-01-17] MEDS: Sod Chloride 0.9% Inj 1,000 ML IV.SIG SCH ×2 (21:13→21:27)
[2018-01-17] MEDS: Metoprolol Tartrate 25 MG Tablet PO SCH (21:45)
[2018-01-17 22:08] LABS: Bilirubin,Urine Negative (Negative); Clarity,Urine Clear (Clear); Color,Urine Colorless (Yellw/Straw); Glucose,Urine (UA) Negative (Negative); Hyaline Casts,Urine 4 /lpf (0-3); Leukocyte Esterase,Urine Negative (Negative); Mucus,Urine Few /lpf (Occasional); Nitrite,Urine Negative (Negative); Specific Gravity,Urine 1.008 (1.002-1.035); Squamous Epithelial Cell,Urine 1 /hpf (0-5)
[2018-01-17 23:15] LABS: Hematocrit 26.1 % (39.0-51.0); Hemoglobin 8.5 gm/dL (13.0-17.0)
[2018-01-17] MEDS: Senna/Docusate Sodium 8.6/50 MG Tablet PO SCH (23:21)
[2018-01-17 23:36] LABS: Alanine Aminotransferase 7 U/L (12-78); Albumin 1.8 g/dL (3.4-5.0); Alkaline Phosphatase 24 U/L (45-117); Anion Gap 9 meq/L (5-15); Aspartate Aminotransferase 9 U/L (15-37); Blood Urea Nitrogen 47 mg/dL (7-18); Carbon Dioxide 14.8 meq/L (21.0-32.0); Chloride 128 meq/L (98-107); Glomerular Filtration Rate 48 mL/min (>89); Glucose,Random 60 mg/dL (74-106); Potassium 3.9 meq/L (3.5-5.1); Sodium 152 meq/L (136-145); Total Protein 3.5 g/dL (6.4-8.2)
[2018-01-17] MEDS ORDERED: Sodium Chloride 0.45 % Inj 1,000 ML IV.CONT SCH (23:53)
[2018-01-17] MEDS ORDERED: Calcium Chloride Inj 2 GM in Dextrose 5% in Water Inj 100 ML IV.SIG ONE ×2 (23:53)
[2018-01-17] MEDS ORDERED: Dextrose 5%/NaCl 0.45% Inj 1,000 ML IV.CONT SCH (23:54)
[2018-01-18] MEDS ORDERED: Chlorhexidine Gluconate 2% 1 Pack (2 Cloths) TOPICAL PRN (04:00)
[2018-01-18 04:14] LABS: Baso % (Auto) 0.6 % (0.0-2.0); Eos # (Auto) 0.2 th/mm3 (0.0-0.4); Eos % (Auto) 2.9 % (0.0-4.0); Hematocrit 25.5 % (39.0-51.0); Hemoglobin 8.5 gm/dL (13.0-17.0); Lymph # (Auto) 1.7 th/mm3 (1.0-4.8); Lymph % (Auto) 22.6 % (9.0-44.0); Mean Corpuscular HGB Conc 33.4 % (32.0-36.0); Mean Corpuscular Hemoglobin 27.1 pg (27.0-34.0); Mean Platelet Volume 7.1 fL (7.0-11.0); Mono # (Auto) 1.1 th/mm3 (0.0-0.9); Mono % (Auto) 14.1 % (0.0-8.0); Neut # (Auto) 4.5 th/mm3 (1.8-7.7); Neut % (Auto) 59.8 % (16.0-70.0); Platelet Count 246 th/mm3 (150-450); Red Blood Count 3.14 mil/mm3 (4.50-5.90); White Blood Count 7.6 th/mm3 (4.0-11.0)
[2018-01-18 04:47] LABS: Alanine Aminotransferase 12 U/L (12-78); Albumin 3.5 g/dL (3.4-5.0); Alkaline Phosphatase 41 U/L (45-117); Anion Gap 10 meq/L (5-15); Aspartate Aminotransferase 8 U/L (15-37); Blood Urea Nitrogen 78 mg/dL (7-18); Calcium 8.5 mg/dL (8.5-10.1); Carbon Dioxide 22.5 meq/L (21.0-32.0); Chloride 108 meq/L (98-107); Glomerular Filtration Rate 22 mL/min (>89); Glucose,Random 133 mg/dL (74-106); Potassium 6.3 meq/L (3.5-5.1); Sodium 140 meq/L (136-145); Total Protein 6.6 g/dL (6.4-8.2)
[2018-01-18] MEDS ORDERED: Dextrose 50% in Water 50 ML Vial IV.PUSH ONE (07:58)
--- NOTE | 2018-01-18 08:20 | P.PNCC ---
Subjective Subjective Remarks/Hospital Course: 01/17: 72-year-old male with a history of CHF, AICD placement, cardiomyopathy ejection fraction 25%, atrial fibrillation on xarelto, COPD, HTN, chronic kidney disease, presented to the ED for evaluation of bloody stool and fatigue. Intermittent lower GI bleed for the last 3 week. He is on Xarelto for chronic A. fib. He also complained of hematemesis last 3 days, 2 episodes. His hemoglobin came back at his baseline which is about 10. However his BUN was elevated at 89 creatinine was 3.4, baseline creatinine is 1.3-1.7. He also had severe hyperkalemia potassium was 7.9. EKG showed paced rhythm, underlying A. fib. Patient received IV calcium chloride, IV insulin followed by D50, breathing treatments with albuterol, and critical care medicine was requested to admit the patient. Nephrology Dr. Dobbins also was consulted. Patient also received IV Lasix 40 mg. Apparently he takes Bumex which was recently discontinued but he was still taking the potassium at home. In addition today above treatment I have instructed ED to administer 2 amps of bicarb, Kayexalate 30 g p.o. x1. IV fluid 500 mL bolus, followed by normal saline maintenance at 75 ml per hour. And place a Scott catheter. 01/18: Resting in bed, not in any acute distress. Elevated potassium noted this morning for which glucose/insulin, calcium chloride, bicarb, Kayexalate ordered. Objective Vital Signs / I&O: Vital Signs 01/17/18 15:15 01/17/18 16:43 01/17/18 17:59 Temperature 97.9 F Pulse Rate 75 80 Respiratory Rate 18 20 Blood Pressure 115/62 138/76 Pulse Oximetry 95 95 100 01/17/18 19:49 01/17/18 21:18 01/18/18 00:37 Temperature Pulse Rate 61 59 L 71 Respiratory Rate 18 16 16 Blood Pressure 115/78 115/71 Pulse Oximetry 01/18/18 01:00 01/18/18 02:00 01/18/18 03:00 Temperature 97.9 F Pulse Rate 61 64 62 Respiratory Rate 22 18 22 Blood Pressure 122/64 102/60 80/53 L Pulse Oximetry 97 95 93 L 01/18/18 04:00 01/18/18 04:28 01/18/18 04:30 Temperature 98.8 F Pulse Rate 68 65 64 Respiratory Rate 22 20 17 Blood Pressure 92/54 L 100/63 Pulse Oximetry 95 95 96 01/18/18 05:00 01/18/18 05:31 01/18/18 05:36 Temperature Pulse Rate 64 63 63 Respiratory Rate 17 19 14 Blood Pressure 100/63 83/52 L Pulse Oximetry 98 96 96 01/18/18 06:00 01/18/18 07:00 01/18/18 08:00 Temperature 98.8 F 97.9 F Pulse Rate 63 74 73 Respiratory Rate 16 16 15 Blood Pressure 83/52 L 83/52 L Pulse Oximetry 99 97 97 Intake & Output 01/17/18 01/18/18 01/18/18 18:59 06:59 18:59 Intake Total 1000 / 1000 Output Total 500 / 500 Balance 500 / 500 Weight 90.718 kg 95 kg Intake: IV 1000 / 1000 NS Inj 1,000 ML @ 2000 mls/hr 1000 / 1000 IV.SIG Q30M [facility] Rx#:[id number] Output: Urine Amount (Catheter) 500 / 500 Indwelling Urethral Catheter 500 / 500 Other: Weight On Admission 95 kg Result Diagrams: 01/18/18 03:22 01/18/18 03:22 Other Results: Laboratory Results - last 24 hr 01/17/18 01/17/18 01/17/18 17:00 17:00 17:00 WBC 5.5 RBC 3.65 L Hgb 10.0 L Hct 30.5 L MCV 83.8 MCH 27.6 MCHC 32.9 RDW 20.6 H Plt Count 302 MPV 7.3 Neut % (Auto) 46.9 Lymph % (Auto) 31.9 Powell % (Auto) 15.3 H Eos % (Auto) 4.7 H Baso % (Auto) 1.2 Neut # (Auto) 2.6 Lymph # (Auto) 1.8 Powell # (Auto) 0.8 Eos # (Auto) 0.3 Baso # (Auto) 0.1 WBC Differential . Differential Comment Auto diff final PT 11.0 INR 1.1 APTT 27.3 Sodium Potassium Chloride Carbon Dioxide Anion Gap BUN Creatinine Estimated GFR Random Glucose Calcium Prot Corrected Calcium Total Bilirubin AST ALT Alkaline Phosphatase Troponin I Total Protein Albumin Lipase Urine Color Urine Clarity Urine pH Ur Specific [place] Urine Protein Urine Glucose (UA) Urine Ketones Urine Occult Blood Urine Nitrate Urine Bilirubin Urine Urobilinogen Ur Leukocyte Esterase Urine RBC Ur Squamous Epith Cells Hyaline Casts Urine Mucus Micro UA Comment Ur Microscopic Review Urine Culture Comments Nasal Screen MRSA (PCR) Blood Type A Positive Blood Type Recheck Not needed Antibody Screen Negative 01/17/18 01/17/18 01/17/18 18:00 20:50 20:50 WBC RBC Hgb Hct MCV MCH MCHC RDW Plt Count MPV Neut % (Auto) Lymph % (Auto) Powell % (Auto) Eos % (Auto) Baso % (Auto) Neut # (Auto) Lymph # (Auto) Powell # (Auto) Eos # (Auto) Baso # (Auto) WBC Differential Differential Comment PT INR APTT Sodium 138 Potassium 7.9 H* Chloride 109 H Carbon Dioxide 25.0 Anion Gap 4 L BUN 89 H Creatinine 3.41 H Estimated GFR 18 L Random Glucose 103 Calcium 8.8 Prot Corrected Calcium Total Bilirubin 0.3 AST 12 L ALT 16 Alkaline Phosphatase 47 Troponin I Less than 0.02 L Total Protein 7.5 Albumin 3.9 Lipase 452 H Urine Color Colorless Urine Clarity Clear Urine pH 5.0 Ur Specific [place] 1.008 Urine Protein Negative Urine Glucose (UA) Negative Urine Ketones Negative Urine Occult Blood Negative Urine Nitrate Negative Urine Bilirubin Negative Urine Urobilinogen Less than 2 Ur Leukocyte Esterase Negative Urine RBC 12 H Ur Squamous Epith Cells 1 Hyaline Casts 4 Urine Mucus Few H Micro UA Comment Cath-culture not ind Ur Microscopic Review Not Reportable Urine Culture Comments Cath-cult not ind Nasal Screen MRSA (PCR) Blood Type Blood Type Recheck Antibody Screen 01/17/18 01/17/18 01/18/18 23:00 23:00 01:45 WBC RBC Hgb 8.5 L Hct 26.1 L MCV MCH MCHC RDW Plt Count MPV Neut % (Auto) Lymph % (Auto) Powell % (Auto) Eos % (Auto) Baso % (Auto) Neut # (Auto) Lymph # (Auto) Powell # (Auto) Eos # (Auto) Baso # (Auto) WBC Differential Differential Comment PT INR APTT Sodium 152 H D Potassium 3.9 D Chloride 128 H D Carbon Dioxide 14.8 L D Anion Gap 9 BUN 47 H Creatinine 1.45 H Estimated GFR 48 L Random Glucose 60 L Calcium Less than 5.0 L* D Prot Corrected Calcium 6.5 L* Total Bilirubin 0.1 L AST 9 L ALT 7 L Alkaline Phosphatase 24 L Troponin I Total Protein 3.5 L D Albumin 1.8 L D Lipase Urine Color Urine Clarity Urine pH Ur Specific [place] Urine Protein Urine Glucose (UA) Urine Ketones Urine Occult Blood Urine Nitrate Urine Bilirubin Urine Urobilinogen Ur Leukocyte Esterase Urine RBC Ur Squamous Epith Cells Hyaline Casts Urine Mucus Micro UA Comment Ur Microscopic Review Urine Culture Comments Nasal Screen MRSA (PCR) Not detected Blood Type Blood Type Recheck Antibody Screen 01/18/18 01/18/18 03:22 03:22 WBC 7.6 RBC 3.14 L Hgb 8.5 L Hct 25.5 L MCV 81.0 MCH 27.1 MCHC 33.4 RDW 20.0 H Plt Count 246 MPV 7.1 Neut % (Auto) 59.8 Lymph % (Auto) 22.6 Powell % (Auto) 14.1 H Eos % (Auto) 2.9 Baso % (Auto) 0.6 Neut # (Auto) 4.5 Lymph # (Auto) 1.7 Powell # (Auto) 1.1 H Eos # (Auto) 0.2 Baso # (Auto) 0.0 WBC Differential . Differential Comment Auto diff final PT INR APTT Sodium 140 D Potassium 6.3 H D Chloride 108 H D Carbon Dioxide 22.5 Anion Gap 10 BUN 78 H Creatinine 2.87 H Estimated GFR 22 L Random Glucose 133 H Calcium 8.5 D Prot Corrected Calcium Total Bilirubin 0.3 AST 8 L ALT 12 Alkaline Phosphatase 41 L Troponin I Total Protein 6.6 D Albumin 3.5 D Lipase Urine Color Urine Clarity Urine pH Ur Specific [place] Urine Protein Urine Glucose (UA) Urine Ketones Urine Occult Blood Urine Nitrate Urine Bilirubin Urine Urobilinogen Ur Leukocyte Esterase Urine RBC Ur Squamous Epith Cells Hyaline Casts Urine Mucus Micro UA Comment Ur Microscopic Review Urine Culture Comments Nasal Screen MRSA (PCR) Blood Type Blood Type Recheck Antibody Screen Imaging: Impressions Chest X-Ray 01/17/18 20:05 CONCLUSION: No acute cardiopulmonary disease. Objective Remarks: GENERAL: Well-nourished and well-developed male who is lying in bed, no acute distress SKIN: Warm and dry. HEAD: Normocephalic and atraumatic. EYES: PERRLA. EOMI. conjunctival pallor present ENT: No nasal drainage noted. Oral mucosa is moist NECK: Supple and the trachea is midline. CARDIOVASCULAR: Underlying A. fib, with paced rhythm. Left upper chest pacemaker in place RESPIRATORY: Breath sounds are equal bilaterally with no accessory muscle use, or wheezing GASTROINTESTINAL: Abdomen is soft, non-tender, and nondistended. RECTAL EXAM: Deferred MUSCULOSKELETAL: Distal pulses are 2+ throughout. NEUROLOGICAL: Awake, alert, and oriented. Normal speech and gait. No obvious focal deficits Assessment and Plan - Problem List (1) Acute kidney injury superimposed on chronic kidney disease Code(s): N17.9 - Acute kidney failure, unspecified; N18.9 - Chronic kidney disease, unspecified Status: Acute (2) Acute hyperkalemia Code(s): E87.5 - Hyperkalemia Status: Acute (3) Acute GI bleeding Code(s): K92.2 - Gastrointestinal hemorrhage, unspecified Status: Acute (4) COPD (chronic obstructive pulmonary disease) Code(s): J44.9 - Chronic obstructive pulmonary disease, unspecified Status: Chronic (5) CHF (congestive heart failure) Code(s): I50.9 - Heart failure, unspecified Status: Chronic (6) Cardiomyopathy Code(s): I42.9 - Cardiomyopathy, unspecified Status: Chronic (7) Atrial fibrillation Code(s): I48.91 - Unspecified atrial fibrillation Status: Chronic (8) Chronic anticoagulation Code(s): Z79.01 - oysterman (current) use of anticoagulants Status: Chronic - Assessment and Plan Plan: NEURO: -Minimize sedation -Patient does not complain about any pain at this time RESP: History of COPD -DuoNeb every 6 hours scheduled and as needed -No evidence of COPD exacerbation at this time CV: Chronic atrial fibrillation on Xarelto CHF/cardiomyopathy EF 25% History of hypertension now hypotensive -CHF is compensated at this time -Normal saline IV fluids 500 ml bolus and 75 ml per hour -Check troponin -Hold aspirin hold Xarelto secondary to GI bleed -Hold all home antihypertensives secondary to borderline hypotension GI/Heme: GI bleed -N.p.o., Protonix IV bolus and infusion at 8 mg/h -GI consulted, EGD unremarkable, scheduled for colonoscopy on 01/19 -Serial H&H, no indication for transfusion at this time -Hold Xarelto /Endo: Acute on chronic kidney disease Severe hyperkalemia -Monitor renal function closely. Continue Scott catheter. -Given additional Glucose/ insulin, Bicarb, Calcium, PO Kayexalate. Follow up BMP -Dr. Dobbins nephrology aware ID: -No evidence of infection, no indication for antibiotics at this time PROPH: -Bilateral lower extremity SCDs. Protonix infusion -Hold Xarelto due to GI bleed LINES: -Utilize peripheral IVs, central line if needed CC time 35 min excluding any procedural time
[2018-01-18] MEDS: Senna/Docusate Sodium 8.6/50 MG Tablet PO SCH ×2 (08:54→21:28)
[2018-01-18] MEDS: Metoprolol Tartrate 25 MG Tablet PO SCH ×2 (08:54→21:29)
[2018-01-18] MEDS ORDERED: dilTIAZem CD 120 MG Capsule PO SCH (09:00)
[2018-01-18] MEDS: Sodium Polystyrene Sulfonate/Sorbitol Liq 15 GM/60 ML UDC PO SCH ×5 (09:08→17:32)
[2018-01-18] MEDS: Sodium Bicarbonate 8.4% Inj 100 MEQ in Dextrose 5% in Water Inj 900 ML IV.CONT SCH ×2 (09:08)
[2018-01-18] MEDS ORDERED: Calcium Chloride Inj 1 GM in Sodium Chlor 0.9% Inj 100 ML IV.SIG ONE (10:00)
[2018-01-18] MEDS: Pantoprazole Inj 40 MG Vial IV.PUSH SCH ×3 (10:37→21:28)
--- NOTE | 2018-01-18 11:16 | P.CONGI ---
History of Present Illness Consult date: 01/18/18 Consult reason: GI bleed on Xarelto for Kelly tristan Chief complaint: Hyperkalemia, renal failure, GI bleed History of Present Illness: This patient is a 72-year-old male who has a history of congestive heart failure , AICD placement, cardiomyopathy, atrial fibrillation on Xarelto, COPD, hypertension and chronic kidney disease. Patient presented to the emergency room at [facility] with a complaint of bloody stool and generalized weakness and fatigue. Patient stated dark stools onset 3 weeks. Of note, patient is on Xarelto for chronic atrial fibrillation. Patient states last dose was Monday p.m. prior to admission. Patient also reports hematocrit was 2 episodes after that over the last 2-3 days. Upon admission BUN and creatinine noted to be elevated. Patient also had noted hyperkalemia with a potassium of 7.9. On consultation patient reports last dose of Xarelto taken 2 days ago Monday evening. Patient endorses generalized fatigue and weakness with blood noted in his stool for 3 weeks. He reports hematemesis for the last 2-3 days and states "look like coffee". Stools have been dark with bright red blood noted in toilet water. Patient denies severe abdominal pain but does report generalized abdominal cramping and rates same at 2 out of 10. Patient denies any history of ever having had an EGD or colonoscopy in the past and denies any abdominal surgeries. Denies tobacco use and states he is a social drinker. Of note patient states that he had been taking Aleve 1 tablet daily for back pain for "weeks". Our service has been consulted to evaluate patient's GI bleed. <Macy Law - Last Filed: 01/18/18 11:02> Review of Systems All other systems reviewed negative except as stated in HPI <Macy Law - Last Filed: 01/18/18 11:02> PMFSH - History History Provided By: Patient - Medical History Medical History: Medical History (Last Reviewed 01/17/18 @ 20:44 by Stef Locke MD) COPD (chronic obstructive pulmonary disease) Hypertension Pacemaker - Tobacco History Second Hand Smoke Exposure: No Smoking Status: Former smoker - Alcohol History How Often Do You Have a Drink Containing Alcohol: 4 or more times a week - Substance Use History Substance History: No History of Abuse - Travel History Recent Travel in the [place] Within the Last 8 Weeks: No Recent Travel Out of the Country Within the Last 8 Weeks: No - Immunization History Tetanus Immunization: <5 Years <Macy Law - Last Filed: 01/18/18 11:02> - Medical History Medical History: Medical History (Last Reviewed 01/17/18 @ 20:44 by Stef Locke MD) COPD (chronic obstructive pulmonary disease) Hypertension Pacemaker <Hi Simpson - Last Filed: 01/18/18 11:47> Medications and Allergies Active Medications: Active Medications Acetaminophen (Tylenol) 650 mg PO Q6H PRN PRN Reason: PAIN 1-10 AND/OR FEVER >101F Al Hydroxide/Mg Hydroxide (Milk Of Magnesia Liq) 30 ml PO Q12H PRN PRN Reason: Mild Constipation Albuterol (Duoneb Neb (Prn)) 1 ampul INH Q6HR NEB PRN PRN Reason: Shortness Of Breath Albuterol (Duoneb Neb (Prn)) 1 ampul NEB Q2HR NEB PRN PRN Reason: WHEEZING Atorvastatin Calcium (Lipitor) 20 mg PO DAILY [facility] Last Admin: 01/18/18 08:53 Dose: 20 mg Bisacodyl (Dulcolax Supp) 10 mg RECTAL DAILY PRN PRN Reason: SEVERE CONSITIPATION Chlorhexidine Gluconate (Chlorhexidine 2% Cloth) 3 pack TOPICAL DAILY@0400 [facility] Stop: 01/23/18 03:59 Chlorhexidine Gluconate (Chlorhexidine 2% Cloth) 3 pack TOPICAL DAILY@0400 PRN PRN Reason: Extra cloth needed Stop: 01/23/18 03:59 Diltiazem HCl (Cardizem Cd 24hr) 120 mg PO DAILY [facility] Last Admin: 01/18/18 08:54 Dose: Not Given Fluticasone/Vilanterol (Breo Ellipta 100/25 Mcg Inh) 1 puff INH DAILY [facility] Pantoprazole Sodium 80 mg/ (Sodium Chloride) 100 mls @ 10 mls/hr IV.CONT CONT [facility] Sodium Bicarbonate 100 meq/ (Dextrose) 1,000 mls @ 84 mls/hr IV.CONT .[id number] [facility] Last Admin: 01/18/18 09:08 Dose: 84 mls/hr Lactulose (Lactulose Liq) 30 ml PO DAILY PRN PRN Reason: SEVERE CONSITIPATION Lisinopril (Prinivil) 20 mg PO HS [facility] Metoprolol Tartrate (Lopressor) 75 mg PO BID [facility] Last Admin: 01/18/18 08:54 Dose: Not Given Pantoprazole Sodium (Protonix Inj) 40 mg IV.PUSH Q12H [facility] Last Admin: 01/18/18 10:46 Dose: 40 mg Senna/Docusate Sodium (Kymberly-Colace) 1 tab PO BID [facility] Last Admin: 01/18/18 08:54 Dose: Not Given Sennosides (Senokot) 17.2 mg PO Q12H PRN PRN Reason: Moderate Constipation Sodium Chloride (Ns Flush) 2 ml IV.FLUSH PRN PRN PRN Reason: FLUSH AFTER USING IV ACCESS Sodium Polystyrene Sulfonate (Kayexalate Liq) 30 gm PO Q2H [facility] Stop: 01/18/18 16:00 Last Admin: 01/18/18 10:48 Dose: 30 gm <Macy Law - Last Filed: 01/18/18 11:02> Active Medications: Active Medications Acetaminophen (Tylenol) 650 mg PO Q6H PRN PRN Reason: PAIN 1-10 AND/OR FEVER >101F Al Hydroxide/Mg Hydroxide (Milk Of Magnesia Liq) 30 ml PO Q12H PRN PRN Reason: Mild Constipation Albuterol (Duoneb Neb (Prn)) 1 ampul INH Q6HR NEB PRN PRN Reason: Shortness Of Breath Albuterol (Duoneb Neb (Prn)) 1 ampul NEB Q2HR NEB PRN PRN Reason: WHEEZING Atorvastatin Calcium (Lipitor) 20 mg PO DAILY [facility] Last Admin: 01/18/18 08:53 Dose: 20 mg Bisacodyl (Dulcolax Supp) 10 mg RECTAL DAILY PRN PRN Reason: SEVERE CONSITIPATION Chlorhexidine Gluconate (Chlorhexidine 2% Cloth) 3 pack TOPICAL DAILY@0400 [facility] Stop: 01/23/18 03:59 Chlorhexidine Gluconate (Chlorhexidine 2% Cloth) 3 pack TOPICAL DAILY@0400 PRN PRN Reason: Extra cloth needed Stop: 01/23/18 03:59 Diltiazem HCl (Cardizem Cd 24hr) 120 mg PO DAILY [facility] Last Admin: 01/18/18 08:54 Dose: Not Given Fluticasone/Vilanterol (Breo Ellipta 100/25 Mcg Inh) 1 puff INH DAILY [facility] Pantoprazole Sodium 80 mg/ (Sodium Chloride) 100 mls @ 10 mls/hr IV.CONT CONT [facility] Sodium Bicarbonate 100 meq/ (Dextrose) 1,000 mls @ 84 mls/hr IV.CONT .[id number] [facility] Last Admin: 01/18/18 09:08 Dose: 84 mls/hr Lactulose (Lactulose Liq) 30 ml PO DAILY PRN PRN Reason: SEVERE CONSITIPATION Lisinopril (Prinivil) 20 mg PO HS [facility] Metoprolol Tartrate (Lopressor) 75 mg PO BID [facility] Last Admin: 01/18/18 08:54 Dose: Not Given Pantoprazole Sodium (Protonix Inj) 40 mg IV.PUSH Q12H [facility] Last Admin: 01/18/18 10:46 Dose: 40 mg Senna/Docusate Sodium (Kymberly-Colace) 1 tab PO BID [facility] Last Admin: 01/18/18 08:54 Dose: Not Given Sennosides (Senokot) 17.2 mg PO Q12H PRN PRN Reason: Moderate Constipation Sodium Chloride (Ns Flush) 2 ml IV.FLUSH PRN PRN PRN Reason: FLUSH AFTER USING IV ACCESS Sodium Polystyrene Sulfonate (Kayexalate Liq) 30 gm PO Q2H [facility] Stop: 01/18/18 16:00 Last Admin: 01/18/18 10:48 Dose: 30 gm <Hi Simpson - Last Filed: 01/18/18 11:47> Allergies Allergy/AdvReac Type Severity Reaction Status Date / Time No Known Allergies Allergy Verified 01/17/18 15:22 Home Medications Medication Instructions Recorded Confirmed Type aspirin 81 mg PO DAILY 01/17/18 01/17/18 History atorvastatin [Lipitor] 20 mg PO DAILY 01/17/18 01/17/18 History bumetanide 2 mg PO DAILY 01/17/18 01/17/18 History diltiazem HCl 120 mg PO DAILY 01/17/18 01/17/18 History ferrous sulfate 325 mg PO EVERY OTHER DAY 01/17/18 01/17/18 History fluticasone-vilanterol [Breo 1 inh INHALATION DAILY 01/17/18 01/17/18 History Ellipta] ipratropium-albuterol 3 ml INHALATION Q6-8H PRN 01/17/18 01/17/18 History metoprolol tartrate 75 mg PO BID 01/17/18 01/17/18 History potassium chloride [Klor-Con M20] 40 meq PO DAILY 01/17/18 01/17/18 History quinapril 20 mg PO HS 01/17/18 01/17/18 History rivaroxaban [Xarelto] 15 mg PO QPM 01/17/18 01/17/18 History Exam Vital signs: Vital Signs 01/17/18 15:15 01/17/18 16:43 01/17/18 17:59 Temperature 97.9 F Pulse Rate 75 80 Respiratory Rate 18 20 Blood Pressure 115/62 138/76 Pulse Oximetry 95 95 100 01/17/18 19:49 01/17/18 21:18 01/18/18 00:37 Temperature Pulse Rate 61 59 L 71 Respiratory Rate 18 16 16 Blood Pressure 115/78 115/71 Pulse Oximetry 01/18/18 01:00 01/18/18 02:00 01/18/18 03:00 Temperature 97.9 F Pulse Rate 61 64 62 Respiratory Rate 22 18 22 Blood Pressure 122/64 102/60 80/53 L Pulse Oximetry 97 95 93 L 01/18/18 04:00 01/18/18 04:28 01/18/18 04:30 Temperature 98.8 F Pulse Rate 68 65 64 Respiratory Rate 22 20 17 Blood Pressure 92/54 L 100/63 Pulse Oximetry 95 95 96 01/18/18 05:00 01/18/18 05:31 01/18/18 05:36 Temperature Pulse Rate 64 63 63 Respiratory Rate 17 19 14 Blood Pressure 100/63 83/52 L Pulse Oximetry 98 96 96 01/18/18 06:00 01/18/18 07:00 01/18/18 08:00 Temperature 98.8 F 97.9 F Pulse Rate 63 74 73 Respiratory Rate 16 16 15 Blood Pressure 83/52 L 83/52 L Pulse Oximetry 99 97 97 01/18/18 09:00 01/18/18 09:32 01/18/18 10:00 Temperature Pulse Rate 75 77 78 Respiratory Rate 19 19 18 Blood Pressure 103/59 L 100/56 L Pulse Oximetry 97 97 94 L 01/18/18 10:30 01/18/18 11:00 Temperature Pulse Rate 78 80 Respiratory Rate 26 H 20 Blood Pressure 110/74 111/70 Pulse Oximetry 97 94 L Intake & Output 01/17/18 01/18/18 01/18/18 18:59 06:59 18:59 Intake Total 1000 / 1000 Output Total 500 / 500 Balance 500 / 500 Weight 90.718 kg 95 kg Intake: IV 1000 / 1000 NS Inj 1,000 ML @ 2000 mls/hr 1000 / 1000 IV.SIG Q30M [facility] Rx#:[id number] Output: Urine Amount (Catheter) 500 / 500 Indwelling Urethral Catheter 500 / 500 Other: Weight On Admission 95 kg - Constitutional no acute distress - Routine HEENT Exam Head: Present: normocephalic - Routine Respiratory Exam Present: CTA bilaterally. Absent: accessory muscle use - Routine Cardiovascular Exam Comments: Atrial fib - Routine Abdominal Exam Present: soft, normoactive bowel sounds. Absent: tenderness, distended, guarding, firm - Routine Extremities Exam Present: full ROM, pulses intact. Absent: edema - Routine Skin Exam Present: dry, warm - Routine Neurological Exam Present: alert, oriented X3 <Law,Macy - Last Filed: 01/18/18 11:02> Vital signs: Vital Signs 01/17/18 15:15 01/17/18 16:43 01/17/18 17:59 Temperature 97.9 F Pulse Rate 75 80 Respiratory Rate 18 20 Blood Pressure 115/62 138/76 Pulse Oximetry 95 95 100 01/17/18 19:49 01/17/18 21:18 01/18/18 00:37 Temperature Pulse Rate 61 59 L 71 Respiratory Rate 18 16 16 Blood Pressure 115/78 115/71 Pulse Oximetry 01/18/18 01:00 01/18/18 02:00 01/18/18 03:00 Temperature 97.9 F Pulse Rate 61 64 62 Respiratory Rate 22 18 22 Blood Pressure 122/64 102/60 80/53 L Pulse Oximetry 97 95 93 L 01/18/18 04:00 01/18/18 04:28 01/18/18 04:30 Temperature 98.8 F Pulse Rate 68 65 64 Respiratory Rate 22 20 17 Blood Pressure 92/54 L 100/63 Pulse Oximetry 95 95 96 01/18/18 05:00 01/18/18 05:31 01/18/18 05:36 Temperature Pulse Rate 64 63 63 Respiratory Rate 17 19 14 Blood Pressure 100/63 83/52 L Pulse Oximetry 98 96 96 01/18/18 06:00 01/18/18 07:00 01/18/18 08:00 Temperature 98.8 F 97.9 F Pulse Rate 63 74 73 Respiratory Rate 16 16 15 Blood Pressure 83/52 L 83/52 L Pulse Oximetry 99 97 97 01/18/18 09:00 01/18/18 09:32 01/18/18 10:00 Temperature Pulse Rate 75 77 78 Respiratory Rate 19 19 18 Blood Pressure 103/59 L 100/56 L Pulse Oximetry 97 97 94 L 01/18/18 10:30 01/18/18 11:00 Temperature Pulse Rate 78 80 Respiratory Rate 26 H 20 Blood Pressure 110/74 111/70 Pulse Oximetry 97 94 L Intake & Output 01/17/18 01/18/18 01/18/18 18:59 06:59 18:59 Intake Total 1000 / 1000 Output Total 500 / 500 Balance 500 / 500 Weight 90.718 kg 95 kg Intake: IV 1000 / 1000 NS Inj 1,000 ML @ 2000 mls/hr 1000 / 1000 IV.SIG Q30M [facility] Rx#:[id number] Output: Urine Amount (Catheter) 500 / 500 Indwelling Urethral Catheter 500 / 500 Other: Weight On Admission 95 kg <Hi Simpson - Last Filed: 01/18/18 11:47> Results - Labs CBC & Chem 7: 01/18/18 03:22 01/18/18 03:22 Labs: Laboratory Results - last 24 hr 01/17/18 01/17/18 01/17/18 17:00 17:00 17:00 WBC 5.5 RBC 3.65 L Hgb 10.0 L Hct 30.5 L MCV 83.8 MCH 27.6 MCHC 32.9 RDW 20.6 H Plt Count 302 MPV 7.3 Neut % (Auto) 46.9 Lymph % (Auto) 31.9 [place] % (Auto) 15.3 H Eos % (Auto) 4.7 H Baso % (Auto) 1.2 Neut # (Auto) 2.6 Lymph # (Auto) 1.8 [place] # (Auto) 0.8 Eos # (Auto) 0.3 Baso # (Auto) 0.1 WBC Differential . Differential Comment Auto diff final PT 11.0 INR 1.1 APTT 27.3 Sodium Potassium Chloride Carbon Dioxide Anion Gap BUN Creatinine Estimated GFR Random Glucose Calcium Prot Corrected Calcium Total Bilirubin AST ALT Alkaline Phosphatase Troponin I Total Protein Albumin Lipase Urine Color Urine Clarity Urine pH Ur Specific [place] Urine Protein Urine Glucose (UA) Urine Ketones Urine Occult Blood Urine Nitrate Urine Bilirubin Urine Urobilinogen Ur Leukocyte Esterase Urine RBC Ur Squamous Epith Cells Hyaline Casts Urine Mucus Micro UA Comment Ur Microscopic Review Urine Culture Comments Nasal Screen MRSA (PCR) Blood Type A Positive Blood Type Recheck Not needed Antibody Screen Negative 01/17/18 01/17/18 01/17/18 18:00 20:50 20:50 WBC RBC Hgb Hct MCV MCH MCHC RDW Plt Count MPV Neut % (Auto) Lymph % (Auto) [place] % (Auto) Eos % (Auto) Baso % (Auto) Neut # (Auto) Lymph # (Auto) [place] # (Auto) Eos # (Auto) Baso # (Auto) WBC Differential Differential Comment PT INR APTT Sodium 138 Potassium 7.9 H* Chloride 109 H Carbon Dioxide 25.0 Anion Gap 4 L BUN 89 H Creatinine 3.41 H Estimated GFR 18 L Random Glucose 103 Calcium 8.8 Prot Corrected Calcium Total Bilirubin 0.3 AST 12 L ALT 16 Alkaline Phosphatase 47 Troponin I Less than 0.02 L Total Protein 7.5 Albumin 3.9 Lipase 452 H Urine Color Colorless Urine Clarity Clear Urine pH 5.0 Ur Specific [place] 1.008 Urine Protein Negative Urine Glucose (UA) Negative Urine Ketones Negative Urine Occult Blood Negative Urine Nitrate Negative Urine Bilirubin Negative Urine Urobilinogen Less than 2 Ur Leukocyte Esterase Negative Urine RBC 12 H Ur Squamous Epith Cells 1 Hyaline Casts 4 Urine Mucus Few H Micro UA Comment Cath-culture not ind Ur Microscopic Review Not Reportable Urine Culture Comments Cath-cult not ind Nasal Screen MRSA (PCR) Blood Type Blood Type Recheck Antibody Screen 01/17/18 01/17/18 01/18/18 23:00 23:00 01:45 WBC RBC Hgb 8.5 L Hct 26.1 L MCV MCH MCHC RDW Plt Count MPV Neut % (Auto) Lymph % (Auto) [place] % (Auto) Eos % (Auto) Baso % (Auto) Neut # (Auto) Lymph # (Auto) [place] # (Auto) Eos # (Auto) Baso # (Auto) WBC Differential Differential Comment PT INR APTT Sodium 152 H D Potassium 3.9 D Chloride 128 H D Carbon Dioxide 14.8 L D Anion Gap 9 BUN 47 H Creatinine 1.45 H Estimated GFR 48 L Random Glucose 60 L Calcium Less than 5.0 L* D Prot Corrected Calcium 6.5 L* Total Bilirubin 0.1 L AST 9 L ALT 7 L Alkaline Phosphatase 24 L Troponin I Total Protein 3.5 L D Albumin 1.8 L D Lipase Urine Color Urine Clarity Urine pH Ur Specific [place] Urine Protein Urine Glucose (UA) Urine Ketones Urine Occult Blood Urine Nitrate Urine Bilirubin Urine Urobilinogen Ur Leukocyte Esterase Urine RBC Ur Squamous Epith Cells Hyaline Casts Urine Mucus Micro UA Comment Ur Microscopic Review Urine Culture Comments Nasal Screen MRSA (PCR) Not detected Blood Type Blood Type Recheck Antibody Screen 01/18/18 01/18/18 03:22 03:22 WBC 7.6 RBC 3.14 L Hgb 8.5 L Hct 25.5 L MCV 81.0 MCH 27.1 MCHC 33.4 RDW 20.0 H Plt Count 246 MPV 7.1 Neut % (Auto) 59.8 Lymph % (Auto) 22.6 [place] % (Auto) 14.1 H Eos % (Auto) 2.9 Baso % (Auto) 0.6 Neut # (Auto) 4.5 Lymph # (Auto) 1.7 [place] # (Auto) 1.1 H Eos # (Auto) 0.2 Baso # (Auto) 0.0 WBC Differential . Differential Comment Auto diff final PT INR APTT Sodium 140 D Potassium 6.3 H D Chloride 108 H D Carbon Dioxide 22.5 Anion Gap 10 BUN 78 H Creatinine 2.87 H Estimated GFR 22 L Random Glucose 133 H Calcium 8.5 D Prot Corrected Calcium Total Bilirubin 0.3 AST 8 L ALT 12 Alkaline Phosphatase 41 L Troponin I Total Protein 6.6 D Albumin 3.5 D Lipase Urine Color Urine Clarity Urine pH Ur Specific [place] Urine Protein Urine Glucose (UA) Urine Ketones Urine Occult Blood Urine Nitrate Urine Bilirubin Urine Urobilinogen Ur Leukocyte Esterase Urine RBC Ur Squamous Epith Cells Hyaline Casts Urine Mucus Micro UA Comment Ur Microscopic Review Urine Culture Comments Nasal Screen MRSA (PCR) Blood Type Blood Type Recheck Antibody Screen - Imaging Impressions Chest X-Ray 01/17/18 20:05 CONCLUSION: No acute cardiopulmonary disease. <Law,Macy - Last Filed: 01/18/18 11:02> - Labs CBC & Chem 7: 01/18/18 03:22 01/18/18 03:22 Labs: Laboratory Results - last 24 hr 01/17/18 01/17/18 01/17/18 17:00 17:00 17:00 WBC 5.5 RBC 3.65 L Hgb 10.0 L Hct 30.5 L MCV 83.8 MCH 27.6 MCHC 32.9 RDW 20.6 H Plt Count 302 MPV 7.3 Neut % (Auto) 46.9 Lymph % (Auto) 31.9 [place] % (Auto) 15.3 H Eos % (Auto) 4.7 H Baso % (Auto) 1.2 Neut # (Auto) 2.6 Lymph # (Auto) 1.8 [place] # (Auto) 0.8 Eos # (Auto) 0.3 Baso # (Auto) 0.1 WBC Differential . Differential Comment Auto diff final PT 11.0 INR 1.1 APTT 27.3 Sodium Potassium Chloride Carbon Dioxide Anion Gap BUN Creatinine Estimated GFR Random Glucose Calcium Prot Corrected Calcium Total Bilirubin AST ALT Alkaline Phosphatase Troponin I Total Protein Albumin Lipase Urine Color Urine Clarity Urine pH Ur Specific [place] Urine Protein Urine Glucose (UA) Urine Ketones Urine Occult Blood Urine Nitrate Urine Bilirubin Urine Urobilinogen Ur Leukocyte Esterase Urine RBC Ur Squamous Epith Cells Hyaline Casts Urine Mucus Micro UA Comment Ur Microscopic Review Urine Culture Comments Nasal Screen MRSA (PCR) Blood Type A Positive Blood Type Recheck Not needed Antibody Screen Negative 01/17/18 01/17/18 01/17/18 18:00 20:50 20:50 WBC RBC Hgb Hct MCV MCH MCHC RDW Plt Count MPV Neut % (Auto) Lymph % (Auto) [place] % (Auto) Eos % (Auto) Baso % (Auto) Neut # (Auto) Lymph # (Auto) [place] # (Auto) Eos # (Auto) Baso # (Auto) WBC Differential Differential Comment PT INR APTT Sodium 138 Potassium 7.9 H* Chloride 109 H Carbon Dioxide 25.0 Anion Gap 4 L BUN 89 H Creatinine 3.41 H Estimated GFR 18 L Random Glucose 103 Calcium 8.8 Prot Corrected Calcium Total Bilirubin 0.3 AST 12 L ALT 16 Alkaline Phosphatase 47 Troponin I Less than 0.02 L Total Protein 7.5 Albumin 3.9 Lipase 452 H Urine Color Colorless Urine Clarity Clear Urine pH 5.0 Ur Specific [place] 1.008 Urine Protein Negative Urine Glucose (UA) Negative Urine Ketones Negative Urine Occult Blood Negative Urine Nitrate Negative Urine Bilirubin Negative Urine Urobilinogen Less than 2 Ur Leukocyte Esterase Negative Urine RBC 12 H Ur Squamous Epith Cells 1 Hyaline Casts 4 Urine Mucus Few H Micro UA Comment Cath-culture not ind Ur Microscopic Review Not Reportable Urine Culture Comments Cath-cult not ind Nasal Screen MRSA (PCR) Blood Type Blood Type Recheck Antibody Screen 01/17/18 01/17/18 01/18/18 23:00 23:00 01:45 WBC RBC Hgb 8.5 L Hct 26.1 L MCV MCH MCHC RDW Plt Count MPV Neut % (Auto) Lymph % (Auto) [place] % (Auto) Eos % (Auto) Baso % (Auto) Neut # (Auto) Lymph # (Auto) [place] # (Auto) Eos # (Auto) Baso # (Auto) WBC Differential Differential Comment PT INR APTT Sodium 152 H D Potassium 3.9 D Chloride 128 H D Carbon Dioxide 14.8 L D Anion Gap 9 BUN 47 H Creatinine 1.45 H Estimated GFR 48 L Random Glucose 60 L Calcium Less than 5.0 L* D Prot Corrected Calcium 6.5 L* Total Bilirubin 0.1 L AST 9 L ALT 7 L Alkaline Phosphatase 24 L Troponin I Total Protein 3.5 L D Albumin 1.8 L D Lipase Urine Color Urine Clarity Urine pH Ur Specific [place] Urine Protein Urine Glucose (UA) Urine Ketones Urine Occult Blood Urine Nitrate Urine Bilirubin Urine Urobilinogen Ur Leukocyte Esterase Urine RBC Ur Squamous Epith Cells Hyaline Casts Urine Mucus Micro UA Comment Ur Microscopic Review Urine Culture Comments Nasal Screen MRSA (PCR) Not detected Blood Type Blood Type Recheck Antibody Screen 01/18/18 01/18/18 03:22 03:22 WBC 7.6 RBC 3.14 L Hgb 8.5 L Hct 25.5 L MCV 81.0 MCH 27.1 MCHC 33.4 RDW 20.0 H Plt Count 246 MPV 7.1 Neut % (Auto) 59.8 Lymph % (Auto) 22.6 [place] % (Auto) 14.1 H Eos % (Auto) 2.9 Baso % (Auto) 0.6 Neut # (Auto) 4.5 Lymph # (Auto) 1.7 [place] # (Auto) 1.1 H Eos # (Auto) 0.2 Baso # (Auto) 0.0 WBC Differential . Differential Comment Auto diff final PT INR APTT Sodium 140 D Potassium 6.3 H D Chloride 108 H D Carbon Dioxide 22.5 Anion Gap 10 BUN 78 H Creatinine 2.87 H Estimated GFR 22 L Random Glucose 133 H Calcium 8.5 D Prot Corrected Calcium Total Bilirubin 0.3 AST 8 L ALT 12 Alkaline Phosphatase 41 L Troponin I Total Protein 6.6 D Albumin 3.5 D Lipase Urine Color Urine Clarity Urine pH Ur Specific [place] Urine Protein Urine Glucose (UA) Urine Ketones Urine Occult Blood Urine Nitrate Urine Bilirubin Urine Urobilinogen Ur Leukocyte Esterase Urine RBC Ur Squamous Epith Cells Hyaline Casts Urine Mucus Micro UA Comment Ur Microscopic Review Urine Culture Comments Nasal Screen MRSA (PCR) Blood Type Blood Type Recheck Antibody Screen - Imaging Impressions Chest X-Ray 01/17/18 20:05 CONCLUSION: No acute cardiopulmonary disease. <CalvinCherylsusana - Last Filed: 01/18/18 11:47> Assessment and Plan (1) Acute GI bleeding Status: Acute Code(s): K92.2 - Gastrointestinal hemorrhage, unspecified - Plan This patient is a 72-year-old male who has a history of congestive heart failure , AICD placement, cardiomyopathy, atrial fibrillation on Xarelto, COPD, hypertension and chronic kidney disease. Patient presented to the emergency room at [facility] with a complaint of bloody stool and generalized weakness and fatigue. Patient stated dark stools onset 3 weeks. Of note, patient is on Xarelto for chronic atrial fibrillation. Patient states last dose was Monday p.m. prior to admission. Patient also reports hematocrit was 2 episodes after that over the last 2-3 days. Upon admission BUN and creatinine noted to be elevated. Patient also had noted hyperkalemia with a potassium of 7.9. On consultation patient reports last dose of Xarelto taken 2 days ago Monday evening. Patient endorses generalized fatigue and weakness with blood noted in his stool for 3 weeks. He reports hematemesis for the last 2-3 days and states "look like coffee". Stools have been dark with bright red blood noted in toilet water. Patient denies severe abdominal pain but does report generalized abdominal cramping and rates same at 2 out of 10. Patient denies any history of ever having had an EGD or colonoscopy in the past and denies any abdominal surgeries. Denies tobacco use and states he is a social drinker. Of note patient states that he had been taking Aleve 1 tablet daily for back pain for "weeks". Our service has been consulted to evaluate patient's GI bleed. GI bleed 01/17/2018 hemoglobin 10.0 hematocrit 30.5 01/18/2018 hemoglobin 8.5 hematocrit 25.5 Patient reporting 3-week onset of dark stools with 2-3 days of hematocrit emesis. We will plan for EGD today. Discussed with patient who verbalizes understanding and agreement. Last dose of Xarelto 2 days ago. Plan -N.p.o. -Obtain consent for EGD -EGD planned for today -Monitor for bleeding -Monitor labs hemoglobin and hematocrit -Bowel regimen -Continue PPI -Avoid anticoagulants -Supportive care -Further recommendations to follow This patient has been seen by myself and and this note is written on his behalf - Attending Attestation Dr. Simpson <Macy Law - Last Filed: 01/18/18 11:02> (1) Acute GI bleeding Status: Acute Code(s): K92.2 - Gastrointestinal hemorrhage, unspecified - Attending Attestation Patient was seen and examined, agree with above note, patient has anemia, melena , drop in his hemoglobin being. We will plan on doing upper endoscopy to rule out GI bleed source. We will continue monitoring hemoglobin and give packed RBC as needed <Hi Simpson - Last Filed: 01/18/18 11:47>
--- NOTE | 2018-01-18 11:53 | P.CONNP ---
History of Present Illness Service: Nephrology Reason for Consult: THOMAS, hyperkalemia Primary Care Provider: Nessa Hickman MD Chief Complaint: GIB, Hyperkalemia History of Present Illness: Mr. Benavides is a 72 year male with history of chronic systolic heart failure, EF of 25%, atrial fibrillation maintained on Xarelto came to the ER with complaints of GI bleeding. He was noted to have life threatening hyperkalemia of 7.9 along with renal failure. Patient admits to taking Aleve for about 5 days prior to hospital admission. In the ER, he was given 20 mg IV of Lasix, also initially started on IVF at 50 ml/hour. I was notified by ER physician, I recommended ICU admission. Patient was later given Kayexalate. His serum potassium is better this morning, but is still high. He has a Scott catheter that was placed in the ER. He has very good urine output. Currently on bicarbonate drip. Review of Systems Constitutional: Reports anorexia, Reports weakness Cardiovascular: Reports rapid, pounding, or irregular heartbeat, Denies chest pain, Denies generalized swelling, Denies shortness of breath Gastrointestinal: Reports bright, red blood in stools, Denies abdominal pain, Denies coffee ground vomit Genitourinary: Denies blood in urine Musculoskeletal: Denies back pain Allergic/Immunologic: Denies GI upset with certain foods PMFSH - History History Provided By: Patient - Medical History Medical History: Medical History (Last Reviewed 01/17/18 @ 20:44 by Stef Locke MD) COPD (chronic obstructive pulmonary disease) Hypertension Pacemaker - Tobacco History Second Hand Smoke Exposure: No Smoking Status: Former smoker - Alcohol History How Often Do You Have a Drink Containing Alcohol: 4 or more times a week - Substance Use History Substance History: No History of Abuse - Travel History Recent Travel in the [place] Within the Last 8 Weeks: No Recent Travel Out of the Country Within the Last 8 Weeks: No - Immunization History Tetanus Immunization: <5 Years Medications and Allergies Active Medications: Active Medications Acetaminophen (Tylenol) 650 mg PO Q6H PRN PRN Reason: PAIN 1-10 AND/OR FEVER >101F Al Hydroxide/Mg Hydroxide (Milk Of Magnesia Liq) 30 ml PO Q12H PRN PRN Reason: Mild Constipation Albuterol (Duoneb Neb (Prn)) 1 ampul INH Q6HR NEB PRN PRN Reason: Shortness Of Breath Albuterol (Duoneb Neb (Prn)) 1 ampul NEB Q2HR NEB PRN PRN Reason: WHEEZING Atorvastatin Calcium (Lipitor) 20 mg PO DAILY [facility] Last Admin: 01/18/18 08:53 Dose: 20 mg Bisacodyl (Dulcolax Supp) 10 mg RECTAL DAILY PRN PRN Reason: SEVERE CONSITIPATION Chlorhexidine Gluconate (Chlorhexidine 2% Cloth) 3 pack TOPICAL DAILY@0400 [facility] Stop: 01/23/18 03:59 Chlorhexidine Gluconate (Chlorhexidine 2% Cloth) 3 pack TOPICAL DAILY@0400 PRN PRN Reason: Extra cloth needed Stop: 01/23/18 03:59 Diltiazem HCl (Cardizem Cd 24hr) 120 mg PO DAILY [facility] Last Admin: 01/18/18 08:54 Dose: Not Given Fluticasone/Vilanterol (Breo Ellipta 100/25 Mcg Inh) 1 puff INH DAILY [facility] Pantoprazole Sodium 80 mg/ (Sodium Chloride) 100 mls @ 10 mls/hr IV.CONT CONT [facility] Sodium Bicarbonate 100 meq/ (Dextrose) 1,000 mls @ 84 mls/hr IV.CONT .[id number] [facility] Last Admin: 01/18/18 09:08 Dose: 84 mls/hr Lactulose (Lactulose Liq) 30 ml PO DAILY PRN PRN Reason: SEVERE CONSITIPATION Lisinopril (Prinivil) 20 mg PO HS [facility] Metoprolol Tartrate (Lopressor) 75 mg PO BID [facility] Last Admin: 01/18/18 08:54 Dose: Not Given Pantoprazole Sodium (Protonix Inj) 40 mg IV.PUSH Q12H [facility] Last Admin: 01/18/18 10:46 Dose: 40 mg Senna/Docusate Sodium (Kymberly-Colace) 1 tab PO BID [facility] Last Admin: 01/18/18 08:54 Dose: Not Given Sennosides (Senokot) 17.2 mg PO Q12H PRN PRN Reason: Moderate Constipation Sodium Chloride (Ns Flush) 2 ml IV.FLUSH PRN PRN PRN Reason: FLUSH AFTER USING IV ACCESS Sodium Polystyrene Sulfonate (Kayexalate Liq) 30 gm PO Q2H [facility] Stop: 01/18/18 16:00 Last Admin: 01/18/18 10:48 Dose: 30 gm Allergies Allergy/AdvReac Type Severity Reaction Status Date / Time No Known Allergies Allergy Verified 01/17/18 15:22 Home Medications Medication Instructions Recorded Confirmed Type aspirin 81 mg PO DAILY 01/17/18 01/17/18 History atorvastatin [Lipitor] 20 mg PO DAILY 01/17/18 01/17/18 History bumetanide 2 mg PO DAILY 01/17/18 01/17/18 History diltiazem HCl 120 mg PO DAILY 01/17/18 01/17/18 History ferrous sulfate 325 mg PO EVERY OTHER DAY 01/17/18 01/17/18 History fluticasone-vilanterol [Breo 1 inh INHALATION DAILY 01/17/18 01/17/18 History Ellipta] ipratropium-albuterol 3 ml INHALATION Q6-8H PRN 01/17/18 01/17/18 History metoprolol tartrate 75 mg PO BID 01/17/18 01/17/18 History potassium chloride [Klor-Con M20] 40 meq PO DAILY 01/17/18 01/17/18 History quinapril 20 mg PO HS 01/17/18 01/17/18 History rivaroxaban [Xarelto] 15 mg PO QPM 01/17/18 01/17/18 History Exam Vital signs: Vital Signs 01/17/18 15:15 01/17/18 16:43 01/17/18 17:59 Temperature 97.9 F Pulse Rate 75 80 Respiratory Rate 18 20 Blood Pressure 115/62 138/76 Pulse Oximetry 95 95 100 01/17/18 19:49 01/17/18 21:18 01/18/18 00:37 Temperature Pulse Rate 61 59 L 71 Respiratory Rate 18 16 16 Blood Pressure 115/78 115/71 Pulse Oximetry 01/18/18 01:00 01/18/18 02:00 01/18/18 03:00 Temperature 97.9 F Pulse Rate 61 64 62 Respiratory Rate 22 18 22 Blood Pressure 122/64 102/60 80/53 L Pulse Oximetry 97 95 93 L 01/18/18 04:00 01/18/18 04:28 01/18/18 04:30 Temperature 98.8 F Pulse Rate 68 65 64 Respiratory Rate 22 20 17 Blood Pressure 92/54 L 100/63 Pulse Oximetry 95 95 96 01/18/18 05:00 01/18/18 05:31 01/18/18 05:36 Temperature Pulse Rate 64 63 63 Respiratory Rate 17 19 14 Blood Pressure 100/63 83/52 L Pulse Oximetry 98 96 96 01/18/18 06:00 01/18/18 07:00 01/18/18 08:00 Temperature 98.8 F 97.9 F Pulse Rate 63 74 73 Respiratory Rate 16 16 15 Blood Pressure 83/52 L 83/52 L Pulse Oximetry 99 97 97 01/18/18 09:00 01/18/18 09:32 01/18/18 10:00 Temperature Pulse Rate 75 77 78 Respiratory Rate 19 19 18 Blood Pressure 103/59 L 100/56 L Pulse Oximetry 97 97 94 L 01/18/18 10:30 01/18/18 11:00 Temperature Pulse Rate 78 80 Respiratory Rate 26 H 20 Blood Pressure 110/74 111/70 Pulse Oximetry 97 94 L Intake & Output 01/17/18 01/18/18 01/18/18 18:59 06:59 18:59 Intake Total 1000 / 1000 Output Total 500 / 500 Balance 500 / 500 Weight 90.718 kg 95 kg Intake: IV 1000 / 1000 NS Inj 1,000 ML @ 2000 mls/hr 1000 / 1000 IV.SIG Q30M [facility] Rx#:[id number] Output: Urine Amount (Catheter) 500 / 500 Indwelling Urethral Catheter 500 / 500 Other: Weight On Admission 95 kg - Constitutional no acute distress - Routine HEENT Exam Eye: Present: EOMI, PERRL - Routine Neck Exam Present: supple. Absent: JVD, lymphadenopathy, thyromegaly - Routine Respiratory Exam Present: CTA bilaterally - Routine Cardiovascular Exam Present: RRR, S1, S2 - Routine Abdominal Exam Present: soft, normoactive bowel sounds Comments: obese. - Routine Extremities Exam Absent: edema - Routine Skin Exam Present: intact - Routine Neurological Exam Present: alert, oriented X3 Results - Lab Results 01/18/18 03:22 01/18/18 03:22 Most recent lab results Calcium 8.5 mg/dL (8.5-10.1) D 01/18/18 03:22 Assessment and Plan - Assessment (1) Acute renal failure Code(s): N17.9 - Acute kidney failure, unspecified Status: Acute Plan: Patient was taking Aleve. Also, he was having GI bleeding, possibly developed dehydration. Renal function has improved with cautious hydration. Avoid nephrotoxic agents. Continue current IVF, reduce the rate as tolerated. Urinary retention cannot be completely ruled out: Scott placed, he has very good urine output. (2) Acute hyperkalemia Code(s): E87.5 - Hyperkalemia Status: Acute Plan: due to renal failure, oliguria, and the fact that he was on potassium supplements. Fortunately, he has good urine output, expect improvement. He also has some acidosis today, IVF changed to bicarbonate drip. (3) Cardiomyopathy Code(s): I42.9 - Cardiomyopathy, unspecified Status: Chronic (4) Atrial fibrillation Code(s): I48.91 - Unspecified atrial fibrillation Status: Chronic Plan: rate control measures. 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 Patient is also having GI bleeding. (6) Anemia Code(s): D64.9 - Anemia, unspecified Status: Acute Plan: Hemoglobin has dropped today, monitor. May need blood transfusion. (1) Acute renal failure Qualifiers: Acute renal failure type: unspecified Qualified Code(s): N17.9 - Acute kidney failure, unspecified
[2018-01-18] MEDS ORDERED: PEG 3350/E-Lyte Soln 4000 ML Bottle PO ONE (12:24)
--- NOTE | 2018-01-18 12:24 | P.PCN ---
Date of procedure: 01/18/18 Procedure: THANK YOU FOR THE REFERRAL Indication; anemia, coffee-ground emesis Procedure Performed; upper endoscopy diagnostic After informing the patient about procedure and possible complications consent was signed. history and physical were updated. Patient was taken to the procedure room and placed in position. Time out was completed. Adequate sedation was performed by anesthesia provider. Upper Endoscopy, the scope was placed in the mouth advanced under video guide to the second portion of the duodenum, then the scope was withdrawal to the stomach and retro-flexion was performed, the scope was withdrawal to the esophagus then out of the mouth without any immediate complication Findings; Esophagus: Normal Stomach normal Duodenum normal Recommendations; 1- Supportive care 2- ok to transfer to recovery area then discharge per protocol 3-correct potassium 4-clear liquid diet 5- EGD as needed 6-colonoscopy for tomorrow
[2018-01-18 15:06] LABS: Carbon Dioxide 25.7 meq/L (21.0-32.0); Potassium 5.9 meq/L (3.5-5.1)
--- NOTE | 2018-01-18 15:33 | US ---
EXAM DATE: 01/18/2018 3:27 PM EDT AGE/SEX: 72 years / Male INDICATIONS: Increased BUN/Creat nine. CLINICAL DATA: This is the patient's initial encounter. Patient reports that signs and symptoms have been present for 1 day and indicates a pain score of 0/10. MEDICAL/SURGICAL HISTORY: Chronic obstructive pulmonary disease. Hypertension. Pacemaker. COMPARISON: No prior exams available for comparison. MEASUREMENTS: Right Kidney:__10.3 x 4.5 x 4.6 cm Left Kidney:__9.3 x 4.8 x 5.7 cm FINDINGS: Right Kidney: There is increased echogenicity of the cortex. The cortex appears thinned. There is no hydronephrosis. No mass is seen. Left Kidney: There is increased echogenicity of the cortex. There is cortical thinning. There is no h ydronephrosis. No mass is identified. Bladder: Decompressed. Not well evaluated. Other: None. CONCLUSION: 1. Increased echogenicity of the kidneys bilaterally without evidence of hydronephrosis. There is co rtical thinning. Exam would suggest underlying medical renal disease. Electronically signed by: Cristóbal Taveras MD 01/18/2018 3:32 PM EDT
--- NOTE | 2018-01-18 15:35 | ECG ---
Date Performed: 01/17/2018 Time Performed: 19:33:53 PTAGE: 72 years EKG: DEMAND PACING ATRIAL FIBRILLATION WITH SLOW VENTRICULAR RESPONSE WITH ABERRANT CONDUCTION O R VENTRICULAR PREMATURE COMPLEXES INDETERMINATE AXIS INTRAVENTRICULAR CONDUCTION DELAY When compared to previous tracing, occassional demand pacing is Now noted. ABNORMAL ECG PREVIOUS TRACING : 08/24/2017 13.52 DOCTOR: Jozef Hernández Interpretating Date/Time 01/18/2018 15:34:30
[2018-01-18] MEDS ORDERED: Lisinopril 20 MG Tablet PO SCH (21:00)
[2018-01-19] MEDS: Sodium Bicarbonate 8.4% Inj 100 MEQ in Dextrose 5% in Water Inj 900 ML IV.CONT SCH ×4 (03:08→13:27)
[2018-01-19] MEDS: Chlorhexidine Gluconate 2% 1 Pack (2 Cloths) TOPICAL SCH (05:17)
[2018-01-19 06:03] LABS: Baso % (Auto) 0.8 % (0.0-2.0); Eos # (Auto) 0.3 th/mm3 (0.0-0.4); Eos % (Auto) 5.9 % (0.0-4.0); Hematocrit 25.3 % (39.0-51.0); Hemoglobin 8.6 gm/dL (13.0-17.0); Lymph # (Auto) 1.7 th/mm3 (1.0-4.8); Lymph % (Auto) 32.5 % (9.0-44.0); Mean Corpuscular HGB Conc 34.1 % (32.0-36.0); Mean Corpuscular Hemoglobin 27.6 pg (27.0-34.0); Mono # (Auto) 0.8 th/mm3 (0.0-0.9); Mono % (Auto) 15.5 % (0.0-8.0); Neut # (Auto) 2.4 th/mm3 (1.8-7.7); Neut % (Auto) 45.3 % (16.0-70.0); Platelet Count 245 th/mm3 (150-450); Red Blood Count 3.12 mil/mm3 (4.50-5.90); Red Cell Distribution Width 19.2 % (11.6-17.2); White Blood Count 5.2 th/mm3 (4.0-11.0)
[2018-01-19 06:42] LABS: Alanine Aminotransferase 11 U/L (12-78); Albumin 3.2 g/dL (3.4-5.0); Alkaline Phosphatase 40 U/L (45-117); Anion Gap 7 meq/L (5-15); Aspartate Aminotransferase 12 U/L (15-37); Blood Urea Nitrogen 58 mg/dL (7-18); Calcium 8.4 mg/dL (8.5-10.1); Carbon Dioxide 31.3 meq/L (21.0-32.0); Chloride 102 meq/L (98-107); Glomerular Filtration Rate 28 mL/min (>89); Glucose,Random 89 mg/dL (74-106); Potassium 4.9 meq/L (3.5-5.1); Sodium 140 meq/L (136-145); Total Protein 6.4 g/dL (6.4-8.2)
[2018-01-19] MEDS: Pantoprazole Inj 40 MG Vial IV.PUSH SCH ×2 (08:10→21:41)
[2018-01-19] MEDS: Senna/Docusate Sodium 8.6/50 MG Tablet PO SCH ×2 (08:10→21:41)
--- NOTE | 2018-01-19 11:50 | P.PCN ---
Date of procedure: 01/19/18 Pre-op diagnosis: GI bleed Procedure: PROCEDURE PERFORMED Colonoscopy with snare polypectomy and clip placement PROCEDURE: The procedure, risks and benefits were discussed with Patient/POA and informed consent was obtained. Anesthesia sedated Patient with Diprivan. Patient was placed in the left lateral decubitus position. Colonoscopy: The Pentax videoscope was introduced through the rectum and advanced to cecum where the ileocecal valve and appendiceal orifice were identified. Retroflexion was performed in the rectum. Colonic prep was fair FINDINGS: Colonic withdrawal time greater than 6 minutes. As the scope was slowly withdrawn colonic mucosa was carefully inspected the patient was noted to have 2 polyps in the descending colon one small and sessile the other semi- pedunculated and large both were excised using cold snare technique and retrieved for further evaluation the larger polyp started to bleed at the base and so a clip was placed successfully to control bleeding the patient was also noted to have some mild scattered diverticulosis and on retroflexion in rectum he was found to have grade 2 internal hemorrhoids and he also has grade 2 external hemorrhoids on rectal examination ESTIMATED BLOOD LOSS: Minimal SPECIMENS REMOVED: Colon biopsies COMPLICATIONS: None IMPRESSION: Colon polyps Diverticulosis Internal and external hemorrhoids PLAN: Await biopsies Continue with current supportive care Monitor labs and transfuse as needed Recommend small bowel follow-through Patient may require outpatient capsule endoscopy depending on how he does Follow-up with GI post discharge I have advanced the patient to a clear liquid diet until he gets the small bowel follow-through he could be advanced to a cardiac diet thereafter Anesthesia: MAC Surgeon: Alexander Villegas Condition: stable Disposition: no change
--- NOTE | 2018-01-19 12:36 | P.PNCC ---
Subjective Subjective Remarks/Hospital Course: 01/17: 72-year-old male with a history of CHF, AICD placement, cardiomyopathy ejection fraction 25%, atrial fibrillation on xarelto, COPD, HTN, chronic kidney disease, presented to the ED for evaluation of bloody stool and fatigue. Intermittent lower GI bleed for the last 3 week. He is on Xarelto for chronic A. fib. He also complained of hematemesis last 3 days, 2 episodes. His hemoglobin came back at his baseline which is about 10. However his BUN was elevated at 89 creatinine was 3.4, baseline creatinine is 1.3-1.7. He also had severe hyperkalemia potassium was 7.9. EKG showed paced rhythm, underlying A. fib. Patient received IV calcium chloride, IV insulin followed by D50, breathing treatments with albuterol, and critical care medicine was requested to admit the patient. Nephrology Dr. Dobbins also was consulted. Patient also received IV Lasix 40 mg. Apparently he takes Bumex which was recently discontinued but he was still taking the potassium at home. In addition today above treatment I have instructed ED to administer 2 amps of bicarb, Kayexalate 30 g p.o. x1. IV fluid 500 mL bolus, followed by normal saline maintenance at 75 ml per hour. And place a Scott catheter. 01/18: Resting in bed, not in any acute distress. Elevated potassium noted this morning for which glucose/insulin, calcium chloride, bicarb, Kayexalate ordered. 01/19: Resting in bed comfortably. BUN/creatinine remains elevated. Potassium came down to 4.9 following treatment for hyperkalemia yesterday. Denies any respiratory distress or abdominal pain. Objective Vital Signs / I&O: Vital Signs 01/18/18 12:36 01/18/18 12:44 01/18/18 12:45 Temperature 97.8 F Pulse Rate 75 75 75 Respiratory Rate 24 21 21 Blood Pressure 93/51 L 100/62 100/62 Pulse Oximetry 94 L 95 95 01/18/18 12:54 01/18/18 13:09 01/18/18 13:31 Temperature Pulse Rate 77 95 H 78 Respiratory Rate 25 H 38 H 20 Blood Pressure 89/50 L 91/51 L Pulse Oximetry 92 L 92 L 96 01/18/18 14:00 01/18/18 14:24 01/18/18 14:30 Temperature Pulse Rate 109 H 80 78 Respiratory Rate 31 H 22 21 Blood Pressure 100/58 L 96/54 L Pulse Oximetry 95 94 L 93 L 01/18/18 15:00 01/18/18 15:30 01/18/18 16:00 Temperature 98 F Pulse Rate 75 78 86 Respiratory Rate 20 18 20 Blood Pressure 95/56 L 89/55 L 87/64 L Pulse Oximetry 95 96 91 L 01/18/18 16:30 01/18/18 17:00 01/18/18 17:31 Temperature 98.0 F Pulse Rate 82 81 104 H Respiratory Rate 20 21 29 H Blood Pressure 115/68 117/70 135/75 Pulse Oximetry 95 94 L 80 L 01/18/18 18:00 01/18/18 18:01 01/18/18 18:31 Temperature Pulse Rate 88 90 102 H Respiratory Rate 21 20 27 H Blood Pressure 110/61 115/67 Pulse Oximetry 96 96 95 01/18/18 19:00 01/18/18 19:30 01/18/18 20:00 Temperature 98.6 F Pulse Rate 86 89 104 H Respiratory Rate 22 28 H 30 H Blood Pressure 108/64 95/68 L Pulse Oximetry 98 95 100 01/18/18 20:01 01/18/18 20:30 01/18/18 21:00 Temperature Pulse Rate 85 84 87 Respiratory Rate 24 22 23 Blood Pressure 126/76 105/67 101/64 Pulse Oximetry 79 L 91 L 94 L 01/18/18 21:23 01/18/18 21:30 01/18/18 22:00 Temperature Pulse Rate 85 83 Respiratory Rate 23 24 Blood Pressure 99/63 L Pulse Oximetry 98 90 L 86 L 01/18/18 22:01 01/18/18 22:30 01/18/18 23:00 Temperature Pulse Rate 92 H 82 80 Respiratory Rate 38 H 18 21 Blood Pressure 122/57 L 99/59 L 95/62 L Pulse Oximetry 83 L 95 96 01/18/18 23:30 01/19/18 00:00 01/19/18 00:30 Temperature 98.7 F Pulse Rate 81 81 83 Respiratory Rate 18 19 21 Blood Pressure 93/62 L 96/60 L 90/58 L Pulse Oximetry 96 89 L 92 L 01/19/18 01:00 01/19/18 01:30 01/19/18 02:00 Temperature Pulse Rate 84 80 80 Respiratory Rate 21 18 18 Blood Pressure 87/58 L 93/54 L 75/47 L Pulse Oximetry 94 L 94 L 89 L 01/19/18 02:26 01/19/18 02:30 01/19/18 03:00 Temperature Pulse Rate 78 77 83 Respiratory Rate 18 15 20 Blood Pressure 114/53 L 101/55 L 104/67 Pulse Oximetry 86 L 89 L 97 01/19/18 03:31 01/19/18 03:33 01/19/18 04:00 Temperature 98.6 F Pulse Rate 79 80 79 Respiratory Rate 19 18 16 Blood Pressure 80/49 L 85/51 L 90/54 L Pulse Oximetry 89 L 91 L 96 01/19/18 04:30 01/19/18 05:00 01/19/18 05:30 Temperature Pulse Rate 77 79 79 Respiratory Rate 14 14 15 Blood Pressure 101/56 L 89/50 L 90/50 L Pulse Oximetry 94 L 95 94 L 01/19/18 06:00 01/19/18 10:15 01/19/18 10:30 Temperature 98.9 F Pulse Rate 79 69 Respiratory Rate 16 12 Blood Pressure 84/54 L 112/67 Pulse Oximetry 91 L 90 L 88 L 01/19/18 10:45 01/19/18 11:40 01/19/18 12:00 Temperature 97.9 F 97.9 F Pulse Rate 89 85 Respiratory Rate 21 18 Blood Pressure 78/46 L 105/60 Pulse Oximetry 97 93 L 96 Intake & Output 01/18/18 01/19/18 01/19/18 18:59 06:59 18:59 Intake Total 1300 / 1300 1020 / 1020 200 / 200 Output Total 400 / 400 Balance 900 / 900 1020 / 1020 200 / 200 Weight 105.1 kg Intake: IV 1000 / 1000 Sodium Bicarbonate 8.4% Inj 100 1000 / 1000 MEQ In D5W Inj 900 ML @ 84 mls /hr IV.CONT .[id number] [facility] Rx#: [id number] Oral 1200 / 1200 Anesthesia Amount 100 / 100 200 / 200 Other 20 / 20 Output: Urine 400 / 400 Other: Date of Last Bowel Movement 01/18/18 01/19/18 01/19/18 # Bowel Movements 0 Result Diagrams: 01/19/18 04:50 01/19/18 04:50 Objective Remarks: GENERAL: Well-nourished and well-developed male who is lying in bed, no acute distress SKIN: Warm and dry. HEAD: Normocephalic and atraumatic. EYES: PERRLA. EOMI. conjunctival pallor present ENT: No nasal drainage noted. Oral mucosa is moist NECK: Supple and the trachea is midline. CARDIOVASCULAR: Underlying A. fib, with paced rhythm. Left upper chest pacemaker in place RESPIRATORY: Breath sounds are equal bilaterally with no accessory muscle use, or wheezing GASTROINTESTINAL: Abdomen is soft, non-tender, and nondistended. MUSCULOSKELETAL: Distal pulses are 2+ throughout. NEUROLOGICAL: Awake, alert, and oriented. Normal speech and gait. No obvious focal deficits Assessment and Plan - Problem List (1) Acute kidney injury superimposed on chronic kidney disease Code(s): N17.9 - Acute kidney failure, unspecified; N18.9 - Chronic kidney disease, unspecified Status: Acute (2) Acute hyperkalemia Code(s): E87.5 - Hyperkalemia Status: Acute (3) Acute GI bleeding Code(s): K92.2 - Gastrointestinal hemorrhage, unspecified Status: Acute (4) COPD (chronic obstructive pulmonary disease) Code(s): J44.9 - Chronic obstructive pulmonary disease, unspecified Status: Chronic (5) CHF (congestive heart failure) Code(s): I50.9 - Heart failure, unspecified Status: Chronic (6) Cardiomyopathy Code(s): I42.9 - Cardiomyopathy, unspecified Status: Chronic (7) Atrial fibrillation Code(s): I48.91 - Unspecified atrial fibrillation Status: Chronic (8) Chronic anticoagulation 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 Protonix IV bolus and infusion at 8 mg/h -GI consulted, EGD unremarkable, colonoscopy revealed 2 polyps which were removed on 01/19 -Serial H&H, no indication for transfusion at this time -Hold Xarelto /Endo: Acute on chronic kidney disease Severe hyperkalemia -Monitor renal function closely. Continue Scott catheter. -Given additional Glucose/ insulin, Bicarb, Calcium, PO Kayexalate on 01/18. Ordered Kayexalate on 01/19 -Dr. Dobbins nephrology following ID: -No evidence of infection, no indication for antibiotics at this time PROPH: -Bilateral lower extremity SCDs. Protonix infusion -Hold Xarelto due to GI bleed LINES: -Utilize peripheral IVs, central line if needed Consult and transfer to hospitalist service for further medical management, critical care will be signing off.
[2018-01-19] MEDS: Sodium Polystyrene Sulfonate/Sorbitol Liq 15 GM/60 ML UDC PO SCH ×2 (13:33→18:31)
--- NOTE | 2018-01-19 15:06 | P.PNNP ---
Subjective Interval history: Patient was seen resting in bed, no complaints. Denies chest pain and SOB. Renal function has improved. Hyperkalemia has improved. Patient had colonoscopy done today due to GI Bleed. Biopsy is pending. <Ela Walshshawna - Last Filed: 01/19/18 15:12> Physical Exam Vital signs: Vital Signs 01/18/18 15:00 01/18/18 15:30 01/18/18 16:00 Temperature 98 F Pulse Rate 75 78 86 Respiratory Rate 20 18 20 Blood Pressure 95/56 L 89/55 L 87/64 L Pulse Oximetry 95 96 91 L 01/18/18 16:30 01/18/18 17:00 01/18/18 17:31 Temperature 98.0 F Pulse Rate 82 81 104 H Respiratory Rate 20 21 29 H Blood Pressure 115/68 117/70 135/75 Pulse Oximetry 95 94 L 80 L 01/18/18 18:00 01/18/18 18:01 01/18/18 18:31 Temperature Pulse Rate 88 90 102 H Respiratory Rate 21 20 27 H Blood Pressure 110/61 115/67 Pulse Oximetry 96 96 95 01/18/18 19:00 01/18/18 19:30 01/18/18 20:00 Temperature 98.6 F Pulse Rate 86 89 104 H Respiratory Rate 22 28 H 30 H Blood Pressure 108/64 95/68 L Pulse Oximetry 98 95 100 01/18/18 20:01 01/18/18 20:30 01/18/18 21:00 Temperature Pulse Rate 85 84 87 Respiratory Rate 24 22 23 Blood Pressure 126/76 105/67 101/64 Pulse Oximetry 79 L 91 L 94 L 01/18/18 21:23 01/18/18 21:30 01/18/18 22:00 Temperature Pulse Rate 85 83 Respiratory Rate 23 24 Blood Pressure 99/63 L Pulse Oximetry 98 90 L 86 L 01/18/18 22:01 01/18/18 22:30 01/18/18 23:00 Temperature Pulse Rate 92 H 82 80 Respiratory Rate 38 H 18 21 Blood Pressure 122/57 L 99/59 L 95/62 L Pulse Oximetry 83 L 95 96 01/18/18 23:30 01/19/18 00:00 01/19/18 00:30 Temperature 98.7 F Pulse Rate 81 81 83 Respiratory Rate 18 19 21 Blood Pressure 93/62 L 96/60 L 90/58 L Pulse Oximetry 96 89 L 92 L 01/19/18 01:00 01/19/18 01:30 01/19/18 02:00 Temperature Pulse Rate 84 80 80 Respiratory Rate 21 18 18 Blood Pressure 87/58 L 93/54 L 75/47 L Pulse Oximetry 94 L 94 L 89 L 01/19/18 02:26 01/19/18 02:30 01/19/18 03:00 Temperature Pulse Rate 78 77 83 Respiratory Rate 18 15 20 Blood Pressure 114/53 L 101/55 L 104/67 Pulse Oximetry 86 L 89 L 97 01/19/18 03:31 01/19/18 03:33 01/19/18 04:00 Temperature 98.6 F Pulse Rate 79 80 79 Respiratory Rate 19 18 16 Blood Pressure 80/49 L 85/51 L 90/54 L Pulse Oximetry 89 L 91 L 96 01/19/18 04:30 01/19/18 05:00 01/19/18 05:30 Temperature Pulse Rate 77 79 79 Respiratory Rate 14 14 15 Blood Pressure 101/56 L 89/50 L 90/50 L Pulse Oximetry 94 L 95 94 L 01/19/18 06:00 01/19/18 07:00 01/19/18 08:00 Temperature Pulse Rate 79 80 Respiratory Rate 16 Blood Pressure 84/54 L Pulse Oximetry 91 L 98 98 01/19/18 10:15 01/19/18 10:30 01/19/18 10:45 Temperature 98.9 F Pulse Rate 69 Respiratory Rate 12 Blood Pressure 112/67 Pulse Oximetry 90 L 88 L 97 01/19/18 11:40 01/19/18 12:00 Temperature 97.9 F 97.9 F Pulse Rate 89 85 Respiratory Rate 21 18 Blood Pressure 78/46 L 105/60 Pulse Oximetry 93 L 96 Intake & Output 01/18/18 01/19/18 01/19/18 18:59 06:59 18:59 Intake Total 1300 / 1300 1020 / 1020 900 / 900 Output Total 400 / 400 Balance 900 / 900 1020 / 1020 900 / 900 Weight 105.1 kg Intake: IV 1000 / 1000 700 / 700 Sodium Bicarbonate 8.4% Inj 100 1000 / 1000 700 / 700 MEQ In D5W Inj 900 ML @ 84 mls /hr IV.CONT .[id number] [facility] Rx#: [id number] Oral 1200 / 1200 Anesthesia Amount 100 / 100 200 / 200 Other 20 / 20 Output: Urine 400 / 400 Other: Date of Last Bowel Movement 01/18/18 01/19/18 01/19/18 # Bowel Movements 0 - Constitutional no acute distress - Routine HEENT Exam Head: Present: normocephalic Eye: Present: EOMI, PERRL ENT: Present: mucous membranes moist - Routine Neck Exam Present: trachea midline - Routine Respiratory Exam Absent: accessory muscle use - Routine Cardiovascular Exam Present: RRR Comments: Left upper chest pacemaker in place - Routine Abdominal Exam Present: soft. Absent: tenderness - Routine Neurological Exam Present: alert, oriented X3 - Detailed Neurological Exam: Coma Scale Verbal Response: Oriented - Routine Psychiatric Exam Present: normal affect - Urinary Catheter Management Indwelling Urethral Catheter Cath placed during this visit: yes, but has since been removed by the nurse Urethral indwelling: Yes Reason for continuing: Hourly intake/output Insertion date: 01/17/18 Insertion time: 21:00 Removal date: 01/18/18 Removal time: 10:59 <Paco Walsh - Last Filed: 01/19/18 15:12> Vital signs: Vital Signs 01/18/18 18:00 01/18/18 18:01 01/18/18 18:31 Temperature Pulse Rate 88 90 102 H Respiratory Rate 21 20 27 H Blood Pressure 110/61 115/67 Pulse Oximetry 96 96 95 01/18/18 19:00 01/18/18 19:30 01/18/18 20:00 Temperature 98.6 F Pulse Rate 86 89 104 H Respiratory Rate 22 28 H 30 H Blood Pressure 108/64 95/68 L Pulse Oximetry 98 95 100 01/18/18 20:01 01/18/18 20:30 01/18/18 21:00 Temperature Pulse Rate 85 84 87 Respiratory Rate 24 22 23 Blood Pressure 126/76 105/67 101/64 Pulse Oximetry 79 L 91 L 94 L 01/18/18 21:23 01/18/18 21:30 01/18/18 22:00 Temperature Pulse Rate 85 83 Respiratory Rate 23 24 Blood Pressure 99/63 L Pulse Oximetry 98 90 L 86 L 01/18/18 22:01 01/18/18 22:30 01/18/18 23:00 Temperature Pulse Rate 92 H 82 80 Respiratory Rate 38 H 18 21 Blood Pressure 122/57 L 99/59 L 95/62 L Pulse Oximetry 83 L 95 96 01/18/18 23:30 01/19/18 00:00 01/19/18 00:30 Temperature 98.7 F Pulse Rate 81 81 83 Respiratory Rate 18 19 21 Blood Pressure 93/62 L 96/60 L 90/58 L Pulse Oximetry 96 89 L 92 L 01/19/18 01:00 01/19/18 01:30 01/19/18 02:00 Temperature Pulse Rate 84 80 80 Respiratory Rate 21 18 18 Blood Pressure 87/58 L 93/54 L 75/47 L Pulse Oximetry 94 L 94 L 89 L 01/19/18 02:26 01/19/18 02:30 01/19/18 03:00 Temperature Pulse Rate 78 77 83 Respiratory Rate 18 15 20 Blood Pressure 114/53 L 101/55 L 104/67 Pulse Oximetry 86 L 89 L 97 01/19/18 03:31 01/19/18 03:33 01/19/18 04:00 Temperature 98.6 F Pulse Rate 79 80 79 Respiratory Rate 19 18 16 Blood Pressure 80/49 L 85/51 L 90/54 L Pulse Oximetry 89 L 91 L 96 01/19/18 04:30 01/19/18 05:00 01/19/18 05:30 Temperature Pulse Rate 77 79 79 Respiratory Rate 14 14 15 Blood Pressure 101/56 L 89/50 L 90/50 L Pulse Oximetry 94 L 95 94 L 01/19/18 06:00 01/19/18 07:00 01/19/18 08:00 Temperature Pulse Rate 79 80 Respiratory Rate 16 Blood Pressure 84/54 L Pulse Oximetry 91 L 98 98 01/19/18 10:15 01/19/18 10:30 01/19/18 10:45 Temperature 98.9 F Pulse Rate 69 Respiratory Rate 12 Blood Pressure 112/67 Pulse Oximetry 90 L 88 L 97 01/19/18 11:22 01/19/18 11:25 01/19/18 11:27 Temperature Pulse Rate 87 93 H Respiratory Rate Blood Pressure 94/55 L 101/72 108/64 Pulse Oximetry 98 98 01/19/18 11:30 01/19/18 11:32 01/19/18 11:35 Temperature Pulse Rate 82 84 84 Respiratory Rate Blood Pressure 106/59 L 109/46 L 105/56 L Pulse Oximetry 98 99 100 01/19/18 11:40 01/19/18 11:43 01/19/18 11:45 Temperature 97.9 F Pulse Rate 89 85 86 Respiratory Rate 21 21 Blood Pressure 78/46 L 78/46 L 99/55 L Pulse Oximetry 93 L 96 95 01/19/18 11:46 01/19/18 11:50 01/19/18 12:00 Temperature 98.2 F Pulse Rate 94 H 84 88 Respiratory Rate 10 L 19 22 Blood Pressure 95/52 L 105/60 105/60 Pulse Oximetry 98 91 L 100 01/19/18 12:05 01/19/18 12:06 01/19/18 12:15 Temperature Pulse Rate 83 78 91 H Respiratory Rate 22 12 24 Blood Pressure 115/62 115/62 128/60 Pulse Oximetry 97 96 85 L 01/19/18 12:31 01/19/18 12:45 01/19/18 13:00 Temperature Pulse Rate 77 79 79 Respiratory Rate 10 L 11 L 22 Blood Pressure 97/64 L 105/59 L 97/54 L Pulse Oximetry 90 L 91 L 93 L 01/19/18 13:15 01/19/18 13:30 01/19/18 13:45 Temperature Pulse Rate 76 83 78 Respiratory Rate 15 16 14 Blood Pressure 111/62 105/62 103/65 Pulse Oximetry 93 L 93 L 93 L 01/19/18 14:00 01/19/18 14:01 01/19/18 14:15 Temperature Pulse Rate 76 79 76 Respiratory Rate 20 12 16 Blood Pressure 113/60 111/63 Pulse Oximetry 91 L 84 L 77 L 01/19/18 14:30 01/19/18 14:45 01/19/18 15:00 Temperature Pulse Rate 76 84 85 Respiratory Rate 12 20 24 Blood Pressure 103/69 111/70 Pulse Oximetry 91 L 90 L 93 L 01/19/18 15:04 Temperature Pulse Rate 80 Respiratory Rate 21 Blood Pressure 114/68 Pulse Oximetry 88 L Intake & Output 01/18/18 01/19/18 01/19/18 18:59 06:59 18:59 Intake Total 1300 / 1300 1020 / 1020 900 / 900 Output Total 400 / 400 Balance 900 / 900 1020 / 1020 900 / 900 Weight 105.1 kg Intake: IV 1000 / 1000 700 / 700 Sodium Bicarbonate 8.4% Inj 100 1000 / 1000 700 / 700 MEQ In D5W Inj 900 ML @ 84 mls /hr IV.CONT .[id number] [facility] Rx#: [id number] Oral 1200 / 1200 Anesthesia Amount 100 / 100 200 / 200 Other 20 / 20 Output: Urine 400 / 400 Other: Date of Last Bowel Movement 01/18/18 01/19/18 01/19/18 # Bowel Movements 0 - Urinary Catheter Management Indwelling Urethral Catheter Cath placed during this visit: no <Da Dobbins - Last Filed: 01/19/18 17:49> Assessment and Plan - Assessment (1) Acute renal failure Code(s): N17.9 - Acute kidney failure, unspecified Status: Acute Qualifiers: Acute renal failure type: unspecified Qualified Code(s): N17.9 - Acute kidney failure, unspecified Plan: Patient was taking Aleve. Also, he was having GI bleeding, possibly developed dehydration. Renal function has improved with cautious hydration. Avoid nephrotoxic agents. Continue current IVF, reduce the rate as tolerated. Urinary retention cannot be completely ruled out: Scott placed, he has very good urine output. (2) Acute hyperkalemia Code(s): E87.5 - Hyperkalemia Status: Acute Plan: due to renal failure, oliguria, and the fact that he was on potassium supplements. Fortunately, he has good urine output, expect improvement. (3) Cardiomyopathy Code(s): I42.9 - Cardiomyopathy, unspecified Status: Chronic (4) Atrial fibrillation Code(s): I48.91 - Unspecified atrial fibrillation Status: Chronic Plan: rate control measures. (5) Chronic anticoagulation Code(s): Z79.01 - ferry terminal agent (current) use of anticoagulants Status: Chronic Plan: Hold Xarelto when in renal failure. Patient is also having GI bleeding. (6) Anemia Code(s): D64.9 - Anemia, unspecified Status: Acute Plan: Hemoglobin has dropped today, monitor. May need blood transfusion. <Paco Walhs - Last Filed: 01/19/18 15:12> - Assessment (1) Acute renal failure Code(s): N17.9 - Acute kidney failure, unspecified Status: Acute Qualifiers: Acute renal failure type: unspecified Qualified Code(s): N17.9 - Acute kidney failure, unspecified (2) Acute hyperkalemia Code(s): E87.5 - Hyperkalemia Status: Acute (3) Cardiomyopathy Code(s): I42.9 - Cardiomyopathy, unspecified Status: Chronic (4) Atrial fibrillation Code(s): I48.91 - Unspecified atrial fibrillation Status: Chronic (5) Chronic anticoagulation Code(s): Z79.01 - ferry terminal agent (current) use of anticoagulants Status: Chronic (6) Anemia Code(s): D64.9 - Anemia, unspecified Status: Acute - Attending Attestation patient was seen and examined. Renal function has improved. No need for bicarbonate drip: I have stopped it. Hyperkalemia has resolved. No indication for dialysis. <Da Dobbins - Last Filed: 01/19/18 17:49>
--- NOTE | 2018-01-19 18:08 | FL ---
EXAM DATE: 01/19/2018 6:03 PM EDT AGE/SEX: 72 years / Male INDICATIONS: Blood in stool, evaluate for GI bleed CLINICAL DATA: This is the patient's initial encounter. Patient reports that signs and symptoms have been present for 1 day and indicates a pain score of 3/10. MEDICAL/SURGICAL HISTORY: Hypertension. Chronic obstructive pulmonary disease. None. COMPARISON: No prior exams available for comparison. FLUORO TIME: 0.7 IMAGE COUNT: 21 CONTRAST: Enterovue. FINDINGS: Hydro Technician view of the abdomen demonstrates air within small and large bowel in a nonobstructive pattern. There is a metallic clip overlying the left mid abdomen measuring 2.1 cm in length. Contrast was admi nistered orally and serial images were obtained to follow the contrast throughout the small bowel. Th e jejunum and ileum demonstrate normal fold pattern and size. No filling defect is identified. No abn ormally tethered segments are seen. No wall thickening is appreciated. Terminal ileum has a normal ap pearance and transit time was approximately 2 hours and 15 minutes. Spot fluoroscopic images demonstr ate no abnormality. CONCLUSION: Normal small bowel follow-through examination. There is no abnormality to explain the GI bleed. On an outpatient elective basis, one could consider CT enterography for more detailed evaluation of the sm all bowel. Electronically signed by: Chucky Blankenship MD 01/19/2018 6:07 PM EDT
[2018-01-20] MEDS: Chlorhexidine Gluconate 2% 1 Pack (2 Cloths) TOPICAL SCH ×2 (04:29→04:30)
[2018-01-20 07:36] LABS: Baso % (Auto) 0.9 % (0.0-2.0); Eos # (Auto) 0.3 th/mm3 (0.0-0.4); Eos % (Auto) 5.8 % (0.0-4.0); Hematocrit 25.5 % (39.0-51.0); Hemoglobin 8.4 gm/dL (13.0-17.0); Lymph # (Auto) 1.2 th/mm3 (1.0-4.8); Lymph % (Auto) 23.1 % (9.0-44.0); Mean Corpuscular Hemoglobin 27.2 pg (27.0-34.0); Mean Corpuscular Volume 82.5 fL (80.0-100.0); Mean Platelet Volume 6.9 fL (7.0-11.0); Mono # (Auto) 0.7 th/mm3 (0.0-0.9); Mono % (Auto) 13.1 % (0.0-8.0); Neut % (Auto) 57.1 % (16.0-70.0); Platelet Count 247 th/mm3 (150-450); Red Blood Count 3.09 mil/mm3 (4.50-5.90); Red Cell Distribution Width 18.7 % (11.6-17.2); White Blood Count 5.3 th/mm3 (4.0-11.0)
[2018-01-20 08:15] LABS: Alanine Aminotransferase 13 U/L (12-78); Albumin 2.9 g/dL (3.4-5.0); Alkaline Phosphatase 37 U/L (45-117); Anion Gap 8 meq/L (5-15); Aspartate Aminotransferase 13 U/L (15-37); Blood Urea Nitrogen 42 mg/dL (7-18); Calcium 8.3 mg/dL (8.5-10.1); Carbon Dioxide 31.7 meq/L (21.0-32.0); Chloride 102 meq/L (98-107); Glomerular Filtration Rate 31 mL/min (>89); Glucose,Random 84 mg/dL (74-106); Potassium 4.1 meq/L (3.5-5.1); Sodium 142 meq/L (136-145); Total Protein 5.7 g/dL (6.4-8.2)
[2018-01-20] MEDS: Senna/Docusate Sodium 8.6/50 MG Tablet PO SCH ×2 (08:58→21:11)
[2018-01-20] MEDS: Pantoprazole Inj 40 MG Vial IV.PUSH SCH ×2 (09:20→21:10)
--- NOTE | 2018-01-20 15:01 | P.PNGI ---
Subjective Interval history: Pt is sitting up in chair, no bleeding, no N/V, no abd pain, inquiring about diet <Micki Lopez - Last Filed: 01/20/18 14:49> Physical Exam Vital signs: Vital Signs 01/19/18 15:00 01/19/18 15:04 01/19/18 19:00 Temperature 98.1 F Pulse Rate 85 80 92 H Respiratory Rate 24 21 18 Blood Pressure 114/68 132/67 Pulse Oximetry 93 L 88 L 97 01/19/18 20:00 01/20/18 00:00 01/20/18 04:00 Temperature 97.3 F L 97.8 F Pulse Rate 79 98 H 84 Respiratory Rate 18 18 Blood Pressure 102/76 86/53 L Pulse Oximetry 97 96 95 01/20/18 06:25 01/20/18 08:00 01/20/18 12:00 Temperature 97.8 F Pulse Rate 71 84 84 Respiratory Rate 20 Blood Pressure 98/56 L 111/66 Pulse Oximetry 95 Intake & Output 01/19/18 01/20/18 01/20/18 18:59 06:59 18:59 Intake Total 900 / 900 1300 / 1300 Output Total 750 / 750 Balance 900 / 900 550 / 550 Weight 96.8 kg Intake: IV 700 / 700 1000 / 1000 Sodium Bicarbonate 8.4% Inj 100 700 / 700 MEQ In D5W Inj 900 ML @ 84 mls /hr IV.CONT .[id number] [facility] Rx#: [id number] Oral 300 / 300 Anesthesia Amount 200 / 200 Output: Urine 750 / 750 Other: # Voids 2 Date of Last Bowel Movement 01/19/18 01/19/18 Narrative: GENERAL: Well-nourished and well-developed male, no acute distress SKIN: Warm and dry. NECK: Supple and the trachea is midline. CARDIOVASCULAR: RRR RESPIRATORY: Breath sounds are equal bilaterally with no accessory muscle use, or wheezing GASTROINTESTINAL: Abdomen is soft, non-tender, and nondistended. MUSCULOSKELETAL: no edema NEUROLOGICAL: Awake, alert, and oriented - Urinary Catheter Management Indwelling Urethral Catheter Cath placed during this visit: yes, but has since been removed by the nurse Urethral indwelling: Yes Reason for continuing: Hourly intake/output Insertion date: 01/17/18 Insertion time: 21:00 Removal date: 01/18/18 Removal time: 10:59 <Micki Lopez - Last Filed: 01/20/18 14:49> Vital signs: Vital Signs 01/19/18 19:00 01/19/18 20:00 01/20/18 00:00 Temperature 98.1 F 97.3 F L Pulse Rate 92 H 79 98 H Respiratory Rate 18 18 Blood Pressure 132/67 102/76 Pulse Oximetry 97 97 96 01/20/18 04:00 01/20/18 06:25 01/20/18 08:00 Temperature 97.8 F 97.8 F Pulse Rate 84 71 84 Respiratory Rate 18 20 Blood Pressure 86/53 L 98/56 L 111/66 Pulse Oximetry 95 95 01/20/18 12:00 Temperature Pulse Rate 84 Respiratory Rate Blood Pressure Pulse Oximetry Intake & Output 01/19/18 01/20/18 01/20/18 18:59 06:59 18:59 Intake Total 900 / 900 1300 / 1300 Output Total 750 / 750 Balance 900 / 900 550 / 550 Weight 96.8 kg Intake: IV 700 / 700 1000 / 1000 Sodium Bicarbonate 8.4% Inj 100 700 / 700 MEQ In D5W Inj 900 ML @ 84 mls /hr IV.CONT .[id number] [facility] Rx#: [id number] Oral 300 / 300 Anesthesia Amount 200 / 200 Output: Urine 750 / 750 Other: # Voids 2 Date of Last Bowel Movement 01/19/18 01/19/18 - Urinary Catheter Management Indwelling Urethral Catheter Cath placed during this visit: no <Catalina Linda - Last Filed: 01/20/18 15:43> Results - Labs CBC & Chem 7: 01/20/18 05:43 01/20/18 05:43 Laboratory Results - last 24 hr 01/20/18 01/20/18 05:43 05:43 WBC 5.3 RBC 3.09 L Hgb 8.4 L Hct 25.5 L MCV 82.5 MCH 27.2 MCHC 33.0 RDW 18.7 H Plt Count 247 MPV 6.9 L Neut % (Auto) 57.1 Lymph % (Auto) 23.1 [place] % (Auto) 13.1 H Eos % (Auto) 5.8 H Baso % (Auto) 0.9 Neut # (Auto) 3.0 Lymph # (Auto) 1.2 [place] # (Auto) 0.7 Eos # (Auto) 0.3 Baso # (Auto) 0.0 WBC Differential . Differential Comment Auto diff final Sodium 142 Potassium 4.1 D Chloride 102 Carbon Dioxide 31.7 Anion Gap 8 BUN 42 H Creatinine 2.13 H Estimated GFR 31 L Random Glucose 84 Calcium 8.3 L Total Bilirubin 0.6 AST 13 L ALT 13 Alkaline Phosphatase 37 L Total Protein 5.7 L D Albumin 2.9 L Microbiology 01/17/18 20:50 Catheterized Urine Urine Culture - Final No growth in 48 hours - Imaging Impressions Upper GI and Small Bowel X-Ray 01/19/18 12:00 CONCLUSION: Normal small bowel follow-through examination. There is no abnormality to explain the GI bleed. On an outpatient elective basis, one could consider CT enterography for more detailed evaluation of the small bowel. <Micki Lopez - Last Filed: 01/20/18 14:49> - Labs CBC & Chem 7: 01/20/18 05:43 01/20/18 05:43 Laboratory Results - last 24 hr 01/20/18 01/20/18 05:43 05:43 WBC 5.3 RBC 3.09 L Hgb 8.4 L Hct 25.5 L MCV 82.5 MCH 27.2 MCHC 33.0 RDW 18.7 H Plt Count 247 MPV 6.9 L Neut % (Auto) 57.1 Lymph % (Auto) 23.1 [place] % (Auto) 13.1 H Eos % (Auto) 5.8 H Baso % (Auto) 0.9 Neut # (Auto) 3.0 Lymph # (Auto) 1.2 [place] # (Auto) 0.7 Eos # (Auto) 0.3 Baso # (Auto) 0.0 WBC Differential . Differential Comment Auto diff final Sodium 142 Potassium 4.1 D Chloride 102 Carbon Dioxide 31.7 Anion Gap 8 BUN 42 H Creatinine 2.13 H Estimated GFR 31 L Random Glucose 84 Calcium 8.3 L Total Bilirubin 0.6 AST 13 L ALT 13 Alkaline Phosphatase 37 L Total Protein 5.7 L D Albumin 2.9 L Microbiology 01/17/18 20:50 Catheterized Urine Urine Culture - Final No growth in 48 hours - Imaging Impressions Upper GI and Small Bowel X-Ray 01/19/18 12:00 CONCLUSION: Normal small bowel follow-through examination. There is no abnormality to explain the GI bleed. On an outpatient elective basis, one could consider CT enterography for more detailed evaluation of the small bowel. <Catalina Linda - Last Filed: 01/20/18 15:43> Assessment and Plan (1) Acute GI bleeding Status: Acute Code(s): K92.2 - Gastrointestinal hemorrhage, unspecified - Plan This patient is a 72-year-old male who has a history of congestive heart failure , AICD placement, cardiomyopathy, atrial fibrillation on Xarelto, COPD, hypertension and chronic kidney disease. Patient presented to the emergency room at [facility] with a complaint of bloody stool and generalized weakness and fatigue. Patient stated dark stools onset 3 weeks. Of note, patient is on Xarelto for chronic atrial fibrillation. Patient states last dose was Monday p.m. prior to admission. Patient also reports hematocrit was 2 episodes after that over the last 2-3 days. Upon admission BUN and creatinine noted to be elevated. Patient also had noted hyperkalemia with a potassium of 7.9. On consultation patient reports last dose of Xarelto taken 2 days ago Monday evening. Patient endorses generalized fatigue and weakness with blood noted in his stool for 3 weeks. He reports hematemesis for the last 2-3 days and states "look like coffee". Stools have been dark with bright red blood noted in toilet water. Patient denies severe abdominal pain but does report generalized abdominal cramping and rates same at 2 out of 10. Patient denies any history of ever having had an EGD or colonoscopy in the past and denies any abdominal surgeries. Denies tobacco use and states he is a social drinker. Of note patient states that he had been taking Aleve 1 tablet daily for back pain for "weeks". Our service has been consulted to evaluate patient's GI bleed. GI bleed No more bleeding hgb stable EGD on 01/18/18 Esophagus: Normal Stomach normal, Duodenum normal Colonoscopy 01/19/18 Colon polyps, Diverticulosis, Internal and external hemorrhoids Plan -Advance diet -CE as an OP -Ok to [place] home from GI standpoint -Continue PPI - F/u with GI upon discharge This patient has been seen by myself and Dr. Linda and this note is written on her behalf <Micki Lopez - Last Filed: 01/20/18 14:49> (1) Acute GI bleeding Status: Acute Code(s): K92.2 - Gastrointestinal hemorrhage, unspecified - Attending Attestation agree with above if dc fu gi <Catalina Linda - Last Filed: 01/20/18 15:43>
--- NOTE | 2018-01-20 15:41 | P.DS ---
Date of admission: 01/17/18 19:54 Primary care physician: Nessa Hickman MD Brief History from admission: 72-year-old male with a history of CHF, AICD placement, cardiomyopathy ejection fraction 25%, atrial fibrillation on xarelto, COPD, HTN, chronic kidney disease , presented to the ED for evaluation of bloody stool and fatigue. Intermittent lower GI bleed for the last 3 week. He is on Xarelto for chronic A. fib. He also complained of hematemesis last 3 days, 2 episodes. His hemoglobin came back at his baseline which is about 10. However his BUN was elevated at 89 creatinine was 3.4, baseline creatinine is 1.3-1.7. He also had severe hyperkalemia potassium was 7.9. EKG showed paced rhythm, underlying A. fib. Patient received IV calcium chloride, IV insulin followed by D50, breathing treatments with albuterol, and critical care medicine was requested to admit the patient. Nephrology Dr. Dobbins also was consulted. Patient also received IV Lasix 40 mg. Apparently he takes Bumex which was recently discontinued but he was still taking the potassium at home. In addition today above treatment I have instructed ED to administer 2 amps of bicarb, Kayexalate 30 g p.o. x1. IV fluid 500 mL bolus, followed by normal saline maintenance at 75 ml per hour. And place a Scott catheter. Will repeat CMP at 2300 and if potassium is not adequately corrected will need hemodialysis DS: Medications - Discharge Medications Prescriptions: sennosides-docusate sodium [Senna Plus] 1 tab PO BID 30 Days #60 tab DS: Summary Hospital Course: 72-year-old male with history of CHF, ejection fraction 25%, atrial fibrillation on Xarelto, COPD, CKD presented to the ER with bloody stools and fatigue. 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 but apparently overdosed and had intractable diarrhea which led to GI bleeding. He complained of hematemesis for 3 days, 2 episodes. Gastroenterology was consulted and he underwent a EGD and colonoscopy which revealed only 2 polyps in the colon, both were removed. He has not had any bleeding in the last 2 days and is eager to go home. Gastroenterology has cleared patient for discharge and offered a follow-up. He is otherwise instructed to follow-up with his primary care provider and to resume all home medications in the manner he was taking them prior to admission. - Time Spent with Patient Total time spent providing and/or coordinating discharge services: Less than 30 minutes - Quality: VTE Deep Vein Thrombosis/Pulmonary Embolism Present on Admission: No Exam Vital signs: Vital Signs 01/19/18 19:00 01/19/18 20:00 01/20/18 00:00 Temperature 98.1 F 97.3 F L Pulse Rate 92 H 79 98 H Respiratory Rate 18 18 Blood Pressure 132/67 102/76 Pulse Oximetry 97 97 96 01/20/18 04:00 01/20/18 06:25 01/20/18 08:00 Temperature 97.8 F 97.8 F Pulse Rate 84 71 84 Respiratory Rate 18 20 Blood Pressure 86/53 L 98/56 L 111/66 Pulse Oximetry 95 95 01/20/18 12:00 Temperature Pulse Rate 84 Respiratory Rate Blood Pressure Pulse Oximetry Intake & Output 01/19/18 01/20/18 01/20/18 18:59 06:59 18:59 Intake Total 900 / 900 1300 / 1300 Output Total 750 / 750 Balance 900 / 900 550 / 550 Weight 96.8 kg Intake: IV 700 / 700 1000 / 1000 Sodium Bicarbonate 8.4% Inj 100 700 / 700 MEQ In D5W Inj 900 ML @ 84 mls /hr IV.CONT .[id number] [facility] Rx#: [id number] Oral 300 / 300 Anesthesia Amount 200 / 200 Output: Urine 750 / 750 Other: # Voids 2 Date of Last Bowel Movement 01/19/18 01/19/18 Results Procedures completed during hospitalization: EGD and colonoscopy with polypectomy on 01/18/2018 Pending studies at discharge: Pending at discharge 01/19/18 12:26 Surgical [PTH] Routine Labs on day of discharge: Labs from last 24 hours 01/20/18 01/20/18 05:43 05:43 WBC 5.3 RBC 3.09 L Hgb 8.4 L Hct 25.5 L MCV 82.5 MCH 27.2 MCHC 33.0 RDW 18.7 H Plt Count 247 MPV 6.9 L Neut % (Auto) 57.1 Lymph % (Auto) 23.1 [place] % (Auto) 13.1 H Eos % (Auto) 5.8 H Baso % (Auto) 0.9 Neut # (Auto) 3.0 Lymph # (Auto) 1.2 [place] # (Auto) 0.7 Eos # (Auto) 0.3 Baso # (Auto) 0.0 WBC Differential . Differential Comment Auto diff final Sodium 142 Potassium 4.1 D Chloride 102 Carbon Dioxide 31.7 Anion Gap 8 BUN 42 H Creatinine 2.13 H Estimated GFR 31 L Random Glucose 84 Calcium 8.3 L Total Bilirubin 0.6 AST 13 L ALT 13 Alkaline Phosphatase 37 L Total Protein 5.7 L D Albumin 2.9 L - Impressions ITS Impressions Chest X-Ray 01/17/18 20:05 CONCLUSION: No acute cardiopulmonary disease. Abdomen/Bladder Ultrasound 01/18/18 11:46 CONCLUSION: 1. Increased echogenicity of the kidneys bilaterally without evidence of hydronephrosis. There is cortical thinning. Exam would suggest underlying medical renal disease. Upper GI and Small Bowel X-Ray 01/19/18 12:00 CONCLUSION: Normal small bowel follow-through examination. There is no abnormality to explain the GI bleed. On an outpatient elective basis, one could consider CT enterography for more detailed evaluation of the small bowel. Discharge Plan - Discharge Disposition Patient Disposition: Discharge Home - Discharge Condition Condition: Good - Discharge Order Discharge Orders: Discharge Order (Routine); Ordered 01/20/18 Ordered By: Josse Cooper - Physicians Team Primary Care Provider: Nessa Hickman Attending Provider: Josse Cooper Other Providers: Da Dobbins MD ; Hi Simpson MD ; Torito Ugarte ; Stef Locke MD
[2018-01-21] MEDS: Chlorhexidine Gluconate 2% 1 Pack (2 Cloths) TOPICAL SCH (07:27)
[2018-01-21 08:38] LABS: Baso # (Auto) 0.1 th/mm3 (0.0-0.2); Baso % (Auto) 1.3 % (0.0-2.0); Eos # (Auto) 0.4 th/mm3 (0.0-0.4); Eos % (Auto) 8.6 % (0.0-4.0); Hematocrit 25.5 % (39.0-51.0); Hemoglobin 8.4 gm/dL (13.0-17.0); Lymph # (Auto) 1.2 th/mm3 (1.0-4.8); Lymph % (Auto) 27.8 % (9.0-44.0); Mean Corpuscular HGB Conc 32.8 % (32.0-36.0); Mean Corpuscular Hemoglobin 27.1 pg (27.0-34.0); Mean Corpuscular Volume 82.6 fL (80.0-100.0); Mean Platelet Volume 6.9 fL (7.0-11.0); Mono # (Auto) 0.6 th/mm3 (0.0-0.9); Mono % (Auto) 13.9 % (0.0-8.0); Neut # (Auto) 2.1 th/mm3 (1.8-7.7); Neut % (Auto) 48.4 % (16.0-70.0); Platelet Count 265 th/mm3 (150-450); Red Blood Count 3.08 mil/mm3 (4.50-5.90); Red Cell Distribution Width 18.7 % (11.6-17.2); White Blood Count 4.3 th/mm3 (4.0-11.0)
[2018-01-21] MEDS: Pantoprazole Inj 40 MG Vial IV.PUSH SCH (08:44)
[2018-01-21] MEDS: Senna/Docusate Sodium 8.6/50 MG Tablet PO SCH (08:44)
== END 2018-01-21 11:30 | disposition home or self-care (01) ==
LOC: NEPC 15:10 → NEDA 19:54 → HIMC 01-18 00:50 → N04 01-19 22:45
PROVIDERS: ADMIT Family Medicine; ATTEND Family Medicine
PROC: PANENDO (2018-01-18 11:41)
PROC: COLONOS (2018-01-19 10:55)